=== PATIENT | female | born 1935 | race Caucasian/White ===

== ENCOUNTER → 2016-07-27 | Outpatient (CLI) | payer MEDICARE, OTHER ==
[~2016-07-27] MED LIST: ACET-785 PO; ASPI-611 PO; BUME1TAB16 PO; BUTA1CAP5 PO; COLC0.6T44 PO; CYAN10009 PO; CYCL5TAB PO; DICY10CA13 PO; DILT120C47 PO; FESO8TAB PO; FOLI1TAB15 PO; LOSA50TA52 PO; MAGN400T26 PO; METH2.5T6 PO; PANT40TA27 PO; POLY119P3 PO; PRED-219 PO; SERT100T12 PO; SIME180C40 PO; TRAM50TA4 PO; TRAZ-173 PO; VERA180C2 PO; VITA1CAP52 PO; WARF2.5T48 PO; WARF3TAB6 PO; ZOLE5INF7 IV
== END ==
LOC: NWCC 13:27
PROVIDERS: ATTEND Surgery
DX: I87.2 Venous insufficiency (chronic) (peripheral) (principal); L97.822 Non-pressure chronic ulcer of other part of left lower leg with fat layer exposed; R60.0 Localized edema
CPT/HCPCS: 29581; G0463

== ENCOUNTER → 2016-08-03 | Outpatient (CLI) | payer MEDICARE, OTHER ==
[~2016-08-03] MED LIST changes: +CALMOSEPTINE OINTMENT 3.5 G PACKET TOP ONE
== END ==
LOC: NWCC 13:34
PROVIDERS: ATTEND Surgery
DX: L97.822 Non-pressure chronic ulcer of other part of left lower leg with fat layer exposed (principal); R60.0 Localized edema; I87.2 Venous insufficiency (chronic) (peripheral)
CPT/HCPCS: 29581; A6209; A9270; G0463

== ENCOUNTER → 2016-08-09 | Outpatient (CLI) | payer MEDICARE, OTHER ==
[~2016-08-09] MED LIST changes: -CALMOSEPTINE OINTMENT 3.5 G PACKET TOP ONE; +SALINE FLUSH 10ml SYRINGE IVF ONE
== END ==
LOC: NWCC 10:59
PROVIDERS: ATTEND Surgery
DX: I87.2 Venous insufficiency (chronic) (peripheral) (principal); L97.822 Non-pressure chronic ulcer of other part of left lower leg with fat layer exposed; R60.0 Localized edema
CPT/HCPCS: 15271; 29581; A6207; Q4101

== ENCOUNTER → 2016-08-17 | Outpatient (CLI) | payer MEDICARE, OTHER ==
[~2016-08-17] MED LIST changes: -SALINE FLUSH 10ml SYRINGE IVF ONE
== END ==
LOC: NWCC 10:12
PROVIDERS: ATTEND Surgery
DX: L97.222 Non-pressure chronic ulcer of left calf with fat layer exposed (principal); I87.2 Venous insufficiency (chronic) (peripheral); R60.0 Localized edema
CPT/HCPCS: 29581; G0463

== ENCOUNTER → 2016-08-23 | Outpatient (CLI) | payer MEDICARE, OTHER | LOC: NWCC 09:01 | PROVIDERS: ATTEND Surgery | DX: I87.2 Venous insufficiency (chronic) (peripheral) (principal); L97.822 Non-pressure chronic ulcer of other part of left lower leg with fat layer exposed; R60.0 Localized edema | CPT/HCPCS: 29581; A6209; G0463 ==

== ENCOUNTER → 2016-08-24 | Outpatient (CLI) | payer MEDICARE, OTHER ==
[~2016-08-24] MED LIST changes: +ACET-2890 PO; +CALC-823 PO; +DILT240C96 PO; +METR45CR TOP; +MULT-933 PO
== END ==
LOC: NWCC 13:55
PROVIDERS: ATTEND Surgery
DX: I87.2 Venous insufficiency (chronic) (peripheral) (principal); L97.822 Non-pressure chronic ulcer of other part of left lower leg with fat layer exposed; R60.0 Localized edema
CPT/HCPCS: 29581; G0463

== ENCOUNTER → 2016-08-31 | Outpatient (CLI) | payer MEDICARE, OTHER ==
[~2016-08-31] MED LIST changes: +CALC-724 PO; +CEPH500C2 PO; +DIGO125T88 PO; +DILT180C3 PO; +WARF2TAB58 PO
== END ==
LOC: NWCC 10:28
PROVIDERS: ATTEND Surgery
DX: I87.2 Venous insufficiency (chronic) (peripheral) (principal); L97.822 Non-pressure chronic ulcer of other part of left lower leg with fat layer exposed; R60.0 Localized edema
CPT/HCPCS: 29581; G0463

== ENCOUNTER → 2016-09-06 | Outpatient (CLI) | payer MEDICARE, OTHER | LOC: NWCC 13:57 | PROVIDERS: ATTEND Surgery | DX: I87.2 Venous insufficiency (chronic) (peripheral) (principal); R60.0 Localized edema ==

== ENCOUNTER 2016-09-08 17:06 | Observation (INO) | payer MEDICARE, OTHER ==
[~2016-09-08] VITALS: Ht 152.4 cm; Wt 43.7 kg
[~2016-09-08 17:06] MED LIST changes: -ACET-2890 PO; -CALC-724 PO; -CALC-823 PO; -CEPH500C2 PO; -DIGO125T88 PO; -DILT180C3 PO; -DILT240C96 PO; -METR45CR TOP; -MULT-933 PO; -WARF2TAB58 PO
--- OUTSIDE RECORDS SUMMARY | 2016-09-08 17:10 | XMS REPORT | Referral Summary ---
Author Author [facility], Family Medicine Organization [facility] Address Unknown Phone Unavailable Care Team Providers Care Government Affairs Specialist Name Role Phone Bryce Kearns Primary Care Physician [phone] Encounter VC Date(s): 04/04/16 - 04/04/16 [facility], [address] [place] [id number] Discharge Disposition: 01-Home or Self Care Attending Physician: Juan Vazquez APRN Admitting Physician: Juan Vazquez APRN Vital Signs Most recent to 1 oldest [Reference Range]: Temperature Tympanic 36.6 degC [36.6-38.1 degC] (04/04/16 2:27 PM) Peripheral Pulse 101 bpm Rate [60-100 bpm] *HI* (04/04/16 2:27 PM) Respiratory Rate 18 br/min [14-20 br/min] (04/04/16 2:27 PM) Blood Pressure 130/64 mmHg [90-140/60-90 mmHg] (04/04/16 2:27 PM) SpO2 99 % (04/04/16 2:27 PM) Problem List Condition Effective Dates Status Health Status Informant Abdominal < 04/04/14 Resolved pain(Confirmed) Anemia(Confirmed) Active Warfarin Active anticoagulation(Conf irmed) Breast cancer 2002 Resolved Lt(Confirmed) Breast cancer 2012 Resolved Rt(Confirmed) Viral Active cardiomyopathy(Confi rmed) Carpal tunnel 1993 Resolved syndrome(Confirmed) Cervical spondylosis Active without myelopathy (disorder)(Confirmed ) Atrial Active fibrillation(Confirm ed) Peptic ulcer Active disease(Confirmed) Compression fracture Active of L1 lumbar vertebra(Confirmed) CAD (coronary artery Active disease)(Confirmed) Cystocele-recurrent( Resolved Confirmed) Gastritis(Confirmed) Active Chronic < 03/05/15 Resolved anticoagulation(Conf irmed) Hypertension(Confirm Active ed) Insomnia(Confirmed) Active Malignant neoplasm Active of female breast (disorder)(Confirmed ) Overactive Active bladder(Confirmed) Paroxysmal Active supraventricular tachycardia (disorder)(Confirmed ) Encounter for Active chronic pain management(Confirmed ) Renal Active insufficiency(Confir med) Single major Active depressive episode (disorder)(Confirmed ) Trauma Lt ring 1979 Resolved finger(Confirmed) Varicose veins Lt 2011 Resolved leg(Confirmed) Venous insufficiency 2011 Resolved Lt leg(Confirmed) 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 (disorder)(Confirmed ) Allergies, Adverse Reactions, Alerts Substance Reaction Severity Status codeine NAUSEA/CONSTIPATION Active HYDROcodone confusion Active hydroxychloroquine rash Medium Active RASH/ITCHING morphine MENTAL CHANGES--CONFUSION Active Unknown terbinafine hives Severe Active Eczema (rash) zolpidem confusion Medium Active Adverse Reaction Medications acetaminophen 1,300 mg, Oral, TID, 0 Refill(s) Start Date: 11/25/13 Status: Ordered amoxicillin 500 mg oral capsule See Instructions, Take 4 capsules 1 hour before dental appointment, 0 Refill(s) Start Date: 03/03/16 Status: Ordered aspirin 81 mg oral tablet tabs, Oral, Daily, 0 Refill(s) Start Date: 11/25/13 Status: Ordered bumetanide 1 mg oral tablet See Instructions, TAKE ONE AND ONE-HALF TABLET BY MOUTH EVERY DAY, # 45 tabs, 4 Refill(s), eRx: [facility] #[id number], TAKE ONE AND ONE-HALF TABLET BY MOUTH EVERY DAY Start Date: 03/14/16 Status: Ordered butalbital/aspirin/caffeine 50 mg-325 mg-40 mg oral tablet 2 tabs, Oral, q6hr, as needed for pain, S RICHARD, # 120 tabs, 0 Refill(s) Start Date: 04/27/15 Status: Ordered calcium carbonate 500 mg (200 mg elemental calcium) oral tablet, chewable tabs, Chewed, TID, 0 Refill(s) Start Date: 11/25/13 Status: Ordered Cartia XT 120 mg/24 hours oral capsule, extended release 120 mg 1 caps, Oral, Daily, # 30 caps, 0 Refill(s), other reason (Rx) Start Date: 02/29/16 Status: Ordered colchicine 0.6 mg oral tablet 1 tabs, Oral, BID, # 30 tabs, 0 Refill(s) Start Date: 11/25/13 Status: Ordered Coumadin 2.5 mg oral tablet See Instructions, TAKE ONE TABLET BY MOUTH 5 DAYS A WEEK, # 30 tabs, 5 Refill(s ), Pharmacy: [facility] #[id number], TAKE ONE TABLET BY MOUTH 5 DAYS A WEEK Start Date: 03/31/16 Status: Ordered cyclobenzaprine 5 mg oral tablet See Instructions, TAKE ONE TABLET BY MOUTH THREE TIMES A DAY FOR 7 DAYS NEEDED FOR MUSCLE SPASM, # 15 tabs, eRx: [facility] #[id number], TAKE ONE TABLET BY MOUTH THREE TIMES A DAY FOR 7 DAYS NEEDED FOR MUSCLE SPASM Start Date: 03/14/16 Status: Ordered dicyclomine 10 mg oral capsule See Instructions, TAKE 1-2 CAPSULES BY MOUTH EVERY 6 HOURS NEEDED FOR IRRITABLE BOWEL, # 100 caps, 4 Refill(s), Pharmacy: [facility] #[id number], TAKE 1-2 CAPSULES BY MOUTH EVERY 6 HOURS NEEDED FOR IRRITABLE BOWEL Start Date: 04/27/15 Status: Ordered folic acid 1 mg oral tablet See Instructions, TAKE ONE TABLET BY MOUTH DAILY, # 30 tabs, 2 Refill(s), eRx: [facility] #[id number], TAKE ONE TABLET BY MOUTH DAILY Start Date: 04/04/16 Status: Ordered losartan 50 mg, Oral, BID, 0 Refill(s) Start Date: 02/29/16 Status: Ordered Mag-Ox 400 0 Refill(s) Start Date: 11/25/13 Status: Ordered methotrexate 2.5 mg oral tablet See Instructions, TAKE 7 TABLETS BY MOUTH ONCE WEEKLY, # 35 tabs, 5 Refill(s), eRx: [facility] #[id number], TAKE 7 TABLETS BY MOUTH ONCE WEEKLY Start Date: 09/21/15 Status: Ordered MetroCream 0.75% topical cream 1 miguel a, Topical, BID, # 45 g, 0 Refill(s), Pharmacy: [facility] #[id number] Start Date: 10/23/15 Status: Ordered MiraLax oral powder for reconstitution 17 g, Oral, Daily, dissolve in water before taking, # 527 g, 0 Refill(s) Start Date: 11/25/13 Status: Ordered pantoprazole 40 mg oral delayed release tablet See Instructions, TAKE ONE TABLET BY MOUTH DAILY, # 30 tabs, 4 Refill(s), eRx: [facility] #[id number], TAKE ONE TABLET BY MOUTH DAILY Start Date: 03/14/16 Status: Ordered predniSONE 5 mg oral tablet See Instructions, TAKE ONE TABLET BY MOUTH DAILY, # 90 tabs, 2 Refill(s), eRx: [facility] #[id number], TAKE ONE TABLET BY MOUTH DAILY Start Date: 12/14/15 Status: Ordered Reclast mg, IV, Once, 0 Refill(s) Start Date: 04/04/14 Status: Ordered sertraline 100 mg oral tablet See Instructions, TAKE ONE TABLET BY MOUTH ONCE A DAY, # 90 tabs, 1 Refill(s), eRx: [facility] #[id number], TAKE ONE TABLET BY MOUTH ONCE A DAY Start Date: 12/01/15 Status: Ordered simethicone 180 mg oral capsule 180 mg 1 caps, Oral, Daily, gas Start Date: 03/03/16 Status: Ordered Toviaz 8 mg oral tablet, extended release See Instructions, TAKE ONE TABLET BY MOUTH DAILY, # 30 tabs, 5 Refill(s), Pharmacy: [facility] #[id number], TAKE ONE TABLET BY MOUTH DAILY Start Date: 03/10/16 Status: Ordered traMADol 50 mg oral tablet See Instructions, 1 tabs Q 6 hours up to 4 times per day. Maximum of 4 tablets= 200 mg/day, # 120 tabs, 0 Refill(s), Must last at least 30 days.(thru 08/28) Start Date: 03/21/16 Status: Ordered traZODone 100 mg oral tablet See Instructions, TAKE 1 1/2 TABLETS BY MOUTH EVERY NIGHT AT BEDTIME, # 270 tabs , 1 Refill(s), Pharmacy: [facility] #[id number], TAKE 1 1/2 TABLETS BY MOUTH EVERY NIGHT AT BEDTIME Start Date: 06/24/15 Status: Ordered verapamil 180 mg/24 hours oral capsule, extended release See Instructions, TAKE ONE CAPSULE BY MOUTH TWICE A DAY, # 60 caps, 1 Refill(s) , eRx: [facility] #[id number], TAKE ONE CAPSULE BY MOUTH TWICE A DAY Start Date: 02/02/16 Status: Ordered Vitamin B Complex oral tablet tabs, Oral, Daily, 0 Refill(s) Start Date: 11/25/13 Status: Ordered Vitamin B-12 1000 mcg oral tablet 1 tabs, Oral, Daily, # 90 tabs, 0 Refill(s) Start Date: 11/25/13 Status: Ordered Results No data available for this section Immunizations Vaccine Date Refusal Reason influenza virus vaccine, inactivated 02/29/16 influenza virus vaccine, inactivated 02/25/14 influenza virus vaccine, live 03/04/13 influenza virus vaccine, live 01/27/12 influenza virus vaccine, live 02/04/11 influenza virus vaccine, live 02/16/09 influenza virus vaccine, live 03/21/08 influenza virus vaccine, live 04/07/06 pneumococcal 13-valent conjugate vaccine 04/04/14 pneumococcal 23-polyvalent vaccine 01/27/12 tetanus-diphth toxoids (Td) adult/adol1 03/17/16 tetanus-diphth toxoids (Td) adult/adol 09/24/11 tetanus-diphth toxoids (Td) adult/adol 06/09/99 zoster vaccine live 04/13/11 1Location History: given at [facility] Procedures Procedure Date Related Diagnosis Body Site Arthrocentesis-aspiration of major joint 05/15/13 Sclerotherapy of vein 2012 Intraoperative lymphatic mapping, [place] 05/24/12 lymphadenectomy, Rt simple mastectomy Laser ablation of long saphenous vein Lt 11/17/11 great Prolift mesh & cystocele repair; cystoscopy 09/29/09 Hx of shoulder surgery Lt 2006 Hx of mastectomy Lt simple 2002 Colonoscopy 05/29/00 Revoved Rods 1994 Decomp. Laminectomy Disectomy CD Rods, Bones 1991 Tubal ligation 1975 Lumbar spinal fusion 1975 Dilation and curettage 1960 Appendectomy 195 - Spontaneous vaginal delivery x5 Tonsillectomy and adenoidectomy Social History Social History Type Response Smoking Status Never smoker Assessment and Plan No data available for this section
--- OUTSIDE RECORDS SUMMARY | 2016-09-08 17:12 | XMS REPORT | Continuity of Care Document ---
Author Author [facility] Organization [facility] Address Unknown Phone Unavailable Support Name Relationship Address Phone LATASHA ANTUNEZ Next Of Kin [phone] [address] Unavailable Insurance Providers Payer Name Policy Number Subscriber Name Relationship Medicare [id number] Callie Antunez 16 Self [place] [id number] Callie Antunez 16 Self Problems No Known Problems or Medical conditions. Family History History Response Recorded Date/Time HX of Orthopedic Surgeries Y neck and back 12/10/12 4:30pm Hx Abdominal Surgery Y appy 12/10/12 4:30pm HX Cerebrovascular Accident N 12/10/12 4:30pm Hx Seizures N 12/10/12 4:30pm Hx Angina N 12/10/12 4:30pm Hx Congestive Heart Failure N 12/10/12 4:30pm Hx Heart Attack N 12/10/12 4:30pm Hx Hypertension Y 12/10/12 4:30pm Hx Rheumatic Fever N 12/10/12 4:30pm Hx Cancer Y breast 12/10/12 4:30pm Hx MRSA N 12/10/12 4:30pm HX of Cardiac Surgeries Y cardiac ablasion 12/10/12 4:30pm HX of Endocrine Surgeries N 12/10/12 4:30pm HX of Throat Surgery Y T&A 12/10/12 4:30pm Cardiac A-fib 12/10/12 5:15pm Respiratory COPD 12/10/12 5:12pm Social History History Response Recorded Date/Time Smoking Status Never smoker 12/10/12 4:30pm Hx Alcohol Use N 12/10/12 4:30pm Allergies, Adverse Reactions, Alerts Allergen Type Severity Reaction Last Updated terbinafine HCl Allergy Intermediate RASH 12/10/12 morphine Allergy Intermediate BEHAVIOR DISTURBANCE 12/10/12 Medications Medication Dose Units Route Sig Qty Days Tramadol Hcl 50 Mg PO PRN Colchicine 0.6 Mg PO BID Acetaminophen (Tylenol) 650 Mg PO PRN Trazodone Hcl 300 Mg PO HS Ranitidine Hcl (Zantac) 150 Mg PO DAILY Vitamin B Complex (B Complex) 1 Cap PO DAILY Medroxyprogesterone Acet (Provera) 2.5 Mg PO DAILY Propranolol Hcl 10 Mg PO HS Estrogens,Conjugated (Premarin) 0.3 Mg PO HS Prednisone 5 Mg PO DAILY Calcium Carbonate/Vitamin D3 (Calcium 250+D Tablet) 1 Tab PO TID Omeprazole 40 Mg PO DAILY Multivitamins (Multivitamin) 1 Tab PO DAILY Polyethylene Glycol 3350 (Miralax) 17 Gm PO DAILY Magnesium Oxide 400 Mg PO DAILY Lisinopril 5 Mg PO BID Ferrous Sulfate 325 ( PO DAILY Butalbital/Aspirin/Caffeine (Fiorinal) 2 Cap PO PRN Darifenacin Hydrobromide (Enablex) 15 Mg PO DAILY Cyclobenzaprine Hcl 5 Mg PO Q8H Warfarin Sodium (Coumadin) 3 Mg PO DAILY Bumetanide 1.5 Mg PO DAILY Aspirin 81 Mg PO DAILY Immunizations Name Given Type Hx Influenza Vaccination N H Hx Pneumococcal Vaccination N H Response Recorded Date/Time Status not known Unknown Results Test Date Result Interp. Ref. Range Alanine Aminotransferase (ALT/SGPT) March 03, 2011 1:45pm 20 U/L N 9-52 Albumin March 03, 2011 1:45pm 3.6 G/DL N 3.5-5.0 Albumin/Globulin Ratio March 03, 2011 1:45pm 1.4 RATIO N 1.1-2.2 Alkaline Phosphatase March 03, 2011 1:45pm 86 U/L N 38-126 Anion Gap January 23, 2012 9:00am 8 MEQ/L N 5-15 Aspartate Amino Transf (AST/SGOT) March 03, 2011 1:45pm 34 U/L N 14-36 BUN/Creatinine Ratio January 23, 2012 9:00am 38 RATIO H 6-26 Band Neutrophils # January 23, 2012 9:03am 0.4 T/MM3 - Band Neutrophils % January 23, 2012 9:03am 5.0 % N 0-6 Basophils # (Auto) January 09, 2012 9:40am 0.1 T/MM3 N 0-0.2 Basophils # (Manual) January 16, 2012 8:59am 0.1 T/MM3 N 0-0.2 Basophils % (Manual) January 16, 2012 8:59am 1.0 % N 0-2 Basophils (%) (Auto) January 09, 2012 9:40am 0.8 % N 0-2 Blood Urea Nitrogen January 23, 2012 9:00am 38.0 MG/DL H 7-17 C-Reactive Protein January 09, 2012 9:40am 46.4 MG/L H 0-9 Calcium Level January 23, 2012 9:00am 9.0 MG/DL N 8.4-10.2 Calculated Osmolality January 23, 2012 9:00am 274 MOSM/KG N 261-280 Carbon Dioxide Level January 23, 2012 9:00am 27 MEQ/L N 22-30 Chloride Level January 23, 2012 9:00am 103 MEQ/L N 98-107 Cholesterol Level March 03, 2011 1:45pm 201 MG/DL H 132-199 Cholesterol/HDL Ratio March 03, 2011 1:45pm 3.0 RATIO N 0-4.0 Creatinine January 23, 2012 9:00am 1.0 MG/DL N 0.7-1.2 Eosinophils # (Auto) January 09, 2012 9:40am 0.5 T/MM3 N 0-0.5 Eosinophils # (Manual) December 15, 2008 7:10am 0.6 T/MM3 H 0-0.5 Eosinophils % (Manual) December 15, 2008 7:10am 6.0 % H 0-4 Eosinophils (%) (Auto) January 09, 2012 9:40am 6.2 % H 0-4 Erythrocyte Sedimentation Rate January 09, 2012 9:40am 72 MM/HR H 0-20 Globulin March 03, 2011 1:45pm 2.5 G/DL N 2.4-3.6 Glucose Level January 23, 2012 9:00am 85 MG/DL N 65-110 Hematocrit January 23, 2012 9:03am 30.1 % L 36-46 Hemoglobin January 23, 2012 9:03am 9.2 GM/DL L 12-16 LDL Cholesterol, Calculated March 03, 2011 1:45pm 96.8 N 66-159 Lymphocytes # (Auto) January 09, 2012 9:40am 1.3 T/MM3 N 1-4.8 Lymphocytes # (Manual) January 23, 2012 9:03am 1.7 T/MM3 N 1-4.8 Lymphocytes % (Manual) January 23, 2012 9:03am 21.0 % L 23-45 Lymphocytes (%) (Auto) January 09, 2012 9:40am 18.0 % L 23-45 Mean Corpuscular Hemoglobin January 23, 2012 9:03am 28.9 UUG N 26-34 Mean Corpuscular Hemoglobin Concent January 23, 2012 9:03am 30.6 GM/DL L 31 -37 Mean Corpuscular Volume January 23, 2012 9:03am 94.7 UM3 N 80-100 Mean Platelet Volume January 23, 2012 9:03am 10.2 UM3 N 9.4-12.4 Monocytes # (Auto) January 09, 2012 9:40am 0.7 T/MM3 N 0-0.8 Monocytes # (Manual) January 23, 2012 9:03am 0.5 T/MM3 N 0-0.8 Monocytes % (Manual) January 23, 2012 9:03am 6.0 % N 0-9.0 Monocytes (%) (Auto) January 09, 2012 9:40am 9.3 % H 0-9.0 Neutrophils # (Auto) January 09, 2012 9:40am 4.7 T/MM3 N 1.8-7.7 Neutrophils # (Manual) January 23, 2012 9:03am 5.4 T/MM3 N 1.8-7.7 Neutrophils % (Manual) January 23, 2012 9:03am 68.0 % H 33-66 Neutrophils (%) (Auto) January 09, 2012 9:40am 65.6 % N 33-66 Ova and Parasites (LAB) April 05, 2008 6:45am Sent out - Platelet Count January 23, 2012 9:03am 473 T/MM3 H 130-400 Potassium Level January 23, 2012 9:00am 4.7 MEQ/L N 3.6-5 Prothromb Time International Ratio December 15, 2008 7:10am 4.99 PH 0.79-1.23 RDW Standard Deviation January 23, 2012 9:03am 46.0 FL N 36.9-50.2 Red Blood Count January 23, 2012 9:03am 3.18 M/MM3 L 4.00-5.20 Sodium Level January 23, 2012 9:00am 138 MEQ/L N 134-144 Total Bilirubin March 03, 2011 1:45pm 0.40 MG/DL N 0.20-1.30 Total Protein March 03, 2011 1:45pm 6.1 G/DL L 6.3-8.2 Triglycerides Level March 03, 2011 1:45pm 191 MG/DL H 35-135 Urine Bacteria December 13, 2008 4:00pm 1+ - Urine Bilirubin December 13, 2008 4:00pm Negative - Urine Blood December 13, 2008 4:00pm 3+ H - Urine Collection Type December 13, 2008 4:00pm Voided - Urine Color December 13, 2008 4:00pm Yellow - Urine Culture Indicated December 13, 2008 4:00pm Cult set up - Urine Glucose (UA) December 13, 2008 4:00pm Negative - Urine Ketones December 13, 2008 4:00pm Negative - Urine Leukocyte Esterase December 13, 2008 4:00pm 2+ H - Urine Nitrite December 13, 2008 4:00pm Negative - Urine Protein December 13, 2008 4:00pm Trace H - Urine RBC December 13, 2008 4:00pm 1-3 /HPF - Urine Specific [place] December 13, 2008 4:00pm 1.005 L - Urine Squamous Epithelial Cells July 08, 2008 10:17am None seen - Urine Turbidity December 13, 2008 4:00pm Slightly cloudy - Urine Urobilinogen December 13, 2008 4:00pm Normal EU/DL - Urine WBC December 13, 2008 4:00pm Tntc /HPF - Urine pH December 13, 2008 4:00pm 6.5 - VLDL Cholesterol March 03, 2011 1:45pm 38.2 MG/DL H 0-28 White Blood Count January 23, 2012 9:03am 8.0 T/MM3 N 4.5-11.0 HDL Cholesterol Direct March 03, 2011 1:45pm 66 MG/DL H 40-60 Reactive Lymphocytes % January 16, 2012 8:59am 1.0 % H 0-0 Glomerular Filtration Rate Calc January 23, 2012 9:00am 54 - Reactive Lymphocytes # January 16, 2012 8:59am 0.1 T/MM3 H 0-0 Immature Granulocyte # (Auto) January 09, 2012 9:40am 0.01 T/MM3 N 0.00- 0.03 Immature Granulocyte % (Auto) January 09, 2012 9:40am 0.1 % N 0.0-0.5 Procedures Procedure Code Date Stool Culture 04/05/08 Urine Culture 12/14/08 Encounters Encounter Location Date/Time Departed Emergency Room [facility] 12/10/12 4:24pm
--- OUTSIDE RECORDS SUMMARY | 2016-09-08 17:12 | XMS REPORT | Referral Summary ---
Author Author [facility] Organization [facility] Address Unknown Phone Unavailable Care Team Providers Care Coating Machine Helper Name Role Phone Bryce Kearns Primary Care Physician [phone] Encounter VC Date(s): 02/29/16 - 02/29/16 [facility] [address] [place] [id number] Discharge Diagnosis: Chronic atrial fibrillation Discharge Diagnosis: Warfarin anticoagulation Discharge Diagnosis: Hypertension Discharge Diagnosis: At high risk for falls Discharge Diagnosis: Polypharmacy Discharge Diagnosis: Overactive bladder Discharge Diagnosis: Depression Discharge Disposition: -Home or Self Care Attending Physician: Carmine Kearns MD Admitting Physician: Carmine Kearns MD Vital Signs Most recent to 1 oldest [Reference Range]: Temperature Tympanic 36.7 degC [36.6-38.1 degC] (02/29/16 1:17 PM) Peripheral Pulse 109 bpm Rate [60-100 bpm] *HI* (02/29/16 1:17 PM) Blood Pressure 148/60 mmHg [90-140/60-90 mmHg] *HI* (02/29/16 1:17 PM) Problem List Condition Effective Dates Status Health Status Informant Abdominal < 04/04/14 Resolved pain(Confirmed) Anemia(Confirmed) Active Warfarin Active anticoagulation(Conf irmed) Breast cancer 2002 Resolved Lt(Confirmed) Breast cancer 2011 Resolved Rt(Confirmed) Viral Active cardiomyopathy(Confi rmed) Carpal [...] confusion Medium Active Adverse Reaction Medications acetaminophen 0 Refill(s) Start Date: 11/25/13 Status: Ordered aspirin 81 mg oral tablet tabs, Oral, Daily, 0 Refill(s) Start Date: 11/25/13 Status: Ordered atenolol 25 mg oral tablet See Instructions, TAKE ONE TABLET BY MOUTH EVERY 12 HOURS, # 180 tabs, 1 Refill( s), eRx: [facility] #[id number], TAKE ONE TABLET BY MOUTH EVERY 12 HOURS Start Date: 11/09/15 Status: Ordered bumetanide 1 mg oral tablet See Instructions, TAKE ONE AND ONE-HALF TABLET BY MOUTH EVERY DAY, # 45 tabs, 6 Refill(s), Pharmacy: [facility] #[id number], TAKE ONE AND ONE-HALF TABLET BY MOUTH EVERY DAY Start Date: 11/14/14 Status: Ordered butalbital/aspirin/caffeine 50 mg-325 mg-40 mg [...] release 120 mg 1 caps, Oral, Daily, Actual dose uncertain!!!, # 30 caps, 0 Refill(s), other reason (Rx) Start Date: 02/29/16 Status: Ordered colchicine 0.6 mg oral tablet 1 tabs, Oral, BID, # 30 tabs, 0 Refill(s) Start Date: 11/25/13 Status: Ordered Coumadin 2.5 mg oral tablet See Instructions, TAKE ONE TABLET BY MOUTH ON MONDAY, MONDAY, AND MONDAY, # 30 tabs, eRx: [facility] #[id number], TAKE ONE TABLET BY MOUTH ON MONDAY, MONDAY, AND MONDAY Start Date: 02/08/16 Status: Ordered dicyclomine 10 mg oral capsule See Instructions, TAKE 1-2 CAPSULES BY MOUTH EVERY 6 HOURS NEEDED FOR IRRITABLE BOWEL, # 100 caps, 4 Refill(s), Pharmacy: [facility] #[id number], TAKE 1-2 CAPSULES BY MOUTH EVERY 6 HOURS NEEDED FOR IRRITABLE BOWEL Start Date: 04/27/15 Status: Ordered folic acid 1 mg oral tablet See Instructions, TAKE ONE TABLET BY MOUTH DAILY, # 30 tabs, 3 Refill(s), eRx: [facility] #[id number], TAKE ONE TABLET BY MOUTH DAILY Start Date: 12/28/15 Status: Ordered losartan Oral, Daily, 0 Refill(s) Start Date: 02/29/16 Status: Ordered Mag-Ox 400 0 Refill(s) Start Date: 11/25/13 Status: Ordered methotrexate 2.5 mg oral tablet See Instructions, TAKE 7 TABLETS BY MOUTH ONCE WEEKLY, # 35 tabs, 5 Refill(s), eRx: [facility] #[id number], TAKE 7 TABLETS BY MOUTH ONCE WEEKLY Start Date: 09/21/15 Status: Ordered MetroCream 0.75% topical cream 1 miguel a, Topical, BID, # 45 g, 0 Refill(s), Pharmacy: [facility] #[id number] Start Date: 10/23/15 Status: Ordered MiraLax oral powder for reconstitution 17 g, Oral, Daily, dissolve in water before taking, # 527 g, 0 Refill(s) Start Date: 11/25/13 Status: Ordered predniSONE 5 mg oral tablet See Instructions, TAKE ONE TABLET BY MOUTH DAILY, # 90 tabs, 2 Refill(s), eRx: [facility] #[id number], TAKE ONE TABLET BY MOUTH DAILY Start Date: 12/14/15 Status: Ordered Protonix 40 mg oral delayed release tablet See Instructions, TAKE ONE TABLET BY MOUTH DAILY, # 30 tabs, 5 Refill(s), eRx: [facility] #[id number], TAKE ONE TABLET BY MOUTH DAILY Start Date: 08/31/15 Status: Ordered Reclast mg, IV, Once, 0 Refill(s) Start Date: 04/04/14 Status: Ordered sertraline 100 mg oral tablet See Instructions, TAKE ONE TABLET BY MOUTH ONCE A DAY, # 90 tabs, 1 Refill(s), eRx: [facility] #[id number], TAKE ONE TABLET BY MOUTH ONCE A DAY Start Date: 12/01/15 Status: Ordered Toviaz 8 mg oral tablet, extended release See Instructions, TAKE ONE TABLET BY MOUTH DAILY, # 30 tabs, 5 Refill(s), eRx: [facility] #[id number], TAKE ONE TABLET BY MOUTH DAILY Start Date: 01/25/16 Status: Ordered traMADol 50 mg oral tablet See Instructions, 1 tabs Q 6 hours up to 4 times per day. Maximum of 4 tablets= 200 mg/day, # 120 tabs, 0 Refill(s), Must last at least 30 days.(thru 08/28) Start Date: 02/22/16 Status: Ordered traZODone 100 mg oral tablet See Instructions, TAKE 1 1/2 TABLETS BY MOUTH EVERY NIGHT AT BEDTIME, # 270 tabs , 1 Refill(s), Pharmacy: [facility] #[id number], TAKE 1 1/2 TABLETS BY MOUTH EVERY NIGHT AT BEDTIME Start Date: 06/24/15 Status: Ordered verapamil 180 mg/24 hours oral capsule, extended release See Instructions, TAKE ONE CAPSULE BY MOUTH TWICE A DAY, # 60 caps, 1 Refill(s) , eRx: [facility] #[id number], TAKE ONE CAPSULE BY MOUTH TWICE A [...] pneumococcal 23-polyvalent vaccine 01/27/12 tetanus-diphth toxoids (Td) adult/adol 09/24/11 tetanus-diphth toxoids (Td) adult/adol 06/09/99 zoster vaccine live 04/13/11 Procedures Procedure Date Related Diagnosis Body Site Arthrocentesis-aspiration of major joint 05/15/13 Sclerotherapy of vein 2012 Intraoperative lymphatic mapping, [place] 05/24/12 lymphadenectomy, Rt simple mastectomy Laser ablation of long saphenous vein Lt 11/17/11 great Prolift mesh & cystocele repair; cystoscopy 09/29/09 Hx of shoulder surgery Lt 2006 Hx of mastectomy Lt simple 2002 Colonoscopy 05/29/00 Revoved Rods 1994 Decomp. Laminectomy Disectomy CD Rods, Bones 1991 Tubal ligation 1975 Lumbar spinal fusion 1975 Dilation and curettage 1960 Appendectomy 1951 - Spontaneous vaginal delivery x5 Tonsillectomy and adenoidectomy Social History Social History Type Response Smoking Status Never smoker Assessment and Plan Extracted from: Title: 3 Month CDM Author: Carmine Kearns MD Date: 02/29/16 Impression and Plan Diagnosis Warfarin anticoagulation (TLO71-FR Z79.01, Discharge, Medical). Polypharmacy (BEO30-UW Z79.899, Discharge, Medical). Overactive bladder (APB35-YB N32.81, Discharge, Medical). Need for vaccination (PUL52-AF Z23, Working, Medical). Hypertension (PBK31-LF I10, Discharge, Medical). Depression (DCC91-XP F32.9, Discharge, Medical). Chronic atrial fibrillation (EWF13-VL I48.2, Discharge, Medical). At high risk for falls (QBG98-JE Z91.81, Discharge, Medical). Orders Orders (Selected) Outpatient Orders Completed influenza virus vaccine, inactivated: 0.5 mL, IntraMuscular, Once.
--- OUTSIDE RECORDS SUMMARY | 2016-09-08 17:13 | XMS REPORT | Referral Summary ---
Author Author [facility] Organization [facility] Address Unknown Phone Unavailable Care Team Providers Care Nutrition Tech Name Role Phone Bryce Kearns Primary Care Physician [phone] Encounter VC Date(s): 04/28/16 - 04/28/16 [facility] [address] [place] [address] Discharge Diagnosis: H/O cardiomyopathy Discharge Diagnosis: Encounter for medication monitoring Discharge Diagnosis: Fatigue Discharge Diagnosis: Visit for wound care Discharge Disposition: 01-Home or Self Care Attending Physician: Carmine Kearns MD Admitting Physician: Carmine Kearns MD Vital Signs Most recent to 1 oldest [Reference Range]: Temperature Tympanic 36.6 degC [36.6-38.1 degC] (04/28/16 1:08 PM) Peripheral Pulse 101 bpm Rate [60-100 bpm] *HI* (04/28/16 1:08 PM) Blood Pressure 141/67 mmHg [90-140/60-90 mmHg] *HI* (04/28/16 1:08 PM) Problem List Condition Effective Dates Status [...] TAKE ONE AND ONE-HALF TABLET BY MOUTH daily as needed based on fluid retention/weight gain., # 45 tabs, 4 Refill(s), eRx: [facility] # [id number], TAKE ONE AND ONE-HALF TABLET BY MOUTH [...] # 30 tabs, 5 Refill(s ), Pharmacy: [facility] #[id number], TAKE ONE TABLET BY MOUTH 5 DAYS A WEEK Start Date: 03/31/16 Status: Ordered cyclobenzaprine 5 mg oral tablet See Instructions, TAKE ONE TABLET BY MOUTH THREE TIMES A DAY FOR 7 DAYS NEEDED FOR MUSCLE SPASM, # 15 tabs, eRx: [facility] #[id number], TAKE ONE TABLET BY MOUTH THREE TIMES A DAY FOR 7 DAYS NEEDED FOR MUSCLE SPASM Start Date: 03/14/16 Status: Ordered dicyclomine 10 mg oral capsule See Instructions, TAKE 1-2 CAPSULES BY MOUTH EVERY 6 HOURS NEEDED FOR IRRITABLE BOWEL, # 100 caps, 4 Refill(s), Pharmacy: [facility] #[id number], TAKE 1-2 CAPSULES BY MOUTH EVERY 6 HOURS NEEDED FOR IRRITABLE BOWEL Start Date: 04/27/15 Status: Ordered folic acid 1 mg oral tablet See Instructions, TAKE ONE TABLET BY MOUTH DAILY, # 30 tabs, 2 Refill(s), eRx: [facility] #[id number], TAKE ONE TABLET BY MOUTH DAILY Start Date: 04/04/16 Status: Ordered losartan 50 mg, Oral, BID, 0 Refill(s) Start Date: 02/29/16 Status: Ordered Mag-Ox 400 0 Refill(s) Start Date: 11/25/13 Status: Ordered methotrexate 2.5 mg oral tablet See Instructions, TAKE 7 TABLETS BY MOUTH ONCE WEEKLY, # 35 tabs, 5 Refill(s), eRx: [facility] #[id number], TAKE 7 TABLETS BY MOUTH ONCE WEEKLY Start Date: 04/18/16 Status: Ordered MetroCream 0.75% topical cream 1 miguel a, Topical, BID, # 45 g, 0 Refill(s), Pharmacy: [facility] #[id number] Start Date: 10/23/15 Status: Ordered MiraLax oral powder for reconstitution 17 g, Oral, Daily, dissolve in water before taking, # 527 g, 0 Refill(s) Start Date: 11/25/13 Status: Ordered pantoprazole 40 mg oral delayed release tablet See Instructions, TAKE ONE TABLET BY MOUTH DAILY, # 30 tabs, 4 Refill(s), eRx: [facility] #[id number], TAKE ONE TABLET BY MOUTH DAILY Start Date: 03/14/16 Status: Ordered predniSONE 5 mg oral tablet See Instructions, TAKE ONE TABLET BY MOUTH DAILY, # 90 tabs, 2 Refill(s), eRx: [facility] #[id number], TAKE ONE TABLET BY MOUTH DAILY Start Date: 12/14/15 Status: Ordered Reclast mg, IV, Once, 0 Refill(s) Start Date: 04/04/14 Status: Ordered sertraline 100 mg oral tablet See Instructions, TAKE ONE TABLET BY MOUTH ONCE A DAY, # 90 tabs, 1 Refill(s), eRx: [facility] #[id number], TAKE ONE TABLET BY MOUTH ONCE A DAY Start Date: 12/01/15 Status: Ordered simethicone 180 mg oral capsule 180 mg 1 caps, Oral, Daily, gas Start Date: 03/03/16 Status: Ordered Toviaz 8 mg oral tablet, extended release See Instructions, TAKE ONE TABLET BY MOUTH DAILY, # 30 tabs, 5 Refill(s), Pharmacy: [facility] #[id number], TAKE ONE TABLET BY MOUTH DAILY Start Date: 03/10/16 Status: Ordered traMADol 50 mg oral tablet See Instructions, 1 tabs Q 6 hours up to 4 times per day. Maximum of 4 tablets= 200 mg/day, # 120 tabs, 0 Refill(s), Must last at least 30 days.(thru 08/28) Start Date: 04/25/16 Status: Ordered traZODone 100 mg oral tablet See Instructions, TAKE 1 1/2 TABLETS BY MOUTH EVERY NIGHT AT BEDTIME, # 270 tabs , 1 Refill(s), Pharmacy: [facility] #[id number], TAKE 1 1/2 TABLETS BY MOUTH EVERY NIGHT AT BEDTIME Start Date: 06/24/15 Status: Ordered verapamil 180 mg/24 hours oral capsule, extended release See Instructions, TAKE ONE CAPSULE BY MOUTH TWICE A DAY, # 60 caps, eRx: [facility] #[id number], TAKE ONE CAPSULE BY MOUTH TWICE A DAY Start Date: 04/11/16 Status: Ordered Vitamin B Complex oral tablet tabs, Oral, Daily, 0 Refill(s) Start Date: 11/25/13 Status: Ordered Vitamin B-12 1000 mcg oral tablet 1 tabs, Oral, Daily, # 90 tabs, 0 Refill(s) Start Date: 11/25/13 Status: Ordered Results Hematology Most recent to 1 oldest [Reference Range]: WBC [4.8-10.8 5.6 10*3/uL 10*3/uL] (04/28/16 2:00 PM) RBC [4.00-5.20] 3.67 *LOW* (04/28/16 2:00 PM) Hgb [12.0-16.0 11.1 gm/dL gm/dL] *LOW* (04/28/16 2:00 PM) Hct [37.0-47.0 %] 35.4 % *LOW* (04/28/16 2:00 PM) MCV [82.0-99.0 fL] 96.5 fL (04/28/16 2:00 PM) MCH [27.0-32.0 pg] 30.2 pg (04/28/16 2:00 PM) MCHC [32.0-36.0 31.4 gm/dL gm/dL] *LOW* (04/28/16 2:00 PM) RDW [11.5-14.5 %] 17.4 % *HI* (04/28/16 2:00 PM) Platelet [150-400 383 10*3/uL 10*3/uL] (04/28/16 2:00 PM) MPV [8.8-14.8 fL] 11.9 fL (04/28/16 2:00 PM) Immature 1.2 % Granulocytes *HI* [0.0-1.0 %] (04/28/16 2:00 PM) Neutrophils [51-75 61 % %] (04/28/16 2:00 PM) Lymphocytes [20-46 23 % %] (04/28/16 2:00 PM) Monocytes [4-11 %] 14 % *HI* (04/28/16 2:00 PM) Eosinophils [0-4 %] 1 % (04/28/16 2:00 PM) Basophils [0-2 %] 0 % (04/28/16 2:00 PM) Neutro Absolute 3.40 10*3 [1.90-7.00 10*3] (04/28/16 2:00 PM) Lymph Absolute 1.31 10*3 [0.80-3.30 10*3] (04/28/16 2:00 PM) [place] Absolute 0.76 10*3 [0.30-1.00 10*3] (04/28/16 2:00 PM) Eos Absolute 0.06 10*3 [0.00-0.50 10*3] (04/28/16 2:00 PM) Baso Absolute 0.02 10*3 [0.00-0.20 10*3] (04/28/16 2:00 PM) Chemistry Most recent to 1 oldest [Reference Range]: Sodium Lvl [135-144 138 mEq/L mEq/L] (04/28/16 2:00 PM) Potassium Lvl 5.1 mEq/L [3.5-5.2 mEq/L] (04/28/16 2:00 PM) Chloride [99-111 107 mEq/L mEq/L] (04/28/16 2:00 PM) CO2 [22-31 mEq/L] 22 mEq/L (04/28/16 2:00 PM) AGAP [3-20] 9 (04/28/16 2:00 PM) BUN [10-20 mg/dL] 27 mg/dL *HI* (04/28/16 2:00 PM) Glucose Lvl [70-99 97 mg/dL mg/dL] (04/28/16 2:00 PM) Creatinine Lvl 0.89 mg/dL [0.57-1.11 mg/dL] (04/28/16 2:00 PM) eGFR [>60 mL/min] >60 mL/min 1 (04/28/16 2:00 PM) Calcium Lvl 8.7 mg/dL [8.9-10.5 mg/dL] *LOW* (04/28/16 2:00 PM) 1Result Comment: Multiply eGFR results by 1.21 for race. Immunizations Vaccine Date Refusal Reason influenza virus [...] vaccine live 04/13/11 1Location History: given at [facility] Procedures Procedure Date Related Diagnosis Body Site Arthrocentesis-aspiration of major joint 05/15/13 Sclerotherapy of vein 2012 Intraoperative lymphatic mapping, [place] 05/24/12 lymphadenectomy, Rt simple mastectomy Laser ablation of long saphenous vein Lt 11/17/11 great Prolift mesh & cystocele repair; cystoscopy 09/29/09 Hx of shoulder surgery Lt 2006 Hx of mastectomy Lt simple 2002 Colonoscopy 05/29/00 Revoved Rods 1994 Decomp. Laminectomy Disectomy CD Rods, Bones 1991 Tubal ligation 1975 Lumbar spinal fusion 1974 Dilation and curettage 1959 Appendectomy 195 - Spontaneous vaginal delivery x5 Tonsillectomy and adenoidectomy Social History Social History Type Response Smoking Status Never smoker Assessment and Plan Extracted from: Title: Acute OV Author: Carmine Kearns MD Date: 04/28/16 Impression and Plan Diagnosis Visit for wound care (ZAJ15-SM Z51.89, Discharge, Medical). H/O cardiomyopathy (JXV01-RZ Z86.79, Discharge, Medical). Encounter for medication monitoring (ZID00-RA Z51.81, Discharge, Medical). Fatigue (IRU26-ZS R53.83, Discharge, Medical). Orders Orders (Selected) Outpatient Orders Future (On Hold) BMP: CBC w/ Differential: .
--- OUTSIDE RECORDS SUMMARY | 2016-09-08 17:13 | XMS REPORT | Continuity of Care Document ---
Author Author [facility] Organization [facility] Address Unknown Phone Unavailable Allergies Active Description Code Type Severity Reaction Onset Reported/Identified Relationship to Patient Clinical Status Yes Ambien 9128 Moderate Confusion Yes Codeine 1550 Mild Nausea Yes Morphine 1545 Moderate Confusion Yes Plaquenil 6724 Moderate Hives 11/24/2015 Yes Terbinafine 4051 Moderate Welt 11/24/2015 Medications Problems Date Dx Coded Attending Type Code Diagnosis Diagnosed By 09/02/2016 PAZ LIU I48.0 PAROXYSMAL ATRIAL FIBRILLATION PAZ LIU 09/02/2016 PAZ LIU S M79.604 PAIN IN RIGHT LEG PAZ LIU 09/02/2016 PAZ LIU R22.9 LOCALIZED SWELLING, MASS AND LUMP, UNSPECIFIED PAZ LIU Procedures Code Description Performed By Performed On 86.22 EXCIS DEBRIDE OF WOUND, INFECT, OR BURN Aristides Medina MD 05/23/2012 86.22 EXCIS DEBRIDE OF WOUND, INFECT, OR BURN Dax JARRETT [facility] 06/26/2012 86.22 EXCIS DEBRIDE OF WOUND, INFECT, OR BURN 08/07/2012 86.22 EXCIS DEBRIDE OF WOUND, INFECT, OR BURN Bradley Padilla MD 09/18/2012 86.22 EXCIS DEBRIDE OF WOUND, INFECT, OR BURN Bradley Padilla MD 10/30/2012 86.22 EXCIS DEBRIDE OF WOUND, INFECT, OR BURN Virgen JARRETT, Catrina 03/26/2013 Results Test Result Range GRAM STAIN - 04/17/12 14:30 Uncategorized HEMOGLOBIN - 04/23/12 12:58 MEAN CELL VOLUME 97.8 fl 80.0-100.0 HEMOGLOBIN 12.0 gm/dL 12.0-16.0 PROTHROMBIN TIME WITH INR - 04/23/12 12:58 INTERNATIONAL NORMAL RATIO 1.2 0.9-1.1 PROTHROMBIN TIME 12.3 sec 9.3-12.2 METABOLIC PANEL, BASIC - 04/23/12 12:58 POTASSIUM 4.9 mmol/L 3.5-5.3 EST GFR (MDRD) 51 mL/min > 59 ANION GAP 6 mmol/L 5-15 GLUCOSE 92 mg/dL 70-99 CALCIUM 8.8 mg/dL 8.5-10.1 BLOOD UREA NITROGEN 27 mg/dL 7-20 CREATININE 1.1 mg/dL 0.6-1.0 SODIUM 139 mmol/L 135-148 CHLORIDE 104 mmol/L 98-110 CARBON DIOXIDE 29 mmol/L 21-32 PREALBUMIN - 04/23/12 12:58 PREALBUMIN 46 mg/dL 20-40 GRAM STAIN - 04/04/13 14:45 Uncategorized INR (PROTIME) - 07/22/16 09:04 INR 1.85 0.90-1.40 Encounters ACCT No. Visit Date/Time Discharge Status Pt. Type Provider Facility Loc./Unit Complaint [id number] 04/04/2013 13:34:00 2012 09:54:00 DIS Outpatient Dax JARRETT, [facility] [id number] 03/26/2013 13:17:00 2012 10:24:00 DIS Outpatient Virgen JARRETT, [facility] [id number] 02/11/2013 13:38:00 2012 11:55:00 DIS Outpatient Dax JARRETT, [facility] [id number] 12/31/2012 14:51:00 2012 10:07:00 DIS Outpatient Dax JARRETT, [facility] [id number] 11/20/2012 09:40:00 2012 11:38:00 DIS Outpatient Randy JARRETT, [facility] [id number] 10/30/2012 14:43:00 2012 14:58:00 DIS Outpatient Randy JARRETT, [facility] [id number] 09/18/2012 14:03:00 2012 08:07:00 DIS Outpatient Randy JARRETT, [facility] [id number] 08/07/2012 13:58:00 2012 09:51:00 DIS Outpatient Porter Tellez [facility] [id number] 06/26/2012 13:01:00 2012 08:22:00 DIS Outpatient Dax JARRETT, [facility] [id number] 05/23/2012 11:00:00 2011 16:02:00 DIS Outpatient Adam JARRETT, [facility] [id number] 04/23/2012 10:37:00 2011 13:40:00 DIS Outpatient Ruth JARRETT, [facility] W.8TN [id number] 04/17/2012 13:50:00 2011 11:06:00 DIS Outpatient Adam JARRETT, [facility] [id number] 03/06/2012 10:34:00 2011 15:08:00 DIS Outpatient Dax JARRETT, [facility] [id number] 01/24/2012 14:15:00 2011 09:36:00 DIS Outpatient Adam JARRETT, [facility] [id number] 12/20/2011 08:17:00 Inpatient Monique JARRETT, [facility] W.10TS
--- OUTSIDE RECORDS SUMMARY | 2016-09-08 17:14 | XMS REPORT | Continuity of Care Document ---
Author Author [facility] Organization [facility] Address Unknown Phone Unavailable Support Name Relationship Address Phone DANNY HELLER MD Caregiver [address] [address] Unavailable MIRTHA BERNARD MD Caregiver [address] [place] [address] Unavailable LATASHA MCCLOUD Next Of Kin [address] [place] [address] Insurance Providers Guarantor Callie Mccloud Address [address] [address] Email [email or web address] Payer [place] Policy Number [id number] Subscriber's Name Callie Mccloud Relationship 18 Self Group Number [id number] Effective Date 05 Payer Medicare Policy Number [id number] Subscriber's Name Nancy Mccloudarmandocrys Davie Relationship 18 Self Effective Date 98 Advance Directives Directive Response Recorded Date/Time Advanced Directives Type None 07/16/16 10:11am Chief Complaint and Reason for Visit Chief Complaint Lower Extremity Pain Reason for Visit [id number] Problems Past Problems Medical Problem Onset Date DVT (deep venous thrombosis) Unknown Hemorrhage secondary to anti-coagulation Unknown Hemorrhagic complications of dental implant placement Unknown Leg laceration Unknown Postoperative bleeding from mouth Unknown Medications Current Home Medications Medication Dose Units Route Directions Days Qty Instructions Start Date Acetaminophen (Tylenol) 325 Mg Tablet 650 Mg Oral Four Times Daily 12/30/11 Aspirin 81 Mg Tablet 81 Mg Oral Daily 12/30/11 Bumetanide (Bumex) 1 Mg Tablet 1.5 Mg Oral Daily as needed for Prn Orders 12/30/11 Butalbital/Aspirin/Caffeine (Fiorinal) 1 Cap Capsule 2 Cap Oral Every 6 Hours as needed for Pain 12/30/11 Colchicine 0.6 Mg Tablet 0.6 Mg Oral Twice A Day 12/30/11 Cyanocobalamin (Vitamin B-12) (Vitamin B-12) 1,000 Mcg Tablet 1,000 Mcg Oral Daily 07/16/16 Cyclobenzaprine Hcl 5 Mg Tablet 5 Mg Oral Three Times A Day as needed for Muscle Spasm 07/16/16 Dicyclomine Hcl 10 Mg Capsule 10 Mg Oral Four Times Daily as needed for Irritable Bowel 11/13/15 Diltiazem Hcl (Cartia Xt) 120 Mg Cap.er.24h 120 Mg Oral Daily Fesoterodine Fumarate (Toviaz) 8 Mg Tab.er.24h 8 Mg Oral Daily Folic Acid 1 Mg Tablet 1 Mg Oral Daily 11/13/15 Losartan Potassium 50 Mg Tablet 50 Mg Oral Twice A Day 07/16/16 Magnesium Oxide 400 Mg Tablet 400 Mg Oral Daily 12/30/11 Methotrexate Sodium (Methotrexate) 2.5 Mg Tablet 17.5 Mg Oral Every Monday11/13/15 Pantoprazole Sodium 40 Mg Tablet.dr 40 Mg Oral Daily 11/13/15 Polyethylene Glycol 3350 (Miralax) 119 Gm Powder 17 G Oral Daily 07/16/16 Prednisone 5 Mg Tablet 5 Mg Oral Daily 12/30/11 Sertraline Hcl (Sertraline) 100 Mg Tablet 100 Mg Oral Give At Noon 11/13/15 Simethicone 180 Mg Capsule 180 Mg Oral Daily as needed for Gas Tramadol Hcl 50 Mg Tablet 100 Mg Oral Every 6 Hours as needed for Pain 12/30/11 Trazodone Hcl 100 Mg Tablet 100 Mg Oral Bedtime 07/16/16 Verapamil Hcl (Verapamil Er) 180 Mg Cap24h.pel 180 Mg Oral Twice A Day 11/13/15 Vitamin B Complex (B Complex) 1 Cap Capsule 1 Cap Oral Daily 08/07 Warfarin Sodium (Coumadin) 2.5 Mg Tablet 2.5 Mg Oral Every Monday, Monday , , Monday, And Monday11/13/15 Warfarin Sodium 3 Mg Tablet 3 Mg Oral Every Monday And Monday07/16/16 Zoledronic Acid (Reclast 5 Mg/100 Ml Solution) 5 Mg/100 Ml Ml 5 Mg Intraven 1 Year 07/16/16 Social History Social History Problem Response Recorded Date/Time Onset Date Status Chewing Tobacco Status No 07/16/2016 10:34am Not Applicable Not Applicable Hx Substance Use No 07/16/2016 10:34am Not Applicable Not Applicable Hx Alcohol Use Y RARE 07/16/2016 10:34am Not Applicable Not Applicable Query Response Start Date Stop Date Smoking Status Never smoker Hospital Discharge Instructions No hospital discharge instructions. Plan of Care Discharge Date 07/16/16 5:20pm Disposition 01 DISCHARGED HOME, SELF-CARE Condition at Discharge Stable Instructions/Education [place]ided [facility] [place] Prescriptions See Medication Section Referrals DANNY HELLER MD Address: [address] [place] [address] [phone] Additional Instructions/Education Please continue your Coumadin over the weekend, until you meet with cardiology on Monday. If you have any shortness of breath or chest pain return immediately. Functional Status No functional status results. Allergies, Adverse Reactions, Alerts Allergen Type Severity Reaction Status Last Updated terbinafine HCl Allergy Intermediate RASH Active 07/16/16 Morphine Allergy Intermediate BEHAVIOR DISTURBANCE Active 07/16/16 Codeine Allergy Unknown Active 07/16/16 Zolpidem Allergy Intermediate MADE ME CRAZY Active 07/16/16 Hydroxychloroquine Allergy Unknown Active 07/16/16 Immunizations Query Response on File Recorded Date/Time Hx Influenza Vaccination No 12/10/12 4:30pm Hx Pneumococcal Vaccination No 12/10/12 4:30pm Hx Influenza Vaccination No 12/10/12 4:30pm Influenza Vaccine Hx 2016 07/16/16 10:34am Tetanus Diptheria Vaccine History 03/18/2016 07/16/16 10:34am Tdap Vaccine Hx "WITHIN THE LAST 5 YEARS" 03/17/16 10:54pm Vital Signs Acute Vital Signs Vital Response Date/Time Temperature (Fahrenheit) 97.7 deg F (96.8 - 99.1) 07/16/2016 5:20pm Temperature (Calculated Celsius) 36.21468 degrees C (36.0 - 37.3) 07/16/2016 5:20pm Pulse Rate (adult) 94 bpm (60 - 100) 07/16/2016 5:20pm Respiratory Rate 14 breaths/min (10 - 20) 07/16/2016 5:20pm O2 Sat by Pulse Oximetry 100 % (90 - 100) 07/16/2016 5:20pm Blood Pressure 162/82 mm Hg 07/16/2016 5:20pm Height (Feet) 5 feet 07/16/2016 10:11am Height (Inches) 0 inches 07/16/2016 10:11am Weight (Kilograms) 49.000 kg 07/16/2016 10:11am Body Mass Index (BMI) 21.0 07/16/2016 10:11am Results Laboratory Results Test Name Result Units Flags Reference Collection Date/Time Result Date/ Time Comments White Blood Count 5.8 T/MM3 4.5-11.0 07/16/2016 11:05am 07/16/2016 11: 13am Red Blood Count 3.09 M/MM3 L 4.00-5.20 07/16/2016 11:0507/16/2016 11: 13am Hemoglobin 9.0 GM/DL L 12-16 07/16/2016 11:05am 07/16/2016 11:13am Hematocrit 30.2 % L 36-46 07/16/2016 11:05am 07/16/2016 11:13am Mean Corpuscular Volume 97.7 UM3 80-100 07/16/2016 11:05am 07/16/2016 11:13am Mean Corpuscular Hemoglobin 29.1 UUG 26-34 07/16/2016 11:05am 2016 11:13am Mean Corpuscular Hemoglobin Concent 29.8 GM/DL L 31-37 07/16/2016 11: 05am 07/16/2016 11:13am RDW Standard Deviation 57.5 FL H 36.9-50.2 07/16/2016 11:05am 2016 11:13am Platelet Count 334 T/MM3 130-400 07/16/2016 11:05am 07/16/2016 11:13am Mean Platelet Volume 11.0 UM3 9.4-12.4 07/16/2016 11:05am 07/16/2016 11 :13am Neutrophils (%) (Auto) 81.6 % H 33-66 07/16/2016 11:05am 07/16/2016 11: 13am Lymphocytes (%) (Auto) 9.9 % L 23-45 07/16/2016 11:05am 07/16/2016 11: 13am Monocytes (%) (Auto) 7.5 % 0-9.0 07/16/2016 11:05am 07/16/2016 11:13am Eosinophils (%) (Auto) 0.3 % 0-4 07/16/2016 11:05am 07/16/2016 11:13am Basophils (%) (Auto) 0.5 % 0-2 07/16/2016 11:05am 07/16/2016 11:13am Immature Granulocyte % (Auto) 0.2 % 0.0-0.5 07/16/2016 11:05am 2016 11:13am Absolute Neutrophils (auto) 4.7 T/MM3 1.8-7.7 07/16/2016 11:05am 2016 11:13am Absolute Lymphocytes (auto) 0.6 T/MM3 L 1-4.8 07/16/2016 11:05am 2016 11:13am Absolute Monocytes (auto) 0.4 T/MM3 0-0.8 07/16/2016 11:05am 2016 11:13am Absolute Eosinophils (auto) 0.0 T/MM3 0-0.5 07/16/2016 11:05am 2016 11:13am Absolute Basophils (auto) 0.0 T/MM3 0-0.2 07/16/2016 11:05am 2016 11:13am Absolute Immature Granulocyte (auto 0.01 T/MM3 0.00-0.03 07/16/2016 11: 05am 07/16/2016 11:13am Prothromb Time International Ratio 2.62 H 0.76-1.04 07/16/2016 10:56am 07/16/2016 2:14pm THERAPUTIC RANGE=2.00-3.00 FOR ANTI-THROMBOSIS THERAPUTIC RANGE=2.50-3.50 FOR IMPLANTED VALVE D-Dimer 284 NG/ML H 0-230 07/16/2016 11:05am 07/16/2016 11:23am <230 NG /ML D-DU=PRESUMPTIVE NEGATIVE FOR PE OR DVT >230 NG/ML D-DU=ADDITIONAL EVAL FOR PE OR DVT RECOMMENDED Icterus Index < 2 0-7 07/16/2016 11:05am 07/16/2016 11:24am Chemistry Specimen Hemolysis < 15 0-25 07/16/2016 11:0507/16/2016 11:24am 0-25: Specimen Exhibited No Hemolysis. Turbidity < 20 0-20 07/16/2016 11:05am 07/16/2016 11:24am Sodium Level 138 MEQ/L 134-144 07/16/2016 11:0507/16/2016 11:24am Potassium Level 4.9 MEQ/L 3.6-5 07/16/2016 11:0507/16/2016 11:24am Chloride Level 102 MEQ/L 98-107 07/16/2016 11:0507/16/2016 11:24am Carbon Dioxide Level 25 MEQ/L 22-30 07/16/2016 11:0507/16/2016 11: 24am Anion Gap 11 MEQ/L 5-15 07/16/2016 11:0507/16/2016 11:24am Blood Urea Nitrogen 28.0 MG/DL H 7-17 07/16/2016 11:0507/16/2016 11: 24am Creatinine 0.9 MG/DL 0.7-1.2 07/16/2016 11:0507/16/2016 11:24am BUN/Creatinine Ratio 31 RATIO H 6-26 07/16/2016 11:0507/16/2016 11: 24am Glomerular Filtration Rate Calc 60 07/16/2016 11:0507/16/2016 11 :24am Glucose Level 78 MG/DL 65-110 07/16/2016 11:0507/16/2016 11:24am Calculated Osmolality 271 MOSM/KG 261-280 07/16/2016 11:2016 11:24am Calcium Level 8.9 MG/DL 8.4-10.2 07/16/2016 11:0507/16/2016 11:24am Total Bilirubin 0.30 MG/DL 0.20-1.30 07/16/2016 11:0507/16/2016 11: 24am Alkaline Phosphatase 114 U/L 38-126 07/16/2016 11:0507/16/2016 11: 24am Total Protein 6.0 G/DL L 6.3-8.2 07/16/2016 11:0507/16/2016 11:24am Albumin 3.6 G/DL 3.5-5.0 07/16/2016 11:0507/16/2016 11:24am Globulin 2.4 G/DL 2.4-3.6 07/16/2016 11:0507/16/2016 11:24am Albumin/Globulin Ratio 1.5 RATIO 1.1-2.2 07/16/2016 11:05am 07/16/2016 11:24am Aspartate Amino Transf (AST/SGOT) 34 U/L 14-36 07/16/2016 11:05am 07/16 11:24am Alanine Aminotransferase (ALT/SGPT) 34 U/L 9-52 07/16/2016 11:05am 11:24am Procedures Procedure Status Date Provider(s) Yaritza subq tissue 20 sq cm/< Completed 05/17/16 790268"WOUND CLEANSERS, ANY TYPE, ANY SIZE" Completed 05/17/16 [id number] ITEM OR SERVICE Completed 05/17/16 E&M LEVEL - FACILITY Completed 05/17/16 Yaritza subq tissue 20 sq cm/< Completed 06/07/16 087849"LESS, EACH DRESSING" Completed 06/07/16 573333"EQUAL TO 48 SQ. IN., WITHOUT ADHESIVE BORDER, EACH DR Completed E&M LEVEL - FACILITY Completed 06/07/16 Yaritza subq tissue 20 sq cm/< Completed 06/21/16 045312"LESS, EACH DRESSING" Completed 06/21/16 E&M LEVEL - FACILITY Completed 06/21/16 Encounters Encounter Location Arrival/Admit Date Discharge/Depart Date Attending Provider Departed Emergency Room [facility] 07/16/16 10:09am 07/16/16 5: 20pm MIRTHA BERNARD MD Registered [facility] 07/05/16 10:31am SHANNAN SIMS FACS, MD Registered [facility] 06/21/16 9:59am SHANNAN SIMS FACS, MD Registered [facility] 06/07/16 10:27am SHANNAN SIMS FACS, MD Registered [facility] 05/17/16 9:35am SHANNAN SIMS FACS, MD Recent Diagnosis
--- OUTSIDE RECORDS SUMMARY | 2016-09-08 17:14 | XMS REPORT | Referral Summary ---
Author Author [facility] Organization [facility] Address Unknown Phone Unavailable Care Team Providers Care Manufacturing Laborer Name Role Phone Bryce Kearns Primary Care Physician [phone] Encounter Date(s): 05/31/16 - 05/31/16 [facility], [address] [place] [id number] Discharge Diagnosis: Chronic pain Discharge Diagnosis: CAD (coronary artery disease) Discharge Diagnosis: Chronic ulcer of left leg Discharge Diagnosis: Rheumatoid arthritis Discharge Diagnosis: Venous insufficiency Lt leg Discharge Disposition: 01-Home or Self Care Attending Physician: Carmine Kearns MD Admitting Physician: Carmine Kearns MD Vital Signs Most recent to 1 oldest [Reference Range]: Peripheral Pulse 75 bpm Rate [60-100 bpm] (05/31/16 1:04 PM) Blood Pressure 144/70 mmHg [90-140/60-90 mmHg] *HI* (05/31/16 1:04 PM) Problem List Condition Effective Dates Status [...] 0 Refill(s) Start Date: 11/25/13 Status: Ordered butalbital/aspirin/caffeine 50 mg-325 mg-40 mg oral tablet 2 tabs, Oral, q6hr, as needed for pain, [facility], # 120 tabs, 0 Refill(s) Start Date: [...] Refill(s) Start Date: 11/25/13 Status: Ordered Coumadin 3 mg oral tablet See Instructions, TAKE ONE TABLET BY MOUTH DAILY, # 60 tabs, eRx: [facility] #[id number] Start Date: 05/24/16 Status: Ordered cyclobenzaprine 5 mg oral tablet See Instructions, TAKE ONE TABLET BY MOUTH THREE TIMES A DAY FOR 7 DAYS NEEDED FOR MUSCLE SPASM, # 15 tabs, eRx: [facility] #[id number], TAKE ONE TABLET BY MOUTH THREE TIMES A DAY FOR 7 DAYS NEEDED FOR MUSCLE SPASM Start Date: 03/14/16 Status: Ordered dicyclomine 10 mg oral capsule See Instructions, TAKE 1-2 CAPSULES BY MOUTH EVERY 6 HOURS NEEDED FOR IRRITABLE BOWEL, # 100 caps, 4 Refill(s), Pharmacy: [facility] #[id number], TAKE 1-2 CAPSULES BY MOUTH EVERY 6 HOURS NEEDED FOR IRRITABLE BOWEL Start Date: 04/27/15 Status: Ordered folic acid 1 mg oral tablet See Instructions, TAKE ONE TABLET BY MOUTH DAILY, # 30 tabs, 2 Refill(s), eRx: [facility] #[id number], TAKE ONE TABLET BY MOUTH DAILY Start Date: 04/04/16 Status: Ordered losartan 50 mg, Oral, BID, 0 Refill(s) Start Date: 02/29/16 Status: Ordered Mag-Ox 400 0 Refill(s) Start Date: 11/25/13 Status: Ordered methotrexate 2.5 mg oral tablet See Instructions, TAKE 7 TABLETS BY MOUTH ONCE WEEKLY, # 35 tabs, 5 Refill(s), eRx: [facility] #[id number], TAKE 7 TABLETS BY MOUTH ONCE WEEKLY Start Date: 04/18/16 Status: Ordered MetroCream 0.75% topical cream 1 miguel a, Topical, BID, # 45 g, 0 Refill(s), Pharmacy: [facility] #[id number] Start Date: 10/23/15 Status: Ordered MiraLax oral powder for reconstitution 17 g, Oral, Daily, dissolve in water before taking, # 527 g, 0 Refill(s) Start Date: 11/25/13 Status: Ordered pantoprazole 40 mg oral delayed release tablet See Instructions, TAKE ONE TABLET BY MOUTH DAILY, # 30 tabs, 4 Refill(s), eRx: [facility] #[id number], TAKE ONE TABLET BY MOUTH DAILY Start Date: 03/14/16 Status: Ordered predniSONE 5 mg oral tablet See Instructions, TAKE ONE TABLET BY MOUTH DAILY, # 90 tabs, 2 Refill(s), eRx: [facility] #[id number], TAKE ONE TABLET BY MOUTH DAILY Start Date: 12/14/15 Status: Ordered Reclast mg, IV, Once, 0 Refill(s) Start Date: 04/04/14 Status: Ordered sertraline 100 mg oral tablet See Instructions, TAKE ONE TABLET BY MOUTH ONCE A DAY, # 90 tabs, eRx: [facility] #[id number] Start Date: 05/28/16 Status: Ordered simethicone 180 mg oral capsule 180 mg 1 caps, Oral, Daily, gas Start Date: 03/03/16 Status: Ordered Toviaz 8 mg oral tablet, extended release See Instructions, TAKE ONE TABLET BY MOUTH DAILY, # 30 tabs, 5 Refill(s), Pharmacy: [facility] #[id number], TAKE ONE TABLET BY MOUTH DAILY Start Date: 03/10/16 Status: Ordered traMADol 50 mg oral tablet 50 mg 1 tabs, Oral, q6hr, as needed for pain, MAX OF 4 PER DAY, # 240 tabs, 5 Refill(s) Start Date: 05/31/16 Status: Ordered traZODone 100 mg oral tablet See Instructions, TAKE 1 TABLETS BY MOUTH EVERY NIGHT AT BEDTIME, # 270 tabs, 1 Refill(s), Pharmacy: [facility] #[id number] Start Date: 06/24/15 Status: Ordered verapamil 180 mg/24 hours oral capsule, extended release See Instructions, TAKE ONE CAPSULE BY MOUTH TWICE A DAY, # 60 caps, 5 Refill(s) , eRx: [facility] #[id number] Start Date: 05/09/16 Status: Ordered Vitamin B Complex oral tablet tabs, Oral, Daily, 0 Refill(s) Start Date: 11/25/13 Status: Ordered Vitamin B-12 1000 mcg oral tablet 1 tabs, Oral, Daily, # 90 tabs, 0 Refill(s) Start Date: 11/25/13 Status: Ordered Results No data available for this section Immunizations Given and Recorded Vaccine Date Status Refusal Reason influenza virus vaccine, inactivated 02/29/16 Given influenza virus vaccine, inactivated 02/25/14 Recorded influenza virus vaccine, live 03/04/13 Given influenza virus vaccine, live 01/27/12 Given influenza virus vaccine, live 02/04/11 Given influenza virus vaccine, live 02/16/09 Given influenza virus vaccine, live 03/21/08 Given influenza virus vaccine, live 04/07/06 Given pneumococcal 13-valent conjugate vaccine 04/04/14 Given pneumococcal 13-valent conjugate vaccine1 01/27/12 Given pneumococcal 23-polyvalent vaccine 8/31/12 Recorded pneumococcal 23-polyvalent vaccine2 01/27/12 Given tetanus-diphth toxoids (Td) adult/adol3 03/17/16 Recorded tetanus-diphth toxoids (Td) adult/adol 09/24/11 Given tetanus-diphth toxoids (Td) adult/adol 06/09/99 Given zoster vaccine live 04/13/11 Given 1Result Comment: [12/15/2014 Uncharted] WRON VACCINE 2Result Comment: [02/17/2015 Uncharted] Uploaded in Error - CC 3Location History: given at [facility] Procedures Procedure Date Related Diagnosis Body Site Arthrocentesis-aspiration of major joint 05/15/13 Sclerotherapy of vein 2012 Intraoperative lymphatic mapping, [place] 05/24/12 lymphadenectomy, Rt simple mastectomy Laser ablation of long saphenous vein Lt 11/17/11 great Prolift mesh & cystocele repair; cystoscopy 09/29/09 Hx of shoulder surgery Lt 2006 Hx of mastectomy Lt simple 2003 Colonoscopy 05/29/00 Revoved Rods 1994 Decomp. Laminectomy Disectomy CD Rods, Bones 1991 Tubal ligation 1975 Lumbar spinal fusion 1975 Dilation and curettage 1959 Appendectomy 1951 - Spontaneous vaginal delivery x5 Tonsillectomy and adenoidectomy Social History Social History Type Response Smoking Status Never smoker Assessment and Plan Extracted from: Title: CDM Author: Carmine Kearns MD Date: 05/31/16 Impression and Plan Diagnosis Chronic pain (CXA97-NX G89.29, Discharge, Medical). Chronic ulcer of left leg (BCS94-YH L97.929, Discharge, Medical). Venous insufficiency Lt leg (QOK20-EM I87.2, Discharge, Medical). CAD (coronary artery disease) (DQM08-IP I25.10, Discharge, Medical). Rheumatoid arthritis (QRA38-OT M06.9, Discharge, Medical). Orders Orders (Selected) Prescriptions Prescribed traMADol 50 mg oral tablet: 50 mg=1 tabs, Oral, q6hr, MAX OF 4 PER DAY, PRN: as needed for pain, 240 tabs, 5 Refill(s).
--- OUTSIDE RECORDS SUMMARY | 2016-09-08 17:14 | XMS REPORT | Referral Summary ---
Author Author [facility] Organization [facility] Address Unknown Phone Unavailable Care Team Providers Care Radiographer Cardiac Catheterization Name Role Phone Bryce Kearns Primary Care Physician [phone] Encounter Date(s): 05/04/16 - 05/04/16 [facility] [address] [place] [id number] Discharge Diagnosis: Chronic ulcer of left leg Discharge Diagnosis: Right inguinal hernia Discharge Disposition: 01-Home or Self Care Attending Physician: Carmine Kearns MD Admitting Physician: Carmine Kearns MD Vital Signs Most recent to 1 oldest [Reference Range]: Temperature Tympanic 36 degC [36.6-38.1 degC] *LOW* (05/04/16 10:28 AM) Peripheral Pulse 93 bpm Rate [60-100 bpm] (05/04/16 10:28 AM) Blood Pressure 126/62 mmHg [90-140/60-90 mmHg] (05/04/16 10:28 AM) Problem List Condition Effective Dates Status Health [...] gain., # 45 tabs, 4 Refill(s), eRx: [facility] # [id number], TAKE ONE AND ONE-HALF TABLET BY MOUTH [...] # 30 tabs, 5 Refill(s ), Pharmacy: [facility] #[id number], TAKE ONE TABLET BY MOUTH 5 DAYS A WEEK Start Date: 03/31/16 Status: Ordered cyclobenzaprine 5 mg oral tablet See Instructions, TAKE ONE TABLET BY MOUTH THREE TIMES A DAY FOR 7 DAYS NEEDED FOR MUSCLE SPASM, # 15 tabs, eRx: [facility] #[id number], TAKE ONE TABLET BY MOUTH THREE TIMES A DAY FOR 7 DAYS NEEDED FOR MUSCLE SPASM Start Date: 03/14/16 Status: Ordered dicyclomine 10 mg oral capsule See Instructions, TAKE 1-2 CAPSULES BY MOUTH EVERY 6 HOURS NEEDED FOR IRRITABLE BOWEL, # 100 caps, 4 Refill(s), Pharmacy: [facility] #[id number], TAKE 1-2 CAPSULES BY MOUTH EVERY 6 HOURS NEEDED FOR IRRITABLE BOWEL Start Date: 04/27/15 Status: Ordered folic acid 1 mg oral tablet See Instructions, TAKE ONE TABLET BY MOUTH DAILY, # 30 tabs, 2 Refill(s), eRx: [facility] #[id number], TAKE ONE TABLET BY MOUTH DAILY Start Date: 04/04/16 Status: Ordered losartan 50 mg, Oral, BID, 0 Refill(s) Start Date: 02/29/16 Status: Ordered Mag-Ox 400 0 Refill(s) Start Date: 11/25/13 Status: Ordered methotrexate 2.5 mg oral tablet See Instructions, TAKE 7 TABLETS BY MOUTH ONCE WEEKLY, # 35 tabs, 5 Refill(s), eRx: [facility] #[id number], TAKE 7 TABLETS BY MOUTH ONCE WEEKLY Start Date: 04/18/16 Status: Ordered MetroCream 0.75% topical cream 1 miguel a, Topical, BID, # 45 g, 0 Refill(s), Pharmacy: [facility] #[id number] Start Date: 10/23/15 Status: Ordered MiraLax oral powder for reconstitution 17 g, Oral, Daily, dissolve in water before taking, # 527 g, 0 Refill(s) Start Date: 11/25/13 Status: Ordered pantoprazole 40 mg oral delayed release tablet See Instructions, TAKE ONE TABLET BY MOUTH DAILY, # 30 tabs, 4 Refill(s), eRx: [facility] #[id number], TAKE ONE TABLET BY MOUTH DAILY Start Date: 03/14/16 Status: Ordered predniSONE 5 mg oral tablet See Instructions, TAKE ONE TABLET BY MOUTH DAILY, # 90 tabs, 2 Refill(s), eRx: [facility] #[id number], TAKE ONE TABLET BY MOUTH DAILY Start Date: 12/14/15 Status: Ordered Reclast mg, IV, Once, 0 Refill(s) Start Date: 04/04/14 Status: Ordered sertraline 100 mg oral tablet See Instructions, TAKE ONE TABLET BY MOUTH ONCE A DAY, # 90 tabs, 1 Refill(s), eRx: [facility] #[id number], TAKE ONE TABLET BY MOUTH ONCE A DAY Start Date: 12/01/15 Status: Ordered simethicone 180 mg oral capsule 180 mg 1 caps, Oral, Daily, gas Start Date: 03/03/16 Status: Ordered Toviaz 8 mg oral tablet, extended release See Instructions, TAKE ONE TABLET BY MOUTH DAILY, # 30 tabs, 5 Refill(s), Pharmacy: [facility] #[id number], TAKE ONE TABLET BY MOUTH DAILY Start [...] # 270 tabs , 1 Refill(s), Pharmacy: [facility] #[id number], TAKE 1 1/2 TABLETS BY MOUTH EVERY NIGHT AT BEDTIME Start Date: 06/24/15 Status: Ordered verapamil 180 mg/24 hours oral capsule, extended release See Instructions, TAKE ONE CAPSULE BY MOUTH TWICE A DAY, # 60 caps, eRx: [facility] #[id number], TAKE ONE CAPSULE BY MOUTH TWICE A [...] vaccine live 04/13/11 1Location History: given at [facility] Procedures Procedure Date Related Diagnosis Body Site Arthrocentesis-aspiration of major joint 05/15/13 Sclerotherapy of vein 2012 Intraoperative lymphatic mapping, [place] 05/24/12 lymphadenectomy, Rt simple mastectomy Laser ablation of long saphenous vein Lt 11/17/11 great Prolift mesh & cystocele repair; cystoscopy 09/29/09 Hx of shoulder surgery Lt 2006 Hx of mastectomy Lt simple 2003 Colonoscopy 05/29/00 Revoved Rods 1994 Decomp. Laminectomy Disectomy CD Rods, Bones 1991 Tubal ligation 1975 Lumbar spinal fusion 1974 Dilation and curettage 1960 Appendectomy 1952 - Spontaneous vaginal delivery x5 Tonsillectomy and adenoidectomy Social History Social History Type Response Smoking Status Never smoker Assessment and Plan Extracted from: Title: Wound Check Author: Carmine Kearns MD Date: 05/04/16 Impression and Plan Diagnosis Chronic ulcer of left leg (AIK35-DP L97.929, Discharge, Medical). Right inguinal hernia (ZGM37-HE K40.90, Discharge, Medical).
--- NOTE | 2016-09-08 18:53 | ERPDOC ---
Departure Disposition Decision Date: Sep 08, 2016 Disposition Decision Time: 21:56 (ENIO DORADO APRN) Disposition: 02 TO [facility] Impression Impression (ENIO DORADO APRN) Impression: Primary Impression: Bilateral pubic rami fractures Additional Impression: Chronic anticoagulation Condition: Left Without Being Seen Seen By: Mid-level only (ENIO DORADO APRN) Referrals: DANNY KEARNS MD (Family) Problems/Meds/Labs Reviewed?: Yes Medications reviewed and manag: Yes (ENIO DORADO APRN) Follow up care ordered?: Yes Mental Status: Alert, Oriented (ENIO DORADO APRN) Scripts Cephalexin (Cephalexin) 500 Mg Capsule 500 MG PO Q8HR, #15 CAP For bladder infection Prov: TE WRIGHT MD 09/10/16 HPI - Lower Extremity General Chief Complaint: Lower Extremity Injury Stated Complaint: HIP PAIN Time Seen by Provider: 18:53 Source: patient, family Exam Limitations: no limitations (ENIO DORADO APRN) Time Seen by Provider: 18:54 (SEPTEMBERJESSICA DO) HPI - Lower Extremity Initial Comments Patient fell out of a chair with rollers yesterday landing on her left hip . Patient usually ambulates with a walker at home. Patient saw Dr Kearns today and had a negative left hip xray but continues to have pain. Patient here for pelvic CT scan. No other complaints of injury or pain. Patient is on warfarin for atrial fib. INR Monday was 2.3. Patient states did not hit her head; no neurological deficits or headache. Head CT has not yet been done since fall. Occurred At: home Onset/Timing: Rapid Duration: 12-24 hrs Pain/Severity Scale: Now & Worst: 7/10 Pain/Injury Location: left hip Method of Injury: fell (from chair ) Modifying Factors/Context: IMPROVES WITH: immobilization, rest, WORSE WITH: jarring, movement Hx of Similar Symptoms: No Quality: aching (ENIO DORADO APRN) Allergies: Coded Allergies: morphine (Verified Allergy, Intermediate, BEHAVIOR DISTURBANCE, 09/08/16) terbinafine HCl (Verified Allergy, Intermediate, RASH, 09/08/16) zolpidem (Verified Allergy, Intermediate, MADE ME CRAZY, 09/08/16) Malt Extract. (Verified Allergy, Mild, DIARRHEA, 09/08/16) codeine (Verified Allergy, Unknown, 09/08/16) hydroxychloroquine (Verified Allergy, Unknown, 09/08/16) Past History Past Medical History Metabolic: cancer, hypertension Cardiac: A-fib Respiratory: COPD GI: GERD, IBS, constipation Musculoskeletal: other Psychological: anxiety, depression (ENIO DORADO E RAIL SETTER) Surgical History General: appendix, back, neck, tonsils Cardiac: radio ablation, valve replacement Reproductive/: D&C, tubal ligation Joint: carpal tunnel, shoulder (ENIO DORADO E RAIL SETTER) Vaccines Hx Influenza Vaccination: No Hx Pneumococcal Vaccination: No (ENIO DORADO E RAIL SETTER) Social History Substance Use Type: does not use Alcohol Intake: none (ENIO DORADO E RAIL SETTER) Review of Systems Constitutional Constitutional: see HPI, DENIES: chills, dizziness, fever, weakness (ENIO DORADO E RAIL SETTER) Eyes General: DENIES: burning, itching (AVEENIO E RAIL SETTER) ENMT Ears: DENIES: pain Hearing: DENIES: tinnitus Balance: DENIES: vertigo Sinuses: DENIES: rhinorrhea Mouth/Throat: DENIES: sore throat (AVEENIO E RAIL SETTER) Cardiovascular Cardiac: DENIES: chest pain (AVEENIO E RAIL SETTER) Pulmonary Respiratory: DENIES: cough, pleuritic chest pain (AVEENIO E RAIL SETTER) GI Upper Abdomen: DENIES: nausea, pain, vomiting Lower Abdomen: DENIES: diarrhea, pain (AVEENIO E RAIL SETTER) General: DENIES: dysuria, hematuria (AVEENIO E RAIL SETTER) Musculoskeletal General: joint pain (left hip ), pain, see HPI, tenderness (left hip ) (ENIO DORADO E RAIL SETTER) Integumentary Skin: DENIES: itching, rash (AVEENIO E RAIL SETTER) Neurological General: DENIES: headache, syncope (ENIO DORADO E RAIL SETTER) Hematologic/Lymphatic Hematologic/Lymphatic: DENIES: easy bruising (ENIO DORADO E RAIL SETTER) Allergic/Immunological Allergic/Immunoligical: DENIES: hives, sneezing (ENIO DORADO APRN) All other Systems All Other Systems: Reviewed and Negative (ENIO DORADO APRN) Physical Exam General General Nourishment: well nourished, well developed, appears stated age, no acute distress, adult General Body Habitus: well groomed (ENIO DORADO APRN) Vitals and Pain First Documented Vital Signs Date Time Temp Pulse Resp B/P Pulse Ox O2 Delivery O2 Flow Rate FiO2 09/08/16 17:34 98.1 78 16 164/69 100 Room Air (EB M DO) Vitals and Pain Weight: Kilograms: 48.000 Height (feet): 5 Height (inches): 0 Triage Pain Scale: (ENIO DORADO APRN) Normal Exams: Head: Normocephalic w/o trauma Eyes: Pupils are PERRLA w/ EOMI, No scleral icterus, irritation, or foreign bodies noted Neck: Full range of motion, without adenopathy, JVD, bruits or thyromegaly Chest/Resp: Clear all mast, with good airflow, and symmetry bilaterally CV: Regular rate and rhythm, without murmur or gallop, Pulses 2+ all extremities, capillary refill, <2 seconds all ext., no pedal edema noted Abdomen: Bowel sounds positive, soft, non-tender, non-distended, no hepatosplenomegaly, masses or bruits noted Lymphatic: No lymphadenopathy, or lymphedema noted Integumentary: No rashes, hives, or bruising noted, hair and nails, without abnormality Neurologic: Patient is alert, and oriented, cranial nerves, motor/sensory/ cerebellar, exams w/o gross deficits, to observation Psychiatric: Patient exhibits, appropriate attention, emotion and affect (ENIO DORADO APRN) Musculoskeletal (brief) Musculoskeletal Brief: FOUND: tenderness (left hip ), NOT FOUND: deformity ( ENIO DORADO APRN) Differential Diagnoses Considering: Compartment Syndrome, Contusion, Dislocation, Fracture, Sprain, Strain, Trauma (ENIO DORADO APRN) Progress Results/Orders Orders Procedure Category Date Status Time Ct Pelvis W/O Contrast CT 09/08/16 Resulted Iv Lock (Nursing) MARY 09/08/16 Complete 20:50 Cbc W/Auto LAB 09/08/16 Complete Diff-Reflex Manual Cmp - Comprehensive LAB 09/08/16 Complete Metabolic INR LAB 09/08/16 Complete Catheterize For Ua MARY 09/08/16 Complete 20:50 Ct Head W/O Contrast CT 09/08/[address] In Facility: ED ADM 09/08/16 Transmitted UA, LAB 09/08/16 Complete Dip&Micro(Complete) & 22:03 ( DO) Lab Results Laboratory Tests Test 09/08/16 21:09 White Blood Count 7.5T/MM3 Red Blood Count 3.71M/MM3 Hemoglobin 10.0GM/DL Hematocrit 33.7% Mean Corpuscular Volume 90.8UM3 Mean Corpuscular Hemoglobin 27.0UUG Mean Corpuscular Hemoglobin Concent 29.7GM/DL RDW Standard Deviation 54.6FL Platelet Count 354T/MM3 Mean Platelet Volume 10.6UM3 Immature Granulocyte % (Auto) 0.1% Neutrophils (%) (Auto) 78.5% Lymphocytes (%) (Auto) 13.0% Monocytes (%) (Auto) 8.0% Eosinophils (%) (Auto) 0.1% Basophils (%) (Auto) 0.3% Absolute Immature Granulocyte (auto 0.01T/MM3 Absolute Neutrophils (auto) 5.9T/MM3 Absolute Lymphocytes (auto) 1.0T/MM3 Absolute Monocytes (auto) 0.6T/MM3 Absolute Eosinophils (auto) 0.0T/MM3 Absolute Basophils (auto) 0.0T/MM3 Prothromb Time International Ratio 3.05 Turbidity < 20 Sodium Level 142MEQ/L Potassium Level 4.9MEQ/L Chloride Level 104MEQ/L Carbon Dioxide Level 27MEQ/L Anion Gap 11MEQ/L Blood Urea Nitrogen 34.0MG/DL Creatinine 0.9MG/DL Glomerular Filtration Rate Calc 60 BUN/Creatinine Ratio 38RATIO Glucose Level 102MG/DL Calculated Osmolality 281MOSM/KG Calcium Level 9.5MG/DL Total Bilirubin 0.70MG/DL Icterus Index < 2 Aspartate Amino Transf (AST/SGOT) 47U/L Alanine Aminotransferase (ALT/SGPT) 37U/L Alkaline Phosphatase 118U/L Total Protein 6.8G/DL Albumin 4.3G/DL Globulin 2.5G/DL Albumin/Globulin Ratio 1.7RATIO Chemistry Specimen Hemolysis < 15 (MAY,[facility]) Lab Results Laboratory Tests Test 09/08/16 21:09 White Blood Count 7.5T/MM3 Red Blood Count 3.71M/MM3 Hemoglobin 10.0GM/DL Hematocrit 33.7% Mean Corpuscular Volume 90.8UM3 Mean Corpuscular Hemoglobin 27.0UUG Mean Corpuscular Hemoglobin Concent 29.7GM/DL RDW Standard Deviation 54.6FL Platelet Count 354T/MM3 Mean Platelet Volume 10.6UM3 Immature Granulocyte % (Auto) 0.1% Neutrophils (%) (Auto) 78.5% Lymphocytes (%) (Auto) 13.0% Monocytes (%) (Auto) 8.0% Eosinophils (%) (Auto) 0.1% Basophils (%) (Auto) 0.3% Absolute Immature Granulocyte (auto 0.01T/MM3 Absolute Neutrophils (auto) 5.9T/MM3 Absolute Lymphocytes (auto) 1.0T/MM3 Absolute Monocytes (auto) 0.6T/MM3 Absolute Eosinophils (auto) 0.0T/MM3 Absolute Basophils (auto) 0.0T/MM3 Prothromb Time International Ratio 3.05 Turbidity < 20 Sodium Level 142MEQ/L Potassium Level 4.9MEQ/L Chloride Level 104MEQ/L Carbon Dioxide Level 27MEQ/L Anion Gap 11MEQ/L Blood Urea Nitrogen 34.0MG/DL Creatinine 0.9MG/DL Glomerular Filtration Rate Calc 60 BUN/Creatinine Ratio 38RATIO Glucose Level 102MG/DL Calculated Osmolality 281MOSM/KG Calcium Level 9.5MG/DL Total Bilirubin 0.70MG/DL Icterus Index < 2 Aspartate Amino Transf (AST/SGOT) 47U/L Alanine Aminotransferase (ALT/SGPT) 37U/L Alkaline Phosphatase 118U/L Total Protein 6.8G/DL Albumin 4.3G/DL Globulin 2.5G/DL Albumin/Globulin Ratio 1.7RATIO Chemistry Specimen Hemolysis < 15 (ENIO DORADO E RAIL SETTER) Progress Progress CT scan indicates right and probable left pubic ramus fracture. Head CT done due to fall and hx of anticoagulation. No report of head injury per patient and no neuro changes, however due to unwitnessed fall and warfarin, head CT was obtained. Patient will be admitted to the hospitalist service for pain control and therapy. (ENIO DORADO APRN) ENIO DORADO APRN Sep 08, 2016 18:53 SEPTEMBER,JESSICA Broderick DO Sep 12, 2016 05:27
[2016-09-08] MEDS ORDERED: DILT240C96 PO (19:03)
[2016-09-08] MEDS ORDERED: ACET-2890 PO (19:10)
[2016-09-08] MEDS ORDERED: CALC-823 PO (19:10)
[2016-09-08] MEDS ORDERED: MULT-933 PO (19:10)
[2016-09-08] MEDS ORDERED: METR45CR TOP (19:10)
--- OUTSIDE RECORDS SUMMARY | 2016-09-08 20:19 | XMS REPORT | Continuity of Care Document ---
Author Author [facility] Organization [facility] Address Unknown Phone Unavailable Support Name Relationship Address Phone LATASHA ANTUNEZ Next Of Kin [phone] [address] Unavailable Insurance Providers Payer Name Policy Number Subscriber Name Relationship Medicare [id number] Callie Antunez 16 Self Everencemma [id number] Callie Antunez 16 Self Problems No Known [...] 2008 4:00pm 1-3 /HPF - Urine Specific [place] December 13, 2008 4:00pm 1.005 L - [...] Encounters Encounter Location Date/Time Departed Emergency Room [facility] 12/10/12 4:24pm
--- OUTSIDE RECORDS SUMMARY | 2016-09-08 20:21 | XMS REPORT | Continuity of Care Document ---
Author Author [facility] Organization [facility] Address Unknown Phone Unavailable Allergies Active Description [...] OF WOUND, INFECT, OR BURN Dax JARRETT [facility] 06/26/2012 86.22 EXCIS DEBRIDE OF WOUND, INFECT, [...] Status Pt. Type Provider Facility Loc./Unit Complaint [id number] 04/04/2013 13:34:00 2012 09:54:00 DIS Outpatient Dax JARRETT, [facility] [id number] 03/26/2013 13:17:00 2012 10:24:00 DIS Outpatient Virgen JARRETT, [facility] [id number] 02/11/2013 13:38:00 2012 11:55:00 DIS Outpatient Dax JARRETT, [facility] [id number] 12/31/2012 14:51:00 2012 10:07:00 DIS Outpatient Dax JARRETT, [facility] [id number] 11/20/2012 09:40:00 2012 11:38:00 DIS Outpatient Randy JARRETT, [facility] [id number] 10/30/2012 14:43:00 2012 14:58:00 DIS Outpatient Randy JARRETT, [facility] [id number] 09/18/2012 14:03:00 2012 08:07:00 DIS Outpatient Randy JARRETT, [facility] [id number] 08/07/2012 13:58:00 2012 09:51:00 DIS Outpatient Porter Tellez [facility] [place] [id number] 06/26/2012 13:01:00 2012 08:22:00 DIS Outpatient Dax JARRETT, [facility] [id number] 05/23/2012 11:00:00 2011 16:02:00 DIS Outpatient Adam JARRETT, [facility] [id number] 04/23/2012 10:37:00 2011 13:40:00 DIS Outpatient Ruth JARRETT, [facility] W.8TN [id number] 04/17/2012 13:50:00 2011 11:06:00 DIS Outpatient Adam JARRETT, [facility] [id number] 03/06/2012 10:34:00 2011 15:08:00 DIS Outpatient Dax JARRETT, [facility] [id number] 01/24/2012 14:15:00 2011 09:36:00 DIS Outpatient Adam JARRETT, [facility] [id number] 12/20/2011 08:17:00 Inpatient Monique JARRETT, [facility] W.10TS
[2016-09-08 21:16] LABS: BASOPHILS % (AUTO) 0.3 % (0-2); EOSINOPHILS % (AUTO) 0.1 % (0-4); HCT - HEMATOCRIT 33.7 % (36-46); IMMATURE GRANULOCYTE # (AUTO) 0.01 T/MM3 (0.00-0.03); IMMATURE GRANULOCYTE % (AUTO) 0.1 % (0.0-0.5); MEAN CORPUSCULAR HGB CONC(MCHC 29.7 GM/DL (31-37); MEAN CORPUSCULAR VOLUME 90.8 UM3 (80-100); MEAN PLATELET VOLUME 10.6 UM3 (9.4-12.4); MONOCYTES # (AUTO) 0.6 T/MM3 (0-0.8); NEUTROPHILS #(AUTO)-ABSOLUTE 5.9 T/MM3 (1.8-7.7); NEUTROPHILS % (AUTO) 78.5 % (33-66); RED BLOOD COUNT 3.71 M/MM3 (4.00-5.20); WBC - WHITE BLOOD COUNT 7.5 T/MM3 (4.5-11.0)
[2016-09-08 21:21] LABS: INR 3.05 (0.76-1.04); PROTHROMBIN TIME 33.2 SEC (9.31-12.49)
[2016-09-08 21:27] LABS: ALBUMIN 4.3 G/DL (3.5-5.0); ALBUMIN/GLOBULIN RATIO 1.7 RATIO (1.1-2.2); ALKALINE PHOSPHATASE 118 U/L (38-126); ALT (SGPT) 37 U/L (9-52); ANION GAP 11 MEQ/L (5-15); AST (SGOT) 47 U/L (14-36); BUN/CREATININE RATIO 38 RATIO (6-26); CALCIUM 9.5 MG/DL (8.4-10.2); CHLORIDE 104 MEQ/L (98-107); CO2 - CARBON DIOXIDE 27 MEQ/L (22-30); CREATININE 0.9 MG/DL (0.7-1.2); GLOMERULAR FILTRATION RATE 60; GLUCOSE 102 MG/DL (65-110); POTASSIUM 4.9 MEQ/L (3.6-5); SODIUM 142 MEQ/L (134-144); TOTAL PROTEIN 6.8 G/DL (6.3-8.2)
--- OUTSIDE RECORDS SUMMARY | 2016-09-08 21:56 | XMS REPORT | Continuity of Care Document ---
Author Author [facility] Organization [facility] Address Unknown Phone Unavailable Support Name Relationship Address Phone LATASHA ANTUNEZ Next Of Kin [phone] [address] Unavailable Insurance Providers Payer Name Policy Number Subscriber Name Relationship Medicare [id number] Callie Antunez 16 Self [place] [id number] Callie Antunez 16 Self Problems No Known [...] 2008 4:00pm 1-3 /HPF - Urine Specific [place] December 13, 2008 4:00pm 1.005 L - [...] Encounters Encounter Location Date/Time Departed Emergency Room [facility] 12/10/12 4:24pm
--- OUTSIDE RECORDS SUMMARY | 2016-09-08 21:58 | XMS REPORT | Continuity of Care Document ---
Author Author [facility] Organization [facility] Address Unknown Phone Unavailable Allergies [...] OF WOUND, INFECT, OR BURN Dax JARRETT [facility] 06/26/2012 86.22 EXCIS DEBRIDE OF WOUND, [...] Status Pt. Type Provider Facility Loc./Unit Complaint [id number] 04/04/2013 13:34:00 2012 09:54:00 DIS Outpatient Dax JARRETT, [facility] [id number] 03/26/2013 13:17:00 2012 10:24:00 DIS Outpatient Virgen JARRETT, [facility] [id number] 02/11/2013 13:38:00 2012 11:55:00 DIS Outpatient Dax JARRETT, [facility] [id number] 12/31/2012 14:51:00 2012 10:07:00 DIS Outpatient Dax JARRETT, [facility] [id number] 11/20/2012 09:40:00 2012 11:38:00 DIS Outpatient Randy JARRETT, [facility] [id number] 10/30/2012 14:43:00 2012 14:58:00 DIS Outpatient Randy JARRETT, [facility] [id number] 09/18/2012 14:03:00 2012 08:07:00 DIS Outpatient Randy JARRETT, [facility] [id number] 08/07/2012 13:58:00 2012 09:51:00 DIS Outpatient Porter Tellez [facility] [id number] 06/26/2012 13:01:00 2012 08:22:00 DIS Outpatient Dax JARRETT, [facility] [id number] 05/23/2012 11:00:00 2011 16:02:00 DIS Outpatient Adam JARRETT, [facility] [id number] 04/23/2012 10:37:00 2011 13:40:00 DIS Outpatient Ruth JARRETT, [facility] W.8TN [id number] 04/17/2012 13:50:00 2011 11:06:00 DIS Outpatient Adam JARRETT, [facility] [id number] 03/06/2012 10:34:00 2011 15:08:00 DIS Outpatient Dax JARRETT, [facility] [id number] 01/24/2012 14:15:00 2011 09:36:00 DIS Outpatient Adam JARRETT, [facility] [id number] 12/20/2011 08:17:00 Inpatient Monique JARRETT, [facility] W.10TS
[2016-09-08 22:11] LABS: BLOOD, URINE NEGATIVE (NEGATIVE); COLOR,URINE YELLOW (YELLOW); LEUKOCYTE ESTERASE ,URINE NEGATIVE (NEGATIVE); NITRITE,URINE POSITIVE (NEGATIVE); UROBILINOGEN,URINE 0.2 EU/DL (NORMAL)
--- NOTE | 2016-09-08 22:15 | NUR ---
ADMIT 81 YEAR OLD FEMALE PATIENT ADMITTED TO ROOM 160 VIA CART FROM ED. ADMITTED TO SERVICES OF DR. BERNARD WITH PELVIC FRACTURE. AWAKE AND ALERT. ORIENTED TO PERSON, PLACE, AND TIME. DENIES PAIN AT REST. ORIENTED TO ROOM, CALL LIGHT, PLAN OF CARE, ETC. WILL CONTINUE TO MONITOR.
[2016-09-08 22:20] VITALS: Ht 152.4 cm; Wt 43.7 kg
[2016-09-08 22:22] LABS: BACTERIA,URINE 3+ (NEGATIVE); RBC,URINE NONE SEEN /HPF (0-3)
[2016-09-08] MEDS ORDERED: ONDANSETRON ODT 4 MG TAB PO PRN (22:30)
[2016-09-08] MEDS ORDERED: ONDANSETRON 4mg/2ml INJECTION IV PRN (22:30)
[2016-09-08] MEDS ORDERED: HYDROMORPHONE 2mg/ml INJECTION IV PRN (22:30)
--- NOTE | 2016-09-08 22:36 | HPPDOC ---
SOFIYA ESQUIVEL MD 09/08/16 2233: HPI - Adult Date DATE: 09/08/16 TIME: 22:30 General Chief Complaint: left hip pain History of Present Illness Very pleasant 81-year-old female presents to the emergency room with left hip pain. She fell yesterday she's had Increasing groin pain and decreased ability to walk since then. She saw her primary care physician, she typically has a rolling walker landed on her left hip. Saw Dr Kearns, he performed x- ray that was negative for fracture on there. However she presented later to the emergency room because of the pain, a CT demonstrated a right sided pubic ramus fracture that was slightly comminuted displaced, and probably a left sided nondisplaced fracture. She does have a history of atrial fibrillation and she is currently fully anticoagulated with Coumadin for this. She lives alone in her emergency provider notification went off (panic button) when she fell. she does have a skin tear on her left elbow. Past Medical History Past Medical History rheumatoid arthritis atrial fibrillation hypertension history of breast cancer possibly a history of coronary artery disease. The patient denies this Surgical History Patient's Surgical History: bilateral mastectomy mitral valve repair vaginal hysterectomy radiofrequency ablation appendectomy Current Medications Home Meds Reported Medications Calcium Carbonate ([id number]) 500 Mg Tablet, 1 TAB PO NOON 09/09/16 Cyclobenzaprine HCl (Cyclobenzaprine HCl) 5 Mg Tablet, 1 TAB PO TID Y for SPASMS , TAB MAY CAUSE DROWSINESS OR DIZZINESS 09/09/16 Digoxin (Digoxin) 125 Mcg Tablet, 1 TAB PO DAILY, TAB 09/09/16 Warfarin Sodium (Coumadin) 2 Mg Tablet, 2 MG PO MWF, TAB Take by mouth, 1 time a day (at NOON). 09/09/16 Diltiazem HCl (Diltiazem 24Hr ER) 180 Mg Cap.er.24h, 1 CAP PO BID, #30 CAP 0 Refills 0600,1700 09/09/16 Multivitamin (Multi-Day Vitamins) 1 Each Tablet, 1 TAB PO DAILY 09/08/16 Acetaminophen (Acetaminophen) 650 Mg Tablet.er, 650 MG PO TID 0600,1200,0000 09/08/16 Metronidazole (Metronidazole) 45 Gm Cream..g., 1 APPLIC TOP BID 09/08/16 Zoledronic Acid (Reclast 5 mg/100 ml Solution) 5 Mg/100 Ml Ml, 5 MG IV 1 YEAR 07/16/16 Warfarin Sodium (Warfarin Sodium) 3 Mg Tablet, 3 MG PO SaSuTTh 07/16/16 Trazodone HCl (Trazodone HCl) 100 Mg Tablet, 100 MG PO HS 07/16/16 Simethicone (Simethicone) 180 Mg Capsule, 180 MG PO DAILY Y for GAS 07/16/16 Polyethylene Glycol 3350 (Miralax) 119 Gm Powder, 17 G PO DAILY 07/16/16 Losartan Potassium (Losartan Potassium) 50 Mg Tablet, 50 MG PO BID 07/16/16 Cyanocobalamin (Vitamin B-12) (Vitamin B-12) 1,000 Mcg Tablet, 1000 MCG PO DAILY 07/16/16 Fesoterodine Fumarate (Toviaz) 8 Mg Tab.er.24h, 8 MG PO DAILY 11/13/15 Pantoprazole Sodium (Pantoprazole Sodium) 40 Mg Tablet.dr, 40 MG PO DAILY 11/13/15 Methotrexate Sodium (Methotrexate) 2.5 Mg Tablet, 7 TAB PO Monday11/13/15 Folic Acid (Folic Acid) 1 Mg Tablet, 1 MG PO DAILY 11/13/15 Dicyclomine HCl (Dicyclomine HCl) 10 Mg Capsule, 10 MG PO QID Y for IRRITABLE BOWEL 11/13/15 Sertraline (Sertraline) 100 Mg Tablet, 100 MG PO NOON 11/13/15 Tramadol Hcl (Tramadol Hcl) 50 Mg Tablet, 50 MG PO Q6H Y for PAIN 12/30/11 Colchicine (Colchicine) 0.6 Mg Tablet, 0.6 MG PO BID 12/30/11 Prednisone (Prednisone) 5 Mg Tablet, 5 MG PO DAILY 12/30/11 Magnesium Oxide (Magnesium Oxide) 400 Mg Tablet, 400 MG PO DAILY 12/30/11 Butalbital/Aspirin/Caffeine (Fiorinal) 1 Cap Capsule, 2 CAP PO Q6H Y for PAIN 12/30/11 Aspirin (Aspirin) 81 Mg Tablet, 81 MG PO DAILY 12/30/11 Allergies: Coded Allergies: morphine (Verified Allergy, Intermediate, BEHAVIOR DISTURBANCE, 09/08/16) terbinafine HCl (Verified Allergy, Intermediate, RASH, 09/08/16) zolpidem (Verified Allergy, Intermediate, MADE ME CRAZY, 09/08/16) Malt Extract. (Verified Allergy, Mild, DIARRHEA, 09/08/16) codeine (Verified Allergy, Unknown, 09/08/16) hydroxychloroquine (Verified Allergy, Unknown, 09/08/16) Family History Family History: n/c based on age Social History Smoking Status: Former smoker Substance Use Type: does not use Alcohol Intake: none, occasionally Marital Status: Housing: house Current Occupational Status: retired Advance Directives: Yes Full Code ( she wants anything unless it was going to leave her (in her words...) "a vegetable"), Yes Living Will Review of Systems ENMT Hearing: REPORTS: hearing loss All Other Systems All Other Systems: Reviewed (remainder of 10-point ROS Neg.) Physical Exam General General Nourishment: apparent age, cachectic Vital Signs Vital Signs Date Time Temp Pulse Resp B/P Pulse Ox O2 Delivery O2 Flow Rate FiO2 09/08/16 17:34 98.1 78 16 164/69 100 Room Air Height (Feet): 5 Height (Inches): 0.00 Eyes Brief: FOUND: PERRL Respiratory Brief: FOUND: clear all mast Neurologic RN Documented GCS Eye Opening: Verbal: Motor: Total: Laboratory Laboratory Tests Test 09/08/16 21:09 09/08/16 22:03 White Blood Count 7.5T/MM3 Red Blood Count 3.71M/MM3 Hemoglobin 10.0GM/DL Hematocrit 33.7% Mean Corpuscular Volume 90.8UM3 Mean Corpuscular Hemoglobin 27.0UUG Mean Corpuscular Hemoglobin Concent 29.7GM/DL RDW Standard Deviation 54.6FL Platelet Count 354T/MM3 Mean Platelet Volume 10.6UM3 Immature Granulocyte % (Auto) 0.1% Neutrophils (%) (Auto) 78.5% Lymphocytes (%) (Auto) 13.0% Monocytes (%) (Auto) 8.0% Eosinophils (%) (Auto) 0.1% Basophils (%) (Auto) 0.3% Absolute Immature Granulocyte (auto 0.01T/MM3 Absolute Neutrophils (auto) 5.9T/MM3 Absolute Lymphocytes (auto) 1.0T/MM3 Absolute Monocytes (auto) 0.6T/MM3 Absolute Eosinophils (auto) 0.0T/MM3 Absolute Basophils (auto) 0.0T/MM3 Prothromb Time International Ratio 3.05 Turbidity < 20 Sodium Level 142MEQ/L Potassium Level 4.9MEQ/L Chloride Level 104MEQ/L Carbon Dioxide Level 27MEQ/L Anion Gap 11MEQ/L Blood Urea Nitrogen 34.0MG/DL Creatinine 0.9MG/DL Glomerular Filtration Rate Calc 60 BUN/Creatinine Ratio 38RATIO Glucose Level 102MG/DL Calculated Osmolality 281MOSM/KG Calcium Level 9.5MG/DL Total Bilirubin 0.70MG/DL Icterus Index < 2 Aspartate Amino Transf (AST/SGOT) 47U/L Alanine Aminotransferase (ALT/SGPT) 37U/L Alkaline Phosphatase 118U/L Total Protein 6.8G/DL Albumin 4.3G/DL Globulin 2.5G/DL Albumin/Globulin Ratio 1.7RATIO Chemistry Specimen Hemolysis < 15 Urine Collection Type Straight cath Urine Color Yellow Urine Turbidity Clear Urine pH 6.0 Urine Specific [place] 1.020 Urine Protein Negative Urine Glucose (UA) Negative Urine Ketones Negative Urine Blood Negative Urine Nitrite Positive Urine Bilirubin Negative Urine Urobilinogen 0.2EU/DL Urine Leukocyte Esterase Negative Urine RBC None seen/HPF Urine WBC 3-5/HPF Urine Bacteria 3+ Urine Culture Indicated Cult reflexed &setup Concerns For Adverse Events with her fall, fracture and already anemic and fully anticoagulated, likelihood of complications develping is high. Assessment & Plan Problems: (1) Bilateral pubic rami fractures Status: Acute Assessment & Plan: Weight-bear as tolerated, physical and occupational therapy evaluation. Orthopedic consultation may be in order, but I think likely non-operative at this point. She has allergies or intolerances to medications, pain may be a challenge. We'll try scheduled Tylenol, and we'll order Celebrex 100 mg twice a day, I'm leery of other BHANDARI 1 inhibitors with history of gastritis. Likely pathologic fx d/t osteoporosis with being on steroids (2) Chronic anticoagulation Status: Acute Assessment & Plan: held any anticoagulation for the moment, if her hemoglobin goes down, significantly may have to reverse anticoag. (3) UTI (urinary tract infection) Status: Acute Qualifiers: Urinary tract infection type: acute cystitis Assessment & Plan: I've ordered Vantin 100 mg twice a day, cultured and sent , day hospitalist to follow-up on the results. (4) Atrial fibrillation, chronic Assessment & Plan: contine rate controlling meds. (5) HTN (hypertension) Assessment & Plan: Continue home medications (6) Rheumatoid arthritis Assessment & Plan: on MTX and 5 prednisone Code Status Full Code Hospital Course Summary Disclaimer The hospital course summary below is not to be considered part of the above Progress Note. MIRTHA BERNARD MD 09/09/16 1464: Past Medical History Current Medications Home Meds Reported Medications Calcium Carbonate ([id number]) 500 Mg Tablet, 1 TAB PO NOON 09/09/16 Cyclobenzaprine HCl (Cyclobenzaprine HCl) 5 Mg Tablet, 1 TAB PO TID Y for SPASMS , TAB MAY CAUSE DROWSINESS OR DIZZINESS 09/09/16 Digoxin (Digoxin) 125 Mcg Tablet, 1 TAB PO DAILY, TAB 09/09/16 Warfarin Sodium (Coumadin) 2 Mg Tablet, 2 MG PO MWF, TAB Take by mouth, 1 time a day (at NOON). 09/09/16 Diltiazem HCl (Diltiazem 24Hr ER) 180 Mg Cap.er.24h, 1 CAP PO BID, #30 CAP 0 Refills 0600,1700 09/09/16 Multivitamin (Multi-Day Vitamins) 1 Each Tablet, 1 TAB PO DAILY 09/08/16 Acetaminophen (Acetaminophen) 650 Mg Tablet.er, 650 MG PO TID 0600,1200,0000 09/08/16 Metronidazole (Metronidazole) 45 Gm Cream..g., 1 APPLIC TOP BID 09/08/16 Zoledronic Acid (Reclast 5 mg/100 ml Solution) 5 Mg/100 Ml Ml, 5 MG IV 1 YEAR 07/16/16 Warfarin Sodium (Warfarin Sodium) 3 Mg Tablet, 3 MG PO SaSuTTh 07/16/16 Trazodone HCl (Trazodone HCl) 100 Mg Tablet, 100 MG PO HS 07/16/16 Simethicone (Simethicone) 180 Mg Capsule, 180 MG PO DAILY Y for GAS 07/16/16 Polyethylene Glycol 3350 (Miralax) 119 Gm Powder, 17 G PO DAILY 07/16/16 Losartan Potassium (Losartan Potassium) 50 Mg Tablet, 50 MG PO BID 07/16/16 Cyanocobalamin (Vitamin B-12) (Vitamin B-12) 1,000 Mcg Tablet, 1000 MCG PO DAILY 07/16/16 Fesoterodine Fumarate (Toviaz) 8 Mg Tab.er.24h, 8 MG PO DAILY 11/13/15 Pantoprazole Sodium (Pantoprazole Sodium) 40 Mg Tablet.dr, 40 MG PO DAILY 11/13/15 Methotrexate Sodium (Methotrexate) 2.5 Mg Tablet, 7 TAB PO Monday11/13/15 Folic Acid (Folic Acid) 1 Mg Tablet, 1 MG PO DAILY 11/13/15 Dicyclomine HCl (Dicyclomine HCl) 10 Mg Capsule, 10 MG PO QID Y for IRRITABLE BOWEL 11/13/15 Sertraline (Sertraline) 100 Mg Tablet, 100 MG PO NOON 11/13/15 Tramadol Hcl (Tramadol Hcl) 50 Mg Tablet, 50 MG PO Q6H Y for PAIN 12/30/11 Colchicine (Colchicine) 0.6 Mg Tablet, 0.6 MG PO BID 12/30/11 Prednisone (Prednisone) 5 Mg Tablet, 5 MG PO DAILY 12/30/11 Magnesium Oxide (Magnesium Oxide) 400 Mg Tablet, 400 MG PO DAILY 12/30/11 Butalbital/Aspirin/Caffeine (Fiorinal) 1 Cap Capsule, 2 CAP PO Q6H Y for PAIN 12/30/11 Aspirin (Aspirin) 81 Mg Tablet, 81 MG PO DAILY 12/30/11 Allergies: Coded Allergies: morphine (Verified Allergy, Intermediate, BEHAVIOR DISTURBANCE, 09/08/16) terbinafine HCl (Verified Allergy, Intermediate, RASH, 09/08/16) zolpidem (Verified Allergy, Intermediate, MADE ME CRAZY, 09/08/16) Malt Extract. (Verified Allergy, Mild, DIARRHEA, 09/08/16) codeine (Verified Allergy, Unknown, 09/08/16) hydroxychloroquine (Verified Allergy, Unknown, 09/08/16) Assessment & Plan Plan/Intensity of Service Written H&P reviewed, agree with both history, physical and plan. Chief complaint pelvic pain History of present illness: 81-year-old female presents to ED with pelvic pain. She was at home, trying to move a wheelchair, which did not move. She fell landing on her hip. This was greater than 24 hours ago. She did go to her primary care provider's office where x-ray did not show a fracture. She returned home and later came to emergency department due to continuing pain. CT scan showed fracture of the pelvic ring. Also showed signs of UTI and elevated INR. Past medical history: Rheumatoid arthritis, atrial fibrillation, hypertension, history of breast cancer, coronary artery disease. Surgical history: Bilateral mastectomy, mitral valve repair, vaginal history, appendectomy. Current medications: Calcium carbonate, cyclobenzaprine, digoxin, warfarin, diltiazem, multivitamin, acetaminophen, metronidazole, request, trazodone, simethicone, MiraLAX, low certain, B12, Toviaz, Protonix, methotrexate, folic acid, sertraline, tramadol, colchicine, prednisone, Fiorinal, aspirin. Allergies: Morphine, terbinafine, Ambien, multiple extract, codeine, hydroxychloroquine. Social history: Former smoker, occasional alcohol, has been lives in [facility] home. Full code. Review of systems 10 systems reviewed and negative except for those discussed above. Physical exam: General pleasant female, no acute distress at this time. HEENT is within normal limits. Lungs are clear to auscultation cardiac is regular rate and rhythm. Abdomen nontender with no masses. Extremities no clubbing cyanosis or edema noted. Patient does have some tenderness anterior left pubic and pain with raising of left leg. Labs white count 7.5 hemoglobin 10.0 platelets 354 CMP is appropriate. INR elevated. UA shows positive nitrite with 3+ urine bacteria. CT pelvis shows bilateral pelvic ring fracture. 09/09/16 Assessment and plan #1 bilateral pelvic fracture. MRI was obtained today to rule out hip fracture either side, MRI was negative for bony fracture. Did show muscle tear. Patient is comfortable and chair, working to increase activity. #2 elevated INR. INR decreased 2.7 today, should be appropriate tomorrow for discharge. #3 anemia. Hemoglobin decreased from 10 to 9. Recheck in a.m. and likely be able to discharge. #4 UTI. Jenny hunt, DC on orals. Mirtha Bernard M.D. Hospital Course Summary Hospital Course Summary 09/09/16 Assessment and plan #1 bilateral pelvic fracture. MRI was obtained today to rule out hip fracture either side, MRI was negative for bony fracture. Did show muscle tear. Patient is comfortable and chair, working to increase activity. #2 elevated INR. INR decreased 2.7 today, should be appropriate tomorrow for discharge. #3 anemia. Hemoglobin decreased from 10 to 9. Recheck in a.m. and likely be able to discharge. #4 UTI. Jenny hunt DC on orals. SOFIYA Banerjee M.D., MD Sep 08, 2016 22:33 MIRTHA BERNARD MD Sep 09, 2016 15:51
[2016-09-08 22:38] VITALS: BP 137/74; PULSE 83; RESP 18; TEMP 96.6; O2SAT 95
[2016-09-08 22:41] VITALS: PULSE 78; RESP 16; O2SAT 99
[2016-09-08 23:07] LABS: ANION GAP 11 MEQ/L (5-15); BUN/CREATININE RATIO 37 RATIO (6-26); CALCIUM 9.1 MG/DL (8.4-10.2); CHLORIDE 104 MEQ/L (98-107); CO2 - CARBON DIOXIDE 26 MEQ/L (22-30); CREATININE 0.9 MG/DL (0.7-1.2); GLOMERULAR FILTRATION RATE 60; GLUCOSE 100 MG/DL (65-110); POTASSIUM 4.4 MEQ/L (3.6-5); SODIUM 141 MEQ/L (134-144)
[2016-09-09] MEDS ORDERED: SIMETHICONE 125 MG CAPSULE PO PRN
[2016-09-09] MEDS ORDERED: CALCIUM CARBONATE 500mg Chewable TAB PO PRN
[2016-09-09] MEDS ORDERED: BUTALBITAL PO PRN
[2016-09-09] MEDS ORDERED: CAFFEINE PO PRN
[2016-09-09] MEDS ORDERED: ASPIRIN PO PRN
[2016-09-09] MEDS ORDERED: DICYCLOMINE 10 MG CAPSULE PO PRN
[2016-09-09 00:30] VITALS: PULSE 85; RESP 18
[2016-09-09] MEDS: TRAZODONE 100 MG TABLET PO SCH (00:39)
[2016-09-09] MEDS: CEFPODOXIME 100 MG PO SCH ×3 (00:39→18:47)
[2016-09-09] MEDS: TRAMADOL 50 MG TABLET PO PRN ×2 (00:40→07:52)
[2016-09-09] MEDS ORDERED: ACETAMINOPHEN SR 650 MG TABLET PO PRN (00:45)
[2016-09-09 01:00] VITALS: BP 156/69; PULSE 85; RESP 18; TEMP 97.2; O2SAT 97
--- NOTE | 2016-09-09 01:45 | NUR ---
PRN MEDICATION PT GIVEN PRN TRAMADOL WITH HER TRAZADONE. PT REPORTS TO THIS RN AND SUJATA RN THAT SHE TAKES THESE MEDICATIONS AT MIDNIGHT EVERY NIGHT WELL TAKING TYLENOL. TIGER TEXT TO HOSPITALIST TO CLARIFY ORDER FOR TYLENOL. ORDER PENDING CHANGE.
[2016-09-09 05:14] LABS: BASOPHILS % (AUTO) 0.4 % (0-2); EOSINOPHILS % (AUTO) 0.6 % (0-4); HCT - HEMATOCRIT 30.9 % (36-46); IMMATURE GRANULOCYTE # (AUTO) 0.01 T/MM3 (0.00-0.03); IMMATURE GRANULOCYTE % (AUTO) 0.1 % (0.0-0.5); LYMPHOCYTES % (AUTO) 14.8 % (23-45); MEAN CORPUSCULAR HGB 26.5 UUG (26-34); MEAN CORPUSCULAR HGB CONC(MCHC 29.1 GM/DL (31-37); MEAN CORPUSCULAR VOLUME 90.9 UM3 (80-100); MEAN PLATELET VOLUME 10.8 UM3 (9.4-12.4); MONOCYTES # (AUTO) 0.8 T/MM3 (0-0.8); MONOCYTES % (AUTO) 11.4 % (0-9.0); NEUTROPHILS % (AUTO) 72.7 % (33-66); WBC - WHITE BLOOD COUNT 6.8 T/MM3 (4.5-11.0)
[2016-09-09 05:17] LABS: INR 2.63 (0.76-1.04); PROTHROMBIN TIME 28.7 SEC (9.31-12.49)
[2016-09-09 05:24] LABS: ANION GAP 10 MEQ/L (5-15); BUN/CREATININE RATIO 37 RATIO (6-26); CALCIUM 9.4 MG/DL (8.4-10.2); CHLORIDE 106 MEQ/L (98-107); CO2 - CARBON DIOXIDE 26 MEQ/L (22-30); CREATININE 0.9 MG/DL (0.7-1.2); GLOMERULAR FILTRATION RATE 60; GLUCOSE 95 MG/DL (65-110); POTASSIUM 4.3 MEQ/L (3.6-5); SODIUM 142 MEQ/L (134-144)
--- NOTE | 2016-09-09 06:38 | NUR ---
SHIFT SUMMARY PT WAS LATE ADMISSION. PT ALERT AND ORIENTED X3. PT REQUIRED PRN MEDICATION SEE EMAR AND NOTE. PT ABLE TO AMBULATE IN ROOM WITH WALKER GAIT BELT AND ONE ASSIST. PT HAD TWO BM AND TWO VOIDS. PT TAKES MEDICATIONS EASILY WITH APPLESAUCE. PT SLEPT WELL AND REQUIRE MINIMAL ASSISTANCE. PT ON RA. PT IS PLEASANT AND COOPERATIVE WITH MEDICATIONS AND CARES. PT REQUIRES MINIMAL ASSISTANCE AND HAS HAD NO COMPLAINTS THROUGH THE NIGHT FOLLOWING MEDICATION REC BEING COMPLETED BY PROVIDER ALLOWING STAFF TO PROVIDE MEDICATIONS PT REPORTS TAKING DAILY.
--- NOTE | 2016-09-09 07:08 | NUR ---
REPORT PT HANDOFF REPORT TO [facility]. Addendum: 09/09/16 at 0709 by TRACEY SIDHU RN HANDOFF REPORT TO [facility].
--- NOTE | 2016-09-09 07:49 | DI ---
Indication: ITS.REASON: fall; on warfarin PROCEDURE: CT HEAD W/O CONTRAST: Encounter: Initial Comparison: December 10, 2012 Technique: Axial CT images through the head were performed without contrast. Iterative Reconstruction dose reducing technique was utilized. FINDINGS: Moderate generalized atrophy. The ventricles are unchanged. There is no evidence of acute intracranial hemorrhage, midline displacement, or mass effect. There are scattered areas of low attenuation in the white matter which most likely represent changes of chronic microvascular ischemia. The CT attenuation of the brain parenchyma is otherwise normal within the cerebellum, brain stem, and cerebral hemispheres. The tympanic cavities and mastoid air cells are free of appreciable disease. There are no definite fractures of the skull base, calvarium, or visualized portion of the midface. Spinal hardware in the occipital bone and cervical spine causing metallic artifact IMPRESSION: No CT evidence of acute traumatic intracranial injury. There is a preliminary report by [facility]. .
[2016-09-09] MEDS: FESOTERODINE 4 MG PO SCH (07:53)
[2016-09-09] MEDS: MULTIVITAMIN PLAIN TABLET PO SCH (07:54)
--- NOTE | 2016-09-09 08:00 | DI ---
Indication: ITS.REASON: fall/ pain to left hip/negative xray PROCEDURE: CT PELVIS W/O CONTRAST: Encounter: Initial Comparison: None Technique: Axial noncontrast CT imaging through the pelvis with coronal and sagittal two-dimensional reformats. Automated Exposure Control and Iterative Reconstruction dose reducing techniques were utilized. Findings: Severe bony demineralization with severe degenerative change and postoperative changes in the lower lumbar spine. There is a markedly comminuted but minimally displaced fracture of the right inferior pubic ramus. Very large amount of stool seen within the colon. Nondisplaced fracture of the left superior pubic ramus near the pubic symphysis. No additional displaced fracture seen. Impression: Right inferior and left superior pubic ramus fractures. If there is continued clinical concern for hip fracture, MRI is recommended given the severe bone demineralization. There is a preliminary report by [facility]. .
--- NOTE | 2016-09-09 08:00 | NUR ---
RECEIVED REPORT PT IS ALERT AND ORIENTED, ON ROOM AIR. VITAL SIGNS STABLE. VERBALIZES PAIN 7/10 AT HIPS, TRAMADOL AND TYLENOL ADMINISTERED. NO OTHER CONCERNS AT THIS TIME.
[2016-09-09] MEDS: ACETAMINOPHEN 500 MG TABLET PO PRN (08:01)
[2016-09-09] MEDS: PredniSONE 5 MG TABLET PO SCH (08:02)
[2016-09-09] MEDS: MAGNESIUM OXIDE 400 MG TABLET PO SCH (08:03)
[2016-09-09] MEDS: LOSARTAN 50 MG TABLET PO SCH ×2 (08:03→22:02)
[2016-09-09] MEDS: FOLIC ACID 1 MG TABLET PO SCH (08:03)
[2016-09-09] MEDS: DILTIAZEM CD 240mg CAP (QD) PO SCH (08:04)
[2016-09-09] MEDS: CYANOCOBALAMIN (B-12) 500mcg TABLET PO SCH (08:05)
[2016-09-09] MEDS: PANTOPRAZOLE 40 MG TABLET PO SCH (08:09)
[2016-09-09 08:14] VITALS: BP 124/91; PULSE 79; RESP 16; TEMP 97.4; O2SAT 95
[2016-09-09 08:15] VITALS: PULSE 79; RESP 16
[2016-09-09] MEDS: METRONIDAZOLE 0.75% TOP SCH ×2 (09:00→21:00)
[2016-09-09] MEDS: POLYETHYL.GLYCOL 3350 PACKET 17gm PO SCH ×2 (09:00→15:21)
[2016-09-09] MEDS: SENNA + DOCUSATE TAB PO SCH ×2 (09:00→21:00)
[2016-09-09] MEDS ORDERED: LORAZEPAM 0.5 MG TABLET PO ONE (11:00)
--- NOTE | 2016-09-09 12:00 | NUR ---
ACTIVITY PATIENT AMBULATED THIS MORNING WITH WALKER. RETUNED TO ROOM AND HAS BEEN SITTING IN [facility] UNIT SINCE EXCEPT BATHROOM BREAKS. FAMILY IS AT BED WAITINNG TO TALK TO DR. BERNARD
[2016-09-09] MEDS: SERTRALINE 100 MG TABLET PO SCH (12:47)
--- NOTE | 2016-09-09 13:11 | DI ---
Indication: ITS.REASON: bilat pelvic pain, fall. PROCEDURE: MRI PELVIS W/O CONTRAST: Encounter: Initial Comparison: CT pelvis from yesterday Technique: Multiplanar multisequence MR imaging of the pelvis was performed without contrast. Findings: There is redemonstration of the right inferior and left superior pubic ramus fractures. No focal edema to suggest a femoral neck fracture. Degenerative and postoperative changes in the lower lumbar spine and left iliac bone. Bladder is distended. Muscular edema in the left adductor musculature. The right hamstring origins are torn with a focal fluid collection present. There is also a tear of the left hamstring origins. Impression: 1. No femoral head or neck fracture seen. 2. Right inferior and left superior pubic ramus fractures as seen on prior CT. 3. Evidence of left-sided adductor muscular tearing and tearing of both hamstring origins. .
[2016-09-09] MEDS ORDERED: DIGO125T88 PO (14:21)
[2016-09-09] MEDS ORDERED: WARF2TAB58 PO (14:21)
[2016-09-09] MEDS ORDERED: DILT180C3 PO (14:21)
[2016-09-09] MEDS ORDERED: CYCL5TAB PO (14:21)
[2016-09-09] MEDS ORDERED: CALC-724 PO (14:30)
[2016-09-09 16:58] VITALS: BP 128/63; PULSE 79; RESP 18; TEMP 95.9; O2SAT 97
--- NOTE | 2016-09-09 17:19 | NUR ---
JOCELYN TRIPLETT IS 4. NO FURTHER INTERVENTION NEEDED. Addendum: 09/09/16 at 1719 by CHERRIE STUART Amended: Links added.
--- NOTE | 2016-09-09 17:20 | NUR ---
CM SPOKE WITH PT, AND DAUGHTER EMERSON WAS PRESENT. INTRODUCED SELF, EXPLAINED ROLE, PROVIDED CONTACT INFO. PT SAID SHE LIVES ALONE OUTSIDE OF [place]. THEY SAID EMERSON CHECKS ON PT 2X A DAY, AND TAKES CARE OF THE GROCERY SHOPPING, CLEANING, ETC. THIS WORKER REVIEWED WITH THEM THAT PT/OT SAW PT AND RECOMMENDED HOME HEALTH HOME HEALTH. THIS WORKER OFFERED TO SET THIS UP. PT AND EMERSON STATED IT IS HARD TO THINK OF DC PLANNING RIGHT NOW, SINCE THERE ARE MEDICAL QUESTIONS THEY HAVE (THESE WILL BE ADDRESSED TO DOCTOR). LATER, THIS WORKER STOPPED BY ROOM AGAIN. ANOTHER DAUGHTER, RIDGE, WAS PRESENT, ALONG WITH ANOTHER VISITOR. REVIEWED DC PLAN OF HOME, AND AGAIN OFFERED TO SET UP HOME HEALTH. EMERSON WAS THEN CALLED AND PRESENT VIA SPEAKER PHONE. IT WAS DECIDED BY PT AND EMERSON THAT PT WILL NOT HAVE HOME HEALTH SET UP FROM HERE. THEY WILL FOLLOW UP WITH PT'S PRIMARY DOCTOR IF THERE IS A NEED. ALSO, EMERSON WAS CONCERNED OF "HIDDEN FEES" THAT HOME HEALTH WOULD CHARGE. THIS WORKER PROVIDED PT WITH A LIST OF HOME HEALTH PROVIDERS, ENCOURAGED THEM TO CALL TO CLEAR UP ANY QUESTIONS. THEY SAID THEY WILL DO THIS. PT STATED SHE THINKS SHE WILL BE FINE WITHOUT HOME HEALTH, SINCE EMERSON IS HELPS WITH EVERYTHING, ANYWAY. EMERSON CONFIRMED THIS. REVIEWED PT'S OBSERVATION STATUS CHANGE; EXPLAINED THE MARY, AND PT SIGNED. THIS WORKER ANSWERED THE FAMILY'S QUESTIONS ABOUT THIS. PT AND FAMILY HAD NO FURTHER QUESTIONS/NEEDS FOR THIS WORKER. THEY ALL SAID THEY PLAN ON DC TOMORROW. Addendum: 09/09/16 at 1726 by CHERRIE STUART Amended: Links added.
--- NOTE | 2016-09-09 18:49 | NUR ---
EOS PATIENT HAS BEEN IN RECLINER ALL DAY. FAMILY IN ROOM MOST OF THE DAY. NO NEW CONCERNS REPORTED TODAY. PATIENT HAS NOT COMPLAINED MUCH OF PAIN.
[2016-09-09 23:32] VITALS: BP 173/83; PULSE 82; RESP 12; TEMP 98.2; O2SAT 95
[2016-09-10] MEDS: TRAZODONE 100 MG TABLET PO SCH (02:05)
[2016-09-10] MEDS: TRAMADOL 50 MG TABLET PO PRN ×2 (02:06→08:30)
[2016-09-10] MEDS: ACETAMINOPHEN 500 MG TABLET PO PRN ×2 (02:07→08:36)
--- NOTE | 2016-09-10 05:43 | NUR ---
PT ALERT AND ORIENTED, VSS, REPORTED PAIN /10 AND REQUESTED 2 TYLENOL, 1 TRAMADOL, AND 1 TRAZODONE @ 0000. PT WAS UP AND DOWN MOST OF NIGHT TO THE RESTROOM. PT IS UP WITH GATE BELT, ONE ASSIST AND WALKER. GOOD OUTPUT.
[2016-09-10 05:48] LABS: BASOPHILS % (AUTO) 0.3 % (0-2); EOSINOPHILS # (AUTO) 0.1 T/MM3 (0-0.5); EOSINOPHILS % (AUTO) 0.7 % (0-4); HCT - HEMATOCRIT 31.6 % (36-46); HGB - HEMOGLOBIN 9.4 GM/DL (12-16); IMMATURE GRANULOCYTE # (AUTO) 0.01 T/MM3 (0.00-0.03); IMMATURE GRANULOCYTE % (AUTO) 0.1 % (0.0-0.5); LYMPHOCYTES # (AUTO) 1.1 T/MM3 (1-4.8); LYMPHOCYTES % (AUTO) 14.3 % (23-45); MEAN CORPUSCULAR HGB 26.8 UUG (26-34); MEAN CORPUSCULAR HGB CONC(MCHC 29.7 GM/DL (31-37); MEAN PLATELET VOLUME 11.7 UM3 (9.4-12.4); MONOCYTES # (AUTO) 0.7 T/MM3 (0-0.8); MONOCYTES % (AUTO) 9.7 % (0-9.0); NEUTROPHILS #(AUTO)-ABSOLUTE 5.6 T/MM3 (1.8-7.7); NEUTROPHILS % (AUTO) 74.9 % (33-66); RED BLOOD COUNT 3.51 M/MM3 (4.00-5.20); WBC - WHITE BLOOD COUNT 7.4 T/MM3 (4.5-11.0)
[2016-09-10] MEDS: PANTOPRAZOLE 40 MG TABLET PO SCH (06:10)
[2016-09-10 06:15] LABS: INR 1.84 (0.76-1.04); PROTHROMBIN TIME 20.1 SEC (9.31-12.49)
[2016-09-10 07:17] VITALS: BP 139/84; PULSE 86; RESP 14; TEMP 96.8; O2SAT 97
[2016-09-10] MEDS: FOLIC ACID 1 MG TABLET PO SCH (08:29)
[2016-09-10] MEDS: CYANOCOBALAMIN (B-12) 500mcg TABLET PO SCH (08:29)
[2016-09-10] MEDS: LOSARTAN 50 MG TABLET PO SCH (08:29)
[2016-09-10] MEDS: FESOTERODINE 4 MG PO SCH (08:29)
[2016-09-10] MEDS: CEFPODOXIME 100 MG PO SCH (08:29)
[2016-09-10] MEDS: MAGNESIUM OXIDE 400 MG TABLET PO SCH (08:30)
[2016-09-10] MEDS: DILTIAZEM CD 240mg CAP (QD) PO SCH (08:30)
[2016-09-10] MEDS: SENNA + DOCUSATE TAB PO SCH (08:30)
[2016-09-10] MEDS: PredniSONE 5 MG TABLET PO SCH (08:30)
[2016-09-10] MEDS: MULTIVITAMIN PLAIN TABLET PO SCH (08:30)
[2016-09-10] MEDS: METRONIDAZOLE 0.75% TOP SCH (08:31)
[2016-09-10] MEDS: SERTRALINE 100 MG TABLET PO SCH (13:07)
--- NOTE | 2016-09-10 13:49 | PNPDOC ---
Subjective Date DATE: 09/10/16 TIME: 13:40 Subjective Cheryl is seen today in follow up. She is up in chair. Is eating lunch, not wanting to converse much. I asked her if she had any questions or concerns- she did not really give me an answer. Does endorse that pain is still an issue. Chart is reviewed. Patient is hesitant to return home with home health. She lives alone with daughter checking on her twice per day. Objective Vital Signs Vital signs Vital Signs Date Time Temp Pulse Resp B/P Pulse Ox O2 Delivery O2 Flow Rate FiO2 09/10/16 07:17 96.8 86 14 139/84 97 Room Air Height (Feet): 5 Height (Inches): 0.00 Weight (Kilograms): 43.700 General General Appearance: Alert, Orientated x 3, Cooperative, No Acute Distress Eyes (Brief) Eyes: FOUND: EOMI, PERRL, NOT FOUND: scleral icterus Neck (Brief) Neck: FOUND: midline, NOT FOUND: JVD, nuchal rigidity, spasm Respiratory (Brief) Respiratory: FOUND: clear all mast, equal bilaterally, symmetrical, NOT FOUND : rales, wheezes Cardiovascular (Brief) Cardiac: FOUND: regular rate, regular rhythm, NOT FOUND: murmur, pedal edema Abdomen (Brief) Abdominal: FOUND: BS normo active x4, soft, NOT FOUND: distended, tender Extremities (Brief) Extremity : Extremity Finding: NOT FOUND: edema Comments Limited- pt. up in chair Musculoskeletal (Brief) Musculoskeletal: FOUND: loss of motion, tenderness Psychiatric (Brief) Psychiatric: FOUND: alert, attentive, oriented Laboratory Laboratory Laboratory Tests 09/08/16 21:09 09/08/16 22:45 09/09/16 04:59 Laboratory Tests 09/08/16 21:09 09/09/16 04:59 09/10/16 04:43 Microbiology Microbiology Microbiology Date/Time Source Procedure Growth Status 09/08/16 22:22 Urine, Straight Cath Urine Culture - Final Klebsiella Pneumo Ssp Pneumo Complete Radiology MRI Impression: 1. No femoral head or neck fracture seen. 2. Right inferior and left superior pubic ramus fractures as seen on prior CT. 3. Evidence of left-sided adductor muscular tearing and tearing of both hamstring origins. Sepsis Diagnostic Criteria Sepsis Confirmed/Suspected Infection: No Assessment & Plan Problems: (1) Bilateral pubic rami fractures Status: Acute Assessment & Plan: Weight-bear as tolerated, physical and occupational therapy evaluation. Orthopedic consultation may be in order, but I think likely non-operative at this point. She has allergies or intolerances to medications, pain may be a challenge. We'll try scheduled Tylenol, and we'll order Celebrex 100 mg twice a day, I'm leery of other BHANDARI 1 inhibitors with history of gastritis. Likely pathologic fx d/t osteoporosis with being on steroids (2) Chronic anticoagulation Status: Chronic Assessment & Plan: (3) UTI (urinary tract infection) Status: Acute Qualifiers: Urinary tract infection type: acute cystitis Assessment & Plan: MICROBIOLOGY URINE CULTURE. Final 09/10/16-628 Organism 1 KLEBSIELLA PNEUMO SSP PNEUMO COLONY COUNT >100,000 CFU/ml KLEB PNEUM INTERP GARO ------ --------- AMOX/CLAV ACID S 8 AMPICILLIN R >=32 CEFAZOLIN S <=4 CEFEPIME S <=1 CEFTAZIDIME S <=1 CEFTRIAXONE S <=1 CIPROFLOXACIN S <=0.25 ERTAPENEM S <=0.5 GENTAMICIN S <=1 LEVOFLOXACIN S <=0.12 NITROFURANTOIN I 64 TOBRAMYCIN S <=1 TRIMETH/SULFA S <=20 PIPERACILL/TAZO S 8 URINE CULTURE. Preliminary (changed) 09/09/16-1128 Organism 1 GRAM NEGATIVE YOEL COLONY COUNT >100,000 CFU/ml URINE CULTURE. Preliminary (changed) 09/08/16-3 CULTURE INITIATED - RESULTS PENDING (4) Atrial fibrillation, chronic Assessment & Plan: contine rate controlling meds. (5) HTN (hypertension) Status: Chronic Qualifiers: Hypertension type: essential hypertension Qualified Codes: I10 - Essential (primary) hypertension Assessment & Plan: Continue home medications (6) Rheumatoid arthritis Status: Chronic Assessment & Plan: on MTX and 5 prednisone Assessment 09/10/16- MRI reviewed- fractures noted and concern for hamstring tears. Continue pain control- we need to have PT evaluate to ensure pt is safe to return home with family checking in on her. I am concerned that home health is best option, but she is reluctant. Klebsiella UTI noted. Vantin changed to Keflex x 5 days. She has chronic anticoagulation on Warfarin for AFib- currently on hold. Hx of Mitral Valve repair, not replace. Consider changing to ASA for now due to fall/bleeding risk. Anemia is fairly stable. BP is reviewed- continue home medications. Continue supportive care. Home soon? DVT Prophylaxis: Coumadin Code Status Full Code Hospital Course Summary Disclaimer The hospital course summary below is not to be considered part of the above Progress Note. Hospital Course Summary 09/09/16 Assessment and plan #1 bilateral pelvic fracture. MRI was obtained today to rule out hip fracture either side, MRI was negative for bony fracture. Did show muscle tear. Patient is comfortable and chair, working to increase activity. #2 elevated INR. INR decreased 2.7 today, should be appropriate tomorrow for discharge. #3 anemia. Hemoglobin decreased from 10 to 9. Recheck in a.m. and likely be able to discharge. #4 UTI. Jenny continued, DC on orals. Connor Browne M.D. 09/10/16- MRI reviewed- fractures noted and concern for hamstring tears. Continue pain control- we need to have PT evaluate to ensure pt is safe to return home with family checking in on her. I am concerned that home health is best option, but she is reluctant. Klebsiella UTI noted. Nasim changed to Keflex x 5 days. She has chronic anticoagulation on Warfarin for AFib- currently on hold. Hx of Mitral Valve repair, not replace. Consider changing to ASA for now due to fall/bleeding risk. BP is reviewed- continue home medications. Continue supportive care. Home soon? TYLER TRIPATHI APRN Sep 10, 2016 13:43
[2016-09-10] MEDS: POLYETHYL.GLYCOL 3350 PACKET 17gm PO SCH (14:28)
[2016-09-10 16:39] VITALS: BP 146/62; PULSE 80; RESP 18; TEMP 95.2; O2SAT 97
[2016-09-10] MEDS ORDERED: CEPH500C2 PO ×2 (16:46→16:47)
[2016-09-10] MEDS ORDERED: CEPHALEXIN 500 MG CAPSULE PO SCH (17:00)
--- NOTE | 2016-09-10 17:01 | DSPDOC ---
General Date Date DATE: 09/10/16 TIME: 16:49 Attending Physician Connor Browne MD Admitting Physician Connor Browne MD Consulting Physician Admitting Diagnosis PELVIS FX WITH SUPRATHERAPEUTIC INR Discharge Diagnosis Bilateral pubic rami fracture UTI Chronic A. fib Chronic anticoagulation with warfarin Hypertension Rheumatoid arthritis Anemia Procedures None Laboratory Item Value Date Time Prothromb Time International Ratio 1.84 H 09/10/16 0443 Prothromb Time International Ratio 2.63 H 09/09/16 0459 Prothromb Time International Ratio 3.05 H 09/08/16 2109 Laboratory Tests Test 09/09/16 04:59 09/10/16 04:43 White Blood Count 6.8T/MM3 (4.5-11.0) 7.4T/MM3 (4.5-11.0) Red Blood Count 3.40M/MM3 (4.00-5.20) 3.51M/MM3 (4.00-5.20) Hemoglobin 9.0GM/DL (12-16) 9.4GM/DL (12-16) Hematocrit 30.9% (36-46) 31.6% (36-46) Mean Corpuscular Volume 90.9UM3 (80-100) 90.0UM3 (80-100) Mean Corpuscular Hemoglobin 26.5UUG (26-34) 26.8UUG (26-34) Mean Corpuscular Hemoglobin Concent 29.1GM/DL (31-37) 29.7GM/DL (31-37) RDW Standard Deviation 55.3FL (36.9-50.2) 55.2FL (36.9-50.2) Platelet Count 304T/MM3 (130-400) 326T/MM3 (130-400) Mean Platelet Volume 10.8UM3 (9.4-12.4) 11.7UM3 (9.4-12.4) Immature Granulocyte % (Auto) 0.1% (0.0-0.5) 0.1% (0.0-0.5) Neutrophils (%) (Auto) 72.7% (33-66) 74.9% (33-66) Lymphocytes (%) (Auto) 14.8% (23-45) 14.3% (23-45) Monocytes (%) (Auto) 11.4% (0-9.0) 9.7% (0-9.0) Eosinophils (%) (Auto) 0.6% (0-4) 0.7% (0-4) Basophils (%) (Auto) 0.4% (0-2) 0.3% (0-2) Absolute Immature Granulocyte (auto 0.01T/MM3 (0.00-0.03) 0.01T/MM3 (0.00-0.03) Absolute Neutrophils (auto) 5.0T/MM3 (1.8-7.7) 5.6T/MM3 (1.8-7.7) Absolute Lymphocytes (auto) 1.0T/MM3 (1-4.8) 1.1T/MM3 (1-4.8) Absolute Monocytes (auto) 0.8T/MM3 (0-0.8) 0.7T/MM3 (0-0.8) Absolute Eosinophils (auto) 0.0T/MM3 (0-0.5) 0.1T/MM3 (0-0.5) Absolute Basophils (auto) 0.0T/MM3 (0-0.2) 0.0T/MM3 (0-0.2) Prothromb Time International Ratio 2.63 (0.76-1.04) 1.84 (0.76-1.04) Turbidity < 20 (0-20) Sodium Level 142MEQ/L (134-144) Potassium Level 4.3MEQ/L (3.6-5) Chloride Level 106MEQ/L (98-107) Carbon Dioxide Level 26MEQ/L (22-30) Anion Gap 10MEQ/L (5-15) Blood Urea Nitrogen 33.0MG/DL (7-17) Creatinine 0.9MG/DL (0.7-1.2) Glomerular Filtration Rate Calc 60 BUN/Creatinine Ratio 37RATIO (6-26) Glucose Level 95MG/DL (65-110) Calculated Osmolality 280MOSM/KG (261-280) Calcium Level 9.4MG/DL (8.4-10.2) Icterus Index < 2 (0-7) Chemistry Specimen Hemolysis < 15 (0-25) Microbiology Microbiology Date/Time Source Procedure Growth Status 09/08/16 22:22 Urine, Straight Cath Urine Culture - Final Klebsiella Pneumo Ssp Pneumo Complete Radiology CT pelvis Impression: Right inferior and left superior pubic ramus fractures. If there is continued clinical concern for hip fracture, MRI is recommended given the severe bone demineralization. MRI pelvis without contrast Impression: 1. No femoral head or neck fracture seen. 2. Right inferior and left superior pubic ramus fractures as seen on prior CT. 3. Evidence of left-sided adductor muscular tearing and tearing of both hamstring origins. CT head No CT evidence of acute traumatic intracranial injury History of Present Illness Very pleasant 81-year-old female presents to the emergency room with left hip pain. She fell yesterday she's had Increasing groin pain and decreased ability to walk since then. She saw her primary care physician, she typically has a rolling walker landed on her left hip. Saw Dr Kearns, he performed x- ray that was negative for fracture on there. However she presented later to the emergency room because of the pain, a CT demonstrated a right sided pubic ramus fracture that was slightly comminuted displaced, and probably a left sided nondisplaced fracture. She does have a history of atrial fibrillation and she is currently fully anticoagulated with Coumadin for this. She lives alone in her emergency provider notification went off (panic button) when she fell. she does have a skin tear on her left elbow. Hospital Course 09/09/16 Assessment and plan #1 bilateral pelvic fracture. MRI was obtained today to rule out hip fracture either side, MRI was negative for bony fracture. Did show muscle tear. Patient is comfortable and chair, working to increase activity. #2 elevated INR. INR decreased 2.7 today, should be appropriate tomorrow for discharge. #3 anemia. Hemoglobin decreased from 10 to 9. Recheck in a.m. and likely be able to discharge. #4 UTI. Jenny continued, DC on orals. Connor Browne M.D. 09/10/16- MRI reviewed- fractures noted and concern for hamstring tears. Continue pain control- we need to have PT evaluate to ensure pt is safe to return home with family checking in on her. I am concerned that home health is best option, but she is reluctant. Klebsiella UTI noted. Nasim changed to Keflex x 5 days. She has chronic anticoagulation on Warfarin for AFib- currently on hold. Hx of Mitral Valve repair, not replace. Consider changing to ASA for now due to fall/bleeding risk. BP is reviewed- continue home medications. Continue supportive care. Home soon? 09/10/2016-I reviewed this chart, the patient history, and the HAND HEEL SEAT FITTER's/PA's documented findings as above. We discussed and formulated the assessment and plan as above with the additions below.-Dr. Solis The patient was seen in her room today. She denies any chest pain or shortness of breath. She denies any lightheadedness. She states she got up and walked with her walker and went down to the physical therapy department and did well. She is eating and drinking well. Her pain is well controlled on her usual Tylenol and tramadol. Exam she is alert and oriented 3. Neck is supple. Chest is clear to auscultation. Cardiovascular reveals a regular rate and rhythm with a 2/6 systolic murmur. Abdomen is soft and nontender. Extremities are free of edema. She did work with physical therapy who recommended home with home health. I talked with the onsite case manager and she stated she talked with the patient and family and they do not take home health is needed. The patient feels ready to go home. She states her family at home can help her. She has a daughter in town from out of state this weekend. The patient will need to be up with a walker. I recommended follow-up with her primary care physician next week. He can talk with her dry heat room attendant and they can weigh the risks and benefits of continuing Coumadin with her increased risk of falls. She discussed that it is hard for her daughter to take time off from work to take her to doctor's appointments but that she does check on her frequently and is also checking on the patient's who is in a residential recently. The patient and I discussed the possibility of a home health aide or considering assisted living in the future and she stated she would think about that. At this time the patient is being discharged to home with family. She should follow-up with Dr. Kearns in the next week. She will be on Keflex for 5 more days for UTI. She will resume her Coumadin at this time. All of her other medications will be essentially the same. Problems: (1) Bilateral pubic rami fractures Status: Acute Assessment & Plan: Weight-bear as tolerated, physical and occupational therapy evaluation. Orthopedic consultation may be in order, but I think likely non-operative at this point. She has allergies or intolerances to medications, pain may be a challenge. We'll try scheduled Tylenol, and we'll order Celebrex 100 mg twice a day, I'm leery of other BHANDARI 1 inhibitors with history of gastritis. Likely pathologic fx d/t osteoporosis with being on steroids (2) Chronic anticoagulation Status: Chronic Assessment & Plan: (3) UTI (urinary tract infection) Status: Acute Assessment & Plan: MICROBIOLOGY URINE CULTURE. Final 09/10/16-628 Organism 1 KLEBSIELLA PNEUMO SSP PNEUMO COLONY COUNT >100,000 CFU/ml KLEB PNEUM INTERP GARO ------ --------- AMOX/CLAV ACID S 8 AMPICILLIN R >=32 CEFAZOLIN S <=4 CEFEPIME S <=1 CEFTAZIDIME S <=1 CEFTRIAXONE S <=1 CIPROFLOXACIN S <=0.25 ERTAPENEM S <=0.5 GENTAMICIN S <=1 LEVOFLOXACIN S <=0.12 NITROFURANTOIN I 64 TOBRAMYCIN S <=1 TRIMETH/SULFA S <=20 PIPERACILL/TAZO S 8 URINE CULTURE. Preliminary (changed) 09/09/16-112 Organism 1 GRAM NEGATIVE YOEL COLONY COUNT >100,000 CFU/ml URINE CULTURE. Preliminary (changed) 09/08/16-2222 CULTURE INITIATED - RESULTS PENDING (4) Atrial fibrillation, chronic Assessment & Plan: contine rate controlling meds. (5) HTN (hypertension) Status: Chronic Assessment & Plan: Continue home medications (6) Rheumatoid arthritis Status: Chronic Assessment & Plan: on MTX and 5 prednisone Code Status Full Code Home Meds Active Scripts Cephalexin (Cephalexin) 500 Mg Capsule, 500 MG PO Q8HR, #15 CAP For bladder infection Prov:TE SOLIS MD 09/10/16 Reported Medications Calcium Carbonate ([id number]) 500 Mg Tablet, 1 TAB PO NOON 09/09/16 Cyclobenzaprine HCl (Cyclobenzaprine HCl) 5 Mg Tablet, 1 TAB PO TID Y for SPASMS , TAB MAY CAUSE DROWSINESS OR DIZZINESS 09/09/16 Digoxin (Digoxin) 125 Mcg Tablet, 1 TAB PO DAILY, TAB 09/09/16 Warfarin Sodium (Coumadin) 2 Mg Tablet, 2 MG PO MWF, TAB Take by mouth, 1 time a day (at NOON). 09/09/16 Diltiazem HCl (Diltiazem 24Hr ER) 180 Mg Cap.er.24h, 1 CAP PO BID, #30 CAP 0 Refills 0600,1700 09/09/16 Multivitamin (Multi-Day Vitamins) 1 Each Tablet, 1 TAB PO DAILY 09/08/16 Acetaminophen (Acetaminophen) 650 Mg Tablet.er, 650 MG PO TID 0600,1200,0000 09/08/16 Metronidazole (Metronidazole) 45 Gm Cream..g., 1 APPLIC TOP BID 09/08/16 Warfarin Sodium (Warfarin Sodium) 3 Mg Tablet, 3 MG PO SaSuTTh 07/16/16 Trazodone HCl (Trazodone HCl) 100 Mg Tablet, 100 MG PO HS 07/16/16 Simethicone (Simethicone) 180 Mg Capsule, 180 MG PO DAILY Y for GAS 07/16/16 Polyethylene Glycol 3350 (Miralax) 119 Gm Powder, 17 G PO DAILY 07/16/16 Losartan Potassium (Losartan Potassium) 50 Mg Tablet, 50 MG PO BID 07/16/16 Cyanocobalamin (Vitamin B-12) (Vitamin B-12) 1,000 Mcg Tablet, 1000 MCG PO DAILY 07/16/16 Fesoterodine Fumarate (Toviaz) 8 Mg Tab.er.24h, 8 MG PO DAILY 11/13/15 Pantoprazole Sodium (Pantoprazole Sodium) 40 Mg Tablet.dr, 40 MG PO DAILY 11/13/15 Methotrexate Sodium (Methotrexate) 2.5 Mg Tablet, 7 TAB PO Monday11/13/15 Folic Acid (Folic Acid) 1 Mg Tablet, 1 MG PO DAILY 11/13/15 Dicyclomine HCl (Dicyclomine HCl) 10 Mg Capsule, 10 MG PO QID Y for IRRITABLE BOWEL 11/13/15 Sertraline (Sertraline) 100 Mg Tablet, 100 MG PO NOON 11/13/15 Tramadol Hcl (Tramadol Hcl) 50 Mg Tablet, 50 MG PO Q6H Y for PAIN 12/30/11 Colchicine (Colchicine) 0.6 Mg Tablet, 0.6 MG PO BID 12/30/11 Prednisone (Prednisone) 5 Mg Tablet, 5 MG PO DAILY 12/30/11 Magnesium Oxide (Magnesium Oxide) 400 Mg Tablet, 400 MG PO DAILY 12/30/11 Aspirin (Aspirin) 81 Mg Tablet, 81 MG PO DAILY 12/30/11 Discontinued Reported Medications Zoledronic Acid (Reclast 5 mg/100 ml Solution) 5 Mg/100 Ml Ml, 5 MG IV 1 YEAR 07/16/16 Butalbital/Aspirin/Caffeine (Fiorinal) 1 Cap Capsule, 2 CAP PO Q6H Y for PAIN 12/30/11 Face to Face Encounter I met with patient on the day of dismissal and discussed follow up appointments , medications, and safety plan. Discharge Disposition Dismiss to home with family in stable condition Copies To 1: DANNY KEARNS MD, STEPHANIE L MD Sep 10, 2016 17:00
--- NOTE | 2016-09-10 19:28 | NUR ---
status/ DC Pt A/O x3 with some mild forgetfulness. V/S stable on RA. Pt has been ambulating well with 1x assist and walker. Pt rated at 7/10, PRN meds given 1x and pt rated 3/10. Urine output good and very lg BM today. Eating and drinking well, no N/V. Pt DC to home, gave DC instructions to pt and daughter. No new questions at this time. IV site taken out and cath tip intact. Pt dressed and all belonging gathered. 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 When daughter back after pt finishes dinner, just needs to be taken to car.
--- NOTE | 2016-09-10 20:47 | NUR ---
DISCHARGE PT PUSHED VIA WHEELCHAIR TO MAIN ENTRANCE BY STAFF MEMBER.
== END 2016-09-10 19:55 | disposition home or self-care (01) ==
LOC: ED 17:06 → EDHOLD 21:36 → INTOOBSV 21:36 → MED 22:15
PROVIDERS: ADMIT Pediatrics; ATTEND Family Medicine
DX: S32.592A Other specified fracture of left pubis, initial encounter for closed fracture (principal); S32.591A Other specified fracture of right pubis, initial encounter for closed fracture; S51.012A Laceration without foreign body of left elbow, initial encounter; R79.1 Abnormal coagulation profile; Z79.01 Long term (current) use of anticoagulants; N39.0 Urinary tract infection, site not specified; I48.2 Chronic atrial fibrillation; I10 Essential (primary) hypertension; M06.9 Rheumatoid arthritis, unspecified; D64.9 Anemia, unspecified; R54 Age-related physical debility; Z79.52 Long term (current) use of systemic steroids; Z79.899 Other long term (current) drug therapy; W07.XXXA Fall from chair, initial encounter; Y93.89 Activity, other specified; Y92.018 Other place in single-family (private) house as the place of occurrence of the external cause; Y99.8 Other external cause status; Z85.3 Personal history of malignant neoplasm of breast; Z87.891 Personal history of nicotine dependence
CPT/HCPCS: 36000; 36415; 70450; 72192; 72195; 80048; 80053; 81001; 85025; 85610; 87077; 87086; 87186; 97116; 97161; 97166; 99284; A9270; G0378; G8978; G8979; G8980; G8987; G8988; G8989; J7512; 99218

== ENCOUNTER 2017-02-02 22:50 | Observation (INO) ==
--- NOTE | 2017-02-02 22:56 | Emergency Department Report ---
General Adult HPI - General Stated complaint: Labs/Anemia Time Seen by Provider: 02/02/17 22:51 Source: patient Mode of arrival: ambulatory Limitations: no limitations - History of Present Illness HPI narrative: Patient sent to the ER by her primary care physician who evaluated the patient earlier today for generalized weakness, and when her labs came back tonight showing that she had profound anemia with a hemoglobin of 6.9, she was called and instructed to come to the ER for recheck of her lab and possible admission for blood transfusion. Patient has been having generalized fatigue for at least 2 months, and has been seen by her primary physician several times and those 2 months for unexplained anemia. Patient did Hemoccult testing last month that was essentially negative. Patient does have periodic bright red blood when she wipes secondary to hemorrhoids. Last time she noticed blood on the toilet paper was tonight. - Related Data Home Medications Medication Instructions Recorded Confirmed Aspirin 81 mg PO DAILY #0 12/30/11 Colchicine 0.6 mg PO BID #0 12/30/11 Magnesium Oxide 400 mg PO DAILY #0 12/30/11 Tramadol HCl 50 mg PO Q6H PRN #0 12/30/11 predniSONE [Prednisone] 5 mg PO DAILY #0 12/30/11 Dicyclomine HCl 10 mg PO QID PRN #0 11/13/15 Fesoterodine Fumarate [Toviaz] 8 mg PO DAILY #0 11/13/15 Folic Acid 1 mg PO DAILY #0 11/13/15 Pantoprazole Sodium 40 mg PO DAILY #0 11/13/15 Sertraline HCl 100 mg PO NOON #0 11/13/15 metHOTREXate sodium [Methotrexate] 7 tab PO MONDAY #0 11/13/15 Cyanocobalamin (Vitamin B-12) 1,000 mcg PO DAILY #0 07/16/16 [Vitamin B-12] Losartan Potassium 50 mg PO BID #0 07/16/16 Polyethylene Glycol 3350 [Miralax] 17 g PO DAILY #0 07/16/16 Simethicone 180 mg PO DAILY PRN #0 07/16/16 Trazodone HCl 100 mg PO HS #0 07/16/16 Warfarin Sodium 3 mg PO QMWF #0 07/16/16 Acetaminophen [Acetaminophen 8 650 mg PO TID #0 09/08/16 Hour] Multivitamin [Multi-Day Vitamins] 1 tab PO DAILY #0 09/08/16 metroNIDAZOLE [Metronidazole] 1 applic TOP BID PRN #0 09/08/16 Calcium Carbonate [[id number]] 1 tab PO NOON #0 09/09/16 Cyclobenzaprine HCl 1 tab PO TID PRN #0 tab 09/09/16 Digoxin 1 tab PO DAILY #0 tab 09/09/16 dilTIAZem HCl [Diltiazem 24Hr ER] 1 cap PO BID #30 cap 09/09/16 Warfarin Sodium 1 tab PO QTUTHSASU 02/02/17 02/02/17 Allergies Allergy/AdvReac Type Severity Reaction Status Date / Time morphine Allergy Intermediate BEHAVIOR Verified 02/02/17 23:03 DISTURBANCE zolpidem Allergy Intermediate MADE ME Verified 02/02/17 23:03 CRAZY Malt Extract. Allergy Mild DIARRHEA Verified 02/02/17 23:03 codeine Allergy Unknown Nausea Verified 02/02/17 23:28 hydroxychloroquine Allergy Unknown Hives Verified 02/02/17 23:28 terbinafine HCl Allergy Intermediate RASH Uncoded 02/02/17 23:03 Review of Systems All systems: reviewed and negative except as stated PFSH cancer, hypertension Cardiac: A-fib, ?CHF Respiratory: COPD GI: GERD, IBS, constipation Musculoskeletal: other Psychological: anxiety, depression DVT Surgical History: General: appendix, back, neck, tonsils. Cardiac: radio ablation, valve replacement. Reproductive/: D&C, tubal ligation. Joint: carpal tunnel, shoulder - Social History Smoking status: Never smoker Substance use type: does not use Alcohol intake frequency: does not drink Physical Exam - Limitations Limitations: no limitations - General General appearance: alert - Normal Exams: Head:: Normocephalic without trauma Eyes:: Pupils are PERRLA w/ EOMI, No scleral icterus, irritation, or foreign bodies noted ENMT:: No facial trauma, nasal exudates, pharyngeal erythema, or exudates are noted Neck:: Full range of motion, without adenopathy, JVD, bruits or thyromegaly Chest/Respirations:: Clear all mast, with good airflow, and symmetry bilaterally Cardiovascular:: Regular rate and rhythm, without murmur or gallop, Pulses 2+ all extremities, capillary refill, <2 seconds all extremities Abdomen:: Bowel sounds positive, soft, non-tender, non-distended, no hepatosplenomegaly, masses or bruits noted Lymphatic:: No lymphadenopathy, or lymphedema noted Musculoskeletal:: No tenderness, or deformity noted, good range of motion, all extremities Integumentary:: No rashes, hives, or bruising noted, hair and nails, without abnormality Neurological:: Patient is alert, and oriented, cranial nerves, motor/sensory/ cerebellar, exams w/o gross deficits, to observation Psychiatric:: Patient exhibits, appropriate attention, emotion and affect - Cardiovascular Cardiovascular exam: Present: systolic murmur - Skin Skin exam: Present: pallor Course Vital Signs Temperature 97.6 F 02/02/17 22:55 Pulse Rate 87 02/02/17 22:55 Respiratory Rate 16 02/02/17 22:55 Blood Pressure 175/70 H 02/02/17 22:55 Pulse Oximetry 98 02/02/17 22:55 Temperature 97.6 F 02/02/17 22:55 Pulse Rate 87 02/02/17 22:55 Respiratory Rate 16 02/02/17 22:55 Blood Pressure 175/70 H 02/02/17 22:55 Pulse Oximetry 98 02/02/17 22:55 Medical Decision Making - MDM Narrative Medical decision making narrative: Hemoglobin verified at 6.9, INR 3.25. Case is discussed with Dr. Johnny Liz, who will admit the patient for observation and transfusion overnight - Lab Data Result diagrams: 02/02/17 23:13 Lab Results 02/02/17 02/02/17 Range/Units 23:13 23:13 WBC 7.2 (4.5-11.0) T/MM3 RBC 2.93 L (4.00-5.20) M/MM3 Hgb 6.9 L (12-16) GM/DL Hct 24.8 L (36-46) % MCV 84.6 (80-100) UM3 MCH 23.5 L (26-34) UUG MCHC 27.8 L (31-37) GM/DL RDW Std Deviation 57.9 H (36.9-50.2) FL Plt Count 483 H (130-400) T/MM3 MPV 10.0 (9.4-12.4) UM3 Immature Gran % (Auto) 0.1 (0.0-0.5) % Neut % (Auto) 81.9 H (33-66) % Lymph % (Auto) 9.6 L (23-45) % Mcclain % (Auto) 7.8 (0-9.0) % Eos % (Auto) 0.3 (0-4) % Baso % (Auto) 0.3 (0-2) % Neut # 5.9 (1.8-7.7) T/MM3 Lymph # 0.7 L (1-4.8) T/MM3 Mcclain # 0.6 (0-0.8) T/MM3 Eos # 0.0 (0-0.5) T/MM3 Baso # 0.0 (0-0.2) T/MM3 Abs Immat Gran (auto) 0.01 (0.00-0.03) T/MM3 INR 3.20 H (0.99-1.21) Disposition Clinical Impression: Anemia Qualifiers: Anemia type: unspecified type Qualified Code(s): D64.9 - Anemia, unspecified Disposition: [facility] Condition: Stable Prescriptions: No Action Magnesium Oxide 400 mg PO DAILY #0 predniSONE [Prednisone] 5 mg PO DAILY #0 Tramadol HCl 50 mg PO Q6H PRN #0 PRN Reason: PAIN Sertraline HCl 100 mg PO NOON #0 Dicyclomine HCl 10 mg PO QID PRN #0 PRN Reason: IRRITABLE BOWEL Folic Acid 1 mg PO DAILY #0 metHOTREXate sodium [Methotrexate] 7 tab PO MONDAY #0 Pantoprazole Sodium 40 mg PO DAILY #0 Cyanocobalamin (Vitamin B-12) [Vitamin B-12] 1,000 mcg PO DAILY #0 Losartan Potassium 50 mg PO BID #0 Simethicone 180 mg PO DAILY PRN #0 PRN Reason: GAS Trazodone HCl 100 mg PO HS #0 Acetaminophen [Acetaminophen 8 Hour] 650 mg PO TID #0 Multivitamin [Multi-Day Vitamins] 1 tab PO DAILY #0 Cyclobenzaprine HCl 1 tab PO TID PRN #0 tab PRN Reason: SPASMS Warfarin Sodium 1 tab PO QTUTHSASU Aspirin 81 mg PO DAILY #0 Colchicine 0.6 mg PO BID #0 Fesoterodine Fumarate [Toviaz] 8 mg PO DAILY #0 Polyethylene Glycol 3350 [Miralax] 17 g PO DAILY #0 Warfarin Sodium 3 mg PO QMWF #0 metroNIDAZOLE [Metronidazole] 1 applic TOP BID PRN #0 PRN Reason: Prn Orders dilTIAZem HCl [Diltiazem 24Hr ER] 1 cap PO BID #30 cap Digoxin 1 tab PO DAILY #0 tab Calcium Carbonate [[id number]-[id number]] 1 tab PO NOON #0 Referrals: Carmine Kearns MD [Family Provider] - - Seen By: physician
[2017-02-02] MEDS: SALINE FLUSH 10ml SYRINGE IVF PRN (23:16)
--- OUTSIDE RECORDS SUMMARY | 2017-02-02 23:25 | External Medical Summary | Referral Summary ---
:1935 Author Organization [facility], [facility] Address [address] [place] [address] [place] [phone] Care Team Providers Name Role Phone Carmine Kearns Bryce Primary Care Physician Encounter VC Date(s): 04/04/16 - 04/04/16 [facility] [address] [place] [phone] Discharge Disposition: 01-Home or Self Care Attending Physician: Juan Vazquez APRN Admitting Physician: Juan Vazquez APRN Vital Signs Most recent to oldest [Reference Range]: 1 Temperature Tympanic [36.6-38.1 degC] 36.6 degC (04/04/16 2:27 PM) Peripheral Pulse Rate [60-100 bpm] 101 bpm *HI* (04/04/16 2:27 PM) Respiratory Rate [14-20 br/min] 18 br/min (04/04/16 2:27 PM) Blood Pressure [90-140/60-90 mmHg] 130/64 mmHg (04/04/16 2:27 PM) SpO2 99 % (04/04/16 2:27 PM) Problem List Condition Effective Dates Status Health Status Informant Abdominal pain(Confirmed) < 04/04/14 Resolved Anemia(Confirmed) Active Warfarin anticoagulation(Confirmed) Active Breast cancer Lt(Confirmed) 2002 Resolved Breast cancer Rt(Confirmed) 2011 Resolved Viral cardiomyopathy(Confirmed) Active Carpal tunnel syndrome(Confirmed) 1993 Resolved Cervical spondylosis without Active myelopathy (disorder)(Confirmed) Atrial fibrillation(Confirmed) Active Peptic ulcer disease(Confirmed) Active Compression fracture of L1 lumbar Active vertebra(Confirmed) CAD (coronary artery Active disease)(Confirmed) Cystocele-recurrent(Confirmed) Resolved Gastritis(Confirmed) Active Chronic anticoagulation(Confirmed) < 03/05/15 Resolved Hypertension(Confirmed) Active Insomnia(Confirmed) Active Malignant neoplasm of female breast Active (disorder)(Confirmed) Overactive bladder(Confirmed) Active 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) Encounter for chronic pain Active management(Confirmed) Renal insufficiency(Confirmed) Active Single major depressive episode Active (disorder)(Confirmed) Trauma Lt ring finger(Confirmed) 1979 Resolved Varicose veins Lt leg(Confirmed) 2011 Resolved Venous insufficiency Lt 2011 Resolved leg(Confirmed) 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)(Confirmed) Allergies, Adverse Reactions, Alerts Substance Reaction Severity Status codeine NAUSEA/CONSTIPATION Active HYDROcodone confusion Active hydroxychloroquine rash Medium Active RASH/ITCHING morphine MENTAL CHANGES--CONFUSION Active Unknown terbinafine hives Severe Active Eczema (rash) zolpidem confusion Medium Active Adverse Reaction Medications acetaminophen 1,300 mg, Oral, TID, 0 Refill(s) Start Date: 11/25/13 Status: Orderedamoxicillin 500 mg oral capsule See Instructions, Take 4 capsules 1 hour before dental appointment, 0 Refill(s) Start Date: 03/03/16 Status: Orderedaspirin 81 mg oral tablet tabs, Oral, Daily, 0 Refill(s) Start Date: 11/25/13 Status: Orderedbumetanide 1 mg oral tablet See Instructions, TAKE ONE AND ONE-HALF TABLET BY MOUTH EVERY DAY, # 45 tabs, 4 Refill(s), eRx: [facility] #[id number], TAKE ONE AND ONE-HALF TABLET BY MOUTH EVERY DAY Start Date: 03/14/16 Status: Orderedbutalbital/aspirin/caffeine 50 mg-325 mg-40 mg oral tablet 2 tabs, Oral, q6hr, as needed for pain, [facility] # [facility], 0 Refill(s) Start Date: 04/27/15 Status: Orderedcalcium carbonate 500 mg (200 mg elemental calcium) oral tablet, chewable tabs, Chewed, TID, 0 Refill(s) Start Date: 11/25/13 Status: OrderedCartia XT 120 mg/24 hours oral capsule, extended release 120 mg 1 caps, Oral, Daily, # 30 caps, 0 Refill(s), other reason (Rx) Start Date: 02/29/16 Status: Orderedcolchicine 0.6 mg oral tablet 1 tabs, Oral, BID, # 30 tabs, 0 Refill(s) Start Date: 11/25/13 Status: OrderedCoumadin 2.5 mg oral tablet See Instructions, TAKE ONE TABLET BY MOUTH 5 DAYS A WEEK, # 30 tabs, 5 Refill(s ), Pharmacy: [facility] #[id number], TAKE ONE TABLET BY MOUTH 5 DAYS A WEEK Start Date: 03/31/16 Status: Orderedcyclobenzaprine 5 mg oral tablet See Instructions, TAKE ONE TABLET BY MOUTH THREE TIMES A DAY FOR 7 DAYS NEEDED FOR MUSCLE SPASM, # 15 tabs, eRx: [facility] #[id number], TAKE ONE TABLET BY MOUTH THREE TIMES A DAY FOR 7 DAYS NEEDED FOR MUSCLE SPASM Start Date: 03/14/16 Status: Ordereddicyclomine 10 mg oral capsule See Instructions, TAKE 1-2 CAPSULES BY MOUTH EVERY 6 HOURS NEEDED FOR IRRITABLE BOWEL, # 100 caps, 4 Refill(s), Pharmacy: [facility] #[id number], TAKE 1-2 CAPSULES BY MOUTH EVERY 6 HOURS NEEDEDFOR IRRITABLE BOWEL Start Date: 04/27/15 Status: Orderedfolic acid 1 mg oral tablet See Instructions, TAKE ONE TABLET BY MOUTH DAILY, # 30 tabs, 2 Refill(s), eRx: [facility] #[id number], TAKE ONE TABLET BY MOUTH DAILY Start Date: 04/04/16 Status: Orderedlosartan 50 mg, Oral, BID, 0 Refill(s) Start Date: 02/29/16 Status: OrderedMag-Ox 400 0 Refill(s) Start Date: 11/25/13 Status: Orderedmethotrexate 2.5 mg oral tablet See Instructions, TAKE 7 TABLETS BY MOUTH ONCE WEEKLY, # 35 tabs, 5 Refill(s), eRx: [facility]#[id number], TAKE 7 TABLETS BY MOUTH ONCE WEEKLY Start Date: 09/21/15 Status: OrderedMetroCream 0.75% topical cream 1 miguel a, Topical, BID, # 45 g, 0 Refill(s), Pharmacy: [facility] #[id number] Start Date: 10/23/15 Status: OrderedMiraLax oral powder for reconstitution 17 g, Oral, Daily, dissolve in water before taking, # 527 g, 0 Refill(s) Start Date: 11/25/13 Status: Orderedpantoprazole 40 mg oral delayed release tablet See Instructions, TAKE ONE TABLET BY MOUTH DAILY, # 30 tabs, 4 Refill(s), eRx: [facility] #[id number], TAKE ONE TABLET BY MOUTH DAILY Start Date: 03/14/16 Status: OrderedpredniSONE 5 mg oral tablet See Instructions, TAKE ONE TABLET BY MOUTH DAILY, # 90 tabs, 2 Refill(s), eRx: [facility] #[id number], TAKE ONE TABLET BY MOUTH DAILY Start Date: 12/14/15 Status: OrderedReclast mg, IV, Once, 0 Refill(s) Start Date: 04/04/14 Status: Orderedsertraline 100 mg oral tablet See Instructions, TAKE ONE TABLET BY MOUTH ONCE A DAY, # 90 tabs, 1 Refill(s), eRx: [facility]#[id number], TAKE ONE TABLET BY MOUTH ONCE A DAY Start Date: 12/01/15 Status: Orderedsimethicone 180 mg oral capsule 180 mg 1 caps, Oral, Daily, gas Start Date: 03/03/16 Status: OrderedToviaz 8 mg oral tablet, extended release See Instructions, TAKE ONE TABLET BY MOUTH DAILY, # 30 tabs, 5 Refill(s), Pharmacy: [facility]#[id number], TAKE ONE TABLET BY MOUTH DAILY Start Date: 03/10/16 Status: OrderedtraMADol 50 mg oral tablet See Instructions, 1 tabs Q 6 hours up to 4 times per day. Maximum of 4 tablets= 200 mg/day, # 120 tabs, 0 Refill(s), Must last at least 30 days.(thru 08/28) Start Date: 03/21/16 Status: OrderedtraZODone 100 mg oral tablet See Instructions, TAKE 1 1/2 TABLETS BY MOUTH EVERY NIGHT AT BEDTIME, # 270 tabs , 1 Refill(s), Pharmacy: [facility] #[id number], TAKE 1 1/2 TABLETS BY MOUTH EVERY NIGHT AT BEDTIME Start Date: 06/24/15 Status: Orderedverapamil 180 mg/24 hours oral capsule, extended release See Instructions, TAKE ONE CAPSULE BY MOUTH TWICE A DAY, # 60 caps, 1 Refill(s) , eRx: [facility] #[id number], TAKE ONE CAPSULE BY MOUTH TWICE A DAY Start Date: 02/02/16 Status: OrderedVitamin B Complex oral tablet tabs, Oral, Daily, 0 Refill(s) Start Date: 11/25/13 Status: OrderedVitamin B-12 1000 mcg oral tablet 1 tabs, [...] vaccine live 04/13/11 1Location History: [place] [facility] Procedures Procedure Date Related Diagnosis Body Site Arthrocentesis-aspiration of major joint 05/15/13 Sclerotherapy of vein 2012 Intraoperative lymphatic mapping, [place] 05/24/12 lymphadenectomy, Rt simple mastectomy Laser ablation of long saphenous vein Lt great 11/17/11 Prolift mesh & cystocele repair; cystoscopy 09/29/09 Hx of shoulder surgery Lt 2006 Hx of mastectomy Lt simple 2003 Colonoscopy 05/29/00 Revoved Rods 1994 Decomp. Laminectomy Disectomy CD Rods, Bones 1991 Tubal ligation 1976 Lumbar spinal fusion 1974 Dilation and curettage 1960 Appendectomy 195 - Spontaneous vaginal delivery x5 Tonsillectomy and adenoidectomy Social History Social History Type Response Smoking Status Never smoker Assessment and Plan No data available for this section
--- OUTSIDE RECORDS SUMMARY | 2017-02-02 23:25 | External Medical Summary | Referral Summary ---
:1935 Author Organization [facility], [facility] Address [address] [place] [address] [place] [phone] Care Team Providers Name Role Phone Carmine Kearns V Primary Care Physician Encounter VC Date(s): 04/09/15 - 04/09/15 [facility] [address] [place] [phone] [place] Discharge Diagnosis: Benign essential hypertension Discharge Disposition: 01-Home or Self Care Attending Physician: Carmine Kearns MD Admitting Physician: Carmine Kearns MD Vital Signs Most recent to oldest [Reference Range]: 1 Temperature Tympanic [36.6-38.1 degC] 36.6 degC (04/09/15 2:50 PM) Peripheral Pulse Rate [60-100 bpm] 73 bpm (04/09/15 2:50 PM) Blood Pressure [90-140/60-90 mmHg] 140/70 mmHg (04/09/15 2:50 PM) SpO2 97 % (04/09/15 2:50 PM) Problem List Condition Effective Dates Status Health Status Informant Abdominal pain(Confirmed) < 04/04/14 Resolved Anemia(Confirmed) Active Breast cancer Lt(Confirmed) 2002 Resolved Breast cancer Rt(Confirmed) 2011 Resolved Viral cardiomyopathy(Confirmed) Active Carpal tunnel syndrome(Confirmed) 1993 Resolved Cervical spondylosis without Active myelopathy (disorder)(Confirmed) Atrial fibrillation(Confirmed) Active Peptic ulcer disease(Confirmed) Active Compression fracture of L1 lumbar Active vertebra(Confirmed) CAD (coronary artery Active disease)(Confirmed) Cystocele-recurrent(Confirmed) Resolved Gastritis(Confirmed) Active Chronic anticoagulation(Confirmed) Active Hypertension(Confirmed) Active Malignant neoplasm of female breast Active (disorder)(Confirmed) 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) Renal insufficiency(Confirmed) Active Single major depressive episode [...] acetaminophen 0 Refill(s) Start Date: 11/25/13 Status: Orderedaspirin 81 mg oral tablet tabs, Oral, Daily, 0 Refill(s) Start Date: 11/25/13 Status: Orderedatenolol 25 mg oral tablet See Instructions, TAKE ONE TABLET BY MOUTH EVERY 12 HOURS, # 180 tabs, 1 Refill( s), eRx: [facility] #[id number], TAKE ONE TABLET BY MOUTH EVERY 12 HOURS Start Date: 02/09/15 Status: Orderedbumetanide 1 mg oral tablet See Instructions, TAKE ONE AND ONE-HALF TABLET BY MOUTH EVERY DAY, # 45 tabs, 6 Refill(s), Pharmacy:[facility] #[id number], TAKE ONE AND ONE-HALF TABLET BY MOUTH EVERY DAY Start Date: 11/14/14 Status: Orderedbutalbital/aspirin/caffeine 50 mg-325 mg-40 mg oral tablet 2 tabs, Oral, q6hr, as needed for pain, S [facility], # 120 tabs, 0 Refill(s) Start Date: 10/09/14 Status: Orderedcalcium carbonate 500 mg (200 mg elemental calcium) oral tablet, chewable tabs, Chewed, TID, 0 Refill(s) Start Date: 11/25/13 Status: Orderedcolchicine 0.6 mg oral tablet 1 tabs, Oral, BID, # 30 tabs, 0 Refill(s) Start Date: 11/25/13 Status: OrderedCoumadin 2.5 mg oral tablet See Instructions, TAKE ONE TABLET BY MOUTH EVERY DAY, # 30 tabs, 3 Refill(s), MIGUELITO, eRx: [facility] #[id number], TAKE ONE TABLET BY MOUTH EVERY DAY Start Date: 03/25/14 Status: OrderedCoumadin 3 mg oral tablet 3 mg 1 tabs, Oral, Daily, # 60 tabs, 1 Refill(s), Pharmacy: [facility] # [id number], 1 tabs Oral Daily Start Date: 12/23/14 Status: Ordereddicyclomine 10 mg oral capsule See Instructions, TAKE 1-2 CAPSULES BY MOUTH EVERY 6 HOURS NEEDED FOR IRRITABLE BOWEL, # 100 caps, 4 Refill(s), Pharmacy: [facility] #[id number], TAKE 1-2 CAPSULES BY MOUTH EVERY 6 HOURS NEEDEDFOR IRRITABLE BOWEL Start Date: 04/07/14 Status: Orderedfolic acid 1 mg oral tablet 1 tabs, Oral, Daily, # 30 tabs, 6 Refill(s), Pharmacy: [facility] #[id number] , 1 tabs Oral Daily Start Date: 09/15/14 Status: Orderedfolic acid 1 mg oral tablet See Instructions, TAKE ONE TABLET BY MOUTH EVERY DAY, # 90 tabs, 2 Refill(s), eRx: [facility] #[id number], TAKE ONE TABLET BY MOUTH EVERY DAY Start Date: 12/02/13 Status: OrderedMag-Ox 400 0 Refill(s) Start Date: 11/25/13 Status: Orderedmethotrexate Takes 7 tablets once a week on Monday, 0 Refill(s) Start Date: 04/09/15 Status: Orderedmethotrexate 2.5 mg oral tablet See Instructions, TAKE 7 TABLETS BY MOUTH ONCE WEEKLY, # 35 tabs, 2 Refill(s), eRx: [facility]#[id number], TAKE 7 TABLETS BY MOUTH ONCE WEEKLY Start Date: 03/31/15 Status: OrderedMiraLax oral powder for reconstitution 17 g, Oral, Daily, dissolve in water before taking, # 527 g, 0 Refill(s) Start Date: 11/25/13 Status: Orderedmultivitamin Daily, 0 Refill(s) Start Date: 11/25/13 Status: OrderedpredniSONE 5 mg oral tablet 1 tabs, Oral, Daily, # 90 tabs, 1 Refill(s), Pharmacy: [facility] #[id number] , 1 tabs Oral Daily Start Date: 08/28/14 Stop Date: 09/15/16 Status: OrderedpredniSONE 5 mg oral tablet See Instructions, TAKE ONE TABLET BY MOUTH DAILY, # 90 tabs, eRx: [facility] #[id number], TAKE ONETABLET BY MOUTH DAILY Start Date: 03/02/15 Status: OrderedProtonix 40 mg oral delayed release tablet 1 tabs, Oral, BID, # 60 tabs, 4 Refill(s), Pharmacy: [facility] #[id number], 1 tabs Oral BID Start Date: 08/28/14 Status: OrderedReclast mg, IV, Once, 0 Refill(s) Start Date: 04/04/14 Status: Orderedsertraline 100 mg oral tablet 1 tabs, Oral, Daily, # 90 tabs, 2 Refill(s), Pharmacy: [facility] #[id number] , 1 tabs Oral Daily Start Date: 09/01/14 Status: OrderedtraMADol 50 mg oral tablet See Instructions, as needed for pain, 1 -2 tabs Oral q4hr PRN, # 120 tabs, 0 Refill(s) Start Date: 04/07/15 Status: OrderedtraZODone 100 mg oral tablet See Instructions, TAKE 1 1/2 TABLETS BY MOUTH EVERY NIGHT AT BEDTIME, # 270 tabs , 1 Refill(s), eRx: [facility] #[id number], TAKE THREE TABLETS BY MOUTH EVERY NIGHT AT BEDTIME Start Date: 05/12/14 Status: Orderedverapamil 180 mg/24 hours oral capsule, extended release 180 mg 1 caps, Oral, BID, # 60 caps, 3 Refill(s), Pharmacy: [facility] # [id number], 1 caps Oral BID Start Date: 04/09/15 Status: OrderedVitamin B Complex oral tablet tabs, Oral, Daily, 0 Refill(s) Start Date: 11/25/13 Status: OrderedVitamin B-12 1000 mcg oral tablet 1 tabs, Oral, Daily, # 90 tabs, 0 Refill(s) Start Date: 11/25/13 Status: Ordered Results No data available for this section Immunizations Vaccine Date Refusal Reason influenza virus vaccine, inactivated 02/25/14 influenza virus [...] Sclerotherapy of vein 2012 Intraoperative lymphatic mapping, [place] 05/24/12 lymphadenectomy, Rt simple mastectomy Laser ablation of long saphenous vein Lt great 11/17/11 Prolift mesh & cystocele repair; cystoscopy 09/29/09 Hx of shoulder surgery Lt 2006 Hx of mastectomy Lt simple 2002 Revoved Rods 1994 Decomp. Laminectomy Disectomy CD Rods, Bones 1991 Tubal ligation 1975 Lumbar spinal fusion 1974 Dilation and curettage 1959 Appendectomy 1951 - Spontaneous vaginal delivery x5 Tonsillectomy and adenoidectomy Social History Social History Type Response Smoking Status Never smoker Assessment and Plan Extracted from: Title: Office Visit Note Author: Carmine Kearns MD Date: 04/09/15 Assessment/Plan Benign essential hypertension Orders: verapamil, 180 mg 1 caps, Oral, BID, # 60 caps, 3 Refill(s), Pharmacy : [facility] #[id number], 1 caps Oral BID Blood pressure seems to be stable on this current regimen with an acceptable blood pressure control and side effect profile. We'll continue current medicines. We discussed the insurance problems with Nevin and encouraged her to check into what alternatives insurance company might cover. We talked about other options including Vesicare, Detrol, and oxybuty rolando. Certainly oxybutynin is the cheapest but has the highest risk. Follow-up 6 months/when necessary.
--- OUTSIDE RECORDS SUMMARY | 2017-02-02 23:26 | External Medical Summary | Referral Summary ---
:1935 Author Organization [facility], [facility] Address [address] [place] [address] [place] [id number] Care Team Providers Name Role Phone Carmine Kearns V Primary Care Physician Encounter VC Date(s): 01/09/15 - 01/09/15 [facility] [address] [place] [id number]- [place] Discharge Diagnosis: Osteoporosis Discharge Diagnosis: Sleep disturbance Discharge Diagnosis: Compression fracture of L1 lumbar vertebra Discharge Diagnosis: Polypharmacy Discharge Disposition: 01-Home or Self Care Attending Physician: Carmine Kearns MD Admitting Physician: Carmine Kearns MD Vital Signs Most recent to oldest [Reference Range]: 1 Peripheral Pulse Rate [60-100 bpm] 76 bpm (01/09/15 1:32 PM) Blood Pressure [90-140/60-90 mmHg] 126/60 mmHg (01/09/15 1:32 PM) Problem List Condition Effective Dates Status [...] # 180 tabs, 1 Refill( s), eRx: [facility] #[id number], TAKE ONE TABLET BY MOUTH EVERY 12 HOURS Start Date: 02/09/15 Status: Orderedbumetanide 1 mg oral tablet See Instructions, TAKE ONE AND ONE-HALF TABLET BY MOUTH EVERY DAY, # 45 tabs, 5 Refill(s), eRx: [facility] #[id number], TAKE ONE AND ONE-HALF TABLET BY MOUTH EVERY DAY Start Date: 07/03/15 Status: Orderedbumetanide 1 mg oral tablet See Instructions, TAKE ONE AND ONE-HALF TABLET BY MOUTH EVERY DAY, # 45 tabs, 6 Refill(s), Pharmacy:[facility] #[id number], TAKE ONE AND ONE-HALF TABLET BY MOUTH [...] MONDAY, AND MONDAY, # 30 tabs, eRx: [facility] #[id number], TAKE ONE TABLET BY MOUTH ON MONDAY, MONDAY, AND MONDAY Start Date: 07/13/15 Status: OrderedCoumadin 2.5 mg oral tablet See Instructions, TAKE ONE TABLET BY MOUTH ON MONDAY, MONDAY, AND MONDAY, # 30 tabs, eRx: [facility] #[id number], TAKE ONE TABLET BY MOUTH ON MONDAY, MONDAY, AND MONDAY Start Date: 07/13/15 Status: Ordereddicyclomine 10 mg oral capsule See Instructions, TAKE 1-2 CAPSULES BY MOUTH EVERY 6 HOURS NEEDED FOR IRRITABLE BOWEL, # 100 caps, 4 Refill(s), Pharmacy: [facility] #[id number], TAKE 1-2 CAPSULES BY MOUTH EVERY 6 HOURS NEEDEDFOR IRRITABLE BOWEL Start Date: 04/27/15 Status: Orderedfolic acid 1 mg oral tablet See Instructions, TAKE ONE TABLET BY MOUTH EVERY DAY, # 90 tabs, 2 Refill(s), eRx: [facility] #[id number], TAKE ONE TABLET BY MOUTH EVERY DAY Start Date: 12/02/13 Status: Orderedfolic acid 1 mg oral tablet 1 mg 1 tabs, Oral, Daily, # 30 tabs, 6 Refill(s), Pharmacy: [facility] # [id number], 1 tabs Oral Daily Start Date: 05/11/15 Status: OrderedMag-Ox 400 0 Refill(s) Start Date: 11/25/13 Status: Orderedmethotrexate 2.5 mg oral tablet See Instructions, TAKE 7 TABLETS BY MOUTH ONCE WEEKLY, # 35 tabs, 1 Refill(s), eRx: [facility]#[id number], TAKE 7 TABLETS BY MOUTH ONCE WEEKLY Start Date: 07/06/15 Status: OrderedMiraLax oral powder for reconstitution 17 g, Oral, Daily, dissolve in water before taking, # 527 g, 0 Refill(s) Start Date: 11/25/13 Status: Orderedmultivitamin Daily, 0 Refill(s) Start Date: 11/25/13 Status: OrderedpredniSONE 5 mg oral tablet See Instructions, TAKE ONE TABLET BY MOUTH DAILY, # 90 tabs, eRx: [facility] #[id number], TAKE ONETABLET BY MOUTH DAILY Start Date: 05/25/15 Status: OrderedProtonix 40 mg oral delayed release tablet 1 tabs, Oral, BID, # 60 tabs, 4 Refill(s), Pharmacy: [facility] #[id number], 1 tabs Oral BID Start Date: 08/28/14 Status: OrderedReclast mg, IV, Once, 0 Refill(s) Start Date: 04/04/14 Status: Orderedsertraline 100 mg oral tablet See Instructions, TAKE ONE TABLET BY MOUTH ONCE A DAY, # 90 tabs, 1 Refill(s), eRx: [facility]#[id number], TAKE ONE TABLET BY MOUTH ONCE A DAY Start Date: 06/01/15 Status: OrderedToviaz 8 mg oral tablet, extended release 8 mg 1 tabs, Oral, Daily, APPROVED THRU INS FOR #30, # 30 tabs, 6 Refill(s), Pharmacy: [facility] #[id number], 1 tabs Oral Daily,Instr:APPROVED THRU INS FOR #30 Start Date: 07/14/15 Status: OrderedtraMADol 50 mg oral tablet See Instructions, as needed for pain, 1 -2 tabs Oral q4hr PRN, # 120 tabs, 0 Refill(s) Start Date: 07/06/15 Status: OrderedtraZODone 100 mg oral tablet See Instructions, TAKE 1 1/2 TABLETS BY MOUTH EVERY NIGHT AT BEDTIME, # 270 tabs , 1 Refill(s), Pharmacy: [facility] #[id number], TAKE 1 1/2 TABLETS BY MOUTH EVERY NIGHT AT BEDTIME Start Date: 06/24/15 Status: Orderedverapamil 180 mg/24 hours oral capsule, extended release 180 mg 1 caps, Oral, BID, # 60 caps, 3 Refill(s), Pharmacy: [facility] # [id number], 1 caps Oral BID Start Date: 04/09/15 [...] Sclerotherapy of vein 2012 Intraoperative lymphatic mapping, [place] 05/24/12 lymphadenectomy, Rt simple mastectomy Laser ablation of long saphenous vein Lt great 11/17/11 Prolift mesh & cystocele repair; cystoscopy 09/29/09 Hx of shoulder surgery Lt 2006 Hx of mastectomy Lt simple 2002 Revoved Rods 1994 Decomp. Laminectomy Disectomy CD Rods, Bones 1991 Tubal ligation 1976 Lumbar spinal fusion 1975 Dilation and curettage 1960 Appendectomy 1951 - Spontaneous vaginal delivery x5 Tonsillectomy and adenoidectomy Social History Social History Type Response Smoking Status Never smoker Assessment and Plan Extracted from: Title: Office Visit Note Author: Carmine Kearns MD Date: 01/09/15 Assessment/Plan Compression fracture of L1 lumbar vertebra Osteoporosis Polypharmacy Sleep disturbance I advised that I think her insomnia issues our best addressed by hygiene rather than additional medications. Handout provided in this area. I think it's notable that she is taking medicines multiple times per day and is going to bed later and she wishes in arising earlier than she wishes in order to dose her medications. Her medication r egimen as both complex and multiple meds are involved. I suggested a MTM consult with Dr. Mcclure. Follow-up with me in one month or sooner if needed.
--- OUTSIDE RECORDS SUMMARY | 2017-02-02 23:26 | External Medical Summary | Referral Summary ---
:1935 Author Organization [facility] Address [address] [place] [address] [place] [id number] Care Team Providers Name Role Phone Carmine Kearns V Primary Care Physician Encounter VC Date(s): 02/03/15 - 02/03/15 [facility] [address] [place] [phone] Discharge Diagnosis: Chronic anticoagulation Discharge Diagnosis: Oral aphthous ulcer Discharge Diagnosis: Abdominal pain, epigastric Discharge Diagnosis: Mild malnutrition Discharge Diagnosis: Weight loss Discharge Diagnosis: Atrial fibrillation Discharge Diagnosis: Peptic ulcer disease Discharge Diagnosis: Cerumen impaction Discharge Disposition: 01-Home or Self Care Attending Physician: Carmine Kearns MD Admitting Physician: Carmine Kearns MD Vital Signs Most recent to oldest [Reference Range]: 1 Peripheral Pulse Rate [60-100 bpm] 73 bpm (02/03/15 10:39 AM) Blood Pressure [90-140/60-90 mmHg] 118/64 mmHg (02/03/15 10:39 AM) Problem List Condition Effective Dates Status [...] Chronic anticoagulation(Confirmed) < 03/05/15 Resolved Hypertension(Confirmed) Active Malignant neoplasm of female breast [...] MOUTH EVERY 12 HOURS, # 180 tabs, eRx: [facility] #[id number], TAKE ONE TABLET BY MOUTH EVERY 12 HOURS Start Date: 08/10/15 Status: Orderedbumetanide 1 mg oral tablet See Instructions, TAKE ONE AND ONE-HALF TABLET BY MOUTH EVERY DAY, # 45 tabs, 6 Refill(s), Pharmacy:[facility] #[id number], TAKE ONE AND ONE-HALF TABLET BY MOUTH [...] MONDAY, AND MONDAY, # 30 tabs, eRx: [facility] #[id number], TAKE ONE TABLET BY MOUTH ON MONDAY, MONDAY, AND MONDAY Start Date: 07/13/15 Status: OrderedCoumadin 2.5 mg oral tablet See Instructions, TAKE ONE TABLET BY MOUTH ON MONDAY, MONDAY, AND MONDAY, # 30 tabs, eRx: [facility] #[id number], TAKE ONE TABLET BY MOUTH ON MONDAY, MONDAY, AND MONDAY Start Date: 07/13/15 Status: Ordereddicyclomine 10 mg oral capsule See Instructions, TAKE 1-2 CAPSULES BY MOUTH EVERY 6 HOURS NEEDED FOR IRRITABLE BOWEL, # 100 caps, 4 Refill(s), Pharmacy: [facility] #[id number], TAKE 1-2 CAPSULES BY MOUTH EVERY 6 HOURS NEEDEDFOR IRRITABLE BOWEL Start Date: 04/27/15 Status: Orderedfolic acid 1 mg oral tablet See Instructions, TAKE ONE TABLET BY MOUTH EVERY DAY, # 90 tabs, 2 Refill(s), eRx: [facility] #[id number], TAKE ONE TABLET BY MOUTH EVERY DAY Start Date: 12/02/13 Status: OrderedMag-Ox 400 0 Refill(s) Start Date: 11/25/13 Status: Orderedmethotrexate 2.5 mg oral tablet See Instructions, TAKE 7 TABLETS BY MOUTH ONCE WEEKLY, # 35 tabs, 1 Refill(s), eRx: [facility]#[id number], TAKE 7 TABLETS BY MOUTH ONCE WEEKLY Start Date: 07/06/15 Status: OrderedMiraLax oral powder for reconstitution 17 g, Oral, Daily, dissolve in water before taking, # 527 g, 0 Refill(s) Start Date: 11/25/13 Status: OrderedpredniSONE 5 mg oral tablet See Instructions, TAKE ONE TABLET BY MOUTH DAILY, # 90 tabs, eRx: [facility] #[id number], TAKE ONETABLET BY MOUTH DAILY Start Date: 05/25/15 Status: OrderedProtonix 40 mg oral delayed release tablet 1 tabs, Oral, BID, # 60 tabs, 4 Refill(s), Pharmacy: [facility] #[id number], 1 tabs Oral BID Start Date: 08/28/14 Status: OrderedReclast mg, IV, Once, 0 Refill(s) Start Date: 04/04/14 Status: Orderedsertraline 100 mg oral tablet See Instructions, TAKE ONE TABLET BY MOUTH ONCE A DAY, # 90 tabs, 1 Refill(s), eRx: [facility]#[id number], TAKE ONE TABLET BY MOUTH ONCE A DAY Start Date: 06/01/15 Status: OrderedToviaz 8 mg oral tablet, extended release 8 mg 1 tabs, Oral, Daily, APPROVED THRU INS FOR #30, # 30 tabs, 6 Refill(s), Pharmacy: [facility] #[id number], 1 tabs Oral Daily,Instr:APPROVED THRU INS FOR #30 Start Date: 07/14/15 Status: OrderedtraMADol 50 mg oral tablet See Instructions, 1 tabs Q 6 hours up to 4 times per day. Maximum of 4 tablets= 200 mg/day, # 120 tabs, 0 Refill(s), Must last at least 30 days.(thru 08/28) Start Date: 07/30/15 Stop Date: 08/29/15 Status: OrderedtraZODone 100 mg oral tablet See Instructions, TAKE 1 1/2 TABLETS BY MOUTH EVERY NIGHT AT BEDTIME, # 270 tabs , 1 Refill(s), Pharmacy: [facility] #[id number], TAKE 1 1/2 TABLETS BY MOUTH EVERY NIGHT AT BEDTIME Start Date: 06/24/15 Status: Orderedverapamil 180 mg/24 hours oral capsule, extended release See Instructions, TAKE ONE CAPSULE BY MOUTH TWICE A DAY, # 60 caps, 2 Refill(s) , eRx: [facility] #[id number], TAKE ONE CAPSULE BY MOUTH TWICE A DAY Start Date: 08/03/15 Status: OrderedVitamin B Complex oral tablet tabs, Oral, Daily, 0 Refill(s) Start Date: 11/25/13 Status: OrderedVitamin B-12 1000 mcg oral tablet 1 tabs, Oral, Daily, # 90 tabs, 0 Refill(s) Start Date: 11/25/13 Status: Orderedwarfarin 2.5 mg oral tablet 2.5 mg 1 tabs, Oral, Daily, take one daily along with a 1mg to equal 3.5 daily, # 30 tabs, 2 Refill(s), Pharmacy: [facility] #[id number], 1 tabs Oral Daily, Instr:take one daily along with a 1mg to equal 3.5 daily Start Date: 08/12/15 Status: Ordered Results Hematology Most recent to oldest [Reference Range]: 1 WBC [4.8-10.8 10*3/uL] 11.7 10*3/uL *HI* (02/03/15:11 PM) RBC [4.00-5.20] 3.46 *LOW* (02/03/15: PM) Hgb [12.0-16.0 gm/dL] 12.2 gm/dL (02/03/15:11 PM) Hct [37.0-47.0 %] 37.0 % (02/03/15: PM) MCV [82.0-99.0 fL] 106.9 fL *HI* (02/03/15:11 PM) MCH [27.0-32.0 pg] 35.3 pg *HI* (02/03/15: PM) MCHC [32.0-36.0 gm/dL] 33.0 gm/dL (02/03/15:11 PM) RDW [11.5-14.5 %] 14.3 % (02/03/15: PM) Platelet [150-400 10*3/uL] 656 10*3/uL *HI* (02/03/15:11 PM) MPV [8.8-14.8 fL] 11.4 fL (02/03/15:11 PM) Neutrophils [51-75 %] 88 % *HI* (02/03/15: PM) Lymphocytes [20-46 %] 9 % *LOW* (02/03/15: PM) Monocytes [4-11 %] 3 % *LOW* (02/03/15: PM) Eosinophils [0-4 %] 0 % (02/03/15 12:11 PM) Basophils [0-2 %] 0 % (02/03/15 12:11 PM) Neutro Absolute [1.90-7.00 10*3] 10.30 10*3 *HI* (02/03/15 12:11 PM) Lymph Absolute [0.80-3.30 10*3] 1.05 10*3 (02/03/15 12:11 PM) [place] Absolute [0.30-1.00 10*3] 0.35 10*3 (02/03/15 12:11 PM) Eos Absolute [0.00-0.50 10*3] 0.00 10*3 (02/03/15 12:11 PM) Baso Absolute [0.00-0.20 10*3] 0.00 10*3 (02/03/15 12:11 PM) Hyperseg Present *ABN* (02/03/15 12:11 PM) Macrocyte Present *ABN* (02/03/15 12:11 PM) Differential Manual *ABN* (02/03/15 12:11 PM) Sed Rate [0-23] 78 *HI* (02/03/15 12:11 PM) Coagulation Most recent to oldest [Reference Range]: 1 PT Venous (02/03/15 12:11 PM) INR [0.8-1.2] 4.7 1 *HHI* (02/03/15 12:11 PM) 1Result Comment: Critical INR rechecked and called to Merlin/Dr. Kearns @ [phone] by pls. Normal (no anticoagulant): 0.8 - 1.2 Units Routine Therapeutic Range: 2.0 - 3.0 Units High Risk Therapeutic Range: 2.5 - 3.5 UnitsChemistry Most recent to oldest [Reference Range]: 1 Sodium Lvl [135-144 mEq/L] 137 mEq/L (02/03/15:11 PM) Potassium Lvl [3.5-5.2 mEq/L] 4.6 mEq/L (02/03/15:11 PM) Chloride [99-111 mEq/L] 101 mEq/L (02/03/15:11 PM) CO2 [22-31 mEq/L] 27 mEq/L (02/03/15 12:11 PM) AGAP [3-20] 9 (02/03/15 12:11 PM) BUN [10-20 mg/dL] 26 mg/dL *HI* (02/03/15 12:11 PM) Glucose Lvl [70-99 mg/dL] 109 mg/dL *HI* (02/03/15 12:11 PM) Creatinine Lvl [0.57-1.11 mg/dL] 0.79 mg/dL (02/03/15 12:11 PM) eGFR [>60 mL/min] >60 mL/min 1 (9/8/15 12:11 PM) Calcium Lvl [8.9-10.5 mg/dL] 8.8 mg/dL *LOW* (02/03/15 12:11 PM) Albumin Lvl [3.4-4.8 gm/dL] 3.4 gm/dL (02/03/15 12:11 PM) Total Protein [6.2-8.1 gm/dL] 5.8 gm/dL *LOW* (02/03/15 12:11 PM) Globulin [1.8-4.0 gm/dL] 2.4 gm/dL (02/03/15 12:11 PM) ALT [0-55 U/L] 21 U/L (02/03/15 12:11 PM) AST [5-34 U/L] 32 U/L (02/03/15 12:11 PM) Alk Phos [40-150 U/L] 151 U/L *HI* (02/03/15 12:11 PM) Bili Total [0.2-1.2 mg/dL] 0.4 mg/dL (02/03/15 12:11 PM) TSH with Reflex Free T4 [0.35-4.94] 2.67 (02/03/15 12:11 PM) 1Result Comment: Multiply eGFR results by [...] Sclerotherapy of vein 2012 Intraoperative lymphatic mapping, [place] 05/24/12 lymphadenectomy, Rt simple mastectomy Laser ablation [...] Visit Note Author: Carmine Kearns MD Date: 02/03/15 Assessment/Plan Abdominal pain, epigastric Atrial fibrillation Cerumen impaction Chronic anticoagulation Mild malnutrition Oral aphthous ulcer Peptic ulcer disease Weight loss Ordered: CBC w/ Differential Comprehensive Metabolic Panel Sedimentation Rate TSH with Reflex Free T4 Orders: lidocaine topical, 0.01 g 0.5 mL, Topical, q4hr, as needed for mouth sore pain, SWISH AND SPIT, # 20 mL, 0 Refill(s), Pharmacy: [facility] # [id number] The combination of weight loss and worsening epigastric pain are a concern. Workup to include H. pylori antigen, TSH, CBC, CMP, sedimentation rate. I think she will likely need repeat endoscopy and will refer back to Dr. Miranda. I'm also quite concerned about her nutritional intake and I encouraged her to start on an sure as a nutritional supplement. INR was quite elevated, which may in part be due to poor nutrition and therefore poor production of clotting proteins by the liver. We will hold her Coumadin and recheck INR. Ear wash performed for the cerumen impaction. Follow-up with me within 2 weeks or sooner if needed. Extracted from: Title: Ambulatory Patient Education Author: Carmine Kearns MD Date: Cardiovascular Anticoagulation, Generic Anticoagulants are medicines used to prevent clots from developing in your veins. These medicine are also known as blood thinners. If blood clots are untreated, they could travel to your lungs. This is called a pulmonary embolus. A blood clot in your lungs can be fatal. Health care providers often use anticoagulants to prevent clots following surgery. Anticoagulants are also used along with aspirin when the heart is not getting enough blood. Another anticoagulant called warfarin is started 2 to 3 days after a rapid- acting injectable anticoagulant is started. The rapid-acting anticoagulants are usually continued until warfarin has begun to w ork. Your health care provider will drip box tender this length of time by blood tests known as the prothrombin time (PT) and International Normalization Ratio (INR). This means that your blood is at the necessary and best level to prevent clots. RISKS AND COMPLICATIONS If you have received recent epidural anesthesia, spinal anesthesia, or a spinal tap while receiving anticoagulants, you are at risk for developing a blood clot in or around the spine. This conditio n could result in long-term or permanent paralysis. Because anticoagulants thin your blood, severe bleeding may occur from any tissue or organ. Symptoms of the blood being too thin may include: Bleeding from the nose or gums that does not stop quickly. Blood in bowel movements which may appear as bright red, dark, or black tarry stools. Blood in the urine which may appear as pink, red, or brown urine. Unusual bruising or bruising easily. A cut that does not stop bleeding within 10 minutes. Vomiting blood or continuous nausea for more than 1 day. Coughing up blood. Broken blood vessels in your eye (subconjunctival hemorrhage). Abdominal or back pain with or without flank bruising. Sudden, severe headache. Sudden weakness or numbness of the face, arm, or leg, especially on one side of the body. Sudden confusion. Trouble speaking (aphasia) or understanding. Sudden trouble seeing in one or both eyes. Sudden trouble walking. Dizziness. Loss of balance or coordination. Vaginal bleeding. Swelling or pain at an injection site. Superficial fat tissue (necrosis) which may cause skin scarring. This is more common in women and may first present as pain in the waist, thighs , or buttocks. Fever. Too little anticoagulation continues to allow the risk for blood clots. HOME CARE INSTRUCTIONS Due to the complications of anticoagulants, it is very important that you take your anticoagulant as directed by your health care provider. Anticoagulants need to be taken exactly as instructed. Be sure you understand all your anticoagulant instructions. Keep all follow-up appointments with your health care provider as directed. It is very important to keep your appointments. Not keeping appointments could result in a chronic or permanent injury, pain, or disability. Warfarin. Your health care provider will advise you on the length of treatment (usually 36 months, sometimes lifelong). Take warfarin exactly as directed by your health care provider. It is recommended that you take your warfarin dose at the same time of the day. It is preferred that you take warfarin in the late af ternoon. If you have been told to stop taking warfarin, do not resume taking warfarin until directed to do so by your health care provider. Follow your health care provider's instructions if you acciden tally take an extra dose or miss a dose of warfarin. It is very important to take warfarin as directed since bleeding or blood clots could result in chronic or permanent injury, pain, or disability. Too much and too little warfarin are both dangerous. Too much warfarin increases the risk of bleeding. Too little warfarin continues to allow the risk for blood clots. While taking warfarin, you wi ll need to have regular blood tests to measure your blood clotting time. These blood tests usually include both the prothrombin time (PT) and International Normalized Ratio (INR) tests. The PT and INR r esults allow your health care provider to adjust your dose of warfarin. The dose can change for many reasons. It is critically important that you have your PT and INR levels drawn exactly as directed. Y our warfarin dose may stay the same or change depending on what the PT and INR results are. Be sure to follow up with your health care provider regarding your PT and INR test results and what your warfarin dosage should be. Many medicines can interfere with warfarin and affect the PT and INR results. You must tell your health care provider about any and all medicines you take, this includes all vitamins and supplement s. Ask your health care provider before taking these. Prescription and over-the -counter medicine consistency is critical to warfarin management. It is important that potential interactions are checked b efore you start a new medicine. Be especially cautious with aspirin and anti- inflammatory medicines. Ask your health care provider before taking these. Medicines such as antibiotics and acid-reducing me dicine can interact with warfarin and can cause an increased warfarin effect. Warfarin can also interfere with the effectiveness of medicines you are taking. Do not take or discontinue any prescribed or [id number] medicine except on the advice of your health care provider or pharmacist. Some vitamins, supplements, and herbal products interfere with the effectiveness of warfarin. Vitamin E may increase the anticoagulant effects of warfarin. Vitamin K may can cause warfarin to be le ss effective. Do not take or discontinue any vitamin, supplement, or herbal product except on the advice of your health care provider or pharmacist. Eat what you normally eat and keep the vitamin K content of your diet consistent. Avoid major changes in your diet, or notify your health care provider before changing your diet. Suddenly getting a lot more vitamin K could cause your blood to clot too quickly. A sudden decrease in vitamin K intake could cause your blood to clot too slowly. These changes in vitamin K intake could lead to dangerous blood clotsor to bleeding. To keep your vitamin K intake consistent, you must be aware of which foods contain moderate or high amounts of vitamin K. Some foods high in vitamin K include spinach, kale , broccoli, cabbage, greens, [place] sprouts, asparagus, [place], coleslaw, parsley, and green tea. Arrange a visit with a dietitian to answer your questions. If you have a loss of appetite or get the stomach flu (viral gastroenteritis), talk to your health care provider as soon as possible. A decrease in your normal vitamin K intake can make you more sensitive to your usual dose of warfarin. Some medical conditions may increase your risk for bleeding while you are taking warfarin. A fever, diarrhea lasting more than a day, worsening heart failure, or worsening liver function are some m edical conditions that could affect warfarin. Contact your health care provider if you have any of these medical conditions. Alcohol can change the body's ability to handle warfarin. It is best to avoid alcoholic drinks or consume only very small amounts while taking warfarin. Notify your health care provider if you vallejo ge your alcohol intake. A sudden increase in alcohol use can increase your risk of bleeding. Chronic alcohol use can cause warfarin to be less effective. Be careful not to cut yourself when using sharp objects or while shaving. Inform all your health care providers and your dentist that you take an anticoagulant. Limit physical activities or sports that could result in a fall or cause injury. Avoid contact sports. Wear medical alert jewelry or carry a medical alert card. SEEK IMMEDIATE MEDICAL CARE IF: You cough up blood. You have dark or black stools or there is bright red blood coming from your rectum. You vomit blood or have nausea for more than 1 day. You have blood in the urine or pink colored urine. You have unusual bruising or have increased bruising. You have bleeding from the nose or gums that does not stop quickly. You have a cut that does not stop bleeding within a 23 minutes. You have sudden weakness or numbness of the face, arm, or leg, especially on one side of the body. You have sudden confusion. You have trouble speaking (aphasia) or understanding. You have sudden trouble seeing in one or both eyes. You have sudden trouble walking. You have dizziness. You have a loss of balance or coordination. You have a sudden, severe headache. You have a serious fall or head injury, even if you are not bleeding. You have swelling or pain at an injection site. You have unexplained tenderness or pain in the abdomen, back, waist, thighs or buttocks. You have a fever. Any of these symptoms may represent a serious problem that is an emergency. Do not wait to see if the symptoms will go away. Get medical help right away. Call your local emergency services (911 in [place] Do not drive yourself to the hospital. Document Released: 05/15/2006 Document Revised: 05/20/2014 Document Reviewed: 12/17/2008 [facility] Patient Information 2015 [facility], [facility]. This information is not intended to replace advice given to you by your health care provider. Make sure you discuss any questions you have with your health care provider. No follow up information was provided.
--- OUTSIDE RECORDS SUMMARY | 2017-02-02 23:26 | External Medical Summary | Referral Summary ---
:1935 Author Organization [facility] Address [address] [place] [address] [place] [address] Care Team Providers Name Role Phone Carmine Kearns V Primary Care Physician Encounter VC Date(s): 07/30/15 - 07/30/15 [facility] [place] [place] [phone] [place] Discharge Diagnosis: Encounter for chronic pain management Discharge Disposition: 01-Home or Self Care Attending Physician: Carmine Kearns MD Admitting Physician: Carmine Kearns MD Vital Signs Most recent to oldest [Reference Range]: 1 Temperature Tympanic [36.6-38.1 degC] 36.7 degC (07/30/15 3:27 PM) Peripheral Pulse Rate [60-100 bpm] 64 bpm (07/30/15 3:27 PM) Blood Pressure [90-140/60-90 mmHg] 150/70 mmHg *HI* (07/30/15 3:27 PM) Problem List Condition Effective Dates Status [...] # 180 tabs, 1 Refill( s), eRx: [facility] #[id number], TAKE ONE TABLET BY MOUTH EVERY 12 HOURS Start Date: 02/09/15 Status: Orderedbumetanide 1 mg oral tablet See Instructions, TAKE ONE AND ONE-HALF TABLET BY MOUTH EVERY DAY, # 45 tabs, 6 Refill(s), Pharmacy:[facility] #[id number], TAKE ONE AND ONE-HALF TABLET BY MOUTH [...] AND MONDAY, # 30 tabs, eRx: [facility] #[id number], TAKE ONE TABLET BY MOUTH ON MONDAY, MONDAY, AND MONDAY Start Date: 07/13/15 Status: OrderedCoumadin 2.5 mg oral tablet See Instructions, TAKE ONE TABLET BY MOUTH ON MONDAY, MONDAY, AND MONDAY, # 30 tabs, eRx: [facility] #[id number], TAKE ONE TABLET BY MOUTH ON MONDAY, MONDAY, AND MONDAY Start Date: 07/13/15 Status: Ordereddicyclomine 10 mg oral capsule See Instructions, TAKE 1-2 CAPSULES BY MOUTH EVERY 6 HOURS NEEDED FOR IRRITABLE BOWEL, # 100 caps, 4 Refill(s), Pharmacy: [facility] #[id number], TAKE 1-2 CAPSULES BY MOUTH EVERY 6 HOURS NEEDEDFOR IRRITABLE BOWEL Start Date: 04/27/15 Status: Orderedfolic acid 1 mg oral tablet See Instructions, TAKE ONE TABLET BY MOUTH EVERY DAY, # 90 tabs, 2 Refill(s), eRx: [facility] #[id number], TAKE ONE TABLET BY MOUTH EVERY DAY Start Date: 12/02/13 Status: OrderedMag-Ox 400 0 Refill(s) Start Date: 11/25/13 Status: Orderedmethotrexate 2.5 mg oral tablet See Instructions, TAKE 7 TABLETS BY MOUTH ONCE WEEKLY, # 35 tabs, 1 Refill(s), eRx: [facility]#[id number], TAKE 7 TABLETS BY MOUTH ONCE WEEKLY Start Date: 07/06/15 Status: OrderedMiraLax oral powder for reconstitution 17 g, Oral, Daily, dissolve in water before taking, # 527 g, 0 Refill(s) Start Date: 11/25/13 Status: OrderedpredniSONE 5 mg oral tablet See Instructions, TAKE ONE TABLET BY MOUTH DAILY, # 90 tabs, eRx: [facility] #[id number], TAKE ONETABLET BY MOUTH DAILY Start Date: 05/25/15 Status: OrderedProtonix 40 mg oral delayed release tablet 1 tabs, Oral, BID, # 60 tabs, 4 Refill(s), Pharmacy: [facility] #[id number], 1 tabs Oral BID Start Date: 08/28/14 Status: OrderedReclast mg, IV, Once, 0 Refill(s) Start Date: 04/04/14 Status: Orderedsertraline 100 mg oral tablet See Instructions, TAKE ONE TABLET BY MOUTH ONCE A DAY, # 90 tabs, 1 Refill(s), eRx: [facility]#[id number], TAKE ONE TABLET BY MOUTH ONCE A DAY Start Date: 06/01/15 Status: OrderedToviaz 8 mg oral tablet, extended release 8 mg 1 tabs, Oral, Daily, APPROVED THRU INS FOR #30, # 30 tabs, 6 Refill(s), Pharmacy: [facility] #[id number], 1 tabs Oral Daily,Instr:APPROVED THRU INS FOR [...] # 270 tabs , 1 Refill(s), Pharmacy: [facility] #[id number], TAKE 1 1/2 TABLETS BY MOUTH EVERY NIGHT AT BEDTIME Start Date: 06/24/15 Status: Orderedverapamil 180 mg/24 hours oral capsule, extended release 180 mg 1 caps, Oral, BID, # 60 caps, 3 Refill(s), Pharmacy: [facility] # [id number], 1 caps Oral BID Start Date: 04/09/15 [...] Sclerotherapy of vein 2012 Intraoperative lymphatic mapping, [place] 05/24/12 lymphadenectomy, Rt simple mastectomy Laser ablation [...] Visit Note Author: Carmine Kearns MD Date: 07/30/15 Assessment/Plan Encounter for chronic pain management Orders: traMADol, See Instructions, 1 tabs Q 6 hours up to 4 times per day. Maximum of 4 [id number] mg/day, # 120 tabs, 0 Refill(s), Must last at least 30 days.(thru 08/28) See discussion above. Follow-up one month or sooner if needed.
--- OUTSIDE RECORDS SUMMARY | 2017-02-02 23:26 | External Medical Summary | Referral Summary ---
:1935 Author Organization [facility] Address [address] [place] [address] [place] [address] Care Team Providers Name Role Phone Carmine Kearns V Primary Care Physician Encounter [facility] Date(s): 12/16/14 - 12/16/14 [facility] [place] [place] [address]- Discharge Diagnosis: CAD (coronary artery disease) Discharge Diagnosis: Migraine headache with aura Discharge Diagnosis: Back pain Discharge Diagnosis: Falls Discharge Diagnosis: Atrial fibrillation Discharge Disposition: 01-Home or Self Care Attending Physician: Carmine Kearns MD Admitting Physician: Carmine Kearns MD Vital Signs Most recent to oldest [Reference Range]: 1 Temperature Tympanic [36.6-38.1 degC] 36.5 degC *LOW* (12/16/14 1:51 PM) Peripheral Pulse Rate [60-100 bpm] 69 bpm (12/16/14 1:51 PM) Blood Pressure [90-140/60-90 mmHg] 119/61 mmHg (12/16/14 1:51 PM) Problem List Condition Effective Dates Status [...] # 180 tabs, 1 Refill( s), eRx: [facility] #[id number], TAKE ONE TABLET BY MOUTH EVERY 12 HOURS Start Date: 02/09/15 Status: Orderedbumetanide 1 mg oral tablet See Instructions, TAKE ONE AND ONE-HALF TABLET BY MOUTH EVERY DAY, # 45 tabs, 6 Refill(s), Pharmacy:[facility] #[id number], TAKE ONE AND ONE-HALF TABLET BY MOUTH [...] # 30 tabs, 3 Refill(s), MIGUELITO, eRx: [facility] #[id number], TAKE ONE TABLET BY MOUTH EVERY DAY Start Date: 03/25/14 Status: OrderedCoumadin 2.5 mg oral tablet See Instructions, 1 tabs mg Oral m,w,f, # 30 tabs, 1 Refill(s), Pharmacy: [facility] #[id number], 1 tabs mg Oral m,w,f Start Date: 05/13/14 Status: OrderedCoumadin 3 mg oral tablet 3 mg 1 tabs, Oral, Daily, # 60 tabs, 1 Refill(s), Pharmacy: [facility] # [id number], 1 tabs Oral Daily Start Date: 12/23/14 Status: Ordereddicyclomine 10 mg oral capsule See Instructions, TAKE 1-2 CAPSULES BY MOUTH EVERY 6 HOURS NEEDED FOR IRRITABLE BOWEL, # 100 caps, 4 Refill(s), Pharmacy: [facility] #[id number], TAKE 1-2 CAPSULES BY MOUTH EVERY 6 HOURS NEEDEDFOR IRRITABLE BOWEL Start Date: 04/07/14 Status: Ordereddicyclomine 10 mg oral capsule 1 caps, Oral, QID, # 56 caps, 0 Refill(s) Start Date: 11/25/13 Stop Date: 12/09/13 Status: OrderedDrisdol 50,000 intl units (1.25 mg) oral capsule See Instructions, TAKE ONE CAPSULE BY MOUTH ONCE WEEKLY, # 12 caps, 2 Refill(s) , eRx: [facility] #[id number], TAKE ONE CAPSULE BY MOUTH ONCE WEEKLY Start Date: 11/18/13 Status: Orderedferrous sulfate 325 mg (65 mg elemental iron) oral tablet 1 tabs, Oral, TID, # 270 tabs, 0 Refill(s) Start Date: 11/25/13 Status: Orderedfolic acid 1 mg oral tablet 1 tabs, Oral, Daily, # 30 tabs, 6 Refill(s), Pharmacy: [facility] #[id number] , 1 tabs Oral Daily Start Date: 09/15/14 Status: Orderedfolic acid 1 mg oral tablet See Instructions, TAKE ONE TABLET BY MOUTH EVERY DAY, # 90 tabs, 2 Refill(s), eRx: [facility] #[id number], TAKE ONE TABLET BY MOUTH EVERY DAY Start Date: 12/02/13 Status: OrderedLidocaine Viscous 2% mucous membrane solution 0.01 g 0.5 mL, Topical, q4hr, as needed for mouth sore pain, SWISH AND SPIT, # 20 mL, 0 Refill(s), Pharmacy: [facility] #[id number] Start Date: 02/03/15 Stop Date: 02/04/16 Status: OrderedMag-Ox 400 0 Refill(s) Start Date: 11/25/13 Status: Orderedmethotrexate 2.5 mg oral tablet See Instructions, TAKE 7 TABLETS BY MOUTH ONCE WEEKLY, # 35 tabs, 2 Refill(s), eRx: [facility]#[id number], TAKE 7 TABLETS BY MOUTH ONCE WEEKLY Start Date: 03/31/15 Status: OrderedMiacalcin Nasal 200 intl units/inh nasal spray 1 sprays, Nasal, Daily, Alternate alternate nostrils, # 3.7 mL, 0 Refill(s), Pharmacy: [facility] #[id number], 1 sprays Nasal Daily,Instr:Alternate ; alternate nostrils Start Date: 12/17/14 Status: OrderedMiraLax oral powder for reconstitution 17 g, Oral, Daily, dissolve in water before taking, # 527 g, 0 Refill(s) Start Date: 11/25/13 Status: Orderedmultivitamin Daily, 0 Refill(s) Start Date: 11/25/13 Status: OrderedpredniSONE 5 mg oral tablet 1 tabs, Oral, Daily, # 90 tabs, 1 Refill(s), Pharmacy: [facility] #[id number] , 1 tabs Oral Daily Start Date: 08/28/14 Stop Date: 09/15/16 Status: OrderedpredniSONE 5 mg oral tablet See Instructions, TAKE ONE TABLET BY MOUTH DAILY, # 90 tabs, eRx: [facility] #[id number], TAKE ONETABLET BY MOUTH DAILY Start Date: 03/02/15 Status: OrderedProtonix 40 mg oral delayed release tablet 1 tabs, Oral, BID, # 60 tabs, 4 Refill(s), Pharmacy: [facility] #[id number], 1 tabs Oral BID Start Date: 08/28/14 Status: OrderedProtonix 40 mg oral delayed release tablet 40 mg 1 tabs, Oral, Daily, # 30 tabs, 6 Refill(s), Pharmacy: [facility] # [id number], 1 tabs Oral Daily Start Date: 01/05/15 Status: OrderedReclast mg, IV, Once, 0 Refill(s) Start Date: 04/04/14 Status: Orderedsertraline 100 mg oral tablet 1 tabs, Oral, Daily, # 90 tabs, 2 Refill(s), Pharmacy: [facility] #[id number] , 1 tabs Oral Daily Start Date: 09/01/14 Status: OrderedToviaz 8 mg oral tablet, extended release 1 tabs, Oral, Daily, # 90 tabs, 1 Refill(s), Pharmacy: [facility] #[id number] , 1 tabs Oral Daily Start Date: 09/29/14 Status: OrderedToviaz 8 mg oral tablet, extended release 8 mg 1 tabs, Oral, Daily, # 90 tabs, 1 Refill(s), Pharmacy: [facility] # [id number], 1 tabs Oral Daily Start Date: 01/19/15 Status: OrderedtraMADol 50 mg oral tablet See Instructions, as needed for pain, 1 -2 tabs Oral q4hr PRN, # 120 tabs, 0 Refill(s) Start Date: 02/27/15 Status: OrderedtraZODone 100 mg oral tablet See Instructions, TAKE 1 1/2 TABLETS BY MOUTH EVERY NIGHT AT BEDTIME, # 270 tabs , 1 Refill(s), eRx: [facility] #[id number], TAKE THREE TABLETS BY MOUTH EVERY NIGHT AT BEDTIME Start Date: 05/12/14 Status: Orderedverapamil 180 mg/24 hours oral capsule, extended release 180 mg 1 caps, Oral, BID, PLEASE FILL #6 ONLY, # 6 caps, 0 Refill(s), Pharmacy: [facility] #[id number], 1 caps Oral BID,Instr:PLEASE FILL #6 ONLY Start Date: 03/31/15 Status: OrderedVitamin B Complex oral tablet tabs, Oral, Daily, 0 Refill(s) Start Date: 11/25/13 Status: OrderedVitamin B-12 1000 mcg oral tablet 1 tabs, Oral, Daily, # 90 tabs, 0 Refill(s) Start Date: 11/25/13 Status: Orderedwarfarin 2 mg oral tablet 2 mg 1 tabs, Oral, Daily, # 30 tabs, 1 Refill(s), Pharmacy: [facility] # [id number], 1 tabs Oral Daily Start Date: 03/11/15 Status: Ordered Results Hematology Most recent to oldest [Reference Range]: 1 WBC [4.8-10.8 10*3/uL] 6.8 10*3/uL (12/16/14 3:33 PM) RBC [4.00-5.20 10*6/uL] 3.48 10*6/uL *LOW* (12/16/14 3:33 PM) Hgb [12.0-16.0 gm/dL] 12.5 gm/dL (12/16/14 3:33 PM) Hct [37.0-47.0 %] 38.8 % (12/16/14 3:33 PM) MCV [82.0-99.0 fL] 111.5 fL *HI* (12/16/14 3:33 PM) MCH [27.0-32.0 pg] 35.9 pg *HI* (12/16/14 3:33 PM) MCHC [32.0-36.0 gm/dL] 32.2 gm/dL (12/16/14 3:33 PM) RDW [11.5-14.5 %] 14.4 % (12/16/14 3:33 PM) Platelet [150-400 10*3/uL] 386 10*3/uL (12/16/14 3:33 PM) MPV [8.8-14.8 fL] 12.1 fL (12/16/14 3:33 PM) Neutrophils [51-75 %] 82 % *HI* (12/16/14 3:33 PM) Lymphocytes [20-46 %] 14 % *LOW* (12/16/14 3:33 PM) Monocytes [4-11 %] 4 % (12/16/14 3:33 PM) Eosinophils [0-4 %] 0 % (12/16/14 3:33 PM) Basophils [0-2 %] 0 % (12/16/14 3:33 PM) Neutro Absolute [1.90-7.00 10*3] 5.58 10*3 (12/16/14 3:33 PM) Lymph Absolute [0.80-3.30 10*3] 0.95 10*3 (12/16/14 3:33 PM) [place] Absolute [0.30-1.00 10*3] 0.27 10*3 *LOW* (12/16/14 3:33 PM) Eos Absolute [0.00-0.50 10*3] 0.00 10*3 (12/16/14 3:33 PM) Baso Absolute [0.00-0.20 10*3] 0.00 10*3 (12/16/14 3:33 PM) Macrocyte Present *ABN* (12/16/14 3:33 PM) Differential Manual *ABN* (12/16/14 3:33 PM) Chemistry Most recent to oldest [Reference Range]: 1 Sodium Lvl [135-144 mEq/L] 138 mEq/L (12/16/14 3:33 PM) Potassium Lvl [3.5-5.2 mEq/L] 4.9 mEq/L (12/16/14 3:33 PM) Chloride [99-111 mEq/L] 99 mEq/L (12/16/14 3:33 PM) CO2 [22-31 mEq/L] 29 mEq/L (12/16/14 3:33 PM) AGAP [3-20] 10 (12/16/14 3:33 PM) BUN [10-20 mg/dL] 35 mg/dL *HI* (12/16/14 3:33 PM) Glucose Lvl [70-99 mg/dL] 103 mg/dL *HI* (12/16/14 3:33 PM) Creatinine Lvl [0.57-1.11 mg/dL] 1.11 mg/dL (12/16/14 3:33 PM) eGFR [>60 mL/min] 47 mL/min 1 *ABN* (12/16/14 3:33 PM) Calcium Lvl [8.9-10.5 mg/dL] 9.7 mg/dL (12/16/14 3:33 PM) 1Result Comment: Multiply eGFR results by [...] Sclerotherapy of vein 2012 Intraoperative lymphatic mapping, [place] 05/24/12 lymphadenectomy, Rt simple mastectomy Laser ablation [...] Visit Note Author: Carmine Kearns MD Date: 12/16/14 Assessment/Plan Atrial fibrillation Back pain CAD (coronary artery disease) Falls Ordered: CBC w/ Differential Migraine headache with aura Overall she seems to be fortunate from recent falls. We discussed fall prevention. We'll evaluate with CBC, BMP, x-rays of lumbar and thoracic spines. Regarding the abdominal discomfort I suggest ed trial of antacids. Will stop the iron supplementation which has potential for toxicity. Follow-up one month or sooner if needed.
--- OUTSIDE RECORDS SUMMARY | 2017-02-02 23:26 | External Medical Summary | Referral Summary ---
:1935 Author Organization [facility], [facility] Address [address] [place] [address] [place] [address] Care Team Providers Name Role Phone Carmine Kearns V Primary Care Physician Encounter [facility] [id number] Date(s): 12/08/15 - 12/08/15 [facility] [place] [place] [address] [place] Discharge Diagnosis: Encounter for chronic pain management Discharge Disposition: 01-Home or Self Care Attending Physician: Carmine Kearns MD Admitting Physician: Carmine Kearns MD Vital Signs Most recent to oldest [Reference Range]: 1 Temperature Tympanic [36.6-38.1 degC] 36.6 degC (12/08/15 1:01 PM) Peripheral Pulse Rate [60-100 bpm] 72 bpm (12/08/15 1:01 PM) Blood Pressure [90-140/60-90 mmHg] 135/64 mmHg (12/08/15 1:01 PM) Problem List Condition Effective Dates Status [...] Active (disorder)(Confirmed) 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) Encounter for [...] # 180 tabs, 1 Refill( s), eRx: [facility] #[id number], TAKE ONE TABLET BY MOUTH EVERY 12 HOURS Start Date: 11/09/15 Status: Orderedbumetanide 1 mg oral tablet See Instructions, TAKE ONE AND ONE-HALF TABLET BY MOUTH EVERY DAY, # 45 tabs, 6 Refill(s), Pharmacy:[facility] #[id number], TAKE ONE AND ONE-HALF TABLET BY MOUTH [...] 0 Refill(s) Start Date: 11/25/13 Status: OrderedCoumadin 2 mg oral tablet See Instructions, TAKE ONE TABLET BY MOUTH DAILY, # 30 tabs, 1 Refill(s), eRx: [facility] #[id number], TAKE ONE TABLET BY MOUTH DAILY Start Date: 08/31/15 Status: Orderedcyclobenzaprine 5 mg oral tablet 5 mg 1 tabs, Oral, TID, as needed for muscle spasm, X 7 days, # 15 tabs, 0 Refill(s), Pharmacy: [facility] #[id number], 1 tabs Oral TID,x7 days,PRN:as needed for muscle spasm Start Date: 12/08/15 Stop Date: 12/15/15 Status: Ordereddicyclomine 10 mg oral capsule See Instructions, TAKE 1-2 CAPSULES BY MOUTH EVERY 6 HOURS NEEDED FOR IRRITABLE BOWEL, # 100 caps, 4 Refill(s), Pharmacy: [facility] #[id number], TAKE 1-2 CAPSULES BY MOUTH EVERY 6 HOURS NEEDEDFOR IRRITABLE BOWEL Start Date: 04/27/15 Status: Orderedfolic acid 1 mg oral tablet See Instructions, TAKE ONE TABLET BY MOUTH EVERY DAY, # 90 tabs, 2 Refill(s), eRx: [facility] #[id number], TAKE ONE TABLET BY MOUTH EVERY DAY Start Date: 12/02/13 Status: OrderedMag-Ox 400 0 Refill(s) Start Date: 11/25/13 Status: Orderedmethotrexate 2.5 mg oral tablet See Instructions, TAKE 7 TABLETS BY MOUTH ONCE WEEKLY, # 35 tabs, 5 Refill(s), eRx: [facility]#[id number], TAKE 7 TABLETS BY MOUTH ONCE WEEKLY Start Date: 09/21/15 Status: OrderedMetroCream 0.75% topical cream 1 miguel a, Topical, BID, # 45 g, 0 Refill(s), Pharmacy: [facility] #[id number] Start Date: 10/23/15 Status: OrderedMiraLax oral powder for reconstitution 17 g, Oral, Daily, dissolve in water before taking, # 527 g, 0 Refill(s) Start Date: 11/25/13 Status: OrderedpredniSONE 5 mg oral tablet See Instructions, TAKE ONE TABLET BY MOUTH DAILY, # 90 tabs, eRx: [facility] #[id number], TAKE ONETABLET BY MOUTH DAILY Start Date: 09/07/15 Status: OrderedProtonix 40 mg oral delayed release tablet See Instructions, TAKE ONE TABLET BY MOUTH DAILY, # 30 tabs, 5 Refill(s), eRx: [facility] #[id number], TAKE ONE TABLET BY MOUTH DAILY Start Date: 08/31/15 Status: OrderedReclast mg, IV, Once, 0 Refill(s) Start Date: 04/04/14 Status: Orderedsertraline 100 mg oral tablet See Instructions, TAKE ONE TABLET BY MOUTH ONCE A DAY, # 90 tabs, 1 Refill(s), eRx: [facility]#[id number], TAKE ONE TABLET BY MOUTH ONCE A DAY Start Date: 12/01/15 Status: OrderedToviaz 8 mg oral tablet, extended release 8 mg 1 tabs, Oral, Daily, APPROVED THRU INS FOR #30, # 30 tabs, 6 Refill(s), Pharmacy: [facility] #[id number], 1 tabs Oral Daily,Instr:APPROVED THRU INS FOR #30 Start Date: 07/14/15 Status: OrderedtraMADol 50 mg oral tablet See Instructions, 1 tabs Q 6 hours up to 4 times per day. Maximum of 4 tablets= 200 mg/day, # 120 tabs, 0 Refill(s), Must last at least 30 days.(thru 08/28) Start Date: 11/23/15 Status: OrderedtraZODone 100 mg oral tablet See Instructions, TAKE 1 1/2 TABLETS BY MOUTH EVERY NIGHT AT BEDTIME, # 270 tabs , 1 Refill(s), Pharmacy: [facility] #[id number], TAKE 1 1/2 TABLETS BY MOUTH EVERY NIGHT AT BEDTIME Start Date: 06/24/15 Status: Orderedverapamil 180 mg/24 hours oral capsule, extended release See Instructions, TAKE ONE CAPSULE BY MOUTH TWICE A DAY, # 60 caps, 2 Refill(s) , eRx: [facility] #[id number], TAKE ONE CAPSULE BY MOUTH TWICE A DAY Start Date: 11/02/15 Status: OrderedVitamin B Complex oral tablet tabs, [...] vaccine, live 01/27/12 influenza virus vaccine, live 9/9/11 influenza virus vaccine, live 02/16/09 influenza virus vaccine, live 03/21/08 influenza virus vaccine, live 04/07/06 pneumococcal 13-valent conjugate vaccine 04/04/14 pneumococcal 23-polyvalent vaccine 01/27/12 tetanus-diphth toxoids (Td) adult/adol 09/24/11 tetanus-diphth toxoids (Td) adult/adol 06/09/99 zoster vaccine live 04/13/11 Procedures Procedure Date Related Diagnosis Body Site Arthrocentesis-aspiration of major joint 05/15/13 Sclerotherapy of vein 2012 Intraoperative lymphatic mapping, [place] 05/24/12 lymphadenectomy, Rt simple mastectomy Laser ablation of long saphenous vein Lt great 11/17/11 Prolift mesh & cystocele repair; cystoscopy 09/29/09 Hx of shoulder surgery Lt 2006 Hx of mastectomy Lt simple 2002 Revoved Rods 1994 Decomp. Laminectomy Disectomy CD Rods, Bones 1991 Tubal ligation 1976 Lumbar spinal fusion 1975 Dilation and curettage 1960 Appendectomy 1952 - Spontaneous vaginal delivery x5 Tonsillectomy and adenoidectomy Social History Social History Type Response Smoking Status Never smoker Assessment and Plan Extracted from: Title: 3 Month CDM Author: Carmine Kearns MD Date: 12/08/15 Impression and Plan Diagnosis Encounter for chronic pain management (ACT13-ZA G89.29, Discharge, Medical). Back muscle spasm (AON18-CA M62.830, Working, Medical). Orders Orders (Selected) Prescriptions Prescribed cyclobenzaprine 5 mg oral tablet: 5 mg=1 tabs, Oral, TID, for 7 days, PRN: as needed for muscle spasm, 15 tabs, 0 Refill(s).
--- OUTSIDE RECORDS SUMMARY | 2017-02-02 23:26 | External Medical Summary | Referral Summary ---
:1935 Author Organization [facility] Address [address] [place] [address] [place] [address] Care Team Providers Name Role Phone Carmine Kearns V Primary Care Physician Encounter [facility] Date(s): 12/16/14 - 12/16/14 [facility] [place] [place] [id number]- Discharge Diagnosis: CAD (coronary artery disease) Discharge [...] # 180 tabs, 1 Refill( s), eRx: [facility] #[id number], TAKE ONE TABLET BY MOUTH EVERY 12 HOURS Start Date: 02/09/15 Status: Orderedbumetanide 1 mg oral tablet See Instructions, TAKE ONE AND ONE-HALF TABLET BY MOUTH EVERY DAY, # 45 tabs, 6 Refill(s), Pharmacy:[facility] #[id number], TAKE ONE AND ONE-HALF TABLET BY MOUTH [...] # 30 tabs, 3 Refill(s), MIGUELITO, eRx: [facility] #[id number], TAKE ONE TABLET BY MOUTH EVERY DAY Start Date: 03/25/14 Status: OrderedCoumadin 2.5 mg oral tablet See Instructions, 1 tabs mg Oral m,w,f, # 30 tabs, 1 Refill(s), Pharmacy: [facility] #[id number], 1 tabs mg Oral m,w,f Start Date: 05/13/14 Status: OrderedCoumadin 3 mg oral tablet 3 mg 1 tabs, Oral, Daily, # 60 tabs, 1 Refill(s), Pharmacy: [facility] # [id number], 1 tabs Oral Daily Start Date: 12/23/14 Status: Ordereddicyclomine 10 mg oral capsule See Instructions, TAKE 1-2 CAPSULES BY MOUTH EVERY 6 HOURS NEEDED FOR IRRITABLE BOWEL, # 100 caps, 4 Refill(s), Pharmacy: [facility] #[id number], TAKE 1-2 CAPSULES BY MOUTH EVERY 6 HOURS NEEDEDFOR IRRITABLE BOWEL Start Date: 04/07/14 Status: Ordereddicyclomine 10 mg oral capsule 1 caps, Oral, QID, # 56 caps, 0 Refill(s) Start Date: 11/25/13 Stop Date: 12/09/13 Status: OrderedDrisdol 50,000 intl units (1.25 mg) oral capsule See Instructions, TAKE ONE CAPSULE BY MOUTH ONCE WEEKLY, # 12 caps, 2 Refill(s) , eRx: [facility] #[id number], TAKE ONE CAPSULE BY MOUTH ONCE WEEKLY Start Date: 11/18/13 Status: Orderedferrous sulfate 325 mg (65 mg elemental iron) oral tablet 1 tabs, Oral, TID, # 270 tabs, 0 Refill(s) Start Date: 11/25/13 Status: Orderedfolic acid 1 mg oral tablet 1 tabs, Oral, Daily, # 30 tabs, 6 Refill(s), Pharmacy: [facility] #[id number] , 1 tabs Oral Daily Start Date: 09/15/14 Status: Orderedfolic acid 1 mg oral tablet See Instructions, TAKE ONE TABLET BY MOUTH EVERY DAY, # 90 tabs, 2 Refill(s), eRx: [facility] #[id number], TAKE ONE TABLET BY MOUTH EVERY DAY Start Date: 12/02/13 Status: OrderedLidocaine Viscous 2% mucous membrane solution 0.01 g 0.5 mL, Topical, q4hr, as needed for mouth sore pain, SWISH AND SPIT, # 20 mL, 0 Refill(s), Pharmacy: [facility] #[id number] Start Date: 02/03/15 Stop Date: 02/04/16 Status: OrderedMag-Ox 400 0 Refill(s) Start Date: 11/25/13 Status: Orderedmethotrexate 2.5 mg oral tablet See Instructions, TAKE 7 TABLETS BY MOUTH ONCE WEEKLY, # 35 tabs, 2 Refill(s), eRx: [facility]#[id number], TAKE 7 TABLETS BY MOUTH ONCE WEEKLY Start Date: 03/31/15 Status: OrderedMiacalcin Nasal 200 intl units/inh nasal spray 1 sprays, Nasal, Daily, Alternate alternate nostrils, # 3.7 mL, 0 Refill(s), Pharmacy: [facility] #[id number], 1 sprays Nasal Daily,Instr:Alternate ; alternate nostrils Start Date: 12/17/14 Status: OrderedMiraLax oral powder for reconstitution 17 g, Oral, Daily, dissolve in water before taking, # 527 g, 0 Refill(s) Start Date: 11/25/13 Status: Orderedmultivitamin Daily, 0 Refill(s) Start Date: 11/25/13 Status: OrderedpredniSONE 5 mg oral tablet 1 tabs, Oral, Daily, # 90 tabs, 1 Refill(s), Pharmacy: [facility] #[id number] , 1 tabs Oral Daily Start Date: 08/28/14 Stop Date: 09/15/16 Status: OrderedpredniSONE 5 mg oral tablet See Instructions, TAKE ONE TABLET BY MOUTH DAILY, # 90 tabs, eRx: [facility] #[id number], TAKE ONETABLET BY MOUTH DAILY Start Date: 03/02/15 Status: OrderedProtonix 40 mg oral delayed release tablet 1 tabs, Oral, BID, # 60 tabs, 4 Refill(s), Pharmacy: [facility] #[id number], 1 tabs Oral BID Start Date: 08/28/14 Status: OrderedProtonix 40 mg oral delayed release tablet 40 mg 1 tabs, Oral, Daily, # 30 tabs, 6 Refill(s), Pharmacy: [facility] # [id number], 1 tabs Oral Daily Start Date: 01/05/15 Status: OrderedReclast mg, IV, Once, 0 Refill(s) Start Date: 04/04/14 Status: Orderedsertraline 100 mg oral tablet 1 tabs, Oral, Daily, # 90 tabs, 2 Refill(s), Pharmacy: [facility] #[id number] , 1 tabs Oral Daily Start Date: 09/01/14 Status: OrderedToviaz 8 mg oral tablet, extended release 1 tabs, Oral, Daily, # 90 tabs, 1 Refill(s), Pharmacy: [facility] #[id number] , 1 tabs Oral Daily Start Date: 09/29/14 Status: OrderedToviaz 8 mg oral tablet, extended release 8 mg 1 tabs, Oral, Daily, # 90 tabs, 1 Refill(s), Pharmacy: [facility] # [id number], 1 tabs Oral Daily Start Date: 01/19/15 Status: OrderedtraMADol 50 mg oral tablet See Instructions, as needed for pain, 1 -2 tabs Oral q4hr PRN, # 120 tabs, 0 Refill(s) Start Date: 02/27/15 Status: OrderedtraZODone 100 mg oral tablet See Instructions, TAKE 1 1/2 TABLETS BY MOUTH EVERY NIGHT AT BEDTIME, # 270 tabs , 1 Refill(s), eRx: [facility] #[id number], TAKE THREE TABLETS BY MOUTH EVERY NIGHT AT BEDTIME Start Date: 05/12/14 Status: Orderedverapamil 180 mg/24 hours oral capsule, extended release 180 mg 1 caps, Oral, BID, PLEASE FILL #6 ONLY, # 6 caps, 0 Refill(s), Pharmacy: [facility] #[id number], 1 caps Oral BID,Instr:PLEASE FILL #6 ONLY Start Date: 03/31/15 Status: OrderedVitamin B Complex oral tablet tabs, Oral, Daily, 0 Refill(s) Start Date: 11/25/13 Status: OrderedVitamin B-12 1000 mcg oral tablet 1 tabs, Oral, Daily, # 90 tabs, 0 Refill(s) Start Date: 11/25/13 Status: Orderedwarfarin 2 mg oral tablet 2 mg 1 tabs, Oral, Daily, # 30 tabs, 1 Refill(s), Pharmacy: [facility] # [id number], 1 tabs Oral Daily Start Date: 03/11/15 [...] [0.80-3.30 10*3] 0.95 10*3 (12/16/14 3:33 PM) [place] Absolute [0.30-1.00 10*3] 0.27 10*3 *LOW* (12/16/14 [...] Sclerotherapy of vein 2012 Intraoperative lymphatic mapping, [place] 05/24/12 lymphadenectomy, Rt simple mastectomy Laser ablation [...]
--- OUTSIDE RECORDS SUMMARY | 2017-02-02 23:27 | External Medical Summary | Referral Summary ---
:1935 Author Organization [facility] Address [address] [place] [address] [place] [address] Care Team Providers Name Role Phone Carmine Kearns V Primary Care Physician Encounter VC Date(s): 12/16/14 - 12/16/14 [facility] [place] [place] [address]- Discharge Diagnosis: CAD (coronary artery disease) Discharge [...] 180 tabs, 1 Refill( s), eRx: [facility] #[id number], TAKE ONE TABLET BY MOUTH EVERY 12 HOURS Start Date: 02/09/15 Status: Orderedbumetanide 1 mg oral tablet See Instructions, TAKE ONE AND ONE-HALF TABLET BY MOUTH EVERY DAY, # 45 tabs, 6 Refill(s), Pharmacy:[facility] #[id number], TAKE ONE AND ONE-HALF TABLET BY MOUTH [...] # 30 tabs, 3 Refill(s), MIGUELITO, eRx: [facility] #[id number], TAKE ONE TABLET BY MOUTH EVERY DAY Start Date: 03/25/14 Status: OrderedCoumadin 2.5 mg oral tablet See Instructions, 1 tabs mg Oral m,w,f, # 30 tabs, 1 Refill(s), Pharmacy: [facility] #[id number], 1 tabs mg Oral m,w,f Start Date: 05/13/14 Status: OrderedCoumadin 3 mg oral tablet 3 mg 1 tabs, Oral, Daily, # 60 tabs, 1 Refill(s), Pharmacy: [facility] # [id number], 1 tabs Oral Daily Start Date: 12/23/14 Status: Ordereddicyclomine 10 mg oral capsule See Instructions, TAKE 1-2 CAPSULES BY MOUTH EVERY 6 HOURS NEEDED FOR IRRITABLE BOWEL, # 100 caps, 4 Refill(s), Pharmacy: [facility] #[id number], TAKE 1-2 CAPSULES BY MOUTH EVERY 6 HOURS NEEDEDFOR IRRITABLE BOWEL Start Date: 04/07/14 Status: Ordereddicyclomine 10 mg oral capsule 1 caps, Oral, QID, # 56 caps, 0 Refill(s) Start Date: 11/25/13 Stop Date: 12/09/13 Status: OrderedDrisdol 50,000 intl units (1.25 mg) oral capsule See Instructions, TAKE ONE CAPSULE BY MOUTH ONCE WEEKLY, # 12 caps, 2 Refill(s) , eRx: [facility] #[id number], TAKE ONE CAPSULE BY MOUTH ONCE WEEKLY Start Date: 11/18/13 Status: Orderedferrous sulfate 325 mg (65 mg elemental iron) oral tablet 1 tabs, Oral, TID, # 270 tabs, 0 Refill(s) Start Date: 11/25/13 Status: Orderedfolic acid 1 mg oral tablet 1 tabs, Oral, Daily, # 30 tabs, 6 Refill(s), Pharmacy: [facility] #[id number] , 1 tabs Oral Daily Start Date: 09/15/14 Status: Orderedfolic acid 1 mg oral tablet See Instructions, TAKE ONE TABLET BY MOUTH EVERY DAY, # 90 tabs, 2 Refill(s), eRx: [facility] #[id number], TAKE ONE TABLET BY MOUTH EVERY DAY Start Date: 12/02/13 Status: OrderedLidocaine Viscous 2% mucous membrane solution 0.01 g 0.5 mL, Topical, q4hr, as needed for mouth sore pain, SWISH AND SPIT, # 20 mL, 0 Refill(s), Pharmacy: [facility] #[id number] Start Date: 02/03/15 Stop Date: 02/04/16 Status: OrderedMag-Ox 400 0 Refill(s) Start Date: 11/25/13 Status: Orderedmethotrexate 2.5 mg oral tablet See Instructions, TAKE 7 TABLETS BY MOUTH ONCE WEEKLY, # 35 tabs, 2 Refill(s), eRx: [facility]#[id number], TAKE 7 TABLETS BY MOUTH ONCE WEEKLY Start Date: 03/31/15 Status: OrderedMiacalcin Nasal 200 intl units/inh nasal spray 1 sprays, Nasal, Daily, Alternate alternate nostrils, # 3.7 mL, 0 Refill(s), Pharmacy: [facility] #[id number], 1 sprays Nasal Daily,Instr:Alternate ; alternate nostrils Start Date: 12/17/14 Status: OrderedMiraLax oral powder for reconstitution 17 g, Oral, Daily, dissolve in water before taking, # 527 g, 0 Refill(s) Start Date: 11/25/13 Status: Orderedmultivitamin Daily, 0 Refill(s) Start Date: 11/25/13 Status: OrderedpredniSONE 5 mg oral tablet 1 tabs, Oral, Daily, # 90 tabs, 1 Refill(s), Pharmacy: [facility] #[id number] , 1 tabs Oral Daily Start Date: 08/28/14 Stop Date: 09/15/16 Status: OrderedpredniSONE 5 mg oral tablet See Instructions, TAKE ONE TABLET BY MOUTH DAILY, # 90 tabs, eRx: [facility] #[id number], TAKE ONETABLET BY MOUTH DAILY Start Date: 03/02/15 Status: OrderedProtonix 40 mg oral delayed release tablet 1 tabs, Oral, BID, # 60 tabs, 4 Refill(s), Pharmacy: [facility] #[id number], 1 tabs Oral BID Start Date: 08/28/14 Status: OrderedProtonix 40 mg oral delayed release tablet 40 mg 1 tabs, Oral, Daily, # 30 tabs, 6 Refill(s), Pharmacy: [facility] # [id number], 1 tabs Oral Daily Start Date: 01/05/15 Status: OrderedReclast mg, IV, Once, 0 Refill(s) Start Date: 04/04/14 Status: Orderedsertraline 100 mg oral tablet 1 tabs, Oral, Daily, # 90 tabs, 2 Refill(s), Pharmacy: [facility] #[id number] , 1 tabs Oral Daily Start Date: 09/01/14 Status: OrderedToviaz 8 mg oral tablet, extended release 1 tabs, Oral, Daily, # 90 tabs, 1 Refill(s), Pharmacy: [facility] #[id number] , 1 tabs Oral Daily Start Date: 09/29/14 Status: OrderedToviaz 8 mg oral tablet, extended release 8 mg 1 tabs, Oral, Daily, # 90 tabs, 1 Refill(s), Pharmacy: [facility] # [id number], 1 tabs Oral Daily Start Date: 01/19/15 Status: OrderedtraMADol 50 mg oral tablet See Instructions, as needed for pain, 1 -2 tabs Oral q4hr PRN, # 120 tabs, 0 Refill(s) Start Date: 02/27/15 Status: OrderedtraZODone 100 mg oral tablet See Instructions, TAKE 1 1/2 TABLETS BY MOUTH EVERY NIGHT AT BEDTIME, # 270 tabs , 1 Refill(s), eRx: [facility] #[id number], TAKE THREE TABLETS BY MOUTH EVERY NIGHT AT BEDTIME Start Date: 05/12/14 Status: Orderedverapamil 180 mg/24 hours oral capsule, extended release 180 mg 1 caps, Oral, BID, PLEASE FILL #6 ONLY, # 6 caps, 0 Refill(s), Pharmacy: [facility] #[id number], 1 caps Oral BID,Instr:PLEASE FILL #6 ONLY Start Date: 03/31/15 Status: OrderedVitamin B Complex oral tablet tabs, Oral, Daily, 0 Refill(s) Start Date: 11/25/13 Status: OrderedVitamin B-12 1000 mcg oral tablet 1 tabs, Oral, Daily, # 90 tabs, 0 Refill(s) Start Date: 11/25/13 Status: Orderedwarfarin 2 mg oral tablet 2 mg 1 tabs, Oral, Daily, # 30 tabs, 1 Refill(s), Pharmacy: [facility] # [id number], 1 tabs Oral Daily Start Date: 03/11/15 [...] [0.80-3.30 10*3] 0.95 10*3 (12/16/14 3:33 PM) [place] Absolute [0.30-1.00 10*3] 0.27 10*3 *LOW* (12/16/14 [...] Sclerotherapy of vein 2012 Intraoperative lymphatic mapping, [place] 05/24/12 lymphadenectomy, Rt simple mastectomy Laser ablation [...]
--- OUTSIDE RECORDS SUMMARY | 2017-02-02 23:27 | External Medical Summary | Referral Summary ---
:1935 Author Organization [facility] Address [address] [place] [address] [place] [phone] Care Team Providers Name Role Phone Carmine Kearns V Primary Care Physician Encounter VC Date(s): 12/31/14 - 12/31/14 [facility] [place] [place] [address]- Discharge Diagnosis: Compression fracture of L1 lumbar vertebra Discharge Disposition: 01-Home or Self Care Attending Physician: Carmine Kearns MD Admitting Physician: Carmine Kearns MD Vital Signs Most recent to oldest [Reference Range]: 1 Temperature Tympanic [36.6-38.1 degC] 35.8 degC *LOW* (12/31/14 11:32 AM) Peripheral Pulse Rate [60-100 bpm] 68 bpm (12/31/14 11:32 AM) Blood Pressure [90-140/60-90 mmHg] 130/65 mmHg (12/31/14 11:32 AM) Problem List Condition Effective Dates Status [...] # 180 tabs, 1 Refill( s), eRx: [facility] #[id number], TAKE ONE TABLET BY MOUTH EVERY 12 HOURS Start Date: 02/09/15 Status: Orderedbumetanide 1 mg oral tablet See Instructions, TAKE ONE AND ONE-HALF TABLET BY MOUTH EVERY DAY, # 45 tabs, 5 Refill(s), eRx: [facility] #[id number], TAKE ONE AND ONE-HALF TABLET BY MOUTH EVERY DAY Start Date: 07/03/15 Status: Orderedbumetanide 1 mg oral tablet See Instructions, TAKE ONE AND ONE-HALF TABLET BY MOUTH EVERY DAY, # 45 tabs, 6 Refill(s), Pharmacy:[facility] #[id number], TAKE ONE AND ONE-HALF TABLET BY MOUTH [...] # 30 tabs, 3 Refill(s), MIGUELITO, eRx: [facility] #[id number], TAKE ONE TABLET BY MOUTH EVERY DAY Start Date: 03/25/14 Status: OrderedCoumadin 3 mg oral tablet 3 mg 1 tabs, Oral, Daily, # 60 tabs, 1 Refill(s), Pharmacy: [facility] # [id number], 1 tabs Oral Daily Start Date: 12/23/14 Status: Ordereddicyclomine 10 mg oral capsule See Instructions, TAKE 1-2 CAPSULES BY MOUTH EVERY 6 HOURS NEEDED FOR IRRITABLE BOWEL, # 100 caps, 4 Refill(s), Pharmacy: [facility] #[id number], TAKE 1-2 CAPSULES BY MOUTH EVERY 6 HOURS NEEDEDFOR IRRITABLE BOWEL Start Date: 04/27/15 Status: Orderedfolic acid 1 mg oral tablet See Instructions, TAKE ONE TABLET BY MOUTH EVERY DAY, # 90 tabs, 2 Refill(s), eRx: [facility] #[id number], TAKE ONE TABLET BY MOUTH EVERY DAY Start Date: 12/02/13 Status: Orderedfolic acid 1 mg oral tablet 1 mg 1 tabs, Oral, Daily, # 30 tabs, 6 Refill(s), Pharmacy: [facility] # [id number], 1 tabs Oral Daily Start Date: 05/11/15 Status: OrderedMag-Ox 400 0 Refill(s) Start Date: 11/25/13 Status: Orderedmethotrexate 2.5 mg oral tablet See Instructions, TAKE 7 TABLETS BY MOUTH ONCE WEEKLY, # 35 tabs, 1 Refill(s), eRx: [facility]#[id number], TAKE 7 TABLETS BY MOUTH ONCE WEEKLY Start Date: 07/06/15 Status: OrderedMiraLax oral powder for reconstitution 17 g, Oral, Daily, dissolve in water before taking, # 527 g, 0 Refill(s) Start Date: 11/25/13 Status: Orderedmultivitamin Daily, 0 Refill(s) Start Date: 11/25/13 Status: OrderedpredniSONE 5 mg oral tablet See Instructions, TAKE ONE TABLET BY MOUTH DAILY, # 90 tabs, eRx: [facility] #[id number], TAKE ONETABLET BY MOUTH DAILY Start Date: 05/25/15 Status: OrderedProtonix 40 mg oral delayed release tablet 1 tabs, Oral, BID, # 60 tabs, 4 Refill(s), Pharmacy: [facility] #[id number], 1 tabs Oral BID Start Date: 08/28/14 Status: OrderedReclast mg, IV, Once, 0 Refill(s) Start Date: 04/04/14 Status: Orderedsertraline 100 mg oral tablet See Instructions, TAKE ONE TABLET BY MOUTH ONCE A DAY, # 90 tabs, 1 Refill(s), eRx: [facility]#[id number], TAKE ONE TABLET BY MOUTH ONCE A DAY Start Date: 06/01/15 Status: OrderedtraMADol 50 mg oral tablet See Instructions, as needed for pain, 1 -2 tabs Oral q4hr PRN, # 120 tabs, 0 Refill(s) Start Date: 07/06/15 Status: OrderedtraZODone 100 mg oral tablet See Instructions, TAKE 1 1/2 TABLETS BY MOUTH EVERY NIGHT AT BEDTIME, # 270 tabs , 1 Refill(s), Pharmacy: [facility] #[id number], TAKE 1 1/2 TABLETS BY MOUTH EVERY NIGHT AT BEDTIME Start Date: 06/24/15 Status: Orderedverapamil 180 mg/24 hours oral capsule, extended release 180 mg 1 caps, Oral, BID, # 60 caps, 3 Refill(s), Pharmacy: [facility] # [id number], 1 caps Oral BID Start Date: 04/09/15 Status: OrderedVitamin B Complex oral tablet tabs, Oral, Daily, 0 Refill(s) Start Date: 11/25/13 Status: OrderedVitamin B-12 1000 mcg oral tablet 1 tabs, Oral, Daily, # 90 tabs, 0 Refill(s) Start Date: 11/25/13 Status: Orderedwarfarin 1 mg oral tablet See Instructions, PATIENT IS TAKING 3.5MG DAILY, # 90 tabs, 1 Refill(s), Pharmacy: [facility] #[id number], PATIENT IS TAKING 3.5MG DAILY Start Date: 04/27/15 Status: Orderedwarfarin 4 mg oral tablet 4 mg 1 tabs, Oral, Daily, # 30 tabs, 1 Refill(s), Pharmacy: [facility] # [id number], 2ND TIME E SCRIPTED 1ST TIME WAS 05/11/15, 1 tabs Oral Daily Start Date: 05/14/15 Status: Ordered Results No data available for [...] Sclerotherapy of vein 2012 Intraoperative lymphatic mapping, [place] 05/24/12 lymphadenectomy, Rt simple mastectomy Laser ablation [...] Visit Note Author: Carmine Kearns MD Date: 12/31/14 Assessment/Plan Compression fracture of L1 lumbar vertebra We discussed the diagnosis of compression fracture and expectations. This will hopefully heal spontaneously in 6-8 weeks. It will probably hurt a bit mor e when she is more active, but there are significant potential risks to being completely limited in her mobility (blood clots, pneumonia, other joint stiffness.) We discussed pain management and optio ns which are unfortunately somewhat limited. The best option right now seems to be to use ice packs. We talked about trying narcotics again, but she feels that that is too risky for the current situ ation. We'll continue the tramadol and Tylenol. Follow-up when necessary.
--- OUTSIDE RECORDS SUMMARY | 2017-02-02 23:27 | External Medical Summary | Referral Summary ---
:1935 Author Organization [facility] Address [address] [place] [address] [place] [address] Care Team Providers Name Role Phone Carmine Kearns V Primary Care Physician Encounter VC Date(s): 03/26/15 - 03/26/15 [facility] [place] [place] [address] [place] Discharge Diagnosis: Benign essential hypertension Discharge Disposition: 01-Home or Self Care Attending Physician: Carmine Kearns MD Admitting Physician: Carmine Kearns MD Vital Signs Most recent to oldest [Reference Range]: 1 Temperature Tympanic [36.6-38.1 degC] 36.4 degC *LOW* (03/26/15 3:50 PM) Peripheral Pulse Rate [60-100 bpm] 68 bpm (03/26/15 3:50 PM) Blood Pressure [90-140/60-90 mmHg] 160/75 mmHg *HI* (03/26/15 3:50 PM) Problem List Condition Effective Dates Status [...] # 180 tabs, 1 Refill( s), eRx: [facility] #[id number], TAKE ONE TABLET BY MOUTH EVERY 12 HOURS Start Date: 02/09/15 Status: Orderedbumetanide 1 mg oral tablet See Instructions, TAKE ONE AND ONE-HALF TABLET BY MOUTH EVERY DAY, # 45 tabs, 6 Refill(s), Pharmacy:[facility] #[id number], TAKE ONE AND ONE-HALF TABLET BY MOUTH [...] # 30 tabs, 3 Refill(s), [place]EL[place]O, eRx: [facility] #[id number], TAKE ONE TABLET BY MOUTH EVERY DAY Start Date: 03/25/14 Status: OrderedCoumadin 2.5 mg oral tablet See Instructions, 1 tabs mg Oral m,w,f, # 30 tabs, 1 Refill(s), Pharmacy: [facility] #[id number], 1 tabs mg Oral m,w,f Start Date: 05/13/14 Status: OrderedCoumadin 3 mg oral tablet 3 mg 1 tabs, Oral, Daily, # 60 tabs, 1 Refill(s), Pharmacy: [facility] # [id number], 1 tabs Oral Daily Start Date: 12/23/14 Status: Ordereddicyclomine 10 mg oral capsule See Instructions, TAKE 1-2 CAPSULES BY MOUTH EVERY 6 HOURS NEEDED FOR IRRITABLE BOWEL, # 100 caps, 4 Refill(s), Pharmacy: [facility] #[id number], TAKE 1-2 CAPSULES BY MOUTH EVERY 6 HOURS NEEDEDFOR IRRITABLE BOWEL Start Date: 04/07/14 Status: Ordereddicyclomine 10 mg oral capsule 1 caps, Oral, QID, # 56 caps, 0 Refill(s) Start Date: 11/25/13 Stop Date: 12/09/13 Status: OrderedDrisdol 50,000 intl units (1.25 mg) oral capsule See Instructions, TAKE ONE CAPSULE BY MOUTH ONCE WEEKLY, # 12 caps, 2 Refill(s) , eRx: [facility] #[id number], TAKE ONE CAPSULE BY MOUTH ONCE WEEKLY Start Date: 11/18/13 Status: Orderedferrous sulfate 325 mg (65 mg elemental iron) oral tablet 1 tabs, Oral, TID, # 270 tabs, 0 Refill(s) Start Date: 11/25/13 Status: Orderedfolic acid 1 mg oral tablet 1 tabs, Oral, Daily, # 30 tabs, 6 Refill(s), Pharmacy: [facility] #[id number] , 1 tabs Oral Daily Start Date: 09/15/14 Status: Orderedfolic acid 1 mg oral tablet See Instructions, TAKE ONE TABLET BY MOUTH EVERY DAY, # 90 tabs, 2 Refill(s), eRx: [facility] #[id number], TAKE ONE TABLET BY MOUTH EVERY DAY Start Date: 12/02/13 Status: OrderedLidocaine Viscous 2% mucous membrane solution 0.01 g 0.5 mL, Topical, q4hr, as needed for mouth sore pain, SWISH AND SPIT, # 20 mL, 0 Refill(s), Pharmacy: [facility] #[id number] Start Date: 02/03/15 Stop Date: 02/04/16 Status: OrderedMag-Ox 400 0 Refill(s) Start Date: 11/25/13 Status: Orderedmethotrexate 2.5 mg oral tablet See Instructions, TAKE 7 TABLETS BY MOUTH ONCE WEEKLY, # 35 tabs, eRx: [facility] #[id number], TAKE 7 TABLETS BY MOUTH ONCE WEEKLY Start Date: 02/26/15 Status: OrderedMiacalcin Nasal 200 intl units/inh nasal spray 1 sprays, Nasal, Daily, Alternate alternate nostrils, # 3.7 mL, 0 Refill(s), Pharmacy: [facility] #[id number], 1 sprays Nasal Daily,Instr:Alternate ; alternate nostrils Start Date: 12/17/14 Status: OrderedMiraLax oral powder for reconstitution 17 g, Oral, Daily, dissolve in water before taking, # 527 g, 0 Refill(s) Start Date: 11/25/13 Status: Orderedmultivitamin Daily, 0 Refill(s) Start Date: 11/25/13 Status: OrderedpredniSONE 5 mg oral tablet 1 tabs, Oral, Daily, # 90 tabs, 1 Refill(s), Pharmacy: [facility] #[id number] , 1 tabs Oral Daily Start Date: 08/28/14 Stop Date: 09/15/16 Status: OrderedpredniSONE 5 mg oral tablet See Instructions, TAKE ONE TABLET BY MOUTH DAILY, # 90 tabs, eRx: [facility] #[id number], TAKE ONETABLET BY MOUTH DAILY Start Date: 03/02/15 Status: OrderedProtonix 40 mg oral delayed release tablet 1 tabs, Oral, BID, # 60 tabs, 4 Refill(s), Pharmacy: [facility] #[id number], 1 tabs Oral BID Start Date: 08/28/14 Status: OrderedProtonix 40 mg oral delayed release tablet 40 mg 1 tabs, Oral, Daily, # 30 tabs, 6 Refill(s), Pharmacy: [facility] # [id number], 1 tabs Oral Daily Start Date: 01/05/15 Status: OrderedReclast mg, IV, Once, 0 Refill(s) Start Date: 04/04/14 Status: Orderedsertraline 100 mg oral tablet 1 tabs, Oral, Daily, # 90 tabs, 2 Refill(s), Pharmacy: [facility] #[id number] , 1 tabs Oral Daily Start Date: 09/01/14 Status: OrderedToviaz 8 mg oral tablet, extended release 1 tabs, Oral, Daily, # 90 tabs, 1 Refill(s), Pharmacy: [facility] #[id number] , 1 tabs Oral Daily Start Date: 09/29/14 Status: OrderedToviaz 8 mg oral tablet, extended release 8 mg 1 tabs, Oral, Daily, # 90 tabs, 1 Refill(s), Pharmacy: [facility] # [id number], 1 tabs Oral Daily Start Date: 01/19/15 Status: OrderedtraMADol 50 mg oral tablet See Instructions, as needed for pain, 1 -2 tabs Oral q4hr PRN, # 120 tabs, 0 Refill(s) Start Date: 02/27/15 Status: OrderedtraZODone 100 mg oral tablet See Instructions, TAKE 1 1/2 TABLETS BY MOUTH EVERY NIGHT AT BEDTIME, # 270 tabs , 1 Refill(s), eRx: [facility] #[id number], TAKE THREE TABLETS BY MOUTH EVERY NIGHT AT BEDTIME Start Date: 05/12/14 Status: Orderedverapamil 240 mg/24 hours oral capsule, extended release 240 mg 1 caps, Oral, Daily, TO REPLACE THE 180MG, # 30 caps, 1 Refill(s), Pharmacy: [facility]#[id number], 1 caps Oral Daily,Instr:TO REPLACE THE 180MG Start Date: 03/19/15 Status: OrderedVitamin B Complex oral tablet tabs, Oral, Daily, 0 Refill(s) Start Date: 11/25/13 Status: OrderedVitamin B-12 1000 mcg oral tablet 1 tabs, Oral, Daily, # 90 tabs, 0 Refill(s) Start Date: 11/25/13 Status: Orderedwarfarin 2 mg oral tablet 2 mg 1 tabs, Oral, Daily, # 30 tabs, 1 Refill(s), Pharmacy: [facility] # [id number], 1 tabs Oral Daily Start Date: 03/11/15 Status: Ordered Results No data available for [...] Sclerotherapy of vein 2012 Intraoperative lymphatic mapping, [place] 05/24/12 lymphadenectomy, Rt simple mastectomy Laser ablation of long saphenous vein Lt great 11/17/11 Prolift mesh & cystocele repair; cystoscopy 09/29/09 Hx of shoulder surgery Lt 2006 Hx of mastectomy Lt simple 2002 Revoved Rods 1994 Decomp. Laminectomy Disectomy CD Rods, Bones 1991 Tubal ligation 1975 Lumbar spinal fusion 1974 Dilation and curettage 1960 Appendectomy 1951 - Spontaneous vaginal delivery x5 Tonsillectomy and adenoidectomy Social History Social History Type Response Smoking Status Never smoker Assessment and Plan Extracted from: Title: Office Visit Note Author: Carmine Kearns MD Date: 03/26/15 Assessment/Plan Benign essential hypertension Her blood pressure is not particularly well controlled. I advised her that the verapamil is usually not a good choice in someone her age because of its effects on the AV node and potential to cause b radycardia, especially in association with a beta sandra. It is also a common cause for constipation. In spite of those theoretical concerns, she has done well with that in the past and is not havi ng any of those side effects/problems. After discussion, we decided to go up to 360 mg of verapamil daily (180 mg twice a day) as she was before the dose adjustment. She is to continue to monitor bl ood pressures, bring her cuff in for Validation, and give me an update about this in about 2-3 weeks.
--- OUTSIDE RECORDS SUMMARY | 2017-02-02 23:27 | External Medical Summary | Referral Summary ---
:1935 Author Organization [facility] Address [address] [place] [address] [place] [address] Care Team Providers Name Role Phone Carmine Kearns V Primary Care Physician Encounter VC Date(s): 12/16/14 - 12/16/14 [facility] [place] [place] [address]- Discharge Diagnosis: CAD (coronary artery disease) Discharge [...] # 180 tabs, 1 Refill( s), eRx: [facility] #[id number], TAKE ONE TABLET BY MOUTH EVERY 12 HOURS Start Date: 02/09/15 Status: Orderedbumetanide 1 mg oral tablet See Instructions, TAKE ONE AND ONE-HALF TABLET BY MOUTH EVERY DAY, # 45 tabs, 6 Refill(s), Pharmacy:[facility] #[id number], TAKE ONE AND ONE-HALF TABLET BY MOUTH [...] # 30 tabs, 3 Refill(s), MIGUELITO, eRx: [facility] #[id number], TAKE ONE TABLET BY MOUTH EVERY DAY Start Date: 03/25/14 Status: OrderedCoumadin 2.5 mg oral tablet See Instructions, 1 tabs mg Oral m,w,f, # 30 tabs, 1 Refill(s), Pharmacy: [facility] #[id number], 1 tabs mg Oral m,w,f Start Date: 05/13/14 Status: OrderedCoumadin 3 mg oral tablet 3 mg 1 tabs, Oral, Daily, # 60 tabs, 1 Refill(s), Pharmacy: [facility] # [id number], 1 tabs Oral Daily Start Date: 12/23/14 Status: Ordereddicyclomine 10 mg oral capsule See Instructions, TAKE 1-2 CAPSULES BY MOUTH EVERY 6 HOURS NEEDED FOR IRRITABLE BOWEL, # 100 caps, 4 Refill(s), Pharmacy: [facility] #[id number], TAKE 1-2 CAPSULES BY MOUTH EVERY 6 HOURS NEEDEDFOR IRRITABLE BOWEL Start Date: 04/07/14 Status: Ordereddicyclomine 10 mg oral capsule 1 caps, Oral, QID, # 56 caps, 0 Refill(s) Start Date: 11/25/13 Stop Date: 12/09/13 Status: OrderedDrisdol 50,000 intl units (1.25 mg) oral capsule See Instructions, TAKE ONE CAPSULE BY MOUTH ONCE WEEKLY, # 12 caps, 2 Refill(s) , eRx: [facility] #[id number], TAKE ONE CAPSULE BY MOUTH ONCE WEEKLY Start Date: 11/18/13 Status: Orderedferrous sulfate 325 mg (65 mg elemental iron) oral tablet 1 tabs, Oral, TID, # 270 tabs, 0 Refill(s) Start Date: 11/25/13 Status: Orderedfolic acid 1 mg oral tablet 1 tabs, Oral, Daily, # 30 tabs, 6 Refill(s), Pharmacy: [facility] #[id number] , 1 tabs Oral Daily Start Date: 09/15/14 Status: Orderedfolic acid 1 mg oral tablet See Instructions, TAKE ONE TABLET BY MOUTH EVERY DAY, # 90 tabs, 2 Refill(s), eRx: [facility] #[id number], TAKE ONE TABLET BY MOUTH EVERY DAY Start Date: 12/02/13 Status: OrderedLidocaine Viscous 2% mucous membrane solution 0.01 g 0.5 mL, Topical, q4hr, as needed for mouth sore pain, SWISH AND SPIT, # 20 mL, 0 Refill(s), Pharmacy: [facility] #[id number] Start Date: 02/03/15 Stop Date: 02/04/16 Status: OrderedMag-Ox 400 0 Refill(s) Start Date: 11/25/13 Status: Orderedmethotrexate 2.5 mg oral tablet See Instructions, TAKE 7 TABLETS BY MOUTH ONCE WEEKLY, # 35 tabs, 2 Refill(s), eRx: [facility]#[id number], TAKE 7 TABLETS BY MOUTH ONCE WEEKLY Start Date: 03/31/15 Status: OrderedMiacalcin Nasal 200 intl units/inh nasal spray 1 sprays, Nasal, Daily, Alternate alternate nostrils, # 3.7 mL, 0 Refill(s), Pharmacy: [facility] #[id number], 1 sprays Nasal Daily,Instr:Alternate ; alternate nostrils Start Date: 12/17/14 Status: OrderedMiraLax oral powder for reconstitution 17 g, Oral, Daily, dissolve in water before taking, # 527 g, 0 Refill(s) Start Date: 11/25/13 Status: Orderedmultivitamin Daily, 0 Refill(s) Start Date: 11/25/13 Status: OrderedpredniSONE 5 mg oral tablet 1 tabs, Oral, Daily, # 90 tabs, 1 Refill(s), Pharmacy: [facility] #[id number] , 1 tabs Oral Daily Start Date: 08/28/14 Stop Date: 09/15/16 Status: OrderedpredniSONE 5 mg oral tablet See Instructions, TAKE ONE TABLET BY MOUTH DAILY, # 90 tabs, eRx: [facility] #[id number], TAKE ONETABLET BY MOUTH DAILY Start Date: 03/02/15 Status: OrderedProtonix 40 mg oral delayed release tablet 1 tabs, Oral, BID, # 60 tabs, 4 Refill(s), Pharmacy: [facility] #[id number], 1 tabs Oral BID Start Date: 08/28/14 Status: OrderedProtonix 40 mg oral delayed release tablet 40 mg 1 tabs, Oral, Daily, # 30 tabs, 6 Refill(s), Pharmacy: [facility] # [id number], 1 tabs Oral Daily Start Date: 01/05/15 Status: OrderedReclast mg, IV, Once, 0 Refill(s) Start Date: 04/04/14 Status: Orderedsertraline 100 mg oral tablet 1 tabs, Oral, Daily, # 90 tabs, 2 Refill(s), Pharmacy: [facility] #[id number] , 1 tabs Oral Daily Start Date: 09/01/14 Status: OrderedToviaz 8 mg oral tablet, extended release 1 tabs, Oral, Daily, # 90 tabs, 1 Refill(s), Pharmacy: [facility] #[id number] , 1 tabs Oral Daily Start Date: 09/29/14 Status: OrderedToviaz 8 mg oral tablet, extended release 8 mg 1 tabs, Oral, Daily, # 90 tabs, 1 Refill(s), Pharmacy: [facility] # [id number], 1 tabs Oral Daily Start Date: 01/19/15 Status: OrderedtraMADol 50 mg oral tablet See Instructions, as needed for pain, 1 -2 tabs Oral q4hr PRN, # 120 tabs, 0 Refill(s) Start Date: 02/27/15 Status: OrderedtraZODone 100 mg oral tablet See Instructions, TAKE 1 1/2 TABLETS BY MOUTH EVERY NIGHT AT BEDTIME, # 270 tabs , 1 Refill(s), eRx: [facility] #[id number], TAKE THREE TABLETS BY MOUTH EVERY NIGHT AT BEDTIME Start Date: 05/12/14 Status: Orderedverapamil 180 mg/24 hours oral capsule, extended release 180 mg 1 caps, Oral, BID, PLEASE FILL #6 ONLY, # 6 caps, 0 Refill(s), Pharmacy: [facility] #[id number], 1 caps Oral BID,Instr:PLEASE FILL #6 ONLY Start Date: 03/31/15 Status: OrderedVitamin B Complex oral tablet tabs, Oral, Daily, 0 Refill(s) Start Date: 11/25/13 Status: OrderedVitamin B-12 1000 mcg oral tablet 1 tabs, Oral, Daily, # 90 tabs, 0 Refill(s) Start Date: 11/25/13 Status: Orderedwarfarin 2 mg oral tablet 2 mg 1 tabs, Oral, Daily, # 30 tabs, 1 Refill(s), Pharmacy: [facility] # [id number], 1 tabs Oral Daily Start Date: 03/11/15 [...] [0.80-3.30 10*3] 0.95 10*3 (12/16/14 3:33 PM) [place] Absolute [0.30-1.00 10*3] 0.27 10*3 *LOW* (12/16/14 [...] Sclerotherapy of vein 2012 Intraoperative lymphatic mapping, [place] 05/24/12 lymphadenectomy, Rt simple mastectomy Laser ablation [...]
--- OUTSIDE RECORDS SUMMARY | 2017-02-02 23:27 | External Medical Summary | Referral Summary ---
:1935 Author Organization [facility] Address [address] [place] [address] [place] [address] Care Team Providers Name Role Phone Carmine Kearns V Primary Care Physician Encounter VC Date(s): 05/19/15 - 05/19/15 [facility] [place] [place] [phone] [place] Discharge Diagnosis: Right shoulder pain Discharge Diagnosis: Bronchitis Discharge Diagnosis: Chronic anticoagulation Discharge Diagnosis: Cough Discharge Disposition: 01-Home or Self Care Attending Physician: Carmine Kearns MD Admitting Physician: Carmine Kearns MD Vital Signs Most recent to oldest [Reference Range]: 1 Temperature Tympanic [36.6-38.1 degC] 35.8 degC *LOW* (05/19/15 12:59 PM) Peripheral Pulse Rate [60-100 bpm] 75 bpm (05/19/15 12:59 PM) Blood Pressure [90-140/60-90 mmHg] 147/70 mmHg *HI* (05/19/15 12:59 PM) Problem List Condition Effective Dates Status [...] acetaminophen 0 Refill(s) Start Date: 11/25/13 Status: Orderedamoxicillin 875 mg oral tablet 875 mg 1 tabs, Oral, BID, X 10 days, # 20 tabs, 0 Refill(s), Pharmacy: [facility] #[id number], 1 tabs Oral BID,x10 days Start Date: 05/19/15 Stop Date: 05/29/15 Status: Orderedaspirin 81 mg oral tablet tabs, Oral, Daily, 0 Refill(s) Start Date: 11/25/13 Status: Orderedatenolol 25 mg oral tablet See Instructions, TAKE ONE TABLET BY MOUTH EVERY 12 HOURS, # 180 tabs, 1 Refill( s), eRx: [facility] #[id number], TAKE ONE TABLET BY MOUTH EVERY 12 HOURS Start Date: 02/09/15 Status: Orderedbumetanide 1 mg oral tablet See Instructions, TAKE ONE AND ONE-HALF TABLET BY MOUTH EVERY DAY, # 45 tabs, 6 Refill(s), Pharmacy:[facility] #[id number], TAKE ONE AND ONE-HALF TABLET BY MOUTH [...] 30 tabs, 3 Refill(s), MIGUELITO, eRx: [facility] #[id number], TAKE ONE TABLET BY MOUTH EVERY DAY Start Date: 03/25/14 Status: OrderedCoumadin 3 mg oral tablet 3 mg 1 tabs, Oral, Daily, # 60 tabs, 1 Refill(s), Pharmacy: [facility] # [id number], 1 tabs Oral Daily Start Date: 12/23/14 Status: Ordereddicyclomine 10 mg oral capsule See Instructions, TAKE 1-2 CAPSULES BY MOUTH EVERY 6 HOURS NEEDED FOR IRRITABLE BOWEL, # 100 caps, 4 Refill(s), Pharmacy: [facility] #[id number], TAKE 1-2 CAPSULES BY MOUTH EVERY 6 HOURS NEEDEDFOR IRRITABLE BOWEL Start Date: 04/27/15 Status: Orderedfolic acid 1 mg oral tablet See Instructions, TAKE ONE TABLET BY MOUTH EVERY DAY, # 90 tabs, 2 Refill(s), eRx: [facility] #[id number], TAKE ONE TABLET BY MOUTH EVERY DAY Start Date: 12/02/13 Status: Orderedfolic acid 1 mg oral tablet 1 mg 1 tabs, Oral, Daily, # 30 tabs, 6 Refill(s), Pharmacy: [facility] # [id number], 1 tabs Oral Daily Start Date: 05/11/15 Status: OrderedMag-Ox 400 0 Refill(s) Start Date: 11/25/13 Status: Orderedmethotrexate Takes 7 tablets once a week on Monday, 0 Refill(s) Start Date: 04/09/15 Status: Orderedmethotrexate 2.5 mg oral tablet See Instructions, TAKE 7 TABLETS BY MOUTH ONCE WEEKLY, # 35 tabs, 2 Refill(s), eRx: [facility]#[id number], TAKE 7 TABLETS BY MOUTH ONCE WEEKLY Start Date: 03/31/15 Status: OrderedMiraLax oral powder for reconstitution 17 g, Oral, Daily, dissolve in water before taking, # 527 g, 0 Refill(s) Start Date: 11/25/13 Status: Orderedmultivitamin Daily, 0 Refill(s) Start Date: 11/25/13 Status: OrderedpredniSONE 5 mg oral tablet 1 tabs, Oral, Daily, # 90 tabs, 1 Refill(s), Pharmacy: [facility] #[id number] , 1 tabs Oral Daily Start Date: 08/28/14 Stop Date: 09/15/16 Status: OrderedpredniSONE 5 mg oral tablet See Instructions, TAKE ONE TABLET BY MOUTH DAILY, # 90 tabs, eRx: [facility] #[id number], TAKE ONETABLET BY MOUTH DAILY Start Date: 03/02/15 Status: OrderedProtonix 40 mg oral delayed release tablet 1 tabs, Oral, BID, # 60 tabs, 4 Refill(s), Pharmacy: [facility] #[id number], 1 tabs Oral BID Start Date: 08/28/14 Status: OrderedReclast mg, IV, Once, 0 Refill(s) Start Date: 04/04/14 Status: Orderedsertraline 100 mg oral tablet 1 tabs, Oral, Daily, # 90 tabs, 2 Refill(s), Pharmacy: [facility] #[id number] , 1 tabs Oral Daily Start Date: 09/01/14 Status: OrderedtraMADol 50 mg oral tablet See Instructions, as needed for pain, 1 -2 tabs Oral q4hr PRN, # 120 tabs, 0 Refill(s) Start Date: 05/11/15 Status: OrderedtraZODone 100 mg oral tablet See Instructions, TAKE 1 1/2 TABLETS BY MOUTH EVERY NIGHT AT BEDTIME, # 270 tabs , 1 Refill(s), eRx: [facility] #[id number], TAKE THREE TABLETS BY MOUTH EVERY NIGHT AT BEDTIME Start Date: 05/12/14 Status: Orderedverapamil 180 mg/24 hours oral capsule, extended release 180 mg 1 caps, Oral, BID, # 60 caps, 3 Refill(s), Pharmacy: [facility] # [id number], 1 caps Oral BID Start Date: 04/09/15 Status: OrderedVitamin B Complex oral tablet tabs, Oral, Daily, 0 Refill(s) Start Date: 11/25/13 Status: OrderedVitamin B-12 1000 mcg oral tablet 1 tabs, Oral, Daily, # 90 tabs, 0 Refill(s) Start Date: 11/25/13 Status: Orderedwarfarin 1 mg oral tablet See Instructions, PATIENT IS TAKING 3.5MG DAILY, # 90 tabs, 1 Refill(s), Pharmacy: [facility] #[id number], PATIENT IS TAKING 3.5MG DAILY Start Date: 04/27/15 Status: Orderedwarfarin 4 mg oral tablet 4 mg 1 tabs, Oral, Daily, # 30 tabs, 1 Refill(s), Pharmacy: [facility] # [id number], 2ND TIME E SCRIPTED 1ST TIME WAS 05/11/15, 1 tabs Oral Daily Start Date: 05/14/15 Status: Ordered Results Hematology Most recent to oldest [Reference Range]: 1 WBC [5.0-10.0 10*3/uL] 5.7 10*3/uL (05/19/15 2:10 PM) RBC [3.70-5.20] 3.29 *LOW* (05/19/15 2:10 PM) Hgb [12.0-16.0 gm/dL] 11.0 gm/dL *LOW* (05/19/15 2:10 PM) Hct [37.0-47.0 %] 34.5 % *LOW* (05/19/15 2:10 PM) MCV [80.0-96.0 fL] 104.9 fL *HI* (05/19/15 2:10 PM) MCH [26.0-34.0 pg] 33.4 pg (05/19/15 2:10 PM) MCHC [32.0-36.0 gm/dL] 31.9 gm/dL *LOW* (05/19/15 2:10 PM) RDW [0.0-14.5 %] 14.0 % (05/19/15 2:10 PM) Platelet [150-400 10*3/uL] 376 10*3/uL (05/19/15 2:10 PM) MPV [8.8-14.8 fL] 10.3 fL (05/19/15 2:10 PM) Neutrophils [50-70 %] 82 % *HI* (05/19/15 2:10 PM) Lymphocytes [20-40 %] 15 % *LOW* (05/19/15 2:10 PM) Monocytes [4-8 %] 3 % *LOW* (05/19/15 2:10 PM) Eosinophils [0-6 %] 0 % (05/19/15 2:10 PM) Basophils [0-2 %] 0 % (05/19/15 2:10 PM) Neutro Absolute [2.50-7.00 10*3] 4.69 10*3 (05/19/15 2:10 PM) Lymph Absolute [1.00-4.00 10*3] 0.84 10*3 *LOW* (05/19/15 2:10 PM) [place] Absolute [0.20-0.80 10*3] 0.18 10*3 *LOW* (05/19/15 2:10 PM) Eos Absolute [0.00-0.60 10*3] 0.01 10*3 (05/19/15 2:10 PM) Baso Absolute [0.00-0.30] 0.01 (05/19/15 2:10 PM) Coagulation Most recent to oldest [Reference Range]: 1 PT Venous (05/19/15 2:10 PM) INR [0.8-1.2] 2.8 1 *HI* (05/19/15 2:10 PM) 1Result Comment: Normal (no anticoagulant): 0.8 - 1.2 Units Routine Therapeutic Range: 2.0 - 3.0 Units High Risk Therapeutic Range: 2.5 - 3.5 Units Immunizations Vaccine Date Refusal Reason influenza virus [...] Sclerotherapy of vein 2012 Intraoperative lymphatic mapping, [place] 05/24/12 lymphadenectomy, Rt simple mastectomy Laser ablation [...] Visit Note Author: Carmine Kearns MD Date: 05/19/15 Assessment/Plan Bronchitis Chronic anticoagulation Cough Right shoulder pain Orders: amoxicillin, 875 mg 1 tabs, Oral, BID, X 10 days, # 20 tabs, 0 Refill (s), Pharmacy: [facility] #[id number], 1 tabs Oral BID,x10 days Evaluation of shoulder pain included an x-ray. 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 As we discussed this it seems as if these are really not the cause of her acute problems and we will just observe. Encourage range of motion of the shoulder to prevent frozen shoulder. Evaluation included CBC and chest x-ray which were overall reassuring. We' ll treat bronchitis with amoxicillin. Her INR was checked and was now into the therapeutic range and I restarted Coumadin-see INR flowsheet. Follow-up when necessary/if not improving in next few days/as already planned for long-term follow-up.
--- OUTSIDE RECORDS SUMMARY | 2017-02-02 23:27 | External Medical Summary | Referral Summary ---
:1935 Author Organization [facility] [place] [place] [address] Care Team Providers Name Role Phone Carmine Kearns V Primary Care Physician Encounter VC Date(s): 02/29/16 - 02/29/16 [facility] [place] [place] [phone] [place] Discharge Diagnosis: Chronic atrial fibrillation Discharge Diagnosis: Warfarin anticoagulation Discharge Diagnosis: Hypertension Discharge Diagnosis: At high risk for falls Discharge Diagnosis: Polypharmacy Discharge Diagnosis: Overactive bladder Discharge Diagnosis: Depression Discharge Disposition: 01-Home or Self Care Attending Physician: Carmine Kearns MD Admitting Physician: Carmine Kearns MD Vital Signs Most recent to oldest [Reference Range]: 1 Temperature Tympanic [36.6-38.1 degC] 36.7 degC (02/29/16 1:17 PM) Peripheral Pulse Rate [60-100 bpm] 109 bpm *HI* (02/29/16 1:17 PM) Blood Pressure [90-140/60-90 mmHg] 148/60 mmHg *HI* (02/29/16 1:17 PM) Problem List Condition [...] 180 tabs, 1 Refill( s), eRx: [facility] #[id number], TAKE ONE TABLET BY MOUTH EVERY 12 HOURS Start Date: 11/09/15 Status: Orderedbumetanide 1 mg oral tablet See Instructions, TAKE ONE AND ONE-HALF TABLET BY MOUTH EVERY DAY, # 45 tabs, 6 Refill(s), Pharmacy:[facility] #[id number], TAKE ONE AND ONE-HALF TABLET BY MOUTH [...] MONDAY, AND MONDAY, # 30 tabs, [id number], TAKE ONE TABLET BY MOUTH ON MONDAY, MONDAY, AND MONDAY Start Date: 02/08/16 Status: Ordereddicyclomine 10 mg oral capsule See Instructions, TAKE 1-2 CAPSULES BY MOUTH EVERY 6 HOURS NEEDED FOR IRRITABLE BOWEL, # 100 caps, 4 Refill(s), Pharmacy: [facility] #[id number], TAKE 1-2 CAPSULES BY MOUTH EVERY 6 HOURS NEEDEDFOR IRRITABLE BOWEL Start Date: 04/27/15 Status: Orderedfolic acid 1 mg oral tablet See Instructions, TAKE ONE TABLET BY MOUTH DAILY, # 30 tabs, 3 Refill(s), eRx: [facility] #[id number], TAKE ONE TABLET BY MOUTH DAILY Start Date: 12/28/15 Status: Orderedlosartan Oral, Daily, 0 Refill(s) Start Date: 02/29/16 Status: OrderedMag-Ox 400 0 Refill(s) Start Date: 11/25/13 Status: Orderedmethotrexate 2.5 mg oral tablet See Instructions, TAKE 7 TABLETS BY MOUTH ONCE WEEKLY, # 35 tabs, 5 Refill(s), eRx: [facility]#[id number], TAKE 7 TABLETS BY MOUTH ONCE WEEKLY Start Date: 09/21/15 Status: OrderedMetroCream 0.75% topical cream 1 miguel a, Topical, BID, # 45 g, 0 Refill(s), Pharmacy: [facility] #[id number] Start Date: 10/23/15 Status: OrderedMiraLax oral powder for reconstitution 17 g, Oral, Daily, dissolve in water before taking, # 527 g, 0 Refill(s) Start Date: 11/25/13 Status: OrderedpredniSONE 5 mg oral tablet See Instructions, TAKE ONE TABLET BY MOUTH DAILY, # 90 tabs, 2 Refill(s), eRx: [facility] #[id number], TAKE ONE TABLET BY MOUTH DAILY Start Date: 12/14/15 Status: OrderedProtonix 40 mg oral delayed release tablet See Instructions, TAKE ONE TABLET BY MOUTH DAILY, # 30 tabs, 5 Refill(s), eRx: [facility] #[id number], TAKE ONE TABLET BY MOUTH DAILY Start Date: 08/31/15 Status: OrderedReclast mg, IV, Once, 0 Refill(s) Start Date: 04/04/14 Status: Orderedsertraline 100 mg oral tablet See Instructions, TAKE ONE TABLET BY MOUTH ONCE A DAY, # 90 tabs, 1 Refill(s), eRx: [facility]#[id number], TAKE ONE TABLET BY MOUTH ONCE A DAY Start Date: 12/01/15 Status: OrderedToviaz 8 mg oral tablet, extended release See Instructions, TAKE ONE TABLET BY MOUTH DAILY, # 30 tabs, 5 Refill(s), eRx: [facility] #[id number], TAKE ONE TABLET BY MOUTH DAILY Start Date: 01/25/16 Status: OrderedtraMADol 50 mg oral tablet See Instructions, 1 tabs Q 6 hours up to 4 times per day. Maximum of 4 tablets= 200 mg/day, # 120 tabs, 0 Refill(s), Must last at least 30 days.(thru 08/28) Start Date: 02/22/16 Status: OrderedtraZODone 100 mg oral tablet See Instructions, TAKE 1 1/2 TABLETS BY MOUTH EVERY NIGHT AT BEDTIME, # 270 tabs , 1 Refill(s), Pharmacy: [facility] #[id number], TAKE 1 1/2 TABLETS BY MOUTH EVERY NIGHT AT BEDTIME Start Date: 06/24/15 Status: Orderedverapamil 180 mg/24 hours oral capsule, extended release See Instructions, TAKE ONE CAPSULE BY MOUTH TWICE A DAY, # 60 caps, 1 Refill(s) , eRx: [facility] #[id number], TAKE ONE CAPSULE BY MOUTH TWICE A [...] Sclerotherapy of vein 2012 Intraoperative lymphatic mapping, [place] 05/24/12 lymphadenectomy, Rt simple mastectomy Laser ablation of long saphenous vein Lt great 11/17/11 Prolift mesh & cystocele repair; cystoscopy 09/29/09 Hx of shoulder surgery Lt 2006 Hx of mastectomy Lt simple 2003 Colonoscopy 05/29/00 Revoved Rods 1994 Decomp. Laminectomy Disectomy CD Rods, Bones 1991 Tubal ligation 1975 Lumbar spinal fusion 1974 Dilation and curettage 1959 Appendectomy 1952 - Spontaneous vaginal delivery x5 Tonsillectomy and adenoidectomy Social History Social History Type Response Smoking Status Never smoker Assessment and Plan Extracted from: Title: 3 Month CDM Author: Carmine Kearns MD Date: 02/29/16 Impression and Plan Diagnosis Warfarin anticoagulation (GQA68-PC Z79.01, Discharge, Medical). Polypharmacy ([id number] Z79.899, Discharge, Medical). Overactive bladder (RHK81-AP N32.81, Discharge, Medical). Need for vaccination ([id number] Z23, Working, Medical). Hypertension (TAE18-[id number] I10, Discharge, Medical). Depression (ONF44-SJ F32.9, Discharge, Medical). Chronic atrial fibrillation (PTE62-UI I48.2, Discharge, Medical). At high risk for falls (DDC70-XG Z91.81, Discharge, Medical). Orders Orders (Selected) Outpatient Orders Completed influenza virus vaccine, inactivated: 0.5 mL, IntraMuscular, Once.
--- OUTSIDE RECORDS SUMMARY | 2017-02-02 23:27 | External Medical Summary | Referral Summary ---
:1935 Author Organization [facility] Address [address] [place] [phone] Care Team Providers Name Role Phone Carmine Kearns V Primary Care Physician Encounter VC Date(s): 07/14/15 - 07/14/15 [facility] [address] [place] [phone] [place] Discharge Diagnosis: AK (actinic keratosis) Discharge Diagnosis: Rosacea Discharge Diagnosis: Scalp pruritus Discharge Disposition: 01-Home or Self Care Attending Physician: Patrick Neville MD Admitting Physician: Patrick Neville MD Referring Physician: Carmine Kearns MD Vital Signs No data available for this section Problem List Condition Effective Dates Status Health [...] finger(Confirmed) 1979 Resolved Varicose veins Lt leg(Confirmed) 2012 Resolved Venous insufficiency Lt 2011 Resolved leg(Confirmed) [...] # 180 tabs, 1 Refill( s), eRx: [facility] #[id number], TAKE ONE TABLET BY MOUTH EVERY 12 HOURS Start Date: 02/09/15 Status: Orderedbumetanide 1 mg oral tablet See Instructions, TAKE ONE AND ONE-HALF TABLET BY MOUTH EVERY DAY, # 45 tabs, 5 Refill(s), eRx: [facility] #[id number], TAKE ONE AND ONE-HALF TABLET BY MOUTH EVERY DAY Start Date: 07/03/15 Status: Orderedbumetanide 1 mg oral tablet See Instructions, TAKE ONE AND ONE-HALF TABLET BY MOUTH EVERY DAY, # 45 tabs, 6 Refill(s), Pharmacy:[facility] #[id number], TAKE ONE AND ONE-HALF TABLET BY MOUTH [...] MONDAY, AND MONDAY, # 30 tabs, eRx: [facility] #[id number], TAKE ONE TABLET BY MOUTH ON MONDAY, MONDAY, AND MONDAY Start Date: 07/13/15 Status: OrderedCoumadin 2.5 mg oral tablet See Instructions, TAKE ONE TABLET BY MOUTH ON MONDAY, MONDAY, AND MONDAY, # 30 tabs, eRx: [facility] #[id number], TAKE ONE TABLET BY MOUTH ON MONDAY, MONDAY, AND MONDAY Start Date: 07/13/15 Status: Ordereddicyclomine 10 mg oral capsule See Instructions, TAKE 1-2 CAPSULES BY MOUTH EVERY 6 HOURS NEEDED FOR IRRITABLE BOWEL, # 100 caps, 4 Refill(s), Pharmacy: [facility] #[id number], TAKE 1-2 CAPSULES BY MOUTH EVERY 6 HOURS NEEDEDFOR IRRITABLE BOWEL Start Date: 04/27/15 Status: Orderedfolic acid 1 mg oral tablet See Instructions, TAKE ONE TABLET BY MOUTH EVERY DAY, # 90 tabs, 2 Refill(s), eRx: [facility] #[id number], TAKE ONE TABLET BY MOUTH EVERY DAY Start Date: 12/02/13 Status: Orderedfolic acid 1 mg oral tablet 1 mg 1 tabs, Oral, Daily, # 30 tabs, 6 Refill(s), Pharmacy: [facility] # [id number], 1 tabs Oral Daily Start Date: 05/11/15 Status: OrderedMag-Ox 400 0 Refill(s) Start Date: 11/25/13 Status: Orderedmethotrexate 2.5 mg oral tablet See Instructions, TAKE 7 TABLETS BY MOUTH ONCE WEEKLY, # 35 tabs, 1 Refill(s), eRx: [facility]#[id number], TAKE 7 TABLETS BY MOUTH ONCE WEEKLY Start Date: 07/06/15 Status: OrderedMiraLax oral powder for reconstitution 17 g, Oral, Daily, dissolve in water before taking, # 527 g, 0 Refill(s) Start Date: 11/25/13 Status: Orderedmultivitamin Daily, 0 Refill(s) Start Date: 11/25/13 Status: OrderedpredniSONE 5 mg oral tablet See Instructions, TAKE ONE TABLET BY MOUTH DAILY, # 90 tabs, eRx: [facility] #[id number], TAKE ONETABLET BY MOUTH DAILY Start Date: 05/25/15 Status: OrderedProtonix 40 mg oral delayed release tablet 1 tabs, Oral, BID, # 60 tabs, 4 Refill(s), Pharmacy: [facility] #[id number], 1 tabs Oral BID Start Date: 08/28/14 Status: OrderedReclast mg, IV, Once, 0 Refill(s) Start Date: 04/04/14 Status: Orderedsertraline 100 mg oral tablet See Instructions, TAKE ONE TABLET BY MOUTH ONCE A DAY, # 90 tabs, 1 Refill(s), eRx: [facility]#[id number], TAKE ONE TABLET BY MOUTH ONCE A DAY Start Date: 06/01/15 Status: OrderedToviaz 8 mg oral tablet, extended release 8 mg 1 tabs, Oral, Daily, APPROVED THRU INS FOR #30, # 30 tabs, 6 Refill(s), Pharmacy: [facility] #[id number], 1 tabs Oral Daily,Instr:APPROVED THRU INS FOR #30 Start Date: 07/14/15 Status: OrderedtraMADol 50 mg oral tablet See Instructions, as needed for pain, 1 -2 tabs Oral q4hr PRN, # 120 tabs, 0 Refill(s) Start Date: 07/06/15 Status: OrderedtraZODone 100 mg oral tablet See Instructions, TAKE 1 1/2 TABLETS BY MOUTH EVERY NIGHT AT BEDTIME, # 270 tabs , 1 Refill(s), Pharmacy: [facility] #[id number], TAKE 1 1/2 TABLETS BY MOUTH EVERY NIGHT AT BEDTIME Start Date: 06/24/15 Status: Orderedverapamil 180 mg/24 hours oral capsule, extended release 180 mg 1 caps, Oral, BID, # 60 caps, 3 Refill(s), Pharmacy: [facility] # [id number], 1 caps Oral BID Start Date: 04/09/15 [...] Procedures Procedure Date Related Diagnosis Body Site Destruction (eg, laser surgery, electrosurgery, 07/14/15 cryosurgery, chemosurgery, surgical curettement), premalignant lesions (eg, actinic keratoses); first lesion Arthrocentesis-aspiration of major joint 05/15/13 Sclerotherapy of [...] Extracted from: Title: Office Visit Note Author: Patrick Neville MD Date: 07/14/15 Assessment/Plan 1.AK (actinic keratosis) I froze one AK on the nasal tip with liquid nitrogen for5 seconds. No evidence of recurrent skin cancer in this area. Recommend yearly exam Ordered: Destruction premalignant lesion 1st [id number] Office Visit Level 2 New [id number] 2.Rosacea She is doing well withMetroCream. Recommend once daily application of her 0.75 percent cream. She can call as needed for refills. We discussed gentle skin cleanser's and I gave h er handout and sample skin cleansers to try. We discussed skin care for rosacea Ordered: Office Visit Level 2 New 3.Scalp pruritus No rash or obvious cause. This is often neurogenic. We discussed this difficult to treat condition. I do not recommend oral therapy for her intermittent symptoms as the risks would outweigh the benefits Ordered: Office Visit Level 2 New [id number]
--- OUTSIDE RECORDS SUMMARY | 2017-02-02 23:28 | External Medical Summary | Referral Summary ---
:1935 Author Organization [facility] Address [address] [place] [address] [place]E Reilly [phone] Care Team Providers Name Role Phone Carmine Kearns V Primary Care Physician Encounter VC Date(s): 04/28/16 - 04/28/16 [facility] [place] [place] [phone] [place] Discharge Diagnosis: H/O cardiomyopathy Discharge Diagnosis: Encounter for medication monitoring Discharge Diagnosis: Fatigue Discharge Diagnosis: Visit for wound care Discharge Disposition: 01-Home or Self Care Attending Physician: Carmine Kearns MD Admitting Physician: Carmine Kearns MD Vital Signs Most recent to oldest [Reference Range]: 1 Temperature Tympanic [36.6-38.1 degC] 36.6 degC (04/28/16 1:08 PM) Peripheral Pulse Rate [60-100 bpm] 101 bpm *HI* (04/28/16 1:08 PM) Blood Pressure [90-140/60-90 mmHg] 141/67 mmHg *HI* (04/28/16 1:08 PM) Problem List Condition [...] gain., # 45 tabs, 4 Refill(s), eRx: [facility] # [id number], TAKE ONE AND ONE-HALF TABLET BY MOUTH EVERY DAY Start Date: 03/14/16 Status: Orderedbutalbital/aspirin/caffeine 50 mg-325 mg-40 mg oral tablet 2 tabs, Oral, q6hr, as needed for pain, S JOEL, # 120 tabs, 0 Refill(s) Start Date: [...] # 30 tabs, 5 Refill(s ), Pharmacy: [facility] #[id number], TAKE ONE TABLET BY MOUTH 5 DAYS A WEEK Start Date: 03/31/16 Status: Orderedcyclobenzaprine 5 mg oral tablet See Instructions, TAKE ONE TABLET BY MOUTH THREE TIMES A DAY FOR 7 DAYS NEEDED FOR MUSCLE SPASM, # 15 tabs, eRx: [facility] #[id number], TAKE ONE TABLET BY MOUTH THREE TIMES A DAY FOR 7 DAYS NEEDED FOR MUSCLE SPASM Start Date: 03/14/16 Status: Ordereddicyclomine 10 mg oral capsule See Instructions, TAKE 1-2 CAPSULES BY MOUTH EVERY 6 HOURS NEEDED FOR IRRITABLE BOWEL, # 100 caps, 4 Refill(s), Pharmacy: [facility] #[id number], TAKE 1-2 CAPSULES BY MOUTH EVERY 6 HOURS NEEDEDFOR IRRITABLE BOWEL Start Date: 04/27/15 Status: Orderedfolic acid 1 mg oral tablet See Instructions, TAKE ONE TABLET BY MOUTH DAILY, # 30 tabs, 2 Refill(s), eRx: [facility] #[id number], TAKE ONE TABLET BY MOUTH DAILY Start Date: 04/04/16 Status: Orderedlosartan 50 mg, Oral, BID, 0 Refill(s) Start Date: 02/29/16 Status: OrderedMag-Ox 400 0 Refill(s) Start Date: 11/25/13 Status: Orderedmethotrexate 2.5 mg oral tablet See Instructions, TAKE 7 TABLETS BY MOUTH ONCE WEEKLY, # 35 tabs, 5 Refill(s), eRx: [facility]#[id number], TAKE 7 TABLETS BY MOUTH ONCE WEEKLY Start Date: 04/18/16 Status: OrderedMetroCream 0.75% topical cream 1 miguel a, Topical, BID, # 45 g, 0 Refill(s), Pharmacy: [facility] #[id number] Start Date: 10/23/15 Status: OrderedMiraLax oral powder for reconstitution 17 g, Oral, Daily, dissolve in water before taking, # 527 g, 0 Refill(s) Start Date: 11/25/13 Status: Orderedpantoprazole 40 mg oral delayed release tablet See Instructions, TAKE ONE TABLET BY MOUTH DAILY, # 30 tabs, 4 Refill(s), eRx: [facility] #[id number], TAKE ONE TABLET BY MOUTH DAILY Start Date: 03/14/16 Status: OrderedpredniSONE 5 mg oral tablet See Instructions, TAKE ONE TABLET BY MOUTH DAILY, # 90 tabs, 2 Refill(s), eRx: [facility] #[id number], TAKE ONE TABLET BY MOUTH DAILY Start Date: 12/14/15 Status: OrderedReclast mg, IV, Once, 0 Refill(s) Start Date: 04/04/14 Status: Orderedsertraline 100 mg oral tablet See Instructions, TAKE ONE TABLET BY MOUTH ONCE A DAY, # 90 tabs, 1 Refill(s), eRx: [facility]#[id number], TAKE ONE TABLET BY MOUTH ONCE A DAY Start Date: 12/01/15 Status: Orderedsimethicone 180 mg oral capsule 180 mg 1 caps, Oral, Daily, gas Start Date: 03/03/16 Status: OrderedToviaz 8 mg oral tablet, extended release See Instructions, TAKE ONE TABLET BY MOUTH DAILY, # 30 tabs, 5 Refill(s), Pharmacy: [facility]#[id number], TAKE ONE TABLET BY MOUTH DAILY Start Date: 03/10/16 Status: OrderedtraMADol 50 mg oral tablet See Instructions, 1 tabs Q 6 hours up to 4 times per day. Maximum of 4 tablets= 200 mg/day, # 120 tabs, 0 Refill(s), Must last at least 30 days.(thru 08/28) Start Date: 04/25/16 Status: OrderedtraZODone 100 mg oral tablet See Instructions, TAKE 1 1/2 TABLETS BY MOUTH EVERY NIGHT AT BEDTIME, # 270 tabs , 1 Refill(s), Pharmacy: [facility] #[id number], TAKE 1 1/2 TABLETS BY MOUTH EVERY NIGHT AT BEDTIME Start Date: 06/24/15 Status: Orderedverapamil 180 mg/24 hours oral capsule, extended release See Instructions, TAKE ONE CAPSULE BY MOUTH TWICE A DAY, # 60 caps, eRx: [facility] #[id number], TAKE ONE CAPSULE BY MOUTH TWICE A DAY Start Date: 04/11/16 Status: OrderedVitamin B Complex oral tablet tabs, Oral, Daily, 0 Refill(s) Start Date: 11/25/13 Status: OrderedVitamin B-12 1000 mcg oral tablet 1 tabs, Oral, Daily, # 90 tabs, 0 Refill(s) Start Date: 11/25/13 Status: Ordered Results Hematology Most recent to oldest [Reference Range]: 1 WBC [4.8-10.8 10*3/uL] 5.6 10*3/uL (04/28/16 2:00 PM) RBC [4.00-5.20] 3.67 *LOW* (04/28/16 2:00 PM) Hgb [12.0-16.0 gm/dL] 11.1 gm/dL *LOW* (04/28/16 2:00 PM) Hct [37.0-47.0 %] 35.4 % *LOW* (04/28/16 2:00 PM) MCV [82.0-99.0 fL] 96.5 fL (04/28/16 2:00 PM) MCH [27.0-32.0 pg] 30.2 pg (04/28/16 2:00 PM) MCHC [32.0-36.0 gm/dL] 31.4 gm/dL *LOW* (04/28/16 2:00 PM) RDW [11.5-14.5 %] 17.4 % *HI* (04/28/16 2:00 PM) Platelet [150-400 10*3/uL] 383 10*3/uL (04/28/16 2:00 PM) MPV [8.8-14.8 fL] 11.9 fL (04/28/16 2:00 PM) Immature Granulocytes [0.0-1.0 %] 1.2 % *HI* (04/28/16 2:00 PM) Neutrophils [51-75 %] 61 % (04/28/16 2:00 PM) Lymphocytes [20-46 %] 23 % (04/28/16 2:00 PM) Monocytes [4-11 %] 14 % *HI* (04/28/16 2:00 PM) Eosinophils [0-4 %] 1 % (04/28/16 2:00 PM) Basophils [0-2 %] 0 % (04/28/16 2:00 PM) Neutro Absolute [1.90-7.00 10*3] 3.40 10*3 (04/28/16 2:00 PM) Lymph Absolute [0.80-3.30 10*3] 1.31 10*3 (04/28/16 2:00 PM) [place] Absolute [0.30-1.00 10*3] 0.76 10*3 (04/28/16 2:00 PM) Eos Absolute [0.00-0.50 10*3] 0.06 10*3 (04/28/16 2:00 PM) Baso Absolute [0.00-0.20 10*3] 0.02 10*3 (04/28/16 2:00 PM) Chemistry Most recent to oldest [Reference Range]: 1 Sodium Lvl [135-144 mEq/L] 138 mEq/L (04/28/16 2:00 PM) Potassium Lvl [3.5-5.2 mEq/L] 5.1 mEq/L (04/28/16 2:00 PM) Chloride [99-111 mEq/L] 107 mEq/L (04/28/16 2:00 PM) CO2 [22-31 mEq/L] 22 mEq/L (04/28/16 2:00 PM) AGAP [3-20] 9 (04/28/16 2:00 PM) BUN [10-20 mg/dL] 27 mg/dL *HI* (04/28/16 2:00 PM) Glucose Lvl [70-99 mg/dL] 97 mg/dL (04/28/16 2:00 PM) Creatinine Lvl [0.57-1.11 mg/dL] 0.89 mg/dL (04/28/16 2:00 PM) eGFR [>60 mL/min] >60 mL/min 1 (04/28/16 2:00 PM) Calcium Lvl [8.9-10.5 mg/dL] 8.7 mg/dL *LOW* (04/28/16 2:00 PM) 1Result Comment: Multiply [...] vaccine live 04/13/11 1Location History: [place] [facility] [place] Procedures Procedure Date Related Diagnosis Body Site Arthrocentesis-aspiration of major joint 05/15/13 Sclerotherapy of vein 2012 Intraoperative lymphatic mapping, [place] 05/24/12 lymphadenectomy, Rt simple mastectomy Laser ablation [...] and Plan Diagnosis Visit for wound care ([id number] Z51.89, Discharge, Medical). H/O cardiomyopathy ([id number] Z86.79, Discharge, Medical). Encounter for medication monitoring ([id number] Z51.81, Discharge, Medical). Fatigue ([id number] R53.83, Discharge, Medical). Orders Orders (Selected) Outpatient Orders Future (On Hold) BMP: CBC w/ Differential: .
--- OUTSIDE RECORDS SUMMARY | 2017-02-02 23:28 | External Medical Summary | Referral Summary ---
:1935 Author Organization [facility] Address [address] [place] [address] [place] Reilly [phone] Care Team Providers Name Role Phone Carmine Kearns V Primary Care Physician Encounter [facility] [id number] Date(s): 03/26/15 - 03/26/15 [facility] [address] [place] [phone] [place] Discharge Diagnosis: [...] EVERY 12 HOURS, # 180 tabs, eRx: [facility] #[id number], TAKE ONE TABLET BY MOUTH EVERY 12 HOURS Start Date: 08/10/15 Status: Orderedbumetanide 1 mg oral tablet See Instructions, TAKE ONE AND ONE-HALF TABLET BY MOUTH EVERY DAY, # 45 tabs, 6 Refill(s), Pharmacy:[facility] #[id number], TAKE ONE AND ONE-HALF TABLET BY MOUTH [...] DAILY, # 30 tabs, 1 Refill(s), eRx: [facility] #[id number], TAKE ONE TABLET BY MOUTH DAILY Start Date: 08/31/15 Status: Ordereddicyclomine 10 mg oral capsule See Instructions, TAKE 1-2 CAPSULES BY MOUTH EVERY 6 HOURS NEEDED FOR IRRITABLE BOWEL, # 100 caps, 4 Refill(s), Pharmacy: [facility] #[id number], TAKE 1-2 CAPSULES BY MOUTH EVERY 6 HOURS NEEDEDFOR IRRITABLE BOWEL Start Date: 04/27/15 Status: Orderedfolic acid 1 mg oral tablet See Instructions, TAKE ONE TABLET BY MOUTH EVERY DAY, # 90 tabs, 2 Refill(s), eRx: [facility] #[id number], TAKE ONE TABLET BY MOUTH EVERY DAY Start Date: 12/02/13 Status: OrderedMag-Ox 400 0 Refill(s) Start Date: 11/25/13 Status: Orderedmethotrexate 2.5 mg oral tablet See Instructions, TAKE 7 TABLETS BY MOUTH ONCE WEEKLY, # 35 tabs, 5 Refill(s), eRx: [facility]#[id number], TAKE 7 TABLETS BY MOUTH ONCE WEEKLY Start Date: 09/21/15 Status: OrderedMiraLax oral powder for reconstitution 17 g, Oral, Daily, dissolve in water before taking, # 527 g, 0 Refill(s) Start Date: 11/25/13 Status: OrderedpredniSONE 5 mg oral tablet See Instructions, TAKE ONE TABLET BY MOUTH DAILY, # 90 tabs, eRx: [facility] #[id number], TAKE ONETABLET BY MOUTH DAILY Start Date: 09/07/15 Status: OrderedProtonix 40 mg oral delayed release tablet See Instructions, TAKE ONE TABLET BY MOUTH DAILY, # 30 tabs, 5 Refill(s), eRx: [facility] #[id number], TAKE ONE TABLET BY MOUTH DAILY Start Date: 08/31/15 Status: OrderedReclast mg, IV, Once, 0 Refill(s) Start Date: 04/04/14 Status: Orderedsertraline 100 mg oral tablet See Instructions, TAKE ONE TABLET BY MOUTH ONCE A DAY, # 90 tabs, 1 Refill(s), eRx: [facility]#[id number], TAKE ONE TABLET BY MOUTH ONCE A DAY Start Date: 06/01/15 Status: OrderedToviaz 8 mg oral tablet, extended release 8 mg 1 tabs, Oral, Daily, APPROVED THRU INS FOR #30, # 30 tabs, 6 Refill(s), Pharmacy: [facility] #[id number], 1 tabs Oral Daily,Instr:APPROVED THRU INS FOR #30 Start Date: 07/14/15 Status: OrderedtraMADol 50 mg oral tablet See Instructions, 1 tabs Q 6 hours up to 4 times per day. Maximum of 4 tablets= 200 mg/day MAY FILL ON 08/30/15, # 120 tabs, 0 Refill(s), Must last at least 30 days.(thru 08/28) Start Date: 09/28/15 Stop Date: 10/29/15 Status: OrderedtraZODone 100 mg oral tablet See Instructions, TAKE 1 1/2 TABLETS BY MOUTH EVERY NIGHT AT BEDTIME, # 270 tabs , 1 Refill(s), Pharmacy: [facility] #[id number], TAKE 1 1/2 TABLETS BY MOUTH EVERY NIGHT AT BEDTIME Start Date: 06/24/15 Status: Orderedverapamil 180 mg/24 hours oral capsule, extended release See Instructions, TAKE ONE CAPSULE BY MOUTH TWICE A DAY, # 60 caps, 2 Refill(s) , eRx: [facility] #[id number], TAKE ONE CAPSULE BY MOUTH TWICE A [...] of major joint 05/15/13 Sclerotherapy of vein 2013 Intraoperative lymphatic mapping, [place] 05/24/12 lymphadenectomy, Rt simple mastectomy Laser ablation of long saphenous vein Lt great 11/17/11 Prolift mesh & cystocele repair; cystoscopy 09/29/09 Hx of shoulder surgery Lt 2006 Hx of mastectomy Lt simple 2003 Revoved Rods 1994 Decomp. Laminectomy Disectomy CD [...]
--- OUTSIDE RECORDS SUMMARY | 2017-02-02 23:28 | External Medical Summary | Referral Summary ---
:1935 Author Organization [facility] Address [address] [place] [address] [place] [address] Care Team Providers Name Role Phone Carmine Kearns V Primary Care Physician Encounter VC Date(s): 02/16/15 - 02/16/15 [facility] [place] [place] [phone] Discharge Diagnosis: Weight loss Discharge Diagnosis: Polypharmacy Discharge Diagnosis: Chronic anticoagulation Discharge Diagnosis: Michelle esophagitis Discharge Disposition: 01-Home or Self Care Attending Physician: Carmine Kearns MD Admitting Physician: Carmine Kearns MD Vital Signs Most recent to oldest [Reference Range]: 1 Temperature Tympanic [36.6-38.1 degC] 36.4 degC *LOW* (02/16/15 12:56 PM) Peripheral Pulse Rate [60-100 bpm] 84 bpm (02/16/15 12:56 PM) Blood Pressure [90-140/60-90 mmHg] 120/64 mmHg (02/16/15 12:56 PM) Problem List Condition Effective Dates Status [...] EVERY 12 HOURS, # 180 tabs, eRx: [facility] #[id number], TAKE ONE TABLET BY MOUTH EVERY 12 HOURS Start Date: 08/10/15 Status: Orderedbumetanide 1 mg oral tablet See Instructions, TAKE ONE AND ONE-HALF TABLET BY MOUTH EVERY DAY, # 45 tabs, 6 Refill(s), Pharmacy:[facility] #[id number], TAKE ONE AND ONE-HALF TABLET BY MOUTH [...] MONDAY, AND MONDAY, # 30 tabs, eRx: [facility] #[id number], TAKE ONE TABLET BY MOUTH ON MONDAY, MONDAY, AND MONDAY Start Date: 07/13/15 Status: OrderedCoumadin 2.5 mg oral tablet See Instructions, TAKE ONE TABLET BY MOUTH ON MONDAY, MONDAY, AND MONDAY, # 30 tabs, eRx: [facility] #[id number], TAKE ONE TABLET BY MOUTH ON MONDAY, MONDAY, AND MONDAY Start Date: 07/13/15 Status: Ordereddicyclomine 10 mg oral capsule See Instructions, TAKE 1-2 CAPSULES BY MOUTH EVERY 6 HOURS NEEDED FOR IRRITABLE BOWEL, # 100 caps, 4 Refill(s), Pharmacy: [facility] #[id number], TAKE 1-2 CAPSULES BY MOUTH EVERY 6 HOURS NEEDEDFOR IRRITABLE BOWEL Start Date: 04/27/15 Status: Orderedfolic acid 1 mg oral tablet See Instructions, TAKE ONE TABLET BY MOUTH EVERY DAY, # 90 tabs, 2 Refill(s), eRx: [facility] #[id number], TAKE ONE TABLET BY MOUTH EVERY DAY Start Date: 12/02/13 Status: OrderedMag-Ox 400 0 Refill(s) Start Date: 11/25/13 Status: Orderedmethotrexate 2.5 mg oral tablet See Instructions, TAKE 7 TABLETS BY MOUTH ONCE WEEKLY, # 35 tabs, 1 Refill(s), eRx: [facility]#[id number], TAKE 7 TABLETS BY MOUTH ONCE WEEKLY Start Date: 07/06/15 Status: OrderedMiraLax oral powder for reconstitution 17 g, Oral, Daily, dissolve in water before taking, # 527 g, 0 Refill(s) Start Date: 11/25/13 Status: OrderedpredniSONE 5 mg oral tablet See Instructions, TAKE ONE TABLET BY MOUTH DAILY, # 90 tabs, eRx: [facility] #[id number], TAKE ONETABLET BY MOUTH DAILY Start Date: 05/25/15 Status: OrderedProtonix 40 mg oral delayed release tablet 1 tabs, Oral, BID, # 60 tabs, 4 Refill(s), Pharmacy: [facility] #[id number], 1 tabs Oral BID Start Date: 08/28/14 Status: OrderedReclast mg, IV, Once, 0 Refill(s) Start Date: 04/04/14 Status: Orderedsertraline 100 mg oral tablet See Instructions, TAKE ONE TABLET BY MOUTH ONCE A DAY, # 90 tabs, 1 Refill(s), eRx: [facility]#[id number], TAKE ONE TABLET BY MOUTH ONCE A DAY Start Date: 06/01/15 Status: OrderedToviaz 8 mg oral tablet, extended release 8 mg 1 tabs, Oral, Daily, APPROVED THRU INS FOR #30, # 30 tabs, 6 Refill(s), Pharmacy: [facility] #[id number], 1 tabs Oral Daily,Instr:APPROVED THRU INS FOR #30 Start Date: 07/14/15 Status: OrderedtraMADol 50 mg oral tablet See Instructions, 1 tabs Q 6 hours up to 4 times per day. Maximum of 4 tablets= 200 mg/day MAY FILL ON 08/30/15, # 120 tabs, 0 Refill(s), Must last at least 30 days.(thru 08/28) Start Date: 08/27/15 Stop Date: 08/26/16 Status: OrderedtraZODone 100 mg oral tablet See Instructions, TAKE 1 1/2 TABLETS BY MOUTH EVERY NIGHT AT BEDTIME, # 270 tabs , 1 Refill(s), Pharmacy: [facility] #[id number], TAKE 1 1/2 TABLETS BY MOUTH EVERY NIGHT AT BEDTIME Start Date: 06/24/15 Status: Orderedverapamil 180 mg/24 hours oral capsule, extended release See Instructions, TAKE ONE CAPSULE BY MOUTH TWICE A DAY, # 60 caps, 2 Refill(s) , eRx: [facility] #[id number], TAKE ONE CAPSULE BY MOUTH TWICE A [...] daily, # 30 tabs, 2 Refill(s), Pharmacy: [facility] #[id number], 1 tabs Oral Daily, Instr:take one daily along with a 1mg to equal 3.5 daily Start Date: 08/12/15 Status: Ordered Results No data available for [...] Sclerotherapy of vein 2012 Intraoperative lymphatic mapping, [place] 05/24/12 lymphadenectomy, Rt simple mastectomy Laser ablation [...] Visit Note Author: Carmine Kearns MD Date: 02/16/15 Assessment/Plan Michelle esophagitis Chronic anticoagulation Polypharmacy Weight loss Orders: fluconazole, 100 mg 1 tabs, Oral, Daily, X 14 days, # 14 tabs, 0 Refill(s), Pharmacy: [facility] #[id number], 1 tabs Oral Daily,x14 days traMADol, See Instructions, as needed for pain, 1 -2 tabs Oral q4hr PRN, # 120 tabs, 0 Refill(s) verapamil, 120 mg 1 tabs, Oral, Daily, # 15 tabs, 0 Refill(s), Pharmacy: [facility] #[id number], 1 tabs Oral Daily We discussed the biopsy results. I think she needs to be treated for yeast esophagitis which is likely been a cause for a lot of her symptoms. We'll plan to start her on oral Diflucan. However, t his is a medication with lots of potential drug interactions. I discussed this with her and wrote out a plan for reducing several of her medications. It will require close INR monitoring. We'll al so request consult for medical therapeutic management because of polypharmacy. Follow-up with me again in 2-3 weeks. Instructions reviewed including: Reduce Verapamil to 120 mg daily. A new (temporary) prescription was sent to [facility]. Reduce Pantopropazole from twice per day to once per day. Reduce Trazadone from 1-1/2 tablets at bedtime to one halftablet at bedtime. Reduce warfarin to 2 mg daily and we'll especially need to follow this closely. Check an INR again daily for the next 3 days. When we finish the Diflucan, we'll likely need to put the medicines back to their prior doses, although we'll need to monitor the INR and adjust the Warfarin based on those results. We'll also schedule an appointment for Medication Therapeutic management consult with Dr. Mcclure or Dr. Escobedo. Extracted from: Title: Ambulatory Patient Education Author: Carmine Kearns MD Date: Family Medicine Polypharmacy Problems Polypharmacy problems can occur when you take more than one medicine. Your caregivers need to know about all the medicines you take. This includes vitamins , herbs, eyedrops, kryy-dis-rtijahd medicines, prescription medicines, and creams. Drug interaction problems can include: Bad reactions or side effects. This can occur when certain drugs are taken together. Reduced benefit from your medicines. This can occur if one drug reduces the ability of another drug to work. Some drug interaction problems can be life-threatening. Your caregivers can coordinate a plan to help you avoid polypharmacy problems. RISK FACTORS Polypharmacy problems are more likely to occur if: You have many caregivers prescribing different medicines for you. This is a common problem for elderly patients. You have a long-term (chronic) medical condition. You have had an organ transplant. You have human immunodeficiency virus (HIV). You are undergoing chemotherapy. You have hepatitis. You have kidney disease or kidney failure. You have significant heart disease or lung disease. You are elderly. You are taking medicines that have a low margin of error. This means there is little difference between the right amount of medicine and too much medicine. Medicines in this category include: Warfarin. Digoxin. [place]. Theophylline. Monoamine oxidase (MAO) inhibitors. Seizure medicines. Cyclosporine. PREVENTION Choose one caregiver to be in charge of coordinating your medicines. Inform this caregiver about all medicines and supplements you take, even if they are prescribed by another caregiver. Purchase all your medicines through the same pharmacy. The pharmacy keeps track of your medicines and possible drug interactions. They can notify your caregiver of potential problems. Read the information given to you at your pharmacy. Carry a list of all your medicines and their doses with you. This informs your caregivers, emergency department caregivers, and specialists about the medicines you are taking. This is especially important before you start a new medicine. Use a system to keep track of which medicines you are taking and when. Many patients use a pillbox that separates medicines by the day and time they are supposed to be taken. Carry a list of your chronic medical problems with you. Conditions such as kidney problems, liver problems, organ transplants, and chronic viral infections affect the way your body handles medicines. Ask your caregiver or pharmacist if you have any questions about your medicines. SEEK MEDICAL CARE IF: You have any problems that may be caused by your medicines. You have chest pain. You have shortness of breath. You have an irregular heartbeat. You have fainting spells. You have shaking or tremors. You have weakness or tiredness (lethargy). You have a rash or swelling in any part of the body. You have increased bleeding, rectal bleeding, vaginal bleeding, or you bruise easily. You have abdominal pain. You have nausea. You have vomiting. Document Released: 06/22/2005 Document Revised: 08/06/2012 Document Reviewed: 02/01/2012 ExitCare Patient Information 2015 [employer] [facility]. This information is not intended to replace advice given to you by your health care provider. Make sure you discuss any questions you have with your health care provider. No follow up information was provided.
--- OUTSIDE RECORDS SUMMARY | 2017-02-02 23:28 | External Medical Summary | Referral Summary ---
:1935 Author Organization [facility], [facility] Address [address] [place] [address] [place] [address] Care Team Providers Name Role Phone Carmine Kearns V Primary Care Physician Encounter Date(s): 12/04/15 - 12/04/15 [facility] [place] [place] [phone] [place] Discharge Diagnosis: CAD (coronary artery disease) Discharge Diagnosis: Frail Elderly Discharge Diagnosis: H/O fall Discharge Disposition: 01-Home or Self Care Attending Physician: Carmine Kearns MD Admitting Physician: Carmine Kearns MD Vital Signs Most recent to oldest [Reference Range]: 1 Temperature Tympanic [36.6-38.1 degC] 36.8 degC (12/04/15 10:18 AM) Peripheral Pulse Rate [60-100 bpm] 75 bpm (12/04/15 10:18 AM) Problem List Condition Effective Dates Status [...] 180 tabs, 1 Refill( s), eRx: [facility] #[id number], TAKE ONE TABLET BY MOUTH EVERY 12 HOURS Start Date: 11/09/15 Status: Orderedbumetanide 1 mg oral tablet See Instructions, TAKE ONE AND ONE-HALF TABLET BY MOUTH EVERY DAY, # 45 tabs, 6 Refill(s), Pharmacy:[facility] #[id number], TAKE ONE AND ONE-HALF TABLET BY MOUTH [...] DAILY, # 30 tabs, 1 Refill(s), eRx: [facility] #[id number], TAKE ONE TABLET BY MOUTH DAILY Start Date: 08/31/15 Status: Ordereddicyclomine 10 mg oral capsule See Instructions, TAKE 1-2 CAPSULES BY MOUTH EVERY 6 HOURS NEEDED FOR IRRITABLE BOWEL, # 100 caps, 4 Refill(s), Pharmacy: [facility] #[id number], TAKE 1-2 CAPSULES BY MOUTH EVERY 6 HOURS NEEDEDFOR IRRITABLE BOWEL Start Date: 04/27/15 Status: Orderedfolic acid 1 mg oral tablet See Instructions, TAKE ONE TABLET BY MOUTH EVERY DAY, # 90 tabs, 2 Refill(s), eRx: [facility] #[id number], TAKE ONE TABLET BY MOUTH EVERY DAY Start Date: 12/02/13 Status: OrderedMag-Ox 400 0 Refill(s) Start Date: 11/25/13 Status: Orderedmethotrexate 2.5 mg oral tablet See Instructions, TAKE 7 TABLETS BY MOUTH ONCE WEEKLY, # 35 tabs, 5 Refill(s), eRx: [facility]#[id number], TAKE 7 TABLETS BY MOUTH ONCE WEEKLY Start Date: 09/21/15 Status: OrderedMetroCream 0.75% topical cream 1 miguel a, Topical, BID, # 45 g, 0 Refill(s), Pharmacy: [facility] #[id number] Start Date: 10/23/15 Status: OrderedMiraLax oral powder for reconstitution 17 g, Oral, Daily, dissolve in water before taking, # 527 g, 0 Refill(s) Start Date: 11/25/13 Status: OrderedpredniSONE 5 mg oral tablet See Instructions, TAKE ONE TABLET BY MOUTH DAILY, # 90 tabs, eRx: [facility] #[id number], TAKE ONETABLET BY MOUTH DAILY Start Date: 09/07/15 Status: OrderedProtonix 40 mg oral delayed release tablet See Instructions, TAKE ONE TABLET BY MOUTH DAILY, # 30 tabs, 5 Refill(s), eRx: [facility] #[id number], TAKE ONE TABLET BY MOUTH DAILY Start Date: 08/31/15 Status: OrderedReclast mg, IV, Once, 0 Refill(s) Start Date: 04/04/14 Status: Orderedsertraline 100 mg oral tablet See Instructions, TAKE ONE TABLET BY MOUTH ONCE A DAY, # 90 tabs, 1 Refill(s), eRx: [facility]#[id number], TAKE ONE TABLET BY MOUTH ONCE A DAY Start Date: 12/01/15 Status: OrderedToviaz 8 mg oral tablet, extended release 8 mg 1 tabs, Oral, Daily, APPROVED THRU INS FOR #30, # 30 tabs, 6 Refill(s), Pharmacy: [facility] #[id number], 1 tabs Oral Daily,Instr:APPROVED THRU INS FOR #30 Start Date: 07/14/15 Status: OrderedtraMADol 50 mg oral tablet See Instructions, 1 tabs Q 6 hours up to 4 times per day. Maximum of 4 tablets= 200 mg/day, # 120 tabs, 0 Refill(s), Must last at least 30 days.(thru 4/2) Start Date: 11/23/15 Status: OrderedtraZODone 100 mg oral tablet See Instructions, TAKE 1 1/2 TABLETS BY MOUTH EVERY NIGHT AT BEDTIME, # 270 tabs , 1 Refill(s), Pharmacy: [facility] #[id number], TAKE 1 1/2 TABLETS BY MOUTH EVERY NIGHT AT BEDTIME Start Date: 06/24/15 Status: Orderedverapamil 180 mg/24 hours oral capsule, extended release See Instructions, TAKE ONE CAPSULE BY MOUTH TWICE A DAY, # 60 caps, 2 Refill(s) , eRx: [facility] #[id number], TAKE ONE CAPSULE BY MOUTH TWICE A DAY Start Date: 11/02/15 Status: OrderedVitamin B Complex oral tablet tabs, Oral, Daily, 0 Refill(s) Start Date: 11/25/13 Status: OrderedVitamin B-12 1000 mcg oral tablet 1 tabs, Oral, Daily, # 90 tabs, 0 Refill(s) Start Date: 11/25/13 Status: Ordered Results Chemistry Most recent to oldest [Reference Range]: 1 Sodium Venous [136-145 mmol/L] 137 mmol/L (12/04/15 11:42 AM) Potassium Venous [3.5-5.1 mmol/L] 4.4 mmol/L 1 (12/04/15 11:42 AM) Calcium Ionized Venous [1.10-1.30 mmol/L] 1.22 mmol/L (12/04/15 11:42 AM) Total CO2 Venous [24-29 mmol/L] 23 mmol/L *LOW* (12/04/15 11:42 AM) Glucose Venous [70-100 mg/dL] 64 mg/dL *LOW* (12/04/15 11:42 AM) BUN Venous [8-26] 33 *HI* (12/04/15 11:42 AM) Creatinine Venous [0.6-1.2 mg/dL] 1.1 mg/dL (12/04/15 11:42 AM) Venous CL [98-109 mmol/L] 103 mmol/L (12/04/15 11:42 AM) 1Result Comment: This test was performed on a whole blood specimen. The presence or absence of hemolysis cannot be assessed. Hemolysis can falsely elevate potassium levels. Normals are for venous specimens only. Immunizations Vaccine Date Refusal Reason influenza virus [...] Sclerotherapy of vein 2012 Intraoperative lymphatic mapping, [place] 05/24/12 lymphadenectomy, Rt simple mastectomy Laser ablation [...] Assessment and Plan Extracted from: Title: CDM OV Author: Carmine Kearns MD Date: 12/04/15 Impression and Plan Diagnosis Medication monitoring encounter ([id number] Z51.81, Working, Medical). Dyspnea (JFD53-SP R06.00, Working, Medical). Frail Elderly ([id number] R54, Discharge, Medical). H/O fall (ZLT32-QS Z91.81, Discharge, Medical). CAD (coronary artery disease) (SQQ25-LR I25.10, Discharge, Medical). Orders Orders (Selected) Outpatient Orders Ordered Calcium Ionized: Metabolic Panel i-STAT: eGFR: Ordered (Exam Started) Chest XR 2 Views: .
--- OUTSIDE RECORDS SUMMARY | 2017-02-02 23:28 | External Medical Summary | Referral Summary ---
:1935 Author Organization [facility], [facility] Address [address] [place] [address] [place] [address] Care Team Providers Name Role Phone Carmine Kearns V Primary Care Physician Encounter Date(s): 03/28/16 - 03/28/16 [facility] [place] [place] [phone] [place] Discharge Diagnosis: Laceration of left lower leg Discharge Diagnosis: Visit for wound care Discharge Disposition: 01-Home or Self Care Attending Physician: Carmine Kearns MD Admitting Physician: Carmine Kearns MD Vital Signs Most recent to oldest [Reference Range]: 1 Peripheral Pulse Rate [60-100 bpm] 65 bpm (03/28/16 1:50 PM) Blood Pressure [90-140/60-90 mmHg] 130/70 mmHg (03/28/16 1:50 PM) SpO2 92 % (03/28/16 1:50 PM) Problem List Condition Effective Dates Status [...] DAY, # 45 tabs, 4 Refill(s), eRx: [facility] #[id number], TAKE ONE AND ONE-HALF TABLET BY MOUTH [...] MONDAY, MONDAY, AND MONDAY, # 30 tabs, 5 Refill(s),eRx: [facility] #[id number], TAKE ONE TABLET BY MOUTH ON MONDAY, MONDAY, AND MONDAY Start Date: 03/28/16 Status: Orderedcyclobenzaprine 5 mg oral tablet See Instructions, TAKE ONE TABLET BY MOUTH THREE TIMES A DAY FOR 7 DAYS NEEDED FOR MUSCLE SPASM, # 15 tabs, eRx: [facility] #[id number], TAKE ONE TABLET BY MOUTH THREE TIMES A DAY FOR 7 DAYS NEEDED FOR MUSCLE SPASM Start Date: 03/14/16 Status: Ordereddicyclomine 10 mg oral capsule See Instructions, TAKE 1-2 CAPSULES BY MOUTH EVERY 6 HOURS NEEDED FOR IRRITABLE BOWEL, # 100 caps, 4 Refill(s), Pharmacy: [facility] #[id number], TAKE 1-2 CAPSULES BY MOUTH EVERY 6 HOURS NEEDEDFOR IRRITABLE BOWEL Start Date: 04/27/15 Status: Orderedfolic acid 1 mg oral tablet See Instructions, TAKE ONE TABLET BY MOUTH DAILY, # 30 tabs, 3 Refill(s), eRx: [facility] #[id number], TAKE ONE TABLET BY MOUTH DAILY Start Date: 12/28/15 Status: Orderedlosartan 50 mg, Oral, BID, 0 Refill(s) Start Date: 02/29/16 Status: OrderedMag-Ox 400 0 Refill(s) Start Date: 11/25/13 Status: Orderedmethotrexate 2.5 mg oral tablet See Instructions, TAKE 7 TABLETS BY MOUTH ONCE WEEKLY, # 35 tabs, 5 Refill(s), eRx: [facility]#[id number], TAKE 7 TABLETS BY MOUTH ONCE WEEKLY Start Date: 09/21/15 Status: OrderedMetroCream 0.75% topical cream 1 miguel a, Topical, BID, # 45 g, 0 Refill(s), Pharmacy: [facility] #[id number] Start Date: 10/23/15 Status: OrderedMiraLax oral powder for reconstitution 17 g, Oral, Daily, dissolve in water before taking, # 527 g, 0 Refill(s) Start Date: 11/25/13 Status: Orderedpantoprazole 40 mg oral delayed release tablet See Instructions, TAKE ONE TABLET BY MOUTH DAILY, # 30 tabs, 4 Refill(s), eRx: [facility] #[id number], TAKE ONE TABLET BY MOUTH DAILY Start Date: 03/14/16 Status: OrderedpredniSONE 5 mg oral tablet See Instructions, TAKE ONE TABLET BY MOUTH DAILY, # 90 tabs, 2 Refill(s), eRx: [facility] #[id number], TAKE ONE TABLET BY MOUTH DAILY Start Date: 12/14/15 Status: OrderedReclast mg, IV, Once, 0 Refill(s) Start Date: 04/04/14 Status: Orderedsertraline 100 mg oral tablet See Instructions, TAKE ONE TABLET BY MOUTH ONCE A DAY, # 90 tabs, 1 Refill(s), eRx: [facility]#[id number], TAKE ONE TABLET BY MOUTH ONCE A DAY Start Date: 12/01/15 Status: Orderedsimethicone 180 mg oral capsule 180 mg 1 caps, Oral, Daily, gas Start Date: 03/03/16 Status: OrderedToviaz 8 mg oral tablet, extended release See Instructions, TAKE ONE TABLET BY MOUTH DAILY, # 30 tabs, 5 Refill(s), Pharmacy: [facility]#[id number], TAKE ONE TABLET BY MOUTH DAILY Start [...] # 270 tabs , 1 Refill(s), Pharmacy: [facility] #[id number], TAKE 1 1/2 TABLETS BY MOUTH EVERY NIGHT AT BEDTIME Start Date: 06/24/15 Status: Orderedverapamil 180 mg/24 hours oral capsule, extended release See Instructions, TAKE ONE CAPSULE BY MOUTH TWICE A DAY, # 60 caps, 1 Refill(s) , eRx: [facility] #[id number], TAKE ONE CAPSULE BY MOUTH TWICE A DAY Start Date: 02/02/16 Status: OrderedVitamin B Complex oral tablet tabs, Oral, Daily, 0 Refill(s) Start Date: 6/30/14 Status: OrderedVitamin B-12 1000 mcg oral tablet [...] vaccine live 04/13/11 1Location History: given at [facility] Procedures Procedure Date Related Diagnosis Body Site Arthrocentesis-aspiration of major joint 05/15/13 Sclerotherapy of vein 2012 Intraoperative lymphatic mapping, [place] 05/24/12 lymphadenectomy, Rt simple mastectomy Laser ablation [...] Visit Note Author: Carmine Kearns MD Date: 03/28/16 Assessment/Plan 1.Laceration of left lower leg It appears to be healing well, butis stilla bit loose at the edges. I'm concerned that if we remove all the sutures that this will pull open. He does not appear to have any inflammation or seco ndary infection. I suggested leaving the sutures in for another weekand reevaluate/remove at that time. We discussed wound management and advised against continuing use of Neosporin. Discussed a ppropriate dressings which I demonstrated using Telfa and Coban wrap. Follow- up one week or sooner if needed.
--- OUTSIDE RECORDS SUMMARY | 2017-02-02 23:28 | External Medical Summary | Referral Summary ---
:1935 Author Organization [facility] Address [address] [place] [address] [place] [phone] Care Team Providers Name Role Phone Carmine Kearns V Primary Care Physician Encounter [facility] Date(s): 03/05/15 - 03/05/15 [facility] [address] [place] [phone] Discharge Diagnosis: Chronic atrial fibrillation Discharge Diagnosis: Michelle esophagitis Discharge Diagnosis: Hypertension Discharge Diagnosis: Insomnia Discharge Diagnosis: Chronic anticoagulation Discharge Disposition: 01-Home or Self Care Attending Physician: Carmine Kearns MD Admitting Physician: Carmine Kearns MD Vital Signs Most recent to oldest [Reference Range]: 1 Temperature Tympanic [36.6-38.1 degC] 36.3 degC *LOW* (03/05/15 1:57 PM) Peripheral Pulse Rate [60-100 bpm] 65 bpm (03/05/15 1:57 PM) Blood Pressure [90-140/60-90 mmHg] 150/68 mmHg *HI* (03/05/15 1:57 PM) Problem List Condition Effective Dates Status [...] EVERY 12 HOURS, # 180 tabs, eRx: [facility] #[id number], TAKE ONE TABLET BY MOUTH EVERY 12 HOURS Start Date: 08/10/15 Status: Orderedbumetanide 1 mg oral tablet See Instructions, TAKE ONE AND ONE-HALF TABLET BY MOUTH EVERY DAY, # 45 tabs, 6 Refill(s), Pharmacy:[facility] #[id number], TAKE ONE AND ONE-HALF TABLET BY MOUTH [...] DAILY, # 30 tabs, 1 Refill(s), eRx: [facility] #[id number], TAKE ONE TABLET BY MOUTH DAILY Start Date: 08/31/15 Status: Ordereddicyclomine 10 mg oral capsule See Instructions, TAKE 1-2 CAPSULES BY MOUTH EVERY 6 HOURS NEEDED FOR IRRITABLE BOWEL, # 100 caps, 4 Refill(s), Pharmacy: [facility] #[id number], TAKE 1-2 CAPSULES BY MOUTH EVERY 6 HOURS NEEDEDFOR IRRITABLE BOWEL Start Date: 04/27/15 Status: Orderedfolic acid 1 mg oral tablet See Instructions, TAKE ONE TABLET BY MOUTH EVERY DAY, # 90 tabs, 2 Refill(s), eRx: [facility] #[id number], TAKE ONE TABLET BY MOUTH EVERY DAY Start Date: 12/02/13 Status: OrderedMag-Ox 400 0 Refill(s) Start Date: 11/25/13 Status: Orderedmethotrexate 2.5 mg oral tablet See Instructions, TAKE 7 TABLETS BY MOUTH ONCE WEEKLY, # 35 tabs, 1 Refill(s), eRx: [facility]#[id number], TAKE 7 TABLETS BY MOUTH ONCE WEEKLY Start Date: 07/06/15 Status: OrderedMiraLax oral powder for reconstitution 17 g, Oral, Daily, dissolve in water before taking, # 527 g, 0 Refill(s) Start Date: 11/25/13 Status: OrderedpredniSONE 5 mg oral tablet See Instructions, TAKE ONE TABLET BY MOUTH DAILY, # 90 tabs, eRx: [facility] #[id number], TAKE ONETABLET BY MOUTH DAILY Start Date: 09/07/15 Status: OrderedProtonix 40 mg oral delayed release tablet See Instructions, TAKE ONE TABLET BY MOUTH DAILY, # 30 tabs, 5 Refill(s), eRx: [facility] #[id number], TAKE ONE TABLET BY MOUTH DAILY Start Date: 08/31/15 Status: OrderedReclast mg, IV, Once, 0 Refill(s) Start Date: 04/04/14 Status: Orderedsertraline 100 mg oral tablet See Instructions, TAKE ONE TABLET BY MOUTH ONCE A DAY, # 90 tabs, 1 Refill(s), eRx: [facility]#[id number], TAKE ONE TABLET BY MOUTH ONCE A DAY Start Date: 06/01/15 Status: OrderedToviaz 8 mg oral tablet, extended release 8 mg 1 tabs, Oral, Daily, APPROVED THRU INS FOR #30, # 30 tabs, 6 Refill(s), Pharmacy: [facility] #[id number], 1 tabs Oral Daily,Instr:APPROVED THRU INS FOR [...] # 270 tabs , 1 Refill(s), Pharmacy: [facility] #[id number], TAKE 1 1/2 TABLETS BY MOUTH EVERY NIGHT AT BEDTIME Start Date: 06/24/15 Status: Orderedverapamil 180 mg/24 hours oral capsule, extended release See Instructions, TAKE ONE CAPSULE BY MOUTH TWICE A DAY, # 60 caps, 2 Refill(s) , eRx: [facility] #[id number], TAKE ONE CAPSULE BY MOUTH TWICE A [...] Sclerotherapy of vein 2012 Intraoperative lymphatic mapping, [place] 05/24/12 lymphadenectomy, Rt simple mastectomy Laser ablation of long saphenous vein Lt great 11/17/11 Prolift mesh & cystocele repair; cystoscopy 09/29/09 Hx of shoulder surgery Lt 2006 Hx of mastectomy Lt simple 2002 Revoved Rods 1994 Decomp. Laminectomy Disectomy CD Rods, Bones 1991 Tubal ligation 1976 Lumbar spinal fusion 1975 Dilation and curettage 1959 Appendectomy 2 - Spontaneous vaginal delivery x5 Tonsillectomy and adenoidectomy Social History Social History Type Response Smoking Status Never smoker Assessment and Plan Extracted from: Title: Office Visit Note Author: Carmine Kearns MD Date: 03/05/15 Assessment/Plan Michelle esophagitis Chronic anticoagulation Chronic atrial fibrillation Hypertension Insomnia She will finish the Diflucan tomorrow. Since this may be in the system for a few days I advised that she should not start increasing back to her previous medication levels for another week. I did e ncourage careful monitoring of INR on Monday as she usually does, and also midweek next week. She is to call an update in one week with anticipation of we will increase her medications back to previous levels. Extracted from: Title: Ambulatory Patient Education Author: Carmine Kearns MD Date: Ophthalmology Basics of Medication Management UNDERSTAND YOUR MEDICATIONS Read all of the labels and inserts that come with your medications. Review the information on this form often. Know what potential side effects to look for (for each medication). Know what each of your medications look like (by color, shape, size, stamp ). If you are getting confused and having a hard time telling them apart, talk with your caregiver or pharmacist. They may be able to change the medication or help you to identify them more easily. Check with your pharmacist if you notice a difference in the size or color of your medication. Get all of your medications at one pharmacy. The pharmacist will have all of your information and understand possible drug interactions. Ask your caregiver questions about your prescriptions and any over-the- counter medications, vitamins, herbal or dietary supplements that you take. TAKE YOUR MEDICATION SAFELY Take medications only as prescribed. Talk with your caregiver or pharmacist if some of your pills look the same and it is difficult to tell them apart. They can help you to recognize different medications. Never double up on your medication. Never take anyone else's medication or share your medications. Do not stop taking your medication(s) unless you have discussed it with your caregiver. Do not split, mash, or chew medications unless your caregiver tells you to do so. Tell your caregiver if you have trouble swallowing your medication(s). For liquid medications, make sure you use the dosing container provided to you. You may need to avoid alcohol or certain foods or liquids with one or more of your medications. Make sure you remember how to take each medication with some of the tools below. ORGANIZE YOUR MEDICATIONS Use a tool, such as a weekly pill box (available at your local pharmacy), written chart from your caregiver, notebook, binder, or your own calendar to organize your daily medications. Please note: if you are having trouble telling your different medications apart, keep them in the original bottles. Set cues or reminders for taking your medications. Use watch alarms, mobile device/phone calendar alarms, or sticky notes. More advanced medication management systems are also available. These offer weekly or monthly options complete with storage, alarms, and visual and audio prompts. Your system should help you to keep track of the: Name of medication and dose. Day. Time. Pill to take (by color, shape, size, or name/imprint). How to take it (with or without certain foods, on an empty stomach, with fluids etc.). Review your medication schedule with a family member or friend to help you. Other household members should understand your medications. If you are taking medications on an "as needed" basis such as those for nausea or pain, write down the name, dose, and time you took the medication so that you remember what you have taken. PLAN AHEAD FOR REFILLS AND TRAVEL Take your pill box, medications, and calendar system with you when you travel. Plan ahead for refills as to not run out of your medication(s). Always carry an updated list of your medications with you. If there is an emergency, a respondent can quickly see what medications you are taking. STORE AND DISCARD YOUR MEDICATIONS SAFELY Store medications in a cool, dry area away from light. (The bathroom is not a good place for storage because of heat and humidity.) Store your medications away from chemicals, pet medications, or other family member's medications. Keep medications out of children's reach, away from counters and bedside tables. Store them up high in cabinets or shelves. Check expiration dates regularly. Learn about the best way to dispose of each medication you take. Find out if your local government recycling program has a Medicine Take Back program for safe disposal. If not, some medications may be mixed with inedible substances and thrown away in the trash. Certain medications are to be flushed down the toilet. REMEMBER: Tell your caregiver if you experience side effects, new symptoms, or have other concerns. There may be dosing changes or alternative medications that would be better for you. Review your medications regularly with your caregiver. Check to see if you need to continue to take each medication, and discuss how well they are working. Medicines, diet, medical conditions, weig ht changes, and other habits can all affect how medicines work. PEDIATRIC CONSIDERATIONS If you are taking care of an or child who needs multiple medications, follow the tips above to organize a medication schedule and safely give and store medications. Use positive reinforcement (singing, cuddling, reward) for your child to help him or her take necessary medications. Use only syringes, droppers, dosing spoons, or dosing cups provided by your caregiver or pharmacist. Always wash your hands before giving medications. Get to know your child's school medication policies. Meet with the school nurse to review the medication schedule in detail. Never send the medication to school with your child. Check with your child's caregiver if he or she has trouble taking medication, forgets a dose, or spits it up. Make sure your child knows how to use an inhaler properly if needed. Do not give your child ijdc-qah-[id number] cough and cold medicines if they are under 2 years of age. Avoid giving your child or teenager Aspirin or Aspirin-containing products. Document Released: 08/30/2011 Document Revised: 08/06/2012 Document Reviewed: 08/30/2011 ExitCare Patient Information 2015 [employer]. This information is not intended to replace advice given to you by your health care provider. Make sure you discuss any questions you have with your health care provider. No follow up information was provided.
--- OUTSIDE RECORDS SUMMARY | 2017-02-02 23:28 | External Medical Summary | Referral Summary ---
:1935 Author Organization [facility], [facility] Address [address] [place] [address] [place] [address] Care Team Providers Name Role Phone Carmine Kearns V Primary Care Physician Encounter [facility] [id number] Date(s): 08/31/15 - 08/31/15 [facility] [address] [place] [phone] Discharge Diagnosis: Encounter for chronic pain management Discharge Diagnosis: Insomnia Discharge Disposition: 01-Home or Self Care Attending Physician: Carmine Kearns MD Admitting Physician: Carmine Kearns MD Vital Signs Most recent to oldest [Reference Range]: 1 Peripheral Pulse Rate [60-100 bpm] 77 bpm (08/31/15 2:30 PM) Blood Pressure [90-140/60-90 mmHg] 110/60 mmHg (08/31/15 2:30 PM) SpO2 100 % (08/31/15 2:30 PM) Problem List Condition Effective Dates Status [...] EVERY 12 HOURS, # 180 tabs, eRx: [facility] #[id number], TAKE ONE TABLET BY MOUTH EVERY 12 HOURS Start Date: 08/10/15 Status: Orderedbumetanide 1 mg oral tablet See Instructions, TAKE ONE AND ONE-HALF TABLET BY MOUTH EVERY DAY, # 45 tabs, 6 Refill(s), Pharmacy:[facility] #[id number], TAKE ONE AND ONE-HALF TABLET BY MOUTH [...] DAILY, # 30 tabs, 1 Refill(s), eRx: [facility] #[id number], TAKE ONE TABLET BY MOUTH DAILY Start Date: 08/31/15 Status: Ordereddicyclomine 10 mg oral capsule See Instructions, TAKE 1-2 CAPSULES BY MOUTH EVERY 6 HOURS NEEDED FOR IRRITABLE BOWEL, # 100 caps, 4 Refill(s), Pharmacy: [facility] #[id number], TAKE 1-2 CAPSULES BY MOUTH EVERY 6 HOURS NEEDEDFOR IRRITABLE BOWEL Start Date: 04/27/15 Status: Orderedfolic acid 1 mg oral tablet See Instructions, TAKE ONE TABLET BY MOUTH EVERY DAY, # 90 tabs, 2 Refill(s), eRx: [facility] #[id number], TAKE ONE TABLET BY MOUTH EVERY DAY Start Date: 12/02/13 Status: OrderedMag-Ox 400 0 Refill(s) Start Date: 11/25/13 Status: Orderedmethotrexate 2.5 mg oral tablet See Instructions, TAKE 7 TABLETS BY MOUTH ONCE WEEKLY, # 35 tabs, 1 Refill(s), eRx: [facility]#[id number], TAKE 7 TABLETS BY MOUTH ONCE WEEKLY Start Date: 07/06/15 Status: OrderedMiraLax oral powder for reconstitution 17 g, Oral, Daily, dissolve in water before taking, # 527 g, 0 Refill(s) Start Date: 11/25/13 Status: OrderedpredniSONE 5 mg oral tablet See Instructions, TAKE ONE TABLET BY MOUTH DAILY, # 90 tabs, eRx: [facility] #[id number], TAKE ONETABLET BY MOUTH DAILY Start Date: 05/25/15 Status: OrderedProtonix 40 mg oral delayed release tablet See Instructions, TAKE ONE TABLET BY MOUTH DAILY, # 30 tabs, 5 Refill(s), eRx: [facility] #[id number], TAKE ONE TABLET BY MOUTH DAILY Start Date: 08/31/15 Status: OrderedReclast mg, IV, Once, 0 Refill(s) Start Date: 04/04/14 Status: Orderedsertraline 100 mg oral tablet See Instructions, TAKE ONE TABLET BY MOUTH ONCE A DAY, # 90 tabs, 1 Refill(s), eRx: [facility]#[id number], TAKE ONE TABLET BY MOUTH ONCE A DAY Start Date: 06/01/15 Status: OrderedToviaz 8 mg oral tablet, extended release 8 mg 1 tabs, Oral, Daily, APPROVED THRU INS FOR #30, # 30 tabs, 6 Refill(s), Pharmacy: [facility] #[id number], 1 tabs Oral Daily,Instr:APPROVED THRU INS FOR [...] # 270 tabs , 1 Refill(s), Pharmacy: [facility] #[id number], TAKE 1 1/2 TABLETS BY MOUTH EVERY NIGHT AT BEDTIME Start Date: 06/24/15 Status: Orderedverapamil 180 mg/24 hours oral capsule, extended release See Instructions, TAKE ONE CAPSULE BY MOUTH TWICE A DAY, # 60 caps, 2 Refill(s) , eRx: [facility] #[id number], TAKE ONE CAPSULE BY MOUTH TWICE A [...] Sclerotherapy of vein 2012 Intraoperative lymphatic mapping, [place] 05/24/12 lymphadenectomy, Rt simple mastectomy Laser ablation of long saphenous vein Lt great 6/21/12 Prolift mesh & cystocele repair; cystoscopy 09/29/09 [...] Visit Note Author: Carmine Kearns MD Date: 08/31/15 Assessment/Plan Encounter for chronic pain management Insomnia Orders: pantoprazole, See Instructions, TAKE ONE TABLET BY MOUTH DAILY, # 30 tabs, 5 Refill(s), eRx: [facility] #[id number], TAKE ONE TABLET BY MOUTH DAILY warfarin, See Instructions, TAKE ONE TABLET BY MOUTH DAILY, # 30 tabs, 1 Refill(s), eRx: [facility] #[id number], TAKE ONE TABLET BY MOUTH DAILY She is doing reasonably well on the current regimen and we will stay with current regimen including tramadol 50 mg tablets up to 4 per day (200 mg) and trazodone 100 mg at bedtime. I encouraged her to counter pills that she feels that the pharmacy is not actually providing the number prescribed. We reviewed some of that prescribing guidelines/regulations. Follow-up again in 3 months or sooner if needed.
--- OUTSIDE RECORDS SUMMARY | 2017-02-02 23:29 | External Medical Summary | Referral Summary ---
:1935 Author Organization [facility] Address [address] [place] [address] [place] [address] Care Team Providers Name Role Phone Carmine Kearns V Primary Care Physician Encounter [facility] [id number] Date(s): 05/31/16 - 05/31/16 [facility] [place] [place] [phone] [place] Discharge Diagnosis: Chronic pain Discharge Diagnosis: CAD (coronary artery disease) Discharge Diagnosis: Chronic ulcer of left leg Discharge Diagnosis: Rheumatoid arthritis Discharge Diagnosis: Venous insufficiency Lt leg Discharge Disposition: 01-Home or Self Care Attending Physician: Carmine Kearns MD Admitting Physician: Carmine Kearns MD Vital Signs Most recent to oldest [Reference Range]: 1 Peripheral Pulse Rate [60-100 bpm] 75 bpm (05/31/16 1:04 PM) Blood Pressure [90-140/60-90 mmHg] 144/70 mmHg *HI* (05/31/16 1:04 PM) Problem List Condition [...] Daily, 0 Refill(s) Start Date: 11/25/13 Status: Orderedbutalbital/aspirin/caffeine 50 mg-325 mg-40 mg oral [...] 0 Refill(s) Start Date: 11/25/13 Status: OrderedCoumadin 3 mg oral tablet See Instructions, TAKE ONE TABLET BY MOUTH DAILY, # 60 tabs, eRx: [facility] #[id number] Start Date: 05/24/16 Status: Orderedcyclobenzaprine 5 mg oral tablet See Instructions, TAKE ONE TABLET BY MOUTH THREE TIMES A DAY FOR 7 DAYS NEEDED FOR MUSCLE SPASM, # 15 tabs, eRx: [facility] #[id number], TAKE ONE TABLET BY MOUTH THREE TIMES A DAY FOR 7 DAYS NEEDED FOR MUSCLE SPASM Start Date: 03/14/16 Status: Ordereddicyclomine 10 mg oral capsule See Instructions, TAKE 1-2 CAPSULES BY MOUTH EVERY 6 HOURS NEEDED FOR IRRITABLE BOWEL, # 100 caps, 4 Refill(s), Pharmacy: [facility] #[id number], TAKE 1-2 CAPSULES BY MOUTH EVERY 6 HOURS NEEDEDFOR IRRITABLE BOWEL Start Date: 04/27/15 Status: Orderedfolic acid 1 mg oral tablet See Instructions, TAKE ONE TABLET BY MOUTH DAILY, # 30 tabs, 2 Refill(s), eRx: [facility] #[id number], TAKE ONE TABLET BY MOUTH DAILY Start Date: 04/04/16 Status: Orderedlosartan 50 mg, Oral, BID, 0 Refill(s) Start Date: 02/29/16 Status: OrderedMag-Ox 400 0 Refill(s) Start Date: 11/25/13 Status: Orderedmethotrexate 2.5 mg oral tablet See Instructions, TAKE 7 TABLETS BY MOUTH ONCE WEEKLY, # 35 tabs, 5 Refill(s), eRx: [facility]#[id number], TAKE 7 TABLETS BY MOUTH ONCE WEEKLY Start Date: 04/18/16 Status: OrderedMetroCream 0.75% topical cream 1 miguel a, Topical, BID, # 45 g, 0 Refill(s), Pharmacy: [facility] #[id number] Start Date: 10/23/15 Status: OrderedMiraLax oral powder for reconstitution 17 g, Oral, Daily, dissolve in water before taking, # 527 g, 0 Refill(s) Start Date: 11/25/13 Status: Orderedpantoprazole 40 mg oral delayed release tablet See Instructions, TAKE ONE TABLET BY MOUTH DAILY, # 30 tabs, 4 Refill(s), eRx: [facility] #[id number], TAKE ONE TABLET BY MOUTH DAILY Start Date: 03/14/16 Status: OrderedpredniSONE 5 mg oral tablet See Instructions, TAKE ONE TABLET BY MOUTH DAILY, # 90 tabs, 2 Refill(s), eRx: [facility] #[id number], TAKE ONE TABLET BY MOUTH DAILY Start Date: 12/14/15 Status: OrderedReclast mg, IV, Once, 0 Refill(s) Start Date: 04/04/14 Status: Orderedsertraline 100 mg oral tablet See Instructions, TAKE ONE TABLET BY MOUTH ONCE A DAY, # 90 tabs, eRx: [facility] #[id number] Start Date: 05/28/16 Status: Orderedsimethicone 180 mg oral capsule 180 mg 1 caps, Oral, Daily, gas Start Date: 03/03/16 Status: OrderedToviaz 8 mg oral tablet, extended release See Instructions, TAKE ONE TABLET BY MOUTH DAILY, # 30 tabs, 5 Refill(s), Pharmacy: [facility]#[id number], TAKE ONE TABLET BY MOUTH DAILY Start Date: 03/10/16 Status: OrderedtraMADol 50 mg oral tablet 50 mg 1 tabs, Oral, q6hr, as needed for pain, MAX OF 4 PER DAY, # 240 tabs, 5 Refill(s) Start Date: 05/31/16 Status: OrderedtraZODone 100 mg oral tablet See Instructions, TAKE 1 TABLETS BY MOUTH EVERY NIGHT AT BEDTIME, # 270 tabs, 1 Refill(s), Pharmacy: [facility] #[id number] Start Date: 06/24/15 Status: Orderedverapamil 180 mg/24 hours oral capsule, extended release See Instructions, TAKE ONE CAPSULE BY MOUTH TWICE A DAY, # 60 caps, 5 Refill(s) , eRx: [facility] #[id number] Start Date: 05/09/16 Status: OrderedVitamin B Complex oral tablet tabs, [...] live 04/07/06 Given pneumococcal 13-valent conjugate vaccine 11/7/14 Given pneumococcal 13-valent conjugate vaccine1 01/27/12 Given pneumococcal 23-polyvalent vaccine 01/27/12 Recorded pneumococcal 23-polyvalent vaccine2 01/27/12 Given tetanus-diphth toxoids (Td) adult/adol3 03/17/16 Recorded tetanus-diphth toxoids (Td) adult/adol 09/24/11 Given tetanus-diphth toxoids (Td) adult/adol 06/09/99 Given zoster vaccine live 04/13/11 Given 1Result Comment: [12/15/2014 Uncharted] WRON [id number] Comment: [02/17/2015 Uncharted] Uploaded in Error - [id number] History: given at [facility] Procedures Procedure Date Related Diagnosis Body Site Arthrocentesis-aspiration of major joint 05/15/13 Sclerotherapy of vein 2012 Intraoperative lymphatic mapping, [place] 05/24/12 lymphadenectomy, Rt simple mastectomy Laser ablation [...] 05/31/16 Impression and Plan Diagnosis Chronic pain (LCZ77-SY G89.29, Discharge, Medical). Chronic ulcer of left leg (PKF67-KO L97.929, Discharge, Medical). Venous insufficiency Lt leg (HDF81-UV I87.2, Discharge, Medical). CAD (coronary artery disease) (SRJ78-NM I25.10, Discharge, Medical). Rheumatoid arthritis (YOG20-HH M06.9, Discharge, Medical). Orders Orders (Selected) Prescriptions Prescribed traMADol 50 mg oral tablet: 50 mg=1 tabs, Oral, q6hr, MAX OF 4 PER DAY, PRN: as needed for pain, 240 tabs, 5 Refill(s).
--- OUTSIDE RECORDS SUMMARY | 2017-02-02 23:29 | External Medical Summary | Referral Summary ---
:1935 Author Organization [facility], [facility] Address [address] [place] [address] [place] [address] Care Team Providers Name Role Phone Carmine Kearns V Primary Care Physician Encounter VC Date(s): 05/04/16 - 05/04/16 [facility] [address] [place] [phone] Discharge Diagnosis: Chronic ulcer of left leg Discharge Diagnosis: Right inguinal hernia Discharge Disposition: 01-Home or Self Care Attending Physician: Carmine Kearns MD Admitting Physician: Carmine Kearns MD Vital Signs Most recent to oldest [Reference Range]: 1 Temperature Tympanic [36.6-38.1 degC] 36 degC *LOW* (05/04/16 10:28 AM) Peripheral Pulse Rate [60-100 bpm] 93 bpm (05/04/16 10:28 AM) Blood Pressure [90-140/60-90 mmHg] 126/62 mmHg (05/04/16 10:28 AM) Problem List Condition Effective [...] gain., # 45 tabs, 4 Refill(s), eRx: [facility] # [id number], TAKE ONE AND ONE-HALF TABLET BY MOUTH [...] # 30 tabs, 5 Refill(s ), Pharmacy: [facility] #[id number], TAKE ONE TABLET BY MOUTH 5 DAYS A WEEK Start Date: 03/31/16 Status: Orderedcyclobenzaprine 5 mg oral tablet See Instructions, TAKE ONE TABLET BY MOUTH THREE TIMES A DAY FOR 7 DAYS NEEDED FOR MUSCLE SPASM, # 15 tabs, eRx: [facility] #[id number], TAKE ONE TABLET BY MOUTH THREE TIMES A DAY FOR 7 DAYS NEEDED FOR MUSCLE SPASM Start Date: 03/14/16 Status: Ordereddicyclomine 10 mg oral capsule See Instructions, TAKE 1-2 CAPSULES BY MOUTH EVERY 6 HOURS NEEDED FOR IRRITABLE BOWEL, # 100 caps, 4 Refill(s), Pharmacy: [facility] #[id number], TAKE 1-2 CAPSULES BY MOUTH EVERY 6 HOURS NEEDEDFOR IRRITABLE BOWEL Start Date: 04/27/15 Status: Orderedfolic acid 1 mg oral tablet See Instructions, TAKE ONE TABLET BY MOUTH DAILY, # 30 tabs, 2 Refill(s), eRx: [facility] #[id number], TAKE ONE TABLET BY MOUTH DAILY Start Date: 04/04/16 Status: Orderedlosartan 50 mg, Oral, BID, 0 Refill(s) Start Date: 02/29/16 Status: OrderedMag-Ox 400 0 Refill(s) Start Date: 11/25/13 Status: Orderedmethotrexate 2.5 mg oral tablet See Instructions, TAKE 7 TABLETS BY MOUTH ONCE WEEKLY, # 35 tabs, 5 Refill(s), eRx: [facility]#[id number], TAKE 7 TABLETS BY MOUTH ONCE WEEKLY Start Date: 04/18/16 Status: OrderedMetroCream 0.75% topical cream 1 miguel a, Topical, BID, # 45 g, 0 Refill(s), Pharmacy: [facility] #[id number] Start Date: 10/23/15 Status: OrderedMiraLax oral powder for reconstitution 17 g, Oral, Daily, dissolve in water before taking, # 527 g, 0 Refill(s) Start Date: 11/25/13 Status: Orderedpantoprazole 40 mg oral delayed release tablet See Instructions, TAKE ONE TABLET BY MOUTH DAILY, # 30 tabs, 4 Refill(s), eRx: [facility] #[id number], TAKE ONE TABLET BY MOUTH DAILY Start Date: 03/14/16 Status: OrderedpredniSONE 5 mg oral tablet See Instructions, TAKE ONE TABLET BY MOUTH DAILY, # 90 tabs, 2 Refill(s), eRx: [facility] #[id number], TAKE ONE TABLET BY MOUTH DAILY Start Date: 12/14/15 Status: OrderedReclast mg, IV, Once, 0 Refill(s) Start Date: 04/04/14 Status: Orderedsertraline 100 mg oral tablet See Instructions, TAKE ONE TABLET BY MOUTH ONCE A DAY, # 90 tabs, 1 Refill(s), eRx: [facility]#[id number], TAKE ONE TABLET BY MOUTH ONCE A DAY Start Date: 12/01/15 Status: Orderedsimethicone 180 mg oral capsule 180 mg 1 caps, Oral, Daily, gas Start Date: 03/03/16 Status: OrderedToviaz 8 mg oral tablet, extended release See Instructions, TAKE ONE TABLET BY MOUTH DAILY, # 30 tabs, 5 Refill(s), Pharmacy: [facility]#[id number], TAKE ONE TABLET BY MOUTH DAILY Start [...] [facility] #[id number], TAKE 1 1/2 TABLETS BY MOUTH EVERY NIGHT AT BEDTIME Start Date: 06/24/15 Status: Orderedverapamil 180 mg/24 hours oral capsule, extended release See Instructions, TAKE ONE CAPSULE BY MOUTH TWICE A DAY, # 60 caps, eRx: [facility] #[id number], TAKE ONE CAPSULE BY MOUTH TWICE A [...] vaccine live 04/13/11 1Location History: [place] [facility] Procedures Procedure Date Related Diagnosis Body Site Arthrocentesis-aspiration of major joint 05/15/13 Sclerotherapy of vein 2012 Intraoperative lymphatic mapping, [place] 05/24/12 lymphadenectomy, Rt simple mastectomy Laser ablation [...] Plan Diagnosis Chronic ulcer of left leg ([id number] L97.929, Discharge, Medical). Right inguinal hernia ([id number] K40.90, Discharge, Medical).
--- OUTSIDE RECORDS SUMMARY | 2017-02-02 23:29 | External Medical Summary | Referral Summary ---
:1935 Author Organization [facility] [place] [address] [place] [address] Care Team Providers Name Role Phone Carmine Kearns V Primary Care Physician Encounter VC [facility] [id number] Date(s): 07/27/15 - 07/27/15 [facility] [address] [place] [phone] Discharge Diagnosis: Chronic pain Discharge Diagnosis: Right shoulder pain Discharge Diagnosis: Right foot pain Discharge Diagnosis: Head injury Discharge Diagnosis: Epigastric abdominal pain Discharge Diagnosis: Skin tear of left upper arm without complication Discharge Diagnosis: Warfarin anticoagulation Discharge Disposition: 01-Home or Self Care Attending Physician: Carmine Kaerns MD Admitting Physician: Carmine Kearns MD Vital Signs Most recent to oldest [Reference Range]: 1 Temperature Tympanic [36.6-38.1 degC] 36.2 degC *LOW* (07/27/15 2:05 PM) Peripheral Pulse Rate [60-100 bpm] 72 bpm (07/27/15 2:05 PM) Blood Pressure [90-140/60-90 mmHg] 145/82 mmHg *HI* (07/27/15 2:05 PM) Problem List Condition Effective Dates Status [...] 180 tabs, 1 Refill( s), eRx: [facility] #[id number], TAKE ONE TABLET BY MOUTH EVERY 12 HOURS Start Date: 02/09/15 Status: Orderedbumetanide 1 mg oral tablet See Instructions, TAKE ONE AND ONE-HALF TABLET BY MOUTH EVERY DAY, # 45 tabs, 5 Refill(s), eRx: [facility] #[id number], TAKE ONE AND ONE-HALF TABLET BY MOUTH EVERY DAY Start Date: 07/03/15 Status: Orderedbumetanide 1 mg oral tablet See Instructions, TAKE ONE AND ONE-HALF TABLET BY MOUTH EVERY DAY, # 45 tabs, 6 Refill(s), Pharmacy:[facility] #[id number], TAKE ONE AND ONE-HALF TABLET BY MOUTH [...] AND MONDAY, # 30 tabs, eRx: [facility] #[id number], TAKE ONE TABLET BY MOUTH ON MONDAY, MONDAY, AND MONDAY Start Date: 07/13/15 Status: OrderedCoumadin 2.5 mg oral tablet See Instructions, TAKE ONE TABLET BY MOUTH ON MONDAY, MONDAY, AND MONDAY, # 30 tabs, eRx: [facility] #[id number], TAKE ONE TABLET BY MOUTH ON MONDAY, MONDAY, AND MONDAY Start Date: 07/13/15 Status: Ordereddicyclomine 10 mg oral capsule See Instructions, TAKE 1-2 CAPSULES BY MOUTH EVERY 6 HOURS NEEDED FOR IRRITABLE BOWEL, # 100 caps, 4 Refill(s), Pharmacy: [facility] #[id number], TAKE 1-2 CAPSULES BY MOUTH EVERY 6 HOURS NEEDEDFOR IRRITABLE BOWEL Start Date: 04/27/15 Status: Orderedfolic acid 1 mg oral tablet See Instructions, TAKE ONE TABLET BY MOUTH EVERY DAY, # 90 tabs, 2 Refill(s), eRx: [facility] #[id number], TAKE ONE TABLET BY MOUTH EVERY DAY Start Date: 12/02/13 Status: Orderedfolic acid 1 mg oral tablet 1 mg 1 tabs, Oral, Daily, # 30 tabs, 6 Refill(s), Pharmacy: [facility] # [id number], 1 tabs Oral Daily Start Date: 05/11/15 Status: OrderedMag-Ox 400 0 Refill(s) Start Date: 11/25/13 Status: Orderedmethotrexate 2.5 mg oral tablet See Instructions, TAKE 7 TABLETS BY MOUTH ONCE WEEKLY, # 35 tabs, 1 Refill(s), eRx: [facility]#[id number], TAKE 7 TABLETS BY MOUTH ONCE WEEKLY Start Date: 07/06/15 Status: OrderedMiraLax oral powder for reconstitution 17 g, Oral, Daily, dissolve in water before taking, # 527 g, 0 Refill(s) Start Date: 11/25/13 Status: Orderedmultivitamin Daily, 0 Refill(s) Start Date: 11/25/13 Status: OrderedpredniSONE 5 mg oral tablet See Instructions, TAKE ONE TABLET BY MOUTH DAILY, # 90 tabs, eRx: [facility] #[id number], TAKE ONETABLET BY MOUTH DAILY Start Date: 05/25/15 Status: OrderedProtonix 40 mg oral delayed release tablet 1 tabs, Oral, BID, # 60 tabs, 4 Refill(s), Pharmacy: [facility] #[id number], 1 tabs Oral BID Start Date: 08/28/14 Status: OrderedReclast mg, IV, Once, 0 Refill(s) Start Date: 04/04/14 Status: Orderedsertraline 100 mg oral tablet See Instructions, TAKE ONE TABLET BY MOUTH ONCE A DAY, # 90 tabs, 1 Refill(s), eRx: [facility]#[id number], TAKE ONE TABLET BY MOUTH ONCE A DAY Start Date: 06/01/15 Status: OrderedToviaz 8 mg oral tablet, extended release 8 mg 1 tabs, Oral, Daily, APPROVED THRU INS FOR #30, # 30 tabs, 6 Refill(s), Pharmacy: [facility] #[id number], 1 tabs Oral Daily,Instr:APPROVED THRU INS FOR #30 Start Date: 07/14/15 Status: OrderedtraMADol 50 mg oral tablet See Instructions, as needed for pain, 1 -2 tabs Oral q4hr PRN, # 120 tabs, 0 Refill(s) Start Date: 07/06/15 Status: OrderedtraZODone 100 mg oral tablet See Instructions, TAKE 1 1/2 TABLETS BY MOUTH EVERY NIGHT AT BEDTIME, # 270 tabs , 1 Refill(s), Pharmacy: [facility] #[id number], TAKE 1 1/2 TABLETS BY MOUTH EVERY NIGHT AT BEDTIME Start Date: 06/24/15 Status: Orderedverapamil 180 mg/24 hours oral capsule, extended release 180 mg 1 caps, Oral, BID, # 60 caps, 3 Refill(s), Pharmacy: [facility] # [id number], 1 caps Oral BID Start Date: 04/09/15 Status: OrderedVitamin B Complex oral tablet tabs, Oral, Daily, 0 Refill(s) Start Date: 11/25/13 Status: OrderedVitamin B-12 1000 mcg oral tablet 1 tabs, Oral, Daily, # 90 tabs, 0 Refill(s) Start Date: 11/25/13 Status: Ordered Results Hematology Most recent to oldest [Reference Range]: 1 WBC [4.8-10.8 10*3/uL] 6.1 10*3/uL (07/27/15 4:00 PM) RBC [4.00-5.20] 3.47 *LOW* (07/27/15 4:00 PM) Hgb [12.0-16.0 gm/dL] 11.7 gm/dL *LOW* (07/27/15 4:00 PM) Hct [37.0-47.0 %] 36.6 % *LOW* (07/27/15 4:00 PM) MCV [82.0-99.0 fL] 105.5 fL *HI* (07/27/15 4:00 PM) MCH [27.0-32.0 pg] 33.7 pg *HI* (07/27/15 4:00 PM) MCHC [32.0-36.0 gm/dL] 32.0 gm/dL (07/27/15 4:00 PM) RDW [11.5-14.5 %] 16.3 % *HI* (07/27/15 4:00 PM) Platelet [150-400 10*3/uL] 280 10*3/uL (07/27/15 4:00 PM) MPV [8.8-14.8 fL] 12.2 fL (07/27/15 4:00 PM) Immature Granulocytes [0.0-1.0 %] 0.2 % (07/27/15 4:00 PM) Neutrophils [51-75 %] 71 % (07/27/15 4:00 PM) Lymphocytes [20-46 %] 19 % *LOW* (07/27/15 4:00 PM) Monocytes [4-11 %] 9 % (07/27/15 4:00 PM) Eosinophils [0-4 %] 0 % (07/27/15 4:00 PM) Basophils [0-2 %] 0 % (07/27/15 4:00 PM) Neutro Absolute [1.90-7.00 10*3] 4.38 10*3 (2/29/16 4:00 PM) Lymph Absolute [0.80-3.30 10*3] 1.15 10*3 (07/27/15 4:00 PM) [place] Absolute [0.30-1.00 10*3] 0.58 10*3 (07/27/15 4:00 PM) Eos Absolute [0.00-0.50 10*3] 0.01 10*3 (07/27/15 4:00 PM) Baso Absolute [0.00-0.20 10*3] 0.01 10*3 (07/27/15 4:00 PM) Macrocyte Present *ABN* (07/27/15 4:00 PM) Coagulation Most recent to oldest [Reference Range]: 1 PT Venous (07/27/15 4:00 PM) INR [0.8-1.2] 5.5 1 *HHI* (07/27/15 4:00 PM) 1Result Comment: Normal (no anticoagulant): 0.8 [...] Sclerotherapy of vein 2012 Intraoperative lymphatic mapping, [place] 05/24/12 lymphadenectomy, Rt simple mastectomy Laser ablation of long saphenous vein Lt great 11/17/11 Prolift mesh & cystocele repair; cystoscopy 09/29/09 Hx of shoulder surgery Lt 2006 Hx of mastectomy Lt simple 2002 Revoved Rods 1994 Decomp. Laminectomy Disectomy CD Rods, Bones 1992 Tubal ligation 1976 Lumbar spinal fusion 1975 Dilation and curettage 1960 Appendectomy 2 - Spontaneous vaginal delivery x5 Tonsillectomy and adenoidectomy Social History Social History Type Response Smoking Status Never smoker Assessment and Plan Extracted from: Title: Office Visit Note Author: Carmine Kearns MD Date: 07/27/15 Assessment/Plan Chronic pain Epigastric abdominal pain Ordered: CBC w/ Differential Head injury Ordered: CT Head or Brain w/o Contrast Right foot pain Right shoulder pain Ordered: XR Shoulder Complete Right Skin tear of left upper arm without complication Warfarin anticoagulation Ordered: PT Recurrent epigastric pain. Generally this is thought to be due to acid- related problem and I suggested use of the liquid antacid such as Maalox or Mylanta. We will check a CBC, and also check an INR because of increased bleeding risk. Recent fall and fall prevention is a high priority. The heel pain appears to be biomechanical and I suggested podiatry as the best way to try to help that pain. She already sees a manager voice, Dr. Biggs. I encouraged her to schedule appointment with him to talk about possible footwear to support this soft tissue problem. After the visit we briefly talked in the hallway about pain management and will schedule appointment to address that in greater detail sometime soon. Addendum by Carmine Kearns MD on We will also check an x-ray of her right shoulder to check for re-injury/new injury with this recent fall, and CT of the head because of possible mild head injury. We discussed increased bleeding risk associated with anticoagulation and falling. July 27, 2015 15:44:34 [employer] We will send a copy of this dictation to manager voice, Dr. Biggs at [address] [place], [address].
--- OUTSIDE RECORDS SUMMARY | 2017-02-02 23:29 | External Medical Summary | Referral Summary ---
:1935 Author Organization [facility] Address [address] [place] [address] [place] [address] Care Team Providers Name Role Phone Carmine Kearns V Primary Care Physician Encounter VC Date(s): 12/16/14 - 12/16/14 [facility] [address] [place] [address]- Discharge Diagnosis: CAD (coronary artery disease) Discharge [...] # 180 tabs, 1 Refill( s), eRx: [facility] #[id number], TAKE ONE TABLET BY MOUTH EVERY 12 HOURS Start Date: 02/09/15 Status: Orderedbumetanide 1 mg oral tablet See Instructions, TAKE ONE AND ONE-HALF TABLET BY MOUTH EVERY DAY, # 45 tabs, 6 Refill(s), Pharmacy:[facility] #[id number], TAKE ONE AND ONE-HALF TABLET BY MOUTH [...] # 30 tabs, 3 Refill(s), MIGUELITO, eRx: [facility] #[id number], TAKE ONE TABLET BY MOUTH EVERY DAY Start Date: 03/25/14 Status: OrderedCoumadin 2.5 mg oral tablet See Instructions, 1 tabs mg Oral m,w,f, # 30 tabs, 1 Refill(s), Pharmacy: [facility] #[id number], 1 tabs mg Oral m,w,f Start Date: 05/13/14 Status: OrderedCoumadin 3 mg oral tablet 3 mg 1 tabs, Oral, Daily, # 60 tabs, 1 Refill(s), Pharmacy: [facility] # [id number], 1 tabs Oral Daily Start Date: 12/23/14 Status: Ordereddicyclomine 10 mg oral capsule See Instructions, TAKE 1-2 CAPSULES BY MOUTH EVERY 6 HOURS NEEDED FOR IRRITABLE BOWEL, # 100 caps, 4 Refill(s), Pharmacy: [facility] #[id number], TAKE 1-2 CAPSULES BY MOUTH EVERY 6 HOURS NEEDEDFOR IRRITABLE BOWEL Start Date: 04/07/14 Status: Ordereddicyclomine 10 mg oral capsule 1 caps, Oral, QID, # 56 caps, 0 Refill(s) Start Date: 11/25/13 Stop Date: 12/09/13 Status: OrderedDrisdol 50,000 intl units (1.25 mg) oral capsule See Instructions, TAKE ONE CAPSULE BY MOUTH ONCE WEEKLY, # 12 caps, 2 Refill(s) , eRx: [facility] #[id number], TAKE ONE CAPSULE BY MOUTH ONCE WEEKLY Start Date: 11/18/13 Status: Orderedferrous sulfate 325 mg (65 mg elemental iron) oral tablet 1 tabs, Oral, TID, # 270 tabs, 0 Refill(s) Start Date: 11/25/13 Status: Orderedfolic acid 1 mg oral tablet 1 tabs, Oral, Daily, # 30 tabs, 6 Refill(s), Pharmacy: [facility] #[id number] , 1 tabs Oral Daily Start Date: 09/15/14 Status: Orderedfolic acid 1 mg oral tablet See Instructions, TAKE ONE TABLET BY MOUTH EVERY DAY, # 90 tabs, 2 Refill(s), eRx: [facility] #[id number], TAKE ONE TABLET BY MOUTH EVERY DAY Start Date: 12/02/13 Status: OrderedLidocaine Viscous 2% mucous membrane solution 0.01 g 0.5 mL, Topical, q4hr, as needed for mouth sore pain, SWISH AND SPIT, # 20 mL, 0 Refill(s), Pharmacy: [facility] #[id number] Start Date: 02/03/15 Stop Date: 02/04/16 Status: OrderedMag-Ox 400 0 Refill(s) Start Date: 11/25/13 Status: Orderedmethotrexate 2.5 mg oral tablet See Instructions, TAKE 7 TABLETS BY MOUTH ONCE WEEKLY, # 35 tabs, 2 Refill(s), eRx: [facility]#[id number], TAKE 7 TABLETS BY MOUTH ONCE WEEKLY Start Date: 03/31/15 Status: OrderedMiacalcin Nasal 200 intl units/inh nasal spray 1 sprays, Nasal, Daily, Alternate alternate nostrils, # 3.7 mL, 0 Refill(s), Pharmacy: [facility] #[id number], 1 sprays Nasal Daily,Instr:Alternate ; alternate nostrils Start Date: 12/17/14 Status: OrderedMiraLax oral powder for reconstitution 17 g, Oral, Daily, dissolve in water before taking, # 527 g, 0 Refill(s) Start Date: 11/25/13 Status: Orderedmultivitamin Daily, 0 Refill(s) Start Date: 11/25/13 Status: OrderedpredniSONE 5 mg oral tablet 1 tabs, Oral, Daily, # 90 tabs, 1 Refill(s), Pharmacy: [facility] #[id number] , 1 tabs Oral Daily Start Date: 08/28/14 Stop Date: 09/15/16 Status: OrderedpredniSONE 5 mg oral tablet See Instructions, TAKE ONE TABLET BY MOUTH DAILY, # 90 tabs, eRx: [facility] #[id number], TAKE ONETABLET BY MOUTH DAILY Start Date: 03/02/15 Status: OrderedProtonix 40 mg oral delayed release tablet 1 tabs, Oral, BID, # 60 tabs, 4 Refill(s), Pharmacy: [facility] #[id number], 1 tabs Oral BID Start Date: 08/28/14 Status: OrderedProtonix 40 mg oral delayed release tablet 40 mg 1 tabs, Oral, Daily, # 30 tabs, 6 Refill(s), Pharmacy: [facility] # [id number], 1 tabs Oral Daily Start Date: 01/05/15 Status: OrderedReclast mg, IV, Once, 0 Refill(s) Start Date: 04/04/14 Status: Orderedsertraline 100 mg oral tablet 1 tabs, Oral, Daily, # 90 tabs, 2 Refill(s), Pharmacy: [facility] #[id number] , 1 tabs Oral Daily Start Date: 09/01/14 Status: OrderedToviaz 8 mg oral tablet, extended release 1 tabs, Oral, Daily, # 90 tabs, 1 Refill(s), Pharmacy: [facility] #[id number] , 1 tabs Oral Daily Start Date: 09/29/14 Status: OrderedToviaz 8 mg oral tablet, extended release 8 mg 1 tabs, Oral, Daily, # 90 tabs, 1 Refill(s), Pharmacy: [facility] # [id number], 1 tabs Oral Daily Start Date: 01/19/15 Status: OrderedtraMADol 50 mg oral tablet See Instructions, as needed for pain, 1 -2 tabs Oral q4hr PRN, # 120 tabs, 0 Refill(s) Start Date: 02/27/15 Status: OrderedtraZODone 100 mg oral tablet See Instructions, TAKE 1 1/2 TABLETS BY MOUTH EVERY NIGHT AT BEDTIME, # 270 tabs , 1 Refill(s), eRx: [facility] #[id number], TAKE THREE TABLETS BY MOUTH EVERY NIGHT AT BEDTIME Start Date: 05/12/14 Status: Orderedverapamil 180 mg/24 hours oral capsule, extended release 180 mg 1 caps, Oral, BID, PLEASE FILL #6 ONLY, # 6 caps, 0 Refill(s), Pharmacy: [facility] #[id number], 1 caps Oral BID,Instr:PLEASE FILL #6 ONLY Start Date: 03/31/15 Status: OrderedVitamin B Complex oral tablet tabs, Oral, Daily, 0 Refill(s) Start Date: 11/25/13 Status: OrderedVitamin B-12 1000 mcg oral tablet 1 tabs, Oral, Daily, # 90 tabs, 0 Refill(s) Start Date: 11/25/13 Status: Orderedwarfarin 2 mg oral tablet 2 mg 1 tabs, Oral, Daily, # 30 tabs, 1 Refill(s), Pharmacy: [facility] # [id number], 1 tabs Oral Daily Start Date: 03/11/15 [...] [0.80-3.30 10*3] 0.95 10*3 (12/16/14 3:33 PM) Power Absolute [0.30-1.00 10*3] 0.27 10*3 *LOW* (12/16/14 [...] Sclerotherapy of vein 2012 Intraoperative lymphatic mapping, [place] 05/24/12 lymphadenectomy, Rt simple mastectomy Laser ablation [...]
--- OUTSIDE RECORDS SUMMARY | 2017-02-02 23:29 | External Medical Summary | Referral Summary ---
:1935 Author Organization [facility] Address [address] [place] [address] [place] [address] Care Team Providers Name Role Phone Carmine Kearns V Primary Care Physician Encounter VC Date(s): 12/16/14 - 12/16/14 [facility] [place] [place] [id number]- Discharge Diagnosis: CAD (coronary artery disease) Discharge [...] # 180 tabs, 1 Refill( s), eRx: [facility] #[id number], TAKE ONE TABLET BY MOUTH EVERY 12 HOURS Start Date: 02/09/15 Status: Orderedbumetanide 1 mg oral tablet See Instructions, TAKE ONE AND ONE-HALF TABLET BY MOUTH EVERY DAY, # 45 tabs, 6 Refill(s), Pharmacy:[facility] #[id number], TAKE ONE AND ONE-HALF TABLET BY MOUTH [...] # 30 tabs, 3 Refill(s), MIGUELITO, eRx: [facility] #[id number], TAKE ONE TABLET BY MOUTH EVERY DAY Start Date: 03/25/14 Status: OrderedCoumadin 3 mg oral tablet 3 mg 1 tabs, Oral, Daily, # 60 tabs, 1 Refill(s), Pharmacy: [facility] # [id number], 1 tabs Oral Daily Start Date: 12/23/14 Status: Ordereddicyclomine 10 mg oral capsule See Instructions, TAKE 1-2 CAPSULES BY MOUTH EVERY 6 HOURS NEEDED FOR IRRITABLE BOWEL, # 100 caps, 4 Refill(s), Pharmacy: [facility] #[id number], TAKE 1-2 CAPSULES BY MOUTH EVERY 6 HOURS NEEDEDFOR IRRITABLE BOWEL Start Date: 04/27/15 Status: Orderedfolic acid 1 mg oral tablet See Instructions, TAKE ONE TABLET BY MOUTH EVERY DAY, # 90 tabs, 2 Refill(s), eRx: [facility] #[id number], TAKE ONE TABLET BY MOUTH EVERY DAY Start Date: 12/02/13 Status: Orderedfolic acid 1 mg oral tablet 1 mg 1 tabs, Oral, Daily, # 30 tabs, 6 Refill(s), Pharmacy: [facility] # [id number], 1 tabs Oral Daily Start Date: 05/11/15 Status: OrderedMag-Ox 400 0 Refill(s) Start Date: 11/25/13 Status: Orderedmethotrexate Takes 7 tablets once a week on Monday, 0 Refill(s) Start Date: 04/09/15 Status: Orderedmethotrexate 2.5 mg oral tablet See Instructions, TAKE 7 TABLETS BY MOUTH ONCE WEEKLY, # 35 tabs, 2 Refill(s), eRx: [facility]#[id number], TAKE 7 TABLETS BY MOUTH ONCE WEEKLY Start Date: 03/31/15 Status: OrderedMiraLax oral powder for reconstitution 17 g, Oral, Daily, dissolve in water before taking, # 527 g, 0 Refill(s) Start Date: 11/25/13 Status: Orderedmultivitamin Daily, 0 Refill(s) Start Date: 11/25/13 Status: OrderedpredniSONE 5 mg oral tablet See Instructions, TAKE ONE TABLET BY MOUTH DAILY, # 90 tabs, eRx: [facility] #[id number], TAKE ONETABLET BY MOUTH DAILY Start Date: 05/25/15 Status: OrderedProtonix 40 mg oral delayed release tablet 1 tabs, Oral, BID, # 60 tabs, 4 Refill(s), Pharmacy: [facility] #[id number], 1 tabs Oral BID Start Date: 08/28/14 Status: OrderedReclast mg, IV, Once, 0 Refill(s) Start Date: 04/04/14 Status: Orderedsertraline 100 mg oral tablet See Instructions, TAKE ONE TABLET BY MOUTH ONCE A DAY, # 90 tabs, 1 Refill(s), eRx: [facility]#[id number], TAKE ONE TABLET BY MOUTH ONCE A DAY Start Date: 06/01/15 Status: OrderedtraMADol 50 mg oral tablet See Instructions, as needed for pain, 1 -2 tabs Oral q4hr PRN, # 120 tabs, 0 Refill(s) Start Date: 06/22/15 Status: OrderedtraZODone 100 mg oral tablet See Instructions, TAKE 1 1/2 TABLETS BY MOUTH EVERY NIGHT AT BEDTIME, # 270 tabs , 1 Refill(s), Pharmacy: [facility] #[id number], TAKE 1 1/2 TABLETS BY MOUTH EVERY NIGHT AT BEDTIME Start Date: 06/24/15 Status: Orderedverapamil 180 mg/24 hours oral capsule, extended release 180 mg 1 caps, Oral, BID, # 60 caps, 3 Refill(s), Pharmacy: [facility] # [id number], 1 caps Oral BID Start Date: 04/09/15 Status: OrderedVitamin B Complex oral tablet tabs, Oral, Daily, 0 Refill(s) Start Date: 11/25/13 Status: OrderedVitamin B-12 1000 mcg oral tablet 1 tabs, Oral, Daily, # 90 tabs, 0 Refill(s) Start Date: 11/25/13 Status: Orderedwarfarin 1 mg oral tablet See Instructions, PATIENT IS TAKING 3.5MG DAILY, # 90 tabs, 1 Refill(s), Pharmacy: [facility] #[id number], PATIENT IS TAKING 3.5MG DAILY Start Date: 04/27/15 Status: Orderedwarfarin 4 mg oral tablet 4 mg 1 tabs, Oral, Daily, # 30 tabs, 1 Refill(s), Pharmacy: [facility] # [id number], 2ND TIME E SCRIPTED 1ST TIME WAS [...] [0.80-3.30 10*3] 0.95 10*3 (12/16/14 3:33 PM) [place] Absolute [0.30-1.00 10*3] 0.27 10*3 *LOW* (12/16/14 [...] Sclerotherapy of vein 2012 Intraoperative lymphatic mapping, [place] 05/24/12 lymphadenectomy, Rt simple mastectomy Laser ablation [...]
--- OUTSIDE RECORDS SUMMARY | 2017-02-02 23:29 | External Medical Summary | Referral Summary ---
:1935 Author Organization [facility] Address [address] [place] [address] [place] [phone] Care Team Providers Name Role Phone Carmine Kearns V Primary Care Physician Encounter VC Date(s): 03/05/15 - 03/05/15 [facility] [place] [place] [phone] [place] Discharge Diagnosis: [...] # 180 tabs, 1 Refill( s), eRx: [facility] #[id number], TAKE ONE TABLET BY MOUTH EVERY 12 HOURS Start Date: 02/09/15 Status: Orderedbumetanide 1 mg oral tablet See Instructions, TAKE ONE AND ONE-HALF TABLET BY MOUTH EVERY DAY, # 45 tabs, 6 Refill(s), Pharmacy:[facility] #[id number], TAKE ONE AND ONE-HALF TABLET BY MOUTH [...] # 30 tabs, 3 Refill(s), [place]EL[place]O, eRx: [facility] #[id number], TAKE ONE TABLET BY MOUTH EVERY DAY Start Date: 03/25/14 Status: OrderedCoumadin 2.5 mg oral tablet See Instructions, 1 tabs mg Oral m,w,f, # 30 tabs, 1 Refill(s), Pharmacy: [facility] #[id number], 1 tabs mg Oral m,w,f Start Date: 05/13/14 Status: OrderedCoumadin 3 mg oral tablet 3 mg 1 tabs, Oral, Daily, # 60 tabs, 1 Refill(s), Pharmacy: [facility] # [id number], 1 tabs Oral Daily Start Date: 12/23/14 Status: Ordereddicyclomine 10 mg oral capsule See Instructions, TAKE 1-2 CAPSULES BY MOUTH EVERY 6 HOURS NEEDED FOR IRRITABLE BOWEL, # 100 caps, 4 Refill(s), Pharmacy: [facility] #[id number], TAKE 1-2 CAPSULES BY MOUTH EVERY 6 HOURS NEEDEDFOR IRRITABLE BOWEL Start Date: 04/07/14 Status: Ordereddicyclomine 10 mg oral capsule 1 caps, Oral, QID, # 56 caps, 0 Refill(s) Start Date: 11/25/13 Stop Date: 12/09/13 Status: OrderedDrisdol 50,000 intl units (1.25 mg) oral capsule See Instructions, TAKE ONE CAPSULE BY MOUTH ONCE WEEKLY, # 12 caps, 2 Refill(s) , eRx: [facility] #[id number], TAKE ONE CAPSULE BY MOUTH ONCE WEEKLY Start Date: 11/18/13 Status: Orderedferrous sulfate 325 mg (65 mg elemental iron) oral tablet 1 tabs, Oral, TID, # 270 tabs, 0 Refill(s) Start Date: 11/25/13 Status: Orderedfolic acid 1 mg oral tablet 1 tabs, Oral, Daily, # 30 tabs, 6 Refill(s), Pharmacy: [facility] #[id number] , 1 tabs Oral Daily Start Date: 09/15/14 Status: Orderedfolic acid 1 mg oral tablet See Instructions, TAKE ONE TABLET BY MOUTH EVERY DAY, # 90 tabs, 2 Refill(s), eRx: [facility] #[id number], TAKE ONE TABLET BY MOUTH EVERY DAY Start Date: 12/02/13 Status: OrderedLidocaine Viscous 2% mucous membrane solution 0.01 g 0.5 mL, Topical, q4hr, as needed for mouth sore pain, SWISH AND SPIT, # 20 mL, 0 Refill(s), Pharmacy: [facility] #[id number] Start Date: 02/03/15 Stop Date: 02/04/16 Status: OrderedMag-Ox 400 0 Refill(s) Start Date: 11/25/13 Status: Orderedmethotrexate 2.5 mg oral tablet See Instructions, TAKE 7 TABLETS BY MOUTH ONCE WEEKLY, # 35 tabs, eRx: [facility] #[id number], TAKE 7 TABLETS BY MOUTH ONCE WEEKLY Start Date: 02/26/15 Status: OrderedMiacalcin Nasal 200 intl units/inh nasal spray 1 sprays, Nasal, Daily, Alternate alternate nostrils, # 3.7 mL, 0 Refill(s), Pharmacy: [facility] #[id number], 1 sprays Nasal Daily,Instr:Alternate ; alternate nostrils Start Date: 12/17/14 Status: OrderedMiraLax oral powder for reconstitution 17 g, Oral, Daily, dissolve in water before taking, # 527 g, 0 Refill(s) Start Date: 11/25/13 Status: Orderedmultivitamin Daily, 0 Refill(s) Start Date: 11/25/13 Status: OrderedpredniSONE 5 mg oral tablet 1 tabs, Oral, Daily, # 90 tabs, 1 Refill(s), Pharmacy: [facility] #[id number] , 1 tabs Oral Daily Start Date: 08/28/14 Stop Date: 09/15/16 Status: OrderedpredniSONE 5 mg oral tablet See Instructions, TAKE ONE TABLET BY MOUTH DAILY, # 90 tabs, eRx: [facility] #[id number], TAKE ONETABLET BY MOUTH DAILY Start Date: 03/02/15 Status: OrderedProtonix 40 mg oral delayed release tablet 1 tabs, Oral, BID, # 60 tabs, 4 Refill(s), Pharmacy: [facility] #[id number], 1 tabs Oral BID Start Date: 08/28/14 Status: OrderedProtonix 40 mg oral delayed release tablet 40 mg 1 tabs, Oral, Daily, # 30 tabs, 6 Refill(s), Pharmacy: [facility] # [id number], 1 tabs Oral Daily Start Date: 01/05/15 Status: OrderedReclast mg, IV, Once, 0 Refill(s) Start Date: 04/04/14 Status: Orderedsertraline 100 mg oral tablet 1 tabs, Oral, Daily, # 90 tabs, 2 Refill(s), Pharmacy: [facility] #[id number] , 1 tabs Oral Daily Start Date: 09/01/14 Status: OrderedToviaz 8 mg oral tablet, extended release 1 tabs, Oral, Daily, # 90 tabs, 1 Refill(s), Pharmacy: [facility] #[id number] , 1 tabs Oral Daily Start Date: 09/29/14 Status: OrderedToviaz 8 mg oral tablet, extended release 8 mg 1 tabs, Oral, Daily, # 90 tabs, 1 Refill(s), Pharmacy: [facility] # [id number], 1 tabs Oral Daily Start Date: 01/19/15 Status: OrderedtraMADol 50 mg oral tablet See Instructions, as needed for pain, 1 -2 tabs Oral q4hr PRN, # 120 tabs, 0 Refill(s) Start Date: 02/27/15 Status: OrderedtraZODone 100 mg oral tablet See Instructions, TAKE THREE TABLETS BY MOUTH EVERY NIGHT AT BEDTIME, # 270 tabs , 1 Refill(s), eRx: [facility] #[id number], TAKE THREE TABLETS BY MOUTH EVERY NIGHT AT BEDTIME Start Date: 05/12/14 Status: Orderedverapamil 120 mg/12 hours oral tablet, extended release 120 mg 1 tabs, Oral, Daily, # 15 tabs, 0 Refill(s), Pharmacy: [facility] # [id number], 1 tabs Oral Daily Start Date: 02/16/15 Status: OrderedVitamin B Complex oral tablet tabs, [...] Sclerotherapy of vein 2012 Intraoperative lymphatic mapping, [place] 05/24/12 lymphadenectomy, Rt simple mastectomy Laser ablation [...] If you are taking care of an infant or child who needs multiple medications, follow [...] if needed. Do not give your child yert-fzl-cjkyujj cough and cold medicines if they are under 2 years of age. Avoid giving your child or teenager Aspirin or Aspirin-containing products. Document Released: 08/30/2011 Document Revised: 08/06/2012 Document Reviewed: 08/30/2011 ExitCare Patient Information 2015 [facility] [place]. This information is not intended to replace advice given to you by your health care provider. Make sure you discuss any questions you have with your health care provider. No follow up information was provided.
--- OUTSIDE RECORDS SUMMARY | 2017-02-02 23:30 | External Medical Summary | Referral Summary ---
:1935 Author Organization [facility] Address [address] [place] [address] [place] [address] Care Team Providers Name Role Phone Carmine Kearns V Primary Care Physician Encounter VC Date(s): 12/16/14 - 12/16/14 [facility] [place] [place] [address]- Discharge Diagnosis: CAD (coronary artery disease) Discharge [...] # 180 tabs, 1 Refill( s), eRx: [facility] #[id number], TAKE ONE TABLET BY MOUTH EVERY 12 HOURS Start Date: 02/09/15 Status: Orderedbumetanide 1 mg oral tablet See Instructions, TAKE ONE AND ONE-HALF TABLET BY MOUTH EVERY DAY, # 45 tabs, 6 Refill(s), Pharmacy:[facility] #[id number], TAKE ONE AND ONE-HALF TABLET BY MOUTH [...] # 30 tabs, 3 Refill(s), [place]O, eRx: [facility] #[id number], TAKE ONE TABLET BY MOUTH EVERY DAY Start Date: 03/25/14 Status: OrderedCoumadin 2.5 mg oral tablet See Instructions, 1 tabs mg Oral m,w,f, # 30 tabs, 1 Refill(s), Pharmacy: [facility] #[id number], 1 tabs mg Oral m,w,f Start Date: 05/13/14 Status: OrderedCoumadin 3 mg oral tablet 3 mg 1 tabs, Oral, Daily, # 60 tabs, 1 Refill(s), Pharmacy: [facility] # [id number], 1 tabs Oral Daily Start Date: 12/23/14 Status: Ordereddicyclomine 10 mg oral capsule See Instructions, TAKE 1-2 CAPSULES BY MOUTH EVERY 6 HOURS NEEDED FOR IRRITABLE BOWEL, # 100 caps, 4 Refill(s), Pharmacy: [facility] #[id number], TAKE 1-2 CAPSULES BY MOUTH EVERY 6 HOURS NEEDEDFOR IRRITABLE BOWEL Start Date: 04/07/14 Status: Ordereddicyclomine 10 mg oral capsule 1 caps, Oral, QID, # 56 caps, 0 Refill(s) Start Date: 11/25/13 Stop Date: 12/09/13 Status: OrderedDrisdol 50,000 intl units (1.25 mg) oral capsule See Instructions, TAKE ONE CAPSULE BY MOUTH ONCE WEEKLY, # 12 caps, 2 Refill(s) , eRx: [facility] #[id number], TAKE ONE CAPSULE BY MOUTH ONCE WEEKLY Start Date: 11/18/13 Status: Orderedferrous sulfate 325 mg (65 mg elemental iron) oral tablet 1 tabs, Oral, TID, # 270 tabs, 0 Refill(s) Start Date: 11/25/13 Status: Orderedfolic acid 1 mg oral tablet 1 tabs, Oral, Daily, # 30 tabs, 6 Refill(s), Pharmacy: [facility] #[id number] , 1 tabs Oral Daily Start Date: 09/15/14 Status: Orderedfolic acid 1 mg oral tablet See Instructions, TAKE ONE TABLET BY MOUTH EVERY DAY, # 90 tabs, 2 Refill(s), eRx: [facility] #[id number], TAKE ONE TABLET BY MOUTH EVERY DAY Start Date: 12/02/13 Status: OrderedLidocaine Viscous 2% mucous membrane solution 0.01 g 0.5 mL, Topical, q4hr, as needed for mouth sore pain, SWISH AND SPIT, # 20 mL, 0 Refill(s), Pharmacy: [facility] #[id number] Start Date: 02/03/15 Stop Date: 02/04/16 Status: OrderedMag-Ox 400 0 Refill(s) Start Date: 11/25/13 Status: Orderedmethotrexate 2.5 mg oral tablet See Instructions, TAKE 7 TABLETS BY MOUTH ONCE WEEKLY, # 35 tabs, 2 Refill(s), eRx: [facility]#[id number], TAKE 7 TABLETS BY MOUTH ONCE WEEKLY Start Date: 03/31/15 Status: OrderedMiacalcin Nasal 200 intl units/inh nasal spray 1 sprays, Nasal, Daily, Alternate alternate nostrils, # 3.7 mL, 0 Refill(s), Pharmacy: [facility] #[id number], 1 sprays Nasal Daily,Instr:Alternate ; alternate nostrils Start Date: 12/17/14 Status: OrderedMiraLax oral powder for reconstitution 17 g, Oral, Daily, dissolve in water before taking, # 527 g, 0 Refill(s) Start Date: 11/25/13 Status: Orderedmultivitamin Daily, 0 Refill(s) Start Date: 11/25/13 Status: OrderedpredniSONE 5 mg oral tablet 1 tabs, Oral, Daily, # 90 tabs, 1 Refill(s), Pharmacy: [facility] #[id number] , 1 tabs Oral Daily Start Date: 08/28/14 Stop Date: 09/15/16 Status: OrderedpredniSONE 5 mg oral tablet See Instructions, TAKE ONE TABLET BY MOUTH DAILY, # 90 tabs, eRx: [facility] #[id number], TAKE ONETABLET BY MOUTH DAILY Start Date: 03/02/15 Status: OrderedProtonix 40 mg oral delayed release tablet 1 tabs, Oral, BID, # 60 tabs, 4 Refill(s), Pharmacy: [facility] #[id number], 1 tabs Oral BID Start Date: 08/28/14 Status: OrderedProtonix 40 mg oral delayed release tablet 40 mg 1 tabs, Oral, Daily, # 30 tabs, 6 Refill(s), Pharmacy: [facility] # [id number], 1 tabs Oral Daily Start Date: 01/05/15 Status: OrderedReclast mg, IV, Once, 0 Refill(s) Start Date: 04/04/14 Status: Orderedsertraline 100 mg oral tablet 1 tabs, Oral, Daily, # 90 tabs, 2 Refill(s), Pharmacy: [facility] #[id number] , 1 tabs Oral Daily Start Date: 09/01/14 Status: OrderedToviaz 8 mg oral tablet, extended release 1 tabs, Oral, Daily, # 90 tabs, 1 Refill(s), Pharmacy: [facility] #[id number] , 1 tabs Oral Daily Start Date: 09/29/14 Status: OrderedToviaz 8 mg oral tablet, extended release 8 mg 1 tabs, Oral, Daily, # 90 tabs, 1 Refill(s), Pharmacy: [facility] # [id number], 1 tabs Oral Daily Start Date: 01/19/15 Status: OrderedtraMADol 50 mg oral tablet See Instructions, as needed for pain, 1 -2 tabs Oral q4hr PRN, # 120 tabs, 0 Refill(s) Start Date: 02/27/15 Status: OrderedtraZODone 100 mg oral tablet See Instructions, TAKE 1 1/2 TABLETS BY MOUTH EVERY NIGHT AT BEDTIME, # 270 tabs , 1 Refill(s), eRx: [facility] #[id number], TAKE THREE TABLETS BY MOUTH EVERY NIGHT AT BEDTIME Start Date: 05/12/14 Status: Orderedverapamil 180 mg/24 hours oral capsule, extended release 180 mg 1 caps, Oral, BID, PLEASE FILL #6 ONLY, # 6 caps, 0 Refill(s), Pharmacy: [facility] #[id number], 1 caps Oral BID,Instr:PLEASE FILL #6 ONLY Start Date: 03/31/15 Status: OrderedVitamin B Complex oral tablet tabs, Oral, Daily, 0 Refill(s) Start Date: 11/25/13 Status: OrderedVitamin B-12 1000 mcg oral tablet 1 tabs, Oral, Daily, # 90 tabs, 0 Refill(s) Start Date: 11/25/13 Status: Orderedwarfarin 2 mg oral tablet 2 mg 1 tabs, Oral, Daily, # 30 tabs, 1 Refill(s), Pharmacy: [facility] # [id number], 1 tabs Oral Daily Start Date: 03/11/15 [...] [0.80-3.30 10*3] 0.95 10*3 (12/16/14 3:33 PM) [place] Absolute [0.30-1.00 10*3] 0.27 10*3 *LOW* (12/16/14 [...] Sclerotherapy of vein 2012 Intraoperative lymphatic mapping, [place] 05/24/12 lymphadenectomy, Rt simple mastectomy Laser ablation [...]
[2017-02-03] MEDS ORDERED: ACETAMINOPHEN 325 MG TABLET PO PRN (01:42)
[2017-02-03] MEDS ORDERED: ONDANSETRON 4 MG/2 ML INJECTION IVP PRN (01:42)
[2017-02-03] MEDS ORDERED: NS FLUSH BAG 500ml IV PRN (01:42)
[2017-02-03] MEDS: PANTOPRAZOLE 40 MG INJECTION IVP SCH ×2 (02:05→13:40)
--- NOTE | 2017-02-03 02:14 | History & Physical Report ---
<Johnny Liz Sherine - Last Filed: 02/03/17 02:11> History of Present Illness Date: 02/03/17 Chief complaint: weakness HPI: This is a 81 y/o female with a history of chronic anemia on Coumadin for atrial fibrillation. The patient has noticed increased weakness and was seen in her PCP clinic today and had a Hg check that demonstrated 6.9. The patient was contacted by PCP and told to go to the ED to confirm this level of anemia. In the ED the Hg was also 6.9. At this time the patient will be admitted for a blood transfusion and further considerations for ongoing anemia. Note that this is a normocytic anemia. The patient has a history of esophageal stricture and has had a colonoscopy and EGD done in the past that was not concerning otherwise. The patient is on MTX and prednisone for RA. But has been on these medications for several years. The patient will have an anemia panel done and transfuse 2 units of blood. Review of Systems Review of systems: no headache, no change in vision, chronic hard of hearing, no dysphagia, odynophagia, no chest pain, no cough, increased dyspnea with exertion, no chest pain or palpitation, no abdomen pain. does not describe a change inBM, no focal neuro complaints. 10 point ROS otherwise neg except for described above. [facility] Patient Stated Medical History Cataracts Yes Angina Yes Hypertension Yes Anemia Yes Other Musculoskeletal Yes: R. ARTHRITIS Depression Yes Surgical History: General: appendix, back, neck, tonsils. Cardiac: radio ablation, valve replacement. Reproductive/: D&C, tubal ligation. Joint: carpal tunnel, shoulder - Social History Smoking status: Never smoker Medications Home Medications Medication Instructions Recorded Confirmed Type Aspirin 81 mg PO DAILY #0 12/30/11 02/03/17 History Colchicine 0.6 mg PO BID #0 12/30/11 02/03/17 History Magnesium Oxide 400 mg PO DAILY #0 12/30/11 02/03/17 History Tramadol HCl 50 mg PO Q6H PRN #0 12/30/11 02/03/17 History predniSONE [Prednisone] 5 mg PO DAILY #0 12/30/11 02/03/17 History Dicyclomine HCl 10 mg PO QID PRN #0 11/13/15 02/03/17 History Fesoterodine Fumarate [Toviaz] 8 mg PO DAILY #0 11/13/15 02/03/17 History Folic Acid 1 mg PO DAILY #0 11/13/15 02/03/17 History Pantoprazole Sodium 40 mg PO BID #0 11/13/15 02/03/17 History Sertraline HCl 100 mg PO NOON #0 11/13/15 02/03/17 History metHOTREXate sodium [Methotrexate] 7 tab PO MONDAY #0 11/13/15 02/03/17 History Cyanocobalamin (Vitamin B-12) 1,000 mcg PO DAILY #0 07/16/16 02/03/17 History [Vitamin B-12] Losartan Potassium 50 mg PO BID #0 07/16/16 02/03/17 History Polyethylene Glycol 3350 [Miralax] 17 g PO DAILY #0 07/16/16 02/03/17 History Simethicone 180 mg PO DAILY PRN #0 07/16/16 02/03/17 History Trazodone HCl 100 mg PO HS #0 07/16/16 02/03/17 History Warfarin Sodium 3 mg PO QMWF #0 07/16/16 02/03/17 History Acetaminophen [Acetaminophen 8 650 mg PO TID #0 09/08/16 02/03/17 History Hour] Multivitamin [Multi-Day Vitamins] 1 tab PO DAILY #0 09/08/16 02/03/17 History metroNIDAZOLE [Metronidazole] 1 applic TOP BID PRN #0 09/08/16 02/03/17 History Calcium Carbonate [[id number]] 1 tab PO NOON #0 09/09/16 02/03/17 History Cyclobenzaprine HCl 1 tab PO TID PRN #0 tab 09/09/16 02/03/17 History Digoxin 1 tab PO DAILY #0 tab 09/09/16 02/03/17 History dilTIAZem HCl [Diltiazem 24Hr ER] 1 cap PO BID #30 cap 09/09/16 02/03/17 History Warfarin Sodium 1 tab PO QTUTHSASU 02/02/17 02/03/17 History Allergies Allergy/AdvReac Type Severity Reaction Status Date / Time morphine Allergy Intermediate BEHAVIOR Verified 02/02/17 23:03 DISTURBANCE zolpidem Allergy Intermediate MADE ME Verified 02/02/17 23:03 CRAZY Malt Extract. Allergy Mild DIARRHEA Verified 02/02/17 23:03 codeine Allergy Unknown Nausea Verified 02/02/17 23:28 hydroxychloroquine Allergy Unknown Hives Verified 02/02/17 23:28 terbinafine HCl Allergy Intermediate RASH Uncoded 02/02/17 23:03 Exam Vital Signs: Temperature 98.0 F 02/03/17 01:14 Pulse Rate 74 02/03/17 01:14 Respiratory Rate 16 02/03/17 01:14 Blood Pressure 160/70 H 02/03/17 01:14 Pulse Oximetry 99 02/03/17 01:14 Telemetry Rhythm: Sinus Rhythm Height/Weight/BMI: Height 1.52 m Weight 45.3 kg Body Mass Index 19.5 Comments: well developed elderly apearing female with obvious degenerative joint issues on exam. alert and oriented x 4 hard of hearing but supposrted by her daughter - Constitutional Present: mild distress, well nourished, well developed, thin, cooperative - Routine HEENT Exam Head: Present: normocephalic, atraumatic Eye: Present: PERRL, conjunctivae pink ENT: Present: mucous membranes dry - Routine Neck Exam Comments: arthritic with obviousl limitations in motion - Routine Respiratory Exam Present: CTA bilaterally - Routine Cardiovascular Exam Present: RRR, murmur Comments: 4/6 holosystolic systolic ejection murmur - Routine Abdominal Exam Present: soft, normoactive bowel sounds, non distended, non tender - Routine Rectal Exam Comments: ED did rectal and demonstrated hemorrhoid and quaic positive stool - Routine Extremities Exam Present: no edema, full ROM - Routine Skin Exam Present: intact - Routine Neurological Exam Present: alert, oriented X3, CN II-XII intact, moving all extremities. Absent: motor deficit, altered mental status - Routine Psychiatric Exam Present: normal affect, normal thought process Results - Labs CBC & Chem 7: 02/02/17 23:13 02/02/17 23:13 Assessment and Plan (1) Normocytic anemia Current visit: Yes Status: Acute 02/03/17 02:19 this patient has a baseline hg around 9. now 6.9 confirmed. multiple reasons including anemia of chronic disease, MTX toxicity, occult gi loss on coumadin, will check anemia panel (retic, b12, folate, ferritin, tibc, serum iron). go ahead and tx 2units. with ? cardiac history need to be closer to 9 than 7. aware of goals of less blood tx. need to proceed with EGD and colon as an outpatient (has a surgeon in [place] who has participated in this in the past). (2) Atrial fibrillation Current visit: Yes Status: Acute 02/03/17 02:21 med rec needs to be confirmed. looks to be on coumadin, digoxin, diltiazem, asa. adjust medicatons as indicated . will need to hold coumadin with ? bleeding. risk to benefit favors holding (3) HTN (hypertension) Current visit: Yes Status: Acute 02/03/17 02:23 appears to be on losartan and diltiazem, will confirm med rec and monitor blood pressure ovenright and if stable restart as indicated. (4) Rheumatoid arthritis Current visit: Yes Status: Acute 02/03/17 02:23 patient on chronic MTX weekly and prednisone. see discussion above. will hold for now. prednisone will need to continue though. DVT Prophylaxis: SCD's, Coumadin GI Prophylaxis: Protonix Resuscitation Status: Full Code Hospital Course Summary Disclaimer: The visit summary below is not to be considered part of the above Progress Note. <Wen Jaffe - Last Filed: 02/03/17 16:03> History of Present Illness Date: 02/03/17 [facility] Patient Stated Medical History Hypertension Rheumatoid arthritis managed by Dr. Eller Anemia Depression History DVT Paroxysmal atrial fibrillation Cardiomyopathy with preserved LV function by last echocardiogram Aortic stenosis Pubic rami fracture August 2016 History peptic ulcer disease with partial gastrectomy Mild gastritis by last EGD Breast cancer Chronic chest pain but normal coronaries by cardiac catheterization October 2015 Exam Vital Signs: Temperature 97.8 F 02/03/17 08:24 Pulse Rate 79 02/03/17 08:24 Respiratory Rate 18 02/03/17 08:24 Blood Pressure 172/72 H 02/03/17 08:24 Pulse Oximetry 97 02/03/17 08:24 Height/Weight/BMI: Height 1.52 m Weight 45.9 kg Body Mass Index 19.3 Results - Labs CBC & Chem 7: 02/03/17 13:46 02/03/17 06:08 Assessment and Plan (1) Normocytic anemia Current visit: Yes Status: Acute (2) Atrial fibrillation Current visit: Yes Status: Acute (3) HTN (hypertension) Current visit: Yes Status: Acute (4) Rheumatoid arthritis Current visit: Yes Status: Acute Assessment and Plan: Dr. Liz's note reviewed. Mrs. Antunez interviewed and examined. CC: Weakness HPI: Mrs. Antunez s a 81 y/o female with a history of chronic anemia on Coumadin for atrial fibrillation and history of DVT. The patient has noticed increased weakness/fatigue. She was seen in her PCP clinic today and had a Hg check that demonstrated 6.9. The patient was contacted by PCP and told to go to the ED to confirm this level of anemia. In the ED the Hg was also 6.9. At this time the patient will be admitted for a blood transfusion and further considerations for ongoing anemia. Note that this is a normocytic anemia. The patient has a history of peptic ulcer disease, gastritis, esophageal stricture and has had a colonoscopy and EGD done in the past 1-2 years that was not concerning otherwise. The patient is on MTX and prednisone for RA. But has been on these medications for several years. Patient hospitalized for blood transfusion. She denies any recognized bleeding other some minor spotting of blood that she attributes to hemorrhoids. She's had no melena, hematemesis, hematuria, or epistaxis. She denies indigestion but reports episodic abdominal pain which is better when she eats. She uses an [id number] product when her stomach bothers her in conjunction with PPI chronically. She describes some chronic exertional dyspnea which is not significantly changed now than it has been over the past year and she has chronic epigastric/lower chest pain which involves the left shoulder but has been worked up and is believed to be noncardiac. Chest pain is unchanged recently to PH/SH/FH: agree with that recorded above by Dr. Liz with additions to the past medical history as noted above by myself. Patient has a remote history of tobacco use discontinued at age 45, infrequent alcohol use and no history of illicit drug use. She is and lives independently although family provides daily assistance. The patient has multiple family members listed as DPOA including Pollo Antunez. She is a full code. Family history for colon cancer. ROS: 10 point review only for an oral lesion on her lower lip which is painful and prompted yesterday's office visit. Orajel was recommended. She complains of gas pains in the abdomen. Remainder of ROS as described by Dr. Liz. EXAM: General-NAD, alert, cooperative HEENT-PERRL, EOMI without nystagmus, conjunctiva clear, sclera anicteric, conjugate gaze, facial structures symmetric, oropharynx clear with superficial aphthous ulcer right lower lip, neck supple and without adenopathy Lungs-respirations nonlabored, good airflow, breath sounds clear Cardiac-regular rhythm, S1-S2, 3/6 systolic murmurs heard throughout the precordium Abd-soft, nontender, without palpable mass Ext-without edema; rheumatoid deformities in the hands/wrists Skin-extensive bruising on the forearms and dorsal hands Neuro-MAEW, sensation intact to light touch 4 extremities Psych-calm DATA: Admission hemoglobin 6.9 improving to 7.6 after 1 unit of transfused blood and 9.1 after second unit. Admission INR 3.2 B 12> 1000, folic acid> 20, serum iron 17, TIBC 393, iron saturation 4, ferritin 10.1 A/P: Chronic blood loss anemia Iron deficiency Paroxysmal atrial fibrillation Aortic stenosis Rheumatoid arthritis History DVT Chronic anticoagulation Patient has been transfused 2 units of blood with hemoglobin improving to 9.1. Studies are consistent with iron deficiency and oral supplementation will be initiated. She was evaluated by physical therapy and continued use of walker strongly recommended. Patient follow-up with Dr. Kearns in the near future to readdress question of whether repeat endoscopic studies should be pursued. In reviewing outpatient records noted that Dr. Gomez previously discussed switching from Coumadin to Xarelto-patient does not recall this but is interested in considering this option. Creatinine clearance for patient would require dose adjustment 15 mg Xarelto daily and pricing for medication is being obtained. Discharge home anticipated when family members are available later today. Hospital Course Summary Disclaimer: The visit summary below is not to be considered part of the above Progress Note. Hospital Course: 02/03/17 16:02 Mrs. Antunez was hospitalized overnight after hemoglobin was found to be low on routine office visit yesterday. Patient has been transfused 2 units of blood with hemoglobin improving to 9.1. Studies are consistent with iron deficiency and oral supplementation will be initiated. She was evaluated by physical therapy and continued use of walker strongly recommended. Patient follow-up with Dr. Kearns in the near future to readdress question of whether repeat endoscopic studies should be pursued. In reviewing outpatient records noted that Dr. Gomez previously discussed switching from Coumadin to Xarelto-patient does not recall this but is interested in considering this option. Creatinine clearance for patient would require dose adjustment 15 mg Xarelto daily and pricing for medication is being obtained. Discharge home anticipated when family members are available later today.
[2017-02-03] MEDS: SALINE FLUSH 10ml SYRINGE IVF PRN (06:16)
[2017-02-03 07:53] VITALS: BMI 19.3
[2017-02-03 08:27] VITALS: O2SAT 97
[2017-02-03] MEDS ORDERED: DICYCLOMINE 10mg CAPSULE PO PRN (09:46)
[2017-02-03] MEDS ORDERED: CYCLOBENZAPRINE 5 MG TABLET PO PRN (09:46)
[2017-02-03] MEDS ORDERED: MAGNESIUM OXIDE 400 MG TABLET PO SCH (10:00)
[2017-02-03] MEDS ORDERED: CYANOCOBALAMIN (B-12) 500mcg TABLET PO SCH (10:00)
[2017-02-03] MEDS ORDERED: FOLIC ACID 1 MG TABLET PO SCH (10:00)
[2017-02-03] MEDS ORDERED: CALCIUM CARBONATE 500 MG TABLET PO SCH (12:00)
[2017-02-03 15:50] VITALS: BP 135/67; PULSE 78; RESP 16; TEMP 98.6
[2017-02-03] MEDS ORDERED: FERROUS SULFATE 324 MG TABLET PO SCH (16:15)
--- NOTE | 2017-02-03 17:24 | Discharge Instructions ---
Discharge Plan - Med Rec/Dispo Referrals/Follow Up: Carmine Kearns MD [Family Provider] - 1 Week Prescriptions: New Ferrous Sulfate [Feosol] 324 mg PO WB #100 tab Continue Magnesium Oxide 400 mg PO DAILY #0 predniSONE [Prednisone] 5 mg PO DAILY #0 Tramadol HCl 50 mg PO Q6H PRN #0 PRN Reason: PAIN Sertraline HCl 100 mg PO NOON #0 Dicyclomine HCl 10 mg PO QID PRN #0 PRN Reason: IRRITABLE BOWEL Folic Acid 1 mg PO DAILY #0 metHOTREXate sodium [Methotrexate] 7 tab PO MONDAY #0 Pantoprazole Sodium 40 mg PO BID #0 Cyanocobalamin (Vitamin B-12) [Vitamin B-12] 1,000 mcg PO DAILY #0 Losartan Potassium 50 mg PO BID #0 Simethicone 180 mg PO DAILY PRN #0 PRN Reason: GAS Trazodone HCl 100 mg PO HS #0 Acetaminophen [Acetaminophen 8 Hour] 650 mg PO TID #0 Multivitamin [Multi-Day Vitamins] 1 tab PO DAILY #0 Cyclobenzaprine HCl 1 tab PO TID PRN #0 tab PRN Reason: SPASMS Aspirin 81 mg PO DAILY #0 Colchicine 0.6 mg PO BID #0 Fesoterodine Fumarate [Toviaz] 8 mg PO DAILY #0 Polyethylene Glycol 3350 [Miralax] 17 g PO DAILY #0 metroNIDAZOLE [Metronidazole] 1 applic TOP BID PRN #0 PRN Reason: Prn Orders dilTIAZem HCl [Diltiazem 24Hr ER] 1 cap PO BID #30 cap Digoxin 1 tab PO DAILY #0 tab Calcium Carbonate [[id number]] 1 tab PO NOON #0 Changed Warfarin Sodium 1 tab PO 5XW #0 Warfarin Sodium 3 mg PO 2XW #0 Discharge Instructions/Outpatient Orders: Final Provider Discharge Instructions Location: Determined By Patient - Disposition 01 Discharged Home, Self-Care
--- NOTE | 2017-02-03 17:32 | Discharge Summary ---
Discharge Summary- Blank Discharge Summary: Chronic blood loss anemia Iron deficiency Paroxysmal atrial fibrillation Aortic stenosis Rheumatoid arthritis History DVT Chronic anticoagulation Patient has been transfused 2 units of blood with hemoglobin improving to 9.1. Studies are consistent with iron deficiency and oral supplementation will be initiated. She was evaluated by physical therapy and continued use of walker strongly recommended. Patient follow-up with Dr. Kearns in the near future to readdress question of whether repeat endoscopic studies should be pursued. In reviewing outpatient records noted that Dr. Gomez previously discussed switching from Coumadin to Xarelto-patient does not recall this but is interested in considering this option. Creatinine clearance for patient would require dose adjustment 15 mg Xarelto daily and pricing for medication is being obtained. Discharge home anticipated when family members are available later today. Discharge medications are unchanged from admission other than addition of iron sulfate 324 mg daily and minor reduction in warfarin to 2 mg 5 days a week and 3 mg 2 days a week on Monday/Monday-dose to be held today. Please refer to my addendum to the H&P for details of admission and laboratory data.
[2017-02-03] MEDS ORDERED: LOSARTAN 50 MG TABLET PO SCH (21:00)
[2017-02-03] MEDS ORDERED: COLCHICINE 0.6 MG TABLET PO SCH (21:00)
[2017-02-04] MEDS ORDERED: DIGOXIN 125 MCG TABLET PO SCH (09:00)
== END 2017-02-03 19:20 | disposition home or self-care (01) ==
LOC: ED 22:50 → MED 22:50
PROVIDERS: ADMIT Emergency Medicine; ATTEND Internal Medicine

== ENCOUNTER 2017-02-21 20:51 | Observation (INO) ==
--- NOTE | 2017-02-21 21:49 | Emergency Department Report ---
General Adult HPI - General Chief complaint: Medical Emergency Stated complaint: anemia Time Seen by Provider: 02/21/17 20:59 - History of Present Illness HPI narrative: 82 yo female reports hx of anemia and states she received a call from her PCP that her rbc are low and she needs to come to ED. We have no communication or labs and they were performed through [facility] and do not have access to them. Pt had transfusion two weeks ago by hx. She has had worsening fatigue over the last few days. She is very frustrated that the last transfusion did not hold. - Related Data Home Medications Medication Instructions Recorded Confirmed Aspirin 81 mg PO DAILY #0 12/30/11 02/21/17 Colchicine 0.6 mg PO BID #0 12/30/11 02/21/17 Tramadol HCl 50 mg PO Q6H PRN #0 12/30/11 02/21/17 predniSONE [Prednisone] 5 mg PO DAILY #0 12/30/11 02/21/17 Dicyclomine HCl 10 mg PO QID PRN #0 11/13/15 02/21/17 Fesoterodine Fumarate [Toviaz] 8 mg PO DAILY #0 11/13/15 02/21/17 Folic Acid 1 mg PO DAILY #0 11/13/15 02/21/17 Pantoprazole Sodium 40 mg PO BID #0 11/13/15 02/21/17 Sertraline HCl 100 mg PO NOON #0 11/13/15 02/21/17 metHOTREXate sodium [Methotrexate] 7 tab PO MONDAY #0 11/13/15 02/21/17 Cyanocobalamin (Vitamin B-12) 1,000 mcg PO DAILY #0 07/16/16 02/21/17 [Vitamin B-12] Losartan Potassium 50 mg PO BID #0 07/16/16 02/21/17 Polyethylene Glycol 3350 [Miralax] 17 g PO DAILY #0 07/16/16 02/21/17 Simethicone 180 mg PO DAILY PRN #0 07/16/16 02/21/17 Trazodone HCl 100 mg PO HS #0 07/16/16 02/21/17 Acetaminophen [Acetaminophen 8 650 mg PO TID #0 09/08/16 02/21/17 Hour] Multivitamin [Multi-Day Vitamins] 1 tab PO DAILY #0 09/08/16 02/21/17 metroNIDAZOLE [Metronidazole] 1 applic TOP BID PRN #0 09/08/16 02/21/17 Calcium Carbonate [[id number]] 1 tab PO NOON #0 09/09/16 02/21/17 Cyclobenzaprine HCl 1 tab PO TID PRN #0 tab 09/09/16 02/21/17 Digoxin 1 tab PO DAILY #0 tab 09/09/16 02/21/17 dilTIAZem HCl [Diltiazem 24Hr ER] 1 cap PO BID #30 cap 09/09/16 02/21/17 Ferrous Sulfate [Feosol] 1 tab PO DAILY 02/21/17 02/21/17 Rivaroxaban [Xarelto] 20 mg PO WS 02/21/17 02/21/17 Previous Rx's Medication Instructions Recorded Ferrous Sulfate [Feosol] 324 mg PO WB #100 tab 02/03/17 Allergies Allergy/AdvReac Type Severity Reaction Status Date / Time morphine Allergy Intermediate BEHAVIOR Verified 02/21/17 20:59 DISTURBANCE zolpidem Allergy Intermediate MADE ME Verified 02/21/17 20:59 CRAZY Malt Extract. Allergy Mild DIARRHEA Verified 02/21/17 20:59 codeine Allergy Unknown Nausea Verified 02/21/17 20:59 hydroxychloroquine Allergy Unknown Hives Verified 02/21/17 20:59 terbinafine HCl Allergy Intermediate RASH Uncoded 02/21/17 20:59 Review of Systems All systems: reviewed and negative except as stated PFSH Patient Stated Medical History Cataracts Yes Angina Yes Hypertension Yes Anemia Yes Other Musculoskeletal Yes: R. ARTHRITIS Depression Yes Surgical History: General: appendix, back, neck, tonsils. Cardiac: radio ablation, valve replacement. Reproductive/: D&C, tubal ligation. Joint: carpal tunnel, shoulder - Social History Smoking status: Never smoker Substance use type: does not use Alcohol intake frequency: does not drink Current residence: Apartment/Private Home Physical Exam - Limitations Limitations: no limitations - General General appearance: alert, in no apparent distress - Normal Exams: Head:: Normocephalic without trauma Chest/Respirations:: Clear all mast, with good airflow, and symmetry bilaterally Cardiovascular:: Regular rate and rhythm, without murmur or gallop, Pulses 2+ all extremities, capillary refill, <2 seconds all extremities Neurological:: Patient is alert, and oriented, cranial nerves, motor/sensory/ cerebellar, exams w/o gross deficits, to observation Psychiatric:: Patient exhibits, appropriate attention, emotion and affect Course Vital Signs Temperature 98.1 F 02/21/17 20:53 Pulse Rate 88 02/21/17 20:53 Respiratory Rate 12 02/21/17 20:53 Blood Pressure 146/67 H 02/21/17 20:53 Pulse Oximetry 100 02/21/17 20:53 Temperature 98.1 F 02/21/17 20:53 Pulse Rate 88 02/21/17 20:53 Respiratory Rate 12 02/21/17 20:53 Blood Pressure 146/67 H 02/21/17 20:53 Pulse Oximetry 100 02/21/17 20:53 Medical Decision Making - MDM Narrative Medical decision making narrative: hgb returned at 6.4. Patient symptomatic with weakness and lightheadedness. Cause of anemia is unknown. She does need transfusion at this point and hospitalist agreed to admit her for transfusion. We discussed option of setting up outpatient transfusions and she will check with her doctor. - Lab Data Result diagrams: 02/21/17 21:59 02/21/17 21:59 Lab Results 02/21/17 02/21/17 02/21/17 Range/Units 21:59 21:59 21:59 WBC 5.7 (4.5-11.0) T/MM3 RBC 2.41 L (4.00-5.20) M/MM3 Hgb 6.4 L (12-16) GM/DL Hct 22.6 L (36-46) % MCV 93.8 (80-100) UM3 MCH 26.6 (26-34) UUG MCHC 28.3 L (31-37) GM/DL RDW Std Deviation 77.4 H (36.9-50.2) FL Plt Count 441 H (130-400) T/MM3 MPV 10.9 (9.4-12.4) UM3 Immature Gran % (Auto) 0.2 (0.0-0.5) % Neut % (Auto) 83.5 H (33-66) % Lymph % (Auto) 11.2 L (23-45) % [place] % (Auto) 4.2 (0-9.0) % Eos % (Auto) 0.5 (0-4) % Baso % (Auto) 0.4 (0-2) % Neut # (Auto) 4.8 (1.8-7.7) T/MM3 Lymph # (Auto) 0.6 L (1-4.8) T/MM3 [place] # (Auto) 0.2 (0-0.8) T/MM3 Eos # (Auto) 0.0 (0-0.5) T/MM3 Baso # (Auto) 0.0 (0-0.2) T/MM3 Abs Immat Gran (auto) 0.01 (0.00-0.03) T/MM3 Turbidity < 20 (0-20) Sodium 144 (134-144) MEQ/L Potassium 4.5 (3.6-5) MEQ/L Chloride 113 H (98-107) MEQ/L Carbon Dioxide 22 (22-30) MEQ/L Anion Gap 9 (5-15) MEQ/L BUN 27.0 H (7-17) MG/DL Creatinine 1.0 (0.7-1.2) MG/DL GFR Calculation 53 BUN/Creatinine Ratio 27 H (6-26) RATIO Glucose 90 (65-110) MG/DL Calculated Osmolality 282 H (261-280) MOSM/KG Calcium 8.5 (8.4-10.2) MG/DL Total Bilirubin 0.40 (0.20-1.30) MG/DL Icterus Index < 2 (0-7) AST 45 H (14-36) U/L ALT 42 (9-52) U/L Alkaline Phosphatase 106 (38-126) U/L Total Protein 5.7 L (6.3-8.2) G/DL Albumin 3.3 L (3.5-5.0) G/DL Globulin 2.4 (2.4-3.6) G/DL Albumin/Globulin Ratio 1.4 (1.1-2.2) RATIO Specimen Hemolysis < 15 (0-25) Blood Type O Positive Antibody Screen Negative Disposition Clinical Impression: Anemia, Atrial fibrillation Disposition: To [facility] Condition: Stable Prescriptions: No Action predniSONE [Prednisone] 5 mg PO DAILY #0 Tramadol HCl 50 mg PO Q6H PRN #0 PRN Reason: PAIN Sertraline HCl 100 mg PO NOON #0 Dicyclomine HCl 10 mg PO QID PRN #0 PRN Reason: IRRITABLE BOWEL Folic Acid 1 mg PO DAILY #0 metHOTREXate sodium [Methotrexate] 7 tab PO MONDAY #0 Pantoprazole Sodium 40 mg PO BID #0 Cyanocobalamin (Vitamin B-12) [Vitamin B-12] 1,000 mcg PO DAILY #0 Losartan Potassium 50 mg PO BID #0 Simethicone 180 mg PO DAILY PRN #0 PRN Reason: GAS Trazodone HCl 100 mg PO HS #0 Acetaminophen [Acetaminophen 8 Hour] 650 mg PO TID #0 Multivitamin [Multi-Day Vitamins] 1 tab PO DAILY #0 Cyclobenzaprine HCl 1 tab PO TID PRN #0 tab PRN Reason: SPASMS Ferrous Sulfate [Feosol] 324 mg PO WB #100 tab Ferrous Sulfate [Feosol] 1 tab PO DAILY Aspirin 81 mg PO DAILY #0 Colchicine 0.6 mg PO BID #0 Fesoterodine Fumarate [Toviaz] 8 mg PO DAILY #0 Polyethylene Glycol 3350 [Miralax] 17 g PO DAILY #0 metroNIDAZOLE [Metronidazole] 1 applic TOP BID PRN #0 PRN Reason: Prn Orders dilTIAZem HCl [Diltiazem 24Hr ER] 1 cap PO BID #30 cap Digoxin 1 tab PO DAILY #0 tab Calcium Carbonate [[id number]] 1 tab PO NOON #0 Rivaroxaban [Xarelto] 20 mg PO WS Referrals: Carmine Kearns MD [Family Provider] - Time of Disposition: 23:28 - Seen By: physician
[2017-02-21] MEDS: SALINE FLUSH 10ml SYRINGE IVF PRN (21:50)
--- NOTE | 2017-02-22 00:45 | History & Physical Report ---
<Johnny Liz - Last Filed: 02/22/17 00:42> History of Present Illness Date: 02/22/17 Chief complaint: anemai HPI: See recent h and p. This patient has ongoing anemia. Does not appear to be GI related. is anticoagulated for atrial fibrillation. recently changed from coumdin to xaralto. The patient had labs today inclinic and sent home. Patient was contacted tonight that her Hg was 6.4 and was referred to ED for a blood transfusion tonight. Patient is scheduled for an appointment with her Rhumatologoist next month to discuss her use of MTX which is a reasonable candidate for her ongoing anemia. Review of Systems Review of systems: no headache, no change in vision, generally weak, describes chronic chest pain, occasional cough, no congestion, no abdomen pain, no nasuea or vomitng. patient with diarrhea this week that has stopped. no focal neurological complaints. 10 point ROS otherwsie negative except for described above. PFSH atrial fibrillation, RA, normocytic anemia, esopohagaeal stricture, CAD, depression Surgical History: General: appendix, back, neck, tonsils. Cardiac: radio ablation, valve replacement. Reproductive/: D&C, tubal ligation. Joint: carpal tunnel, shoulder - Social History Smoking status: Never smoker Current residence: Apartment/Private Home Medications Home Medications Medication Instructions Recorded Confirmed Type Aspirin 81 mg PO DAILY #0 12/30/11 02/21/17 History Colchicine 0.6 mg PO BID #0 12/30/11 02/21/17 History Tramadol HCl 50 mg PO Q6H PRN #0 12/30/11 02/21/17 History predniSONE [Prednisone] 5 mg PO DAILY #0 12/30/11 02/21/17 History Dicyclomine HCl 10 mg PO QID PRN #0 11/13/15 02/21/17 History Fesoterodine Fumarate [Toviaz] 8 mg PO DAILY #0 11/13/15 02/21/17 History Folic Acid 1 mg PO DAILY #0 11/13/15 02/21/17 History Pantoprazole Sodium 40 mg PO BID #0 11/13/15 02/21/17 History Sertraline HCl 100 mg PO NOON #0 11/13/15 02/21/17 History metHOTREXate sodium [Methotrexate] 7 tab PO MONDAY #0 11/13/15 02/21/17 History Cyanocobalamin (Vitamin B-12) 1,000 mcg PO DAILY #0 07/16/16 02/21/17 History [Vitamin B-12] Losartan Potassium 50 mg PO BID #0 07/16/16 02/21/17 History Polyethylene Glycol 3350 [Miralax] 17 g PO DAILY #0 07/16/16 02/21/17 History Simethicone 180 mg PO DAILY PRN #0 07/16/16 02/21/17 History Trazodone HCl 100 mg PO HS #0 07/16/16 02/21/17 History Acetaminophen [Acetaminophen 8 650 mg PO TID #0 09/08/16 02/21/17 History Hour] Multivitamin [Multi-Day Vitamins] 1 tab PO DAILY #0 09/08/16 02/21/17 History metroNIDAZOLE [Metronidazole] 1 applic TOP BID PRN #0 09/08/16 02/21/17 History Calcium Carbonate [Rqku-Cps-032] 1 tab PO NOON #0 09/09/16 02/21/17 History Cyclobenzaprine HCl 1 tab PO TID PRN #0 tab 09/09/16 02/21/17 History Digoxin 1 tab PO DAILY #0 tab 09/09/16 02/21/17 History dilTIAZem HCl [Diltiazem 24Hr ER] 1 cap PO BID #30 cap 09/09/16 02/21/17 History Ferrous Sulfate [Feosol] 1 tab PO DAILY 02/21/17 02/21/17 History Rivaroxaban [Xarelto] 20 mg PO WS 02/21/17 02/21/17 History Allergies Allergy/AdvReac Type Severity Reaction Status Date / Time morphine Allergy Intermediate BEHAVIOR Verified 02/21/17 20:59 DISTURBANCE zolpidem Allergy Intermediate MADE ME Verified 02/21/17 20:59 CRAZY Malt Extract. Allergy Mild DIARRHEA Verified 02/21/17 20:59 codeine Allergy Unknown Nausea Verified 02/21/17 20:59 hydroxychloroquine Allergy Unknown Hives Verified 02/21/17 20:59 terbinafine HCl Allergy Intermediate RASH Uncoded 02/21/17 20:59 Exam Vital Signs: Temperature 98.1 F 02/21/17 20:53 Pulse Rate 81 02/21/17 23:30 Respiratory Rate 16 02/21/17 23:30 Blood Pressure 141/66 H 02/21/17 23:30 Pulse Oximetry 95 02/21/17 23:30 Comments: well developed well nourished female who appears her stated age in minimal distress - Constitutional Present: mild distress, well nourished, thin, cooperative - Routine HEENT Exam Head: Present: normocephalic, atraumatic Eye: Present: EOMI ENT: Present: mucous membranes dry - Routine Neck Exam Present: supple, full ROM - Routine Respiratory Exam Present: decreased breath sounds, CTA bilaterally - Routine Cardiovascular Exam Present: RRR Comments: 09/01 Asha - Routine Abdominal Exam Present: soft, normoactive bowel sounds, non distended, non tender - Routine Extremities Exam Present: no edema - Routine Skin Exam Present: intact, dry - Routine Neurological Exam Present: alert, oriented X3, CN II-XII intact. Absent: motor deficit - Routine Psychiatric Exam Present: normal affect, normal thought process Results - Labs CBC & Chem 7: 02/21/17 21:59 02/21/17 21:59 Labs: reviewed Assessment and Plan (1) Normocytic anemia Current visit: No Status: Acute 02/22/17 00:47 as noted above, most likely related to MTX. Rhuematology appt scheduled. tx 2 units 2/2 cardiac disease and followup with labs in the am. comprehensive workup at this time will not be undertaken as this can be continued in the outpatietn setting with access to all records so as not to repeat unnecessary steps. Unlikely iron def with normocytic values (2) Rheumatoid arthritis Current visit: No Status: Acute 02/22/17 00:48 as noted above will continue to wait on rhuematatologist appt DVT Prophylaxis: SCD's GI Prophylaxis: Protonix Resuscitation Status: Full Code Assessment and Plan: Note please see recent h and p to review the remaining problems as they have not changed ove rthe past weeks. Hospital Course Summary Disclaimer: The visit summary below is not to be considered part of the above Progress Note. <Wen Jaffe - Last Filed: 02/22/17 15:51> History of Present Illness Date: 02/22/17 [facility] Patient Stated Medical History Cataracts Yes Angina Yes Hypertension Yes Anemia Yes Other Musculoskeletal Yes: R. ARTHRITIS Blood Transfusions Yes Depression Yes Exam Vital Signs: Temperature 98.0 F 02/22/17 15:12 Pulse Rate 80 02/22/17 15:12 Respiratory Rate 18 02/22/17 15:12 Blood Pressure 148/72 H 02/22/17 15:12 Pulse Oximetry 97 02/22/17 15:12 Height/Weight/BMI: Height 1.52 m Weight 45.813 kg Body Mass Index 19.7 Results - Labs CBC & Chem 7: 02/22/17 09:38 02/22/17 09:38 Assessment and Plan (1) Normocytic anemia Current visit: No Status: Acute (2) Rheumatoid arthritis Current visit: No Status: Acute Assessment and Plan: Dr. Liz's note reviewed. Mrs. Antunez interviewed and examined. CC: Weakness/anemia HPI: Mrs. Antunez had blood work done at the office yesterday morning and was subsequently called that her hemoglobin was 6.4 and referred to the hospital to coordinate blood transfusion late yesterday evening. She reports that she's had no energy for the past 4-5 days, been concerned that she would fall for fear that her legs will go out from underneath her, and had exertional dyspnea. She denies apparent bleeding but reports her stools are dark which she attributes to taking iron. She was hospitalized approximately 3 weeks ago for transfusion under similar circumstances. At that time she was found to be significantly iron deficient. The patient reports that colonoscopy is up-to-date and has chronic heartburn being treated with PPI and [id number] antacids. PH/SH/FH: agree with that recorded above with additions that patient has family history positive for colon cancer and a personal history of tobacco use until age 45, infrequent alcohol use, and no illicit drug use. Patient is a full code and her children serve as DPOA. I believe the patient had a mitral valve repair rather than valve replacement previously. ROS: 10 point review as recorded by Dr. Liz with additions and the patient complains of heel pain recently and has decreased sensation in her feet and fingertips. EXAM: General-NAD, alert HEENT-PERRL, EOMI without nystagmus, conjunctiva clear, sclera anicteric, conjugate gaze, facial structures symmetric, oropharynx clear, neck supple and without adenopathy Lungs-respirations nonlabored, good airflow, breath sounds clear Cardiac-regular rhythm, S1-S2, harsh 3/6 systolic murmur Abd-soft, nontender Ext-without edema Skin-multiple bruises on the upper extremities Neuro-moves all extremities well Psych-calm, cooperative DATA: Admission hemoglobin 6.4 improving to 10.6 following 2 units of packed red blood cells. Platelet count mildly elevated at 441 on admission, chemistries unremarkable. Ferritin last admission was 10.1, iron 17, TIBC 393, and iron saturation 4%. B-12 and folic acid were both elevated. A/P: Recurrent anemia, known iron deficiency Rheumatoid arthritis Aortic stenosis Proximal atrial fibrillation Transfusions overnight have effectively raised hemoglobin for present time. May benefit from iron infusion to promote reticulocytosis. Plan discharge home this afternoon when patient's daughter is available. Recommend that hemoglobin be checked weekly to permit outpatient transfusion before hemoglobin reaches critical level. Recent change from warfarin to Xarelto noted. Plans discussed with Dr. Kearns. Hospital Course Summary Disclaimer: The visit summary below is not to be considered part of the above Progress Note.
[2017-02-22] MEDS ORDERED: HYDROCODONE/APAP 5mg/325mg TABLET PO PRN (01:13)
[2017-02-22] MEDS ORDERED: ACETAMINOPHEN 325 MG TABLET PO PRN (01:13)
[2017-02-22] MEDS ORDERED: NS FLUSH BAG 500ml IV PRN (01:13)
[2017-02-22] MEDS ORDERED: ONDANSETRON 4 MG/2 ML INJECTION IVP PRN (01:13)
[2017-02-22] MEDS ORDERED: TRAMADOL 50 MG TABLET PO PRN (01:13)
[2017-02-22] MEDS: SALINE FLUSH 10ml SYRINGE IVF PRN (02:39)
[2017-02-22 07:56] VITALS: O2SAT 97
[2017-02-22] MEDS ORDERED: PredniSONE 5 MG TABLET PO SCH (09:00)
[2017-02-22] MEDS ORDERED: POLYETHYL GLYCOL 3350 17gm PACKET PO SCH (09:00)
[2017-02-22] MEDS ORDERED: FERROUS SULFATE 324 MG TABLET PO SCH (09:00)
[2017-02-22] MEDS ORDERED: FOLIC ACID 1 MG TABLET PO SCH (09:00)
[2017-02-22] MEDS ORDERED: DIGOXIN 125 MCG TABLET PO SCH (09:00)
[2017-02-22] MEDS ORDERED: LOSARTAN 50 MG TABLET PO SCH (09:00)
[2017-02-22] MEDS ORDERED: ASPIRIN 81 MG CHEWABLE TABLET PO SCH (09:00)
[2017-02-22] MEDS ORDERED: COLCHICINE 0.6 MG TABLET PO SCH (09:00)
[2017-02-22] MEDS: PANTOPRAZOLE 40 MG TABLET PO SCH ×2 (09:10→17:53)
[2017-02-22 09:11] VITALS: BMI 19.7
[2017-02-22] MEDS ORDERED: SERTRALINE 100 MG TABLET PO SCH (12:00)
[2017-02-22 15:13] VITALS: BP 148/72; PULSE 80; RESP 18; TEMP 98
[2017-02-22] MEDS ORDERED: PNEUMOCOCCAL 13 VACCINE 0.5ml INJECTION IM ONE (16:58)
--- NOTE | 2017-02-22 17:01 | Discharge Instructions ---
Discharge Plan - Med Rec/Dispo Referrals/Follow Up: Carmine Kearns MD [Family Provider] - 1 Week (Recheck hemoglobin in 1 week) Damion Instructions: Anemia (GEN) Prescriptions: Continue predniSONE [Prednisone] 5 mg PO DAILY #0 Tramadol HCl 50 mg PO Q6H PRN #0 PRN Reason: PAIN Sertraline HCl 100 mg PO NOON #0 Dicyclomine HCl 10 mg PO QID PRN #0 PRN Reason: IRRITABLE BOWEL Folic Acid 1 mg PO DAILY #0 metHOTREXate sodium [Methotrexate] 7 tab PO MONDAY #0 Pantoprazole Sodium 40 mg PO BID #0 Cyanocobalamin (Vitamin B-12) [Vitamin B-12] 1,000 mcg PO DAILY #0 Losartan Potassium 50 mg PO BID #0 Simethicone 180 mg PO DAILY PRN #0 PRN Reason: GAS Trazodone HCl 100 mg PO HS #0 Acetaminophen [Acetaminophen 8 Hour] 650 mg PO TID #0 Multivitamin [Multi-Day Vitamins] 1 tab PO DAILY #0 Cyclobenzaprine HCl 1 tab PO TID PRN #0 tab PRN Reason: SPASMS Ferrous Sulfate [Feosol] 324 mg PO WB #100 tab Ferrous Sulfate [Feosol] 1 tab PO DAILY Aspirin 81 mg PO DAILY #0 Colchicine 0.6 mg PO BID #0 Fesoterodine Fumarate [Toviaz] 8 mg PO DAILY #0 Polyethylene Glycol 3350 [Miralax] 17 g PO DAILY #0 metroNIDAZOLE [Metronidazole] 1 applic TOP BID PRN #0 PRN Reason: Prn Orders dilTIAZem HCl [Diltiazem 24Hr ER] 1 cap PO BID #30 cap Digoxin 1 tab PO DAILY #0 tab Calcium Carbonate [[id number]-[id number]-[id number]] 1 tab PO NOON #0 Rivaroxaban [Xarelto] 20 mg PO WS Discharge Instructions/Outpatient Orders: Final Provider Discharge Instructions Location: Determined By Patient - Disposition 01 Discharged Home, Self-Care
--- NOTE | 2017-02-22 17:03 | Discharge Summary ---
Discharge Summary- Blank Discharge Summary: Mrs. Antunez was hospitalized overnight for blood transfusions after outpatient hemoglobin was reported to be 6.4. This was confirmed and she received 2 units of packed red blood cells with follow-up hemoglobin of 10.6. The patient was hemodynamically stable throughout hospital stay and no change in medications were made. She'll follow up with Dr. Kearns for repeat hemoglobin in approximately one week. She has known iron deficiency anemia and is chronically anticoagulated due to paroxysmal atrial fibrillation. IV iron replacement was discussed as possible intervention to minimize recurrent transfusion need.
[2017-02-22] MEDS ORDERED: RIVAROXABAN 20 MG TABLET PO SCH (17:30)
[2017-02-22] MEDS ORDERED: TRAZODONE 100 MG TABLET PO SCH (21:00)
== END 2017-02-22 18:32 | disposition home or self-care (01) ==
LOC: ED 20:51 → MED 20:51
PROVIDERS: ADMIT Emergency Medicine; ATTEND Internal Medicine

== ENCOUNTER 2017-04-06 12:58 | Inpatient (IN) ==
--- NOTE | 2017-04-06 13:12 | Emergency Department Report ---
Weakness HPI - General Chief complaint: Weakness Stated complaint: weak,anemic Time Seen by Provider: 04/06/17 13:12 Source: patient, family Mode of arrival: wheelchair Limitations: no limitations - History of Present Illness HPI Narrative: Pt presents from her PCP office with a Hgb of 5.9. Family reports pt has been seeing Dr Arvizu regarding source of anemia. She has had multiple transfusions in the past and had a bone biopsy done last week. Family states she has had dark diarrhea which started this am and they are concerned that her urine is cloudy. MD Complaint: generalized weakness, lack of energy Onset (ago): day(s) Duration: constant Context: history of similar Associated symptoms: dark stools - Related Data Home Medications Medication Instructions Recorded Confirmed Colchicine 0.6 mg PO BID #0 12/30/11 04/06/17 Tramadol HCl 50 mg PO Q6H PRN #0 12/30/11 04/06/17 predniSONE [Prednisone] 5 mg PO DAILY #0 12/30/11 04/06/17 Fesoterodine Fumarate [Toviaz] 8 mg PO DAILY #0 11/13/15 04/06/17 Pantoprazole Sodium 40 mg PO BID #0 11/13/15 04/06/17 Sertraline HCl 100 mg PO NOON #0 11/13/15 04/06/17 Cyanocobalamin (Vitamin B-12) 1,000 mcg PO DAILY #0 07/16/16 04/06/17 [Vitamin B-12] Losartan Potassium 50 mg PO BID #0 07/16/16 04/06/17 Trazodone HCl 100 mg PO HS #0 07/16/16 04/06/17 Multivitamin [Multi-Day Vitamins] 1 tab PO DAILY #0 09/08/16 04/06/17 Calcium Carbonate [Jeml-[id number]-834] 500 mg PO NOON #0 09/09/16 04/06/17 Digoxin 125 mg PO DAILY #0 tab 09/09/16 04/06/17 dilTIAZem HCl [Diltiazem 24Hr ER] 180 mg PO BID #30 cap 09/09/16 04/06/17 Rivaroxaban [Xarelto] 20 mg PO WS 02/21/17 04/06/17 Aspirin [[place] Aspirin] 81 mg PO DAILY 04/06/17 04/06/17 Butalbital/Aspirin/Caffeine 2 each PO Q6H PRN 04/06/17 04/06/17 [Fiorinal] Cholecalciferol (Vitamin D3) 1,000 unit PO NOON 04/06/17 04/06/17 [Vitamin D3] Ferrous Sulfate 325 mg PO DAILY 04/06/17 04/06/17 Vitamin B Complex + C [Total B + C] 1 tab PO DAILY 04/06/17 04/06/17 Allergies Allergy/AdvReac Type Severity Reaction Status Date / Time morphine Allergy Intermediate BEHAVIOR Verified 04/06/17 13:54 DISTURBANCE zolpidem Allergy Intermediate MADE ME Verified 04/06/17 13:54 CRAZY Malt Extract. Allergy Mild DIARRHEA Verified 04/06/17 13:54 codeine Allergy Unknown Nausea Verified 04/06/17 13:54 hydroxychloroquine Allergy Unknown Hives Verified 04/06/17 13:54 terbinafine HCl Allergy Intermediate RASH Uncoded 02/21/17 20:59 Review of Systems All systems: reviewed and negative except as stated Constitutional: Reports: weakness. Denies: fever, chills Gastrointestinal: Reports: diarrhea, hematochezia. Denies: nausea, vomiting Musculoskeletal: Reports: joint swelling, arthralgia PFSH Patient Stated Medical History Cataracts Yes Angina Yes Hypertension Yes Anemia Yes Other Musculoskeletal Yes: R. ARTHRITIS Blood Transfusions Yes Depression Yes Clinic Medical History Anemia (Acute Medical) Normocytic anemia (Acute Medical) Atrial fibrillation (Acute Medical) HTN (hypertension) (Acute Medical) Rheumatoid arthritis (Acute Medical) GI bleed (Acute Medical) Surgical History: General: appendix, back, neck, tonsils. Cardiac: radio ablation, valve replacement. Reproductive/: D&C, tubal ligation. Joint: carpal tunnel, shoulder - Social History Smoking status: Never smoker Current residence: Apartment/Private Home Physical Exam - Limitations Limitations: no limitations - General General appearance: alert, in distress - Normal Exams: Head:: Normocephalic without trauma Eyes:: Pupils are PERRLA w/ EOMI Neck:: Full range of motion, without adenopathy Chest/Respirations:: Clear all mast, with good airflow, and symmetry bilaterally Cardiovascular:: Regular rate and rhythm (grade 3 murmur) Abdomen:: Bowel sounds positive (hypoactive), soft, non-tender, non-distended Musculoskeletal:: No tenderness, or deformity noted, good range of motion, all extremities Integumentary:: No rashes (extremely pale) Neurological:: Patient is alert, and oriented Psychiatric:: Patient exhibits, appropriate attention (obviously very weak but appropriate) Course Vital Signs Temperature 97.6 F 04/06/17 12:58 Pulse Rate 79 04/06/17 12:58 Respiratory Rate 23 04/06/17 12:58 Blood Pressure 92/46 04/06/17 12:58 Pulse Oximetry 100 04/06/17 12:58 Temperature 97.6 F 04/06/17 12:58 Pulse Rate 75 04/06/17 14:09 Respiratory Rate 21 04/06/17 14:09 Blood Pressure 92/41 04/06/17 14:09 Pulse Oximetry 100 04/06/17 12:58 Weakness - MDM Narrative Medical decision making narrative: Labs reviewed and show a Hgb of 5.9. Type and screen for 2 units ordered. Pt having PVCs and PACs on the monitor. BP progressively dropping. 500 cc NS bolus given with stabilization of blood pressure. Dr Jaffe notified for admission. Stool for occult blood positive. Pt to be admitted to CCU. - Differential Diagnosis Differential diagnosis: Likely: anemia, rhabdomyolysis, sepsis (GI bleed) - Lab Data Attestation: I reviewed the patient's lab results. Result diagrams: 04/06/17 13:11 04/06/17 13:11 Lab Results 04/06/17 04/06/17 04/06/17 Range/Units 13:11 13:11 13:12 WBC 13.2 H (4.5-11.0) T/MM3 RBC 1.82 L (4.00-5.20) M/MM3 Hgb 5.6 L* (12-16) GM/DL Hct 19.8 L (36-46) % MCV 108.8 H (80-100) UM3 MCH 30.8 (26-34) UUG MCHC 28.3 L (31-37) GM/DL RDW Std Deviation 72.6 H (36.9-50.2) FL Plt Count 286 (130-400) T/MM3 MPV 12.6 H (9.4-12.4) UM3 Immature Gran % (Auto) 0.6 H (0.0-0.5) % Neut % (Auto) 73.5 H (33-66) % Lymph % (Auto) 18.2 L (23-45) % Lewis % (Auto) 6.8 (0-9.0) % Eos % (Auto) 0.5 (0-4) % Baso % (Auto) 0.4 (0-2) % Neut # (Auto) 9.7 H (1.8-7.7) T/MM3 Lymph # (Auto) 2.4 (1-4.8) T/MM3 Lewis # (Auto) 0.9 H (0-0.8) T/MM3 Eos # (Auto) 0.1 (0-0.5) T/MM3 Baso # (Auto) 0.1 (0-0.2) T/MM3 Abs Immat Gran (auto) 0.08 H (0.00-0.03) T/MM3 Turbidity < 20 (0-20) Sodium 140 (134-144) MEQ/L Potassium 4.3 (3.6-5) MEQ/L Chloride 109 H (98-107) MEQ/L Carbon Dioxide 17 L (22-30) MEQ/L Anion Gap 14 (5-15) MEQ/L Creatinine 1.4 H (0.7-1.2) MG/DL GFR Calculation 36 BUN/Creatinine Ratio 41 H (6-26) RATIO Glucose 147 H (65-110) MG/DL Calculated Osmolality 288 H (261-280) MOSM/KG Calcium 8.2 L (8.4-10.2) MG/DL Total Bilirubin 0.20 (0.20-1.30) MG/DL Icterus Index < 2 (0-7) AST 33 (14-36) U/L ALT 34 (9-52) U/L Alkaline Phosphatase 78 (38-126) U/L Total Protein 5.3 L (6.3-8.2) G/DL Albumin 3.0 L (3.5-5.0) G/DL Globulin 2.3 L (2.4-3.6) G/DL Albumin/Globulin Ratio 1.3 (1.1-2.2) RATIO Specimen Hemolysis < 15 (0-25) Ur Collection Type Urine Color (YELLOW) Urine Clarity Urine pH (5.0-8.0) Ur Specific Worden (1.015-1.025) Urine Protein (NEGATIVE) Urine Glucose (UA) (NEGATIVE) Urine Ketones (NEGATIVE) Urine Occult Blood (NEGATIVE) Urine Nitrate (NEGATIVE) Urine Bilirubin (NEGATIVE) Urine Urobilinogen (NORMAL) EU/DL Ur Leukocyte Esterase (NEGATIVE) Urine RBC (0-3) /HPF Urine WBC (0-5) /HPF Urine WBC Clumps Urine Bacteria (NEGATIVE) Ur Culture Indicated? Blood Type O Positive Antibody Screen Negative Crossmatch (AHG) See Detail Blood Product Request 04/06/17 04/06/17 Range/Units 13:52 14:14 WBC (4.5-11.0) T/MM3 RBC (4.00-5.20) M/MM3 Hgb (12-16) GM/DL Hct (36-46) % MCV (80-100) UM3 MCH (26-34) UUG MCHC (31-37) GM/DL RDW Std Deviation (36.9-50.2) FL Plt Count (130-400) T/MM3 MPV (9.4-12.4) UM3 Immature Gran % (Auto) (0.0-0.5) % Neut % (Auto) (33-66) % Lymph % (Auto) (23-45) % Lewis % (Auto) (0-9.0) % Eos % (Auto) (0-4) % Baso % (Auto) (0-2) % Neut # (Auto) (1.8-7.7) T/MM3 Lymph # (Auto) (1-4.8) T/MM3 Lewis # (Auto) (0-0.8) T/MM3 Eos # (Auto) (0-0.5) T/MM3 Baso # (Auto) (0-0.2) T/MM3 Abs Immat Gran (auto) (0.00-0.03) T/MM3 Turbidity (0-20) Sodium (134-144) MEQ/L Potassium (3.6-5) MEQ/L Chloride (98-107) MEQ/L Carbon Dioxide (22-30) MEQ/L Anion Gap (5-15) MEQ/L Creatinine (0.7-1.2) MG/DL GFR Calculation BUN/Creatinine Ratio (6-26) RATIO Glucose (65-110) MG/DL Calculated Osmolality (261-280) MOSM/KG Calcium (8.4-10.2) MG/DL Total Bilirubin (0.20-1.30) MG/DL Icterus Index (0-7) AST (14-36) U/L ALT (9-52) U/L Alkaline Phosphatase (38-126) U/L Total Protein (6.3-8.2) G/DL Albumin (3.5-5.0) G/DL Globulin (2.4-3.6) G/DL Albumin/Globulin Ratio (1.1-2.2) RATIO Specimen Hemolysis (0-25) Ur Collection Type Urine, catheter Urine Color Yellow (YELLOW) Urine Clarity Sl cloudy Urine pH 5.5 (5.0-8.0) Ur Specific Worden 1.020 (1.015-1.025) Urine Protein Negative (NEGATIVE) Urine Glucose (UA) Negative (NEGATIVE) Urine Ketones Negative (NEGATIVE) Urine Occult Blood Negative (NEGATIVE) Urine Nitrate Negative (NEGATIVE) Urine Bilirubin Negative (NEGATIVE) Urine Urobilinogen 0.2 (NORMAL) EU/DL Ur Leukocyte Esterase 2+ A (NEGATIVE) Urine RBC None seen (0-3) /HPF Urine WBC 50-200 H (0-5) /HPF Urine WBC Clumps Many H Urine Bacteria 3+ H (NEGATIVE) Ur Culture Indicated? Cult reflexed &setup Blood Type Antibody Screen Crossmatch (AHG) Blood Product Request 1 unit pc issued Disposition Clinical Impression: Anemia Qualifiers: Anemia type: other cause GI bleed Qualifiers: GI bleed type/associated pathology: unspecified gastrointestinal hemorrhage type Qualified Code(s): K92.2 - Gastrointestinal hemorrhage, unspecified Disposition: 02 To [facility] [place] Acute Care Condition: Stable Time of Disposition: 14:16 - Seen By: midlevel
[2017-04-06] MEDS ORDERED: SALINE FLUSH 10ml SYRINGE IVF PRN (13:28)
[2017-04-06] MEDS: NS 1,000 ML IV SCH ×2 (14:35→22:08)
--- NOTE | 2017-04-06 14:41 | History & Physical Report ---
History of Present Illness Date: 04/06/17 Chief complaint: Anemia, Weakness HPI: Patient is an 82-year-old female who is had an long-standing history of normocytic anemia and is been followed by Dr. Tran. Yesterday she underwent an outpatient bone marrow biopsy. She was scheduled for routine CBC outpatient in which she had done today revealing significant anemia with a hemoglobin of 5.6. Daughter reported that patient has been having dark stools for the last 2 days. She has been off of her methotrexate since January and has not required a transfusion until now. Last reported hemoglobin was on 03/30 at which time her hemoglobin was 9.7.Yesterday Hgb was 6.9. Prior to this, her last transfusion was in January in which hemoglobin was down to 6.4. Patient is chronically anticoagulated on Xarelto due to Valvular disease with hx of and mitral valve repair. Today, patient was notified of her outpatient hemoglobin and was instructed to come to the emergency room for acute evaluation. Monitor studies were repeated, white count was found be slightly elevated at 13.1, RBCs 1.8, hemoglobin 5.6, hematocrit 19.8, platelet count 286. Retina and was found to be elevated at 1.4 , last creatinine from 02/22 was 0.8. Stool was Hemoccult positive. A urinalysis was obtained today showing positive nitrites, 2+ leukocyte esterase, 5-200 WBCs with clumps and 3+ bacteria. Patient was hypotensive 92/46, pulse in the 70s. Patient was typed and screened and blood transfusion was initiated while still in the ER. The hospitalist services were contacted and accepted patient for inpatient admission to the ICU for further evaluation and treatment. Patient is seen for initial examination while still in the emergency room. Her daughter, PAIGE is at the bedside. She does indicate patient has been doing fairly well since last hospitalized in January. She has been having outpatient CBCs every 2 weeks. However, has not required transfusion since the end of January. Patient has been off methotrexate, however, does continue to take prednisone for her RA. Daughter reports noticing increased weakness with dark stools for the past 2 days. This is been new for patient. She is so reports patient has complained of abdominal discomfort intermittently and takes antacids frequently. Reports this morning she was so significantly weak. She was unable to eat. She decided to do her scheduled routine labs this morning in which she found to be significantly anemic. We did discuss advanced directives with patient at the bedside and she does indicate she is a full code. Review of Systems All systems PM: 10-point ROS was reviewed, no additional remarkable complaints except - Constitutional Constitutional: Present: fatigue, lethargy, weakness - Gastrointestinal Gastrointestinal: Present: as per HPI, abdominal pain (epigastric), nausea - Integumentary/Breasts Integumentary Comments: Pale in color [facility] Medical History Hypertension Rheumatoid arthritis managed by Dr. Eller Normocytic Anemia Valvular heart disease (, S/P mitral valve repair- 2007) Depression History DVT Paroxysmal atrial fibrillation Cardiomyopathy with preserved LV function by last echocardiogram Aortic stenosis Pubic rami fracture August 2016 History peptic ulcer disease with partial gastrectomy Mild gastritis by last EGD- 2014 Breast cancer Hx Chronic chest pain but normal coronaries by cardiac catheterization October 2015 Echocardiogram-10/2015 revealed an EF of 55% Surgical History: EGD- 2014- mild gastritis. Mitral valve repair- 2007. Arthrocentesis-2012. Prolift of mesh and cystocele repair, cystoscopy-2009. Colonoscopy-2007, 2000. Left shoulder surgery-2005. Left mastectomy-2002. Laminectomy- 1991. Tubal ligation-1975. Spinal fusion-1974. D&C-1915. Appendectomy 1951. 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 Medications Home Medications Medication Instructions Recorded Confirmed Type Colchicine 0.6 mg PO BID #0 12/30/11 04/06/17 History Tramadol HCl 50 mg PO Q6H PRN #0 12/30/11 04/06/17 History predniSONE [Prednisone] 5 mg PO DAILY #0 12/30/11 04/06/17 History Fesoterodine Fumarate [Toviaz] 8 mg PO DAILY #0 11/13/15 04/06/17 History Pantoprazole Sodium 40 mg PO BID #0 11/13/15 04/06/17 History Sertraline HCl 100 mg PO NOON #0 11/13/15 04/06/17 History Cyanocobalamin (Vitamin B-12) 1,000 mcg PO DAILY #0 07/16/16 04/06/17 History [Vitamin B-12] Losartan Potassium 50 mg PO BID #0 07/16/16 04/06/17 History Trazodone HCl 100 mg PO HS #0 07/16/16 04/06/17 History Multivitamin [Multi-Day Vitamins] 1 tab PO DAILY #0 09/08/16 04/06/17 History Calcium Carbonate [[id number]] 500 mg PO NOON #0 09/09/16 04/06/17 History Digoxin 125 mg PO DAILY #0 tab 09/09/16 04/06/17 History dilTIAZem HCl [Diltiazem 24Hr ER] 180 mg PO BID #30 cap 09/09/16 04/06/17 History Rivaroxaban [Xarelto] 20 mg PO WS 02/21/17 04/06/17 History Aspirin [[place] Aspirin] 81 mg PO DAILY 04/06/17 04/06/17 History Butalbital/Aspirin/Caffeine 2 each PO Q6H PRN 04/06/17 04/06/17 History [Fiorinal] Cholecalciferol (Vitamin D3) 1,000 unit PO NOON 04/06/17 04/06/17 History [Vitamin D3] Ferrous Sulfate 325 mg PO DAILY 04/06/17 04/06/17 History Vitamin B Complex + C [Total B + C] 1 tab PO DAILY 04/06/17 04/06/17 History Allergies Allergy/AdvReac Type Severity Reaction Status Date / Time morphine Allergy Intermediate BEHAVIOR Verified 04/06/17 13:54 DISTURBANCE zolpidem Allergy Intermediate MADE ME Verified 04/06/17 13:54 CRAZY Malt Extract. Allergy Mild DIARRHEA Verified 04/06/17 13:54 codeine Allergy Unknown Nausea Verified 04/06/17 13:54 hydroxychloroquine Allergy Unknown Hives Verified 04/06/17 13:54 terbinafine HCl Allergy Intermediate RASH Uncoded 02/21/17 20:59 Exam Telemetry Rhythm: A-fib - Constitutional Present: mild distress, well nourished, well developed - Routine HEENT Exam Eye: Present: EOMI ENT: Present: mucous membranes dry, dentition normal - Routine Respiratory Exam Present: CTA bilaterally. Absent: wheezes - Routine Cardiovascular Exam Present: RRR, S1, S2, murmur (systolic ) - Routine Abdominal Exam Present: soft, normoactive bowel sounds, non distended, non tender. Absent: tenderness - Routine Extremities Exam Present: normal capillary refill - Routine Skin Exam Present: dry, pallor, warm - Routine Neurological Exam Present: alert, oriented X3, CN II-XII intact - Routine Psychiatric Exam Present: normal affect, cooperative Results - Labs CBC & Chem 7: 04/06/17 13:11 04/06/17 13:11 Assessment and Plan (1) Anemia Current visit: Yes Status: Acute (2) Atrial fibrillation Current visit: No Status: Acute Assessment and Plan: Impression GI bleed, likely upper Acute Anemia- Hgb on admission 5.6 Acute Hypotension- POA Chronic Normocytic anemia Chronic anticoagulation- Xarelto Bacteriuria- POA Valvular heart disease- Mitral valve repair, chronic Proximal atrial fibrillation Hypertension Rheumatoid arthritis- chronically on prednisone Plan Admit to CCU as a inpatient under the care of Dr Jaffe for acute anemia. Patient is type and screen for 2 units and will receive transfusion of both units today. Recheck posttransfusion hemoglobin. At this point will hold all anticoagulation, Xarelto. Need to likely discuss this with Dr. Gomez, patient's funeral workers given findings of Hemoccult positive stool. Monitor patient Cardiac telemetry known hx of paroxysmal atrial fibrillation Last EGD was in 2016 that did revel mild gastritis. Patient reports increase epigastric pain recently and is taking routine Protonix BID as well as antacids frequently at home. Will schedule Protonix 40 mg IV BID for GI protection. Bacteriuria present on admission, will wait to evaluate urine culture. Patient have clear liquid diet Will discuss home medications with attending. Will need to hold antihypertensive medications given hypotension. She will likely need cardiac rate control given A-fibulation SCDs to bilateral lower extremity for DVT prophylaxis Patient does wish to be a full code and this order is written Discuss further orders and plan of care with attending, Dr. Jaffe. At time of discharge medical care will return to Dr. Kearns and cardiology care to Dr. Parris Gomez 04/16/17 [id number] Rony Jaffe M.D.: I have independently evaluated and examined this patient. I reviewed the chart, the patient's history, and the [employer]/PA's documented findings as above. We discussed and formulated the assessment and plan as above with additions as below: Mrs. Antunez is well known from multiple prior admissions. She has recurrent anemia requiring transfusions in early and late January. Last colonoscopy was within a couple of years by Dr. Miranda. EGD as above. She's had increasing weakness for several days requiring that her daughter stay with her and assist with transfers. Daphnie reports that the patient was too weak to eat breakfast today and had to be fed. The patient has had formed black stools for a couple of days (darker than baseline associated with iron therapy) but after arriving at the infusion center had a large liquid stool which she couldn't control. Hemoccult was subsequently positive when checked in the emergency room. Patient denies prior melanotic stools and has had no additional stools since. She denies syncope or falls. Methotrexate was discontinued as noted. BUN is elevated at 57 compared to baseline of 20-30. Systolic blood pressure on presentation in the ER was 90 compared to baseline of 140-150. The patient is pale and hard of hearing; there is conjunctival pallor. She is alert and cooperates with history although defers much of history to her daughter. There are faint crackles at the bases bilaterally-inspiratory and expiratory. Cardiac exam is slightly irregular with a harsh 3/6 systolic murmur best heard throughout the left precordium. Abdomen is soft with mild tenderness on palpation throughout but no guarding or focal findings. She has erythematous lesions on the lower extremities-larger than petechiae and clustered; no associated bruising. No lower extremity edema. Bedside telemetry with atrial fibrillation with rate in the 70s by my review; oxygenating well on room air. Discussed with Dr. Gomez; patient is anticoagulated for atrial fibrillation and he indicated that he has attempted to discontinue anticoagulation in the past but patient's fear of stroke has precluded doing so and she has wished to continue anticoagulants despite risk of blood loss/GI bleed. The patient's prior mitral valve repair does not require anticoagulation. Transfuse 2 units of blood as outlined above, monitor hemoglobin closely; may require EGD. Prior records reviewed, outpatient records reviewed, discussed with ER provider. Hospital Course Summary Disclaimer: The visit summary below is not to be considered part of the above Progress Note. Hospital Course: 04/06/17 - Admission Impression Acute Anemia- Hgb on admission 5.6 Chronic Normocytic anemia Acute Hypotension- POA Chronic anticoagulation- Xarelto Bacteriuria- POA Valvular heart disease- Mitral valve repair, chronic Proximal atrial fibrillation Hypertension Rheumatoid arthritis- chronically on prednisone Plan Admit to CCU as a inpatient under the care of Dr Jaffe for acute anemia. Patient is type and screen for 2 units and will receive transfusion of both units today. Recheck posttransfusion hemoglobin. At this point will hold all anticoagulation, Xarelto. Need to likely discuss this with Dr. Gomez, patient's funeral workers given findings of Hemoccult positive stool. Monitor patient Cardiac telemetry known hx of paroxysmal atrial fibrillation Last EGD was in 2016 that did revel mild gastritis. Patient reports increase epigastric pain recently and is taking routine Protonix BID as well as antacids frequently at home. Will schedule Protonix 40 mg IV BID for GI protection. Bacteriuria present on admission, will wait to evaluate urine culture. Patient have clear liquid diet Will discuss home medications with attending. Will need to hold antihypertensive medications given hypotension. She will likely need cardiac rate control given A-fibulation SCDs to bilateral lower extremity for DVT prophylaxis Patient does wish to be a full code and this order is written Discuss further orders and plan of care with attending, Dr. Jaffe. At time of discharge medical care will return to Dr. Kearns and cardiology care to Dr. Parris Gomez
[2017-04-06 14:47] VITALS: BMI 19.4
[2017-04-06] MEDS ORDERED: ONDANSETRON 4 MG/2 ML INJECTION IVP PRN (15:12)
[2017-04-06] MEDS ORDERED: GAVISCON SUSPENSION 15ml PO PRN (17:24)
[2017-04-06] MEDS: ACETAMINOPHEN 325 MG TABLET PO PRN (18:58)
[2017-04-06] MEDS ORDERED: FALL RISK - PHARMACY CONSULT MC ONE (20:30)
[2017-04-06] MEDS: TRAZODONE 100 MG TABLET PO SCH (22:09)
[2017-04-06] MEDS: PANTOPRAZOLE 40 MG INJECTION IVP SCH (22:10)
[2017-04-07] MEDS: NS 1,000 ML IV SCH ×3 (03:52→20:28)
[2017-04-07] MEDS: PANTOPRAZOLE 40 MG INJECTION IVP SCH ×2 (08:04→20:29)
[2017-04-07] MEDS: DIGOXIN 125 MCG TABLET PO SCH (08:06)
[2017-04-07] MEDS: PredniSONE 5 MG TABLET PO SCH (08:06)
[2017-04-07] MEDS: CYANOCOBALAMIN (B-12) 500mcg TABLET PO SCH (09:09)
--- NOTE | 2017-04-07 11:32 | Anesthesia Preoperative Report ---
Anesthesia Preoperative Record - Date and Time Date: 04/07/17 Preoperative Diagnosis: anemia,hypotension NPO Since Date: 04/07/17 NPO Since Time: 07:30 (Two small bite of apple sauce for meds and broth) Allergies/Adverse Reactions: Allergies Allergy/AdvReac Type Severity Reaction Status Date / Time morphine Allergy Intermediate BEHAVIOR Verified 04/06/17 13:54 DISTURBANCE zolpidem Allergy Intermediate MADE ME Verified 04/06/17 13:54 CRAZY Malt Extract. Allergy Mild DIARRHEA Verified 04/06/17 13:54 codeine Allergy Unknown Nausea Verified 04/06/17 13:54 hydroxychloroquine Allergy Unknown Hives Verified 04/06/17 13:54 terbinafine HCl Allergy Intermediate RASH Uncoded 02/21/17 20:59 - Vital Signs Vital Signs: Temperature 97.5 F 04/07/17 08:00 Pulse Rate 100 04/07/17 08:06 Respiratory Rate 24 04/07/17 08:00 Blood Pressure 126/91 H 04/07/17 08:00 Pulse Oximetry 99 04/07/17 08:00 Height and Weight: Height 1.52 m Weight 46.9 kg Body Mass Index 19.4 - Medications Inpatient Medications: Current Medications Acetaminophen (Tylenol) 650 mg PO QID PRN PRN Reason: Discomfort Last Admin: 04/06/17 18:58 Dose: 650 mg Al Hydroxide/Mg Carbonate (Mag Carb/Al Hydrox/Alginic Ac) 15 ml PO PC PRN Cyanocobalamin (Vit. B-12) 1,000 mcg PO DAILY [facility] Last Admin: 04/07/17 09:09 Dose: 1,000 mcg Digoxin (Lanoxin) 125 mcg PO DAILY [facility] Last Admin: 04/07/17 08:06 Dose: 125 mcg Sodium Chloride (Normal Saline) 1,000 mls @ 100 mls/hr IV .Q10H [facility] Last Admin: 04/07/17 08:02 Dose: 100 mls/hr Ondansetron HCl (Zofran) 4 mg IVP Q6H PRN PRN Reason: Nausea &/or vomiting Pantoprazole Sodium (Protonix Iv) 40 mg IVP BID [facility] Last Admin: 04/07/17 08:04 Dose: 40 mg Prednisone (Deltasone) 5 mg PO DAILY [facility] Last Admin: 04/07/17 08:06 Dose: 5 mg Sodium Chloride (Iv Flush) 10 - 80 ml IVF PRN PRN PRN Reason: Flushing Last Admin: 04/06/17 14:05 Dose: 10 ml Trazodone HCl (Desyrel) 100 mg PO HS [facility] Last Admin: 04/06/17 22:09 Dose: 100 mg Home Medications: Home Medications Medication Instructions Recorded Confirmed Type Colchicine 0.6 mg PO BID #0 12/30/11 04/06/17 History Tramadol HCl 50 mg PO Q6H PRN #0 12/30/11 04/06/17 History predniSONE [Prednisone] 5 mg PO DAILY #0 12/30/11 04/06/17 History Fesoterodine Fumarate [Toviaz] 8 mg PO DAILY #0 11/13/15 04/06/17 History Pantoprazole Sodium 40 mg PO BID #0 11/13/15 04/06/17 History Sertraline HCl 100 mg PO NOON #0 11/13/15 04/06/17 History Cyanocobalamin (Vitamin B-12) 1,000 mcg PO DAILY #0 07/16/16 04/06/17 History [Vitamin B-12] Losartan Potassium 50 mg PO BID #0 07/16/16 04/06/17 History Trazodone HCl 100 mg PO HS #0 07/16/16 04/06/17 History Multivitamin [Multi-Day Vitamins] 1 tab PO DAILY #0 09/08/16 04/06/17 History Calcium Carbonate [[id number]] 500 mg PO NOON #0 09/09/16 04/06/17 History Digoxin 125 mg PO DAILY #0 tab 09/09/16 04/06/17 History dilTIAZem HCl [Diltiazem 24Hr ER] 180 mg PO BID #30 cap 09/09/16 04/06/17 History Rivaroxaban [Xarelto] 20 mg PO WS 02/21/17 04/06/17 History Aspirin [[place] Aspirin] 81 mg PO DAILY 04/06/17 04/06/17 History Butalbital/Aspirin/Caffeine 2 each PO Q6H PRN 04/06/17 04/06/17 History [Fiorinal] Cholecalciferol (Vitamin D3) 1,000 unit PO NOON 04/06/17 04/06/17 History [Vitamin D3] Ferrous Sulfate 325 mg PO DAILY 04/06/17 04/06/17 History Vitamin B Complex + C [Total B + C] 1 tab PO DAILY 04/06/17 04/06/17 History Is Patient on Beta Scot?: No - Medical History Cardiovascular: Reports: Angina, Arrhythmia (paroxysmal A Fib), Coronary Artery Disease (chronic Chest pain but normal coronaries with heart cath), Heart Murmur (Aortic stenosis), Hypertension, Hypotension (severe anemia), Valvular Heart Disease (s/p mitral valve repair in 2007, Echo 2016 with EF 55%), Other ( heart cath-Dr. Gomez, cardiomyopathy with preserved LV function. ) Gastrointestional: Reports: Gastrointestinal Bleeding (history of PUD ) Neuro/Musculoskeletal: Reports: Back Problems (MULTIPLE BACK/NECK SURGERIES), Depression, Other (R. ARTHRITIS) Other History: Reports: Blood Transfusions, Cancer (breast/bilat, mastectomy) - Surgical History Cardiac Surgeries/Treatments: Reports: Cardiac Catheterization (4 yrs ago) GI Surgery/Treatments: Reports: Appendectomy, Other (part of stomach removed) Reproductive Surgery/Treatment: Reports: Hysterectomy Anesthesia Reactions: None Hx Family Anesthesia Reaction: No History of Motion Sickness: No - Social History Smoking Status: Never smoker Hx Chewing Tobacco Use: No Second Hand Exposure: No Substance Use Type: does not use Alcohol Intake Frequency: does not drink - Pertinent Findings Laboratory: CBC and BMP 04/07/17 11:02 04/07/17 04:33 BMP 04/07/17 04:33 Sodium 143 Potassium 3.5 L D Chloride 114 H Carbon Dioxide 20 L BUN 46.0 H Creatinine 0.9 D Glucose 86 Calcium 7.6 L EKG: A-fib - Physical Exam Respiratory Exam: Present: lungs clear Cardiovascular Exam: Present: irregularly irregular (with PVC's ), systolic murmur - Airway Assessment Mallampati Score: I TMD: 3 Fingerbreadths Neck Extension: poor Teeth: chipped teeth/crowns (and missing), poor dentation Overall Assessment: no airway concerns - ASA ASA Score: 3 - Plan Anesthesia: General TIVA - Discussion Discussion: Discussed risks/options/alternatives of anesthesia and questions answered. Patient consents. Nursing pain assessment noted. Attestation Statement: Prior to the delivery of any anesthetic medication, I examined the patient, developed the plan, obtained the patient's consent and discussed the risk and benefits of the procedure with the patient/guardian. - Additional Information Seen by Anesthesia: Yes
[2017-04-07] MEDS ORDERED: LIDOCAINE VISCOUS 2% ORAL LIQUID 15ml ONE ×2 (11:58→12:09)
[2017-04-07] MEDS ORDERED: SALINE FLUSH 10ml SYRINGE ONE (12:08)
[2017-04-07] MEDS ORDERED: PROPOFOL 500 MG/50 ML VIAL IV ONE (12:08)
[2017-04-07] MEDS ORDERED: EPINEPHrine 1mg/ml PF INJ AMP ONE (12:09)
--- NOTE | 2017-04-07 12:20 | General Surgery Consult Note ---
Consult date: 04/07/17 Attending Physician: MD akash Alvarez [facility] Reason for consult: endoscopy PFSH Patient Stated Medical History Cataracts Yes Angina Yes Cardiac Arrhythmia Yes: paroxysmal A Fib Coronary Artery Disease Yes: chronic Chest pain but normal coronaries with heart cath Heart Murmur Yes: Aortic stenosis Hypertension Yes Hypotension Yes: severe anemia Valvular Heart Disease Yes: s/p mitral valve repair in 2007, Echo 2016 with EF 55% Other Cardiology Yes: heart cath-Dr. Gomez, cardiomyopathy with preserved LV function. Gastrointestinal Bleeding Yes: history of PUD Hx Incontinence Yes Hx Urinary Tract Infection Yes Other UTI Anemia Yes Other Hematologic Yes: bone marrow bx Other Musculoskeletal Yes: R. ARTHRITIS Blood Transfusions Yes Depression Yes Clinic Medical History Anemia (Acute Medical) Normocytic anemia (Acute Medical) Atrial fibrillation (Acute Medical) HTN (hypertension) (Acute Medical) Rheumatoid arthritis (Acute Medical) GI bleed (Acute Medical) Surgical History: EGD- 2014- mild gastritis. Mitral valve repair- 2007. Arthrocentesis-2012. Prolift of mesh and cystocele repair, cystoscopy-2009. Colonoscopy-2007, 2000. Left shoulder surgery-2005. Left mastectomy-2002. Laminectomy- 1991. Tubal ligation-1975. Spinal fusion-1974. D&C-1915. Appendectomy 1951. Tonsillectomy. Gastroduodenostomy Family History: Father-coronary artery disease, hypertension Mother-CVA - Social History Smoking status: Never smoker Does patient use chewing tobacco?: No Current residence: Apartment/Private Home Medications Home Medications Medication Instructions Recorded Confirmed Type Colchicine 0.6 mg PO BID #0 12/30/11 04/06/17 History Tramadol HCl 50 mg PO Q6H PRN #0 12/30/11 04/06/17 History predniSONE [Prednisone] 5 mg PO DAILY #0 12/30/11 04/06/17 History Fesoterodine Fumarate [Toviaz] 8 mg PO DAILY #0 11/13/15 04/06/17 History Pantoprazole Sodium 40 mg PO BID #0 11/13/15 04/06/17 History Sertraline HCl 100 mg PO NOON #0 11/13/15 04/06/17 History Cyanocobalamin (Vitamin B-12) 1,000 mcg PO DAILY #0 07/16/16 04/06/17 History [Vitamin B-12] Losartan Potassium 50 mg PO BID #0 07/16/16 04/06/17 History Trazodone HCl 100 mg PO HS #0 07/16/16 04/06/17 History Multivitamin [Multi-Day Vitamins] 1 tab PO DAILY #0 09/08/16 04/06/17 History Calcium Carbonate [Wzjn-Aef-930] 500 mg PO NOON #0 09/09/16 04/06/17 History Digoxin 125 mg PO DAILY #0 tab 09/09/16 04/06/17 History dilTIAZem HCl [Diltiazem 24Hr ER] 180 mg PO BID #30 cap 09/09/16 04/06/17 History Rivaroxaban [Xarelto] 20 mg PO WS 02/21/17 04/06/17 History Aspirin [[place] Aspirin] 81 mg PO DAILY 04/06/17 04/06/17 History Butalbital/Aspirin/Caffeine 2 each PO Q6H PRN 04/06/17 04/06/17 History [Fiorinal] Cholecalciferol (Vitamin D3) 1,000 unit PO NOON 04/06/17 04/06/17 History [Vitamin D3] Ferrous Sulfate 325 mg PO DAILY 04/06/17 04/06/17 History Vitamin B Complex + C [Total B + C] 1 tab PO DAILY 04/06/17 04/06/17 History Allergies Allergy/AdvReac Type Severity Reaction Status Date / Time morphine Allergy Intermediate BEHAVIOR Verified 04/06/17 13:54 DISTURBANCE zolpidem Allergy Intermediate MADE ME Verified 04/06/17 13:54 CRAZY Malt Extract. Allergy Mild DIARRHEA Verified 04/06/17 13:54 codeine Allergy Unknown Nausea Verified 04/06/17 13:54 hydroxychloroquine Allergy Unknown Hives Verified 04/06/17 13:54 terbinafine HCl Allergy Intermediate RASH Uncoded 02/21/17 20:59 Review of Systems 10-point ROS: negative except for HPI and the following: - General General: Present: other (fatigue) - Cardiovascular Cardiovascular: Present: irregular heart beat - Gastrointestinal Gastrointestinal: Present: other (See HPI) - Musculoskeletal Musculoskeletal: Present: joint pain - Neurological Neurological: Present: muscle weakness - Hematologic/Lymphatic Hematologic/Lymphatic: Present: easy bruising, use of blood thinners, other ( chronic anemia, under care of Dr. Tran) - Vital Signs Last Vital Signs Temp 97.5 F 04/07/17 08:00 Pulse 100 04/07/17 08:06 Resp 24 04/07/17 08:00 BP 126/91 H 04/07/17 08:00 Pulse Ox 99 04/07/17 08:00 - Laboratory Result Diagrams: 04/07/17 11:02 04/07/17 04:33 General Surgery Results - Results Labs: 04/07/17 11:02 04/07/17 04:33 Hospital Course Summary Disclaimer: The visit summary below is not to be considered part of the above Progress Note. Hospital Course: 04/06/17 - Admission Impression Acute Anemia- Hgb on admission 5.6 Chronic Normocytic anemia Acute Hypotension- POA Chronic anticoagulation- Xarelto Bacteriuria- POA Valvular heart disease- Mitral valve repair, chronic Proximal atrial fibrillation Hypertension Rheumatoid arthritis- chronically on prednisone Plan Admit to CCU as a inpatient under the care of Dr Jaffe for acute anemia. Patient is type and screen for 2 units and will receive transfusion of both units today. Recheck posttransfusion hemoglobin. At this point will hold all anticoagulation, Xarelto. Need to likely discuss this with Dr. Gomez, patient's health management consultant given findings of Hemoccult positive stool. Monitor patient Cardiac telemetry known hx of paroxysmal atrial fibrillation Last EGD was in 2016 that did revel mild gastritis. Patient reports increase epigastric pain recently and is taking routine Protonix BID as well as antacids frequently at home. Will schedule Protonix 40 mg IV BID for GI protection. Bacteriuria present on admission, will wait to evaluate urine culture. Patient have clear liquid diet Will discuss home medications with attending. Will need to hold antihypertensive medications given hypotension. She will likely need cardiac rate control given A-fibulation SCDs to bilateral lower extremity for DVT prophylaxis Patient does wish to be a full code and this order is written Discuss further orders and plan of care with attending, Dr. Jaffe. At time of discharge medical care will return to Dr. Kearns and cardiology care to Dr. Parris Gomez
--- NOTE | 2017-04-07 12:28 | General Surgery Procedure Note ---
Date of Procedure: 04/07/17 Surgeon: Ava Postoperative Diagnosis: Rectal bleeding, normal EGD Procedure: EGD Estimated Blood Loss: See Anesthesia Record. Pathology: none sent
--- NOTE | 2017-04-07 13:51 | Progress Note ---
- Date 04/07/17 Subjective: Mrs. Antunez reports multiple stools this morning. Stools were initially somewhat formed but have become liquid with tarry/melanotic stools followed by more loose/liquid stools but all have been black. The patient denies any unusual abdominal pain starting only her usual left upper quadrant pain. She does note that she has chronic indigestion and typically uses antacids frequently in addition to PPI daily. She additionally complains of urinary frequency which had developed several days prior to hospitalization but does not describe dysuria. She continues to report a painful spot on the back of her head where a cyst was recently removed at least partially. She denied dyspnea, chest pain, or palpitations. She was able to rest part of the night. Objective Vital signs: Temperature 98.4 F 04/07/17 13:30 Pulse Rate 88 04/07/17 13:30 Respiratory Rate 21 04/07/17 13:30 Blood Pressure 126/86 04/07/17 13:30 Pulse Oximetry 100 04/07/17 13:30 I/O 2162/395+ EXAM General-NAD, alert, kyphotic HEENT-conjunctiva clear, conjugate gaze, pupils equal, oropharynx clear with moist membranes; 5-7 mm firm nodule palpable posterior scalp Lungs-respirations nonlabored, breath sounds clear anteriorly and upper posterior mast Cardiac-irregular rhythm, S1-S2, harsh 3/6 systolic murmur Abd-soft, mild tenderness on palpation left upper quadrant without guarding Ext-without edema, extensive bruising on arms and legs Neuro-moving all extremities spontaneously Psych-cooperative, pleasant - Rhythm: Atrial Fibrillation with Normal Ventricular Rate Height/Weight/BMI: Height 1.52 m Weight 46.9 kg Body Mass Index 19.4 Results - Labs CBC & Chem 7: 04/07/17 11:02 04/07/17 04:33 Labs: WBC 9.8, Hbg 8.6 @ 0433 Digoxin 1.1. Microbiology Results: UC > 100,000 GNR Assessment and Plan (1) GI bleed Problem details: Melena Current visit: Yes Status: Acute (2) Anemia Current visit: Yes Status: Acute (3) Atrial fibrillation Current visit: No Status: Acute Assessment and Plan: Impression GI bleed-acute, likely upper Acute Anemia- Hgb on admission 5.6 Acute Hypotension-POA Chronic Normocytic anemia Chronic anticoagulation- Xarelto Bacteriuria- POA Valvular heart disease- Mitral valve repair, chronic Proximal atrial fibrillation Hypertension, chronic Rheumatoid arthritis- chronically on prednisone History gastritis by EGD 2016 Plan Recurrent blood loss this morning with multiple stools described by nursing and patient. Hemoglobin had improved with transfusion yesterday but is now down to 5.7 and additional blood has been ordered. 2 additional units of blood being given today in addition to [address] Escalante consulted for EGD-study completed without demonstration of a bleeding site in the stomach or esophagus. May require colonoscopy as status permits. Results of EGD discussed with Dr. Escalante. Patient reports last dose of Xarelto was Monday evening-typically takes with evening meal. Continue to hold. Urinary frequency (new) described by patient, gram-negative rods in urine- ceftriaxone initiated pending culture results. Continues to require close observation in ICU due to ongoing blood loss. Patient remains critically ill and at high risk for decompensation. DVT Prophylaxis: SCD's GI Prophylaxis: Protonix Resuscitation Status: Full Code - Time spent with patient Time with patient PN: 35 minutes (critically ill) Hospital Course Summary Disclaimer: The visit summary below is not to be considered part of the above Progress Note. Hospital Course: 04/06/17 - Admission Impression Acute Anemia- Hgb on admission 5.6 Chronic Normocytic anemia Acute Hypotension- POA Chronic anticoagulation- Xarelto Bacteriuria- POA Valvular heart disease- Mitral valve repair, chronic Proximal atrial fibrillation Hypertension Rheumatoid arthritis- chronically on prednisone Plan Admit to CCU as a inpatient under the care of Dr Jaffe for acute anemia. Patient is type and screen for 2 units and will receive transfusion of both units today. Recheck posttransfusion hemoglobin. At this point will hold all anticoagulation, Xarelto. Anticoagulation discussed with Dr. Gomez-he is pretty slowly recommended patient discontinue however patient has been opposed due to potential risk of stroke despite clear risk of blood loss/GI bleed. Monitor patient Cardiac telemetry known hx of paroxysmal atrial fibrillation Last EGD was in 2016 that did revel mild gastritis. Patient reports increase epigastric pain recently and is taking routine Protonix BID as well as antacids frequently at home. Will schedule Protonix 40 mg IV BID for GI protection. Bacteriuria present on admission, will wait to evaluate urine culture. Patient have clear liquid diet Will discuss home medications with attending. Will need to hold antihypertensive medications given hypotension. She will likely need cardiac rate control given A-fibulation SCDs to bilateral lower extremity for DVT prophylaxis Patient does wish to be a full code and this order is written At time of discharge medical care will return to Dr. Kearns and cardiology care to Dr. Parirs Gomez 04/07/17 Recurrent blood loss this morning with multiple stools described by nursing and patient. Hemoglobin had improved with transfusion yesterday but is now down to 5.7 and additional blood has been ordered. 2 additional units of blood being given today in addition to [address] Escalante consulted for EGD-study completed without demonstration of a bleeding site in the stomach or esophagus. May require colonoscopy as status permits. Patient reports last dose of Xarelto was Monday evening-typically takes with evening meal. Continue to hold. Urinary frequency (new) described by patient, gram-negative rods in urine- ceftriaxone initiated pending culture results. Continues to require close observation in ICU due to ongoing blood loss.
--- NOTE | 2017-04-07 14:50 | Consultation ---
DATE OF CONSULTATION 04/07/2017 FINDINGS Mrs. Antunez is a 82-year-old female whom I was asked to see today as a result of her history for anemia and melanotic stools. Patient this morning was not the best historian. She informs me that she was somewhat more "cloudy" than usual. She states that she does not "remember much from yesterday." The majority of the information was obtained from the patient's electronic medical record as well as discussing the case with the hospitalist, Dr. Jaffe. Upon questioning the patient, she informs me that she does have a prior history for peptic ulcer disease. She informs me that about 20 years ago or more she had a "large portion" of her stomach removed as a result of "ulcers that would not heal." Patient informs me that she has had a history for anemia. She informs me that Dr. Miranda who is a general surgeon in [place] had "looked in her stomach within the last few years." Patient informs me that she does have a history for anemia. The patient apparently had lab drawn on an outpatient basis and was found be quite anemic in nature. She was instructed to present to the emergency room for acute evaluation. Hemoglobin was 5.6. The patient was hypotensive with blood pressure in the 90s systolically. The patient was subsequently admitted from the Emergency Room and placed in the ICU for further evaluation. Upon entering the room this morning, one could smell a melanotic stool. Nursing staff states that she has had several dark stools since her admission. PAST MEDICAL HISTORY Performed by my nurse practitionerKirit. PAST SURGICAL HISTORY Performed by my nurse practitionerKirit. MEDICATIONS Performed by my nurse practitionerKirit. ALLERGIES Performed by my nurse practitionerKirit. SOCIAL HISTORY Performed by my nurse practitionerKirit. FAMILY HISTORY Performed by my nurse practitionerKirit. REVIEW OF SYSTEMS Performed by my nurse practitionerKirit. PHYSICAL EXAMINATION Mrs. Antunez is a 82-year-old female who does not appear to be in acute distress. VITALS: Temperature 97.5, pulse 100, respirations 24, blood pressure 126/91, SaO2 99% on room air. HEENT: Normocephalic. Pupils are equal, round and reactive to light and accommodation. NECK: Supple without lymphadenopathy. CHEST: Clear to auscultation bilaterally. HEART: Regular rate and rhythm. Normal S1 and S2 without gallops, murmurs or clicks. ABDOMEN: Palpation of the abdomen does reveal some tenderness within the epigastric region. There is, however, no evidence for guarding or rebound. I do not appreciate evidence for past hepatosplenomegaly or other abnormal masses. EXTREMITIES: Without clubbing, cyanosis, or edema. NEURO: Cranial nerves II-XII grossly intact. Patient is without focal motor or sensory deficits. LABORATORY/RADIOGRAPH EVALUATION The patient's hemoglobin was 8.3 last evening. Earlier this morning her hemoglobin was 8.6 following transfusions. Hemoglobin obtained at 1100 hours was once again low at 5.7. BMP was obtained yesterday and today. Her BUN was elevated at 57 yesterday and 46 today, indicative of recent GI bleed. Potassium slightly low at 3.5. ASSESSMENT 82-year-old female with probable upper GI bleed. PLAN Esophagogastroduodenoscopy. It was my recommendation that we proceed with an EGD given her ongoing evidence for bleeding requiring multiple transfusions. I did discuss with the patient what an EGD entails and its associated risk which includes, but is not limited to, bleeding and/or perforation. Nursing staff was also to notify the patient's durable power of corporate associate attorney and discuss the above recommendations with the DPOA. MTDD
--- NOTE | 2017-04-07 14:55 | Operative Note ---
DATE OF SERVICE 04/07/2017 SURGEON Asa Escalante MD PREOPERATIVE DIAGNOSIS GI bleed, anemia. POSTOPERATIVE DIAGNOSIS Normal EGD. PROCEDURE Esophagogastroduodenoscopy. ANESTHESIA TIVA BRIEF HISTORY/INDICATIONS Mrs. Antunez is an 82-year-old female who has been having melanotic stools and was found to be significantly anemic upon laboratory evaluation. The patient had several large melanotic stools this morning. To further evaluate the underlying etiology of her bleeding it was recommended that she undergo esophagogastroduodenoscopy. Patient informs me that she had "stomach surgery" performed in the remote past as a result of chronic peptic ulcer disease. She states that a "good portion of the stomach was resected." FINDINGS Upon upper endoscopy it appeared that the patient had undergone a prior antrectomy with a Billroth I reconstruction. The remaining stomach was fairly small. There was not a typical appearance of the pylorus and one could directly advance the scope from the stomach and into the duodenum without noticing any type of pyloric region. The esophagus, stomach and duodenum were found to be essentially within normal limits. There was a small amount of some "whitish plaques" involving the mid esophageal region suggestive of perhaps Michelle esophagitis. The patient had been on antiplatelet therapy and I elected not to proceed with any biopsies from this area. There was, however, no evidence for bleeding. There was no blood upon the surface of the mucosa within the esophagus, stomach or duodenum. NARRATIVE OF PROCEDURE After informed consent was obtained the patient was brought to the operative suite and placed on the table in supine fashion. Patient subsequently underwent total intravenous anesthesia by the nurse advanced nursing professor at my request. Formal time-out was then completed. Next, an Olympus gastroscope was inserted into the oral hypopharynx and subsequently the esophagus under direct visualization. Gastroscope was advanced through the esophagus, stomach, and into the duodenum. Scope was then slowly withdrawn. There was no evidence of old blood or new blood upon the mucosa within the duodenum, stomach or esophagus. Duodenal mucosa was found to be completely within normal limits. Scope was drawn back into the gastric lumen. As stated above it appeared that the patient had undergone a prior antrectomy with Billroth I reconstruction. There was no evidence for a pylorus and the stomach was of a smaller caliber. There was no evidence for gastrojejunostomy but it appeared that the patient had undergone a prior gastroduodenostomy as stated above. Scope was withdrawn back out of the small bowel and into the remaining stomach. J-maneuver was performed. Cardia and fundus of the stomach were able to be visualized and were without noted abnormalities. Endoscopically there was no evidence for hiatal hernia. Again, no ulcerations or evidence for gastritis was present. Scope was allowed to straighten and was drawn back to the level of the diaphragm. Squamocolumnar junction was located at the level of the diaphragm and was well demarcated with no endoscopic evidence for Lai's metaplasia or distal esophagitis. Scope was slowly withdrawn. One could see a few 5-6 mm whitish-like areas upon the surface of the mucosa suggestive of possible Michelle esophagitis. These whitish plaque-like areas were irrigated but were somewhat adherent to the esophageal mucosa. Again, this did not appear suspicious in nature and I elected not to proceed with any type of biopsies given the fact that she had been on antiplatelet therapy. Scope was slowly withdrawn and the remaining esophageal mucosa was found to otherwise be within normal limits. The patient tolerated the procedure without difficulty and will be sent back to the ICU once deemed in stable condition. BALDO
[2017-04-07] MEDS: CEFTRIAXONE 1 G in NS 100 ML IV SCH (16:08)
[2017-04-07] MEDS: ACETAMINOPHEN 325 MG TABLET PO PRN (16:14)
[2017-04-07] MEDS: TRAMADOL 50 MG TABLET PO PRN (18:18)
[2017-04-07] MEDS: TRAZODONE 100 MG TABLET PO SCH (20:29)
[2017-04-07] MEDS: LOSARTAN 50 MG TABLET PO SCH (20:43)
[2017-04-08] MEDS: TRAMADOL 50 MG TABLET PO PRN ×3 (04:30→22:35)
[2017-04-08] MEDS: ACETAMINOPHEN 325 MG TABLET PO PRN ×2 (05:27→23:28)
[2017-04-08] MEDS: DIGOXIN 125 MCG TABLET PO SCH (08:25)
[2017-04-08] MEDS: CYANOCOBALAMIN (B-12) 500mcg TABLET PO SCH (08:25)
[2017-04-08] MEDS: PANTOPRAZOLE 40 MG INJECTION IVP SCH (08:25)
[2017-04-08] MEDS: PredniSONE 5 MG TABLET PO SCH (08:25)
[2017-04-08] MEDS: SERTRALINE 100 MG TABLET PO SCH ×2 (08:27→11:27)
[2017-04-08] MEDS: LOSARTAN 50 MG TABLET PO SCH ×2 (08:27→21:24)
[2017-04-08] MEDS: LIDOCAINE 1% 2ml INJ 10 MG, POTASSIUM CHLORIDE INJ 10 MEQ in NS 100 ML IV SCH ×4 (11:13→15:14)
[2017-04-08] MEDS ORDERED: NON-FORMULARY MEDICATION 1 EACH EACH (Cholecalciferol (Vitamin D3) [Vitamin D3] 1,000 UNIT PO SCH (12:45)
[2017-04-08] MEDS: CAFFEINE PO PRN (13:05)
[2017-04-08] MEDS: BUTALBITAL PO PRN (13:05)
[2017-04-08] MEDS: APAP PO PRN (13:05)
[2017-04-08] MEDS: NS 1,000 ML IV SCH ×2 (13:09→22:37)
--- NOTE | 2017-04-08 13:55 | Progress Note ---
- Date 04/08/17 Subjective: Mrs. Antunez c/o BAZAN this am and soreness at site of recent cyst drainage on posterior scalp. Nursing report to soft dark stools overnight but the patient reports no stools this morning. She is voiding without difficulty and denies dysuria. She denies difficulty swallowing or pain with swallowing. She reports feeling that she needs to take deep breaths intermittently but denies dyspnea or cough. She's had no lightheadedness and doesn't feel weak when she is up to the bathroom. Objective Vital signs: Temperature 98.8 F 04/08/17 12:00 Pulse Rate 94 04/08/17 12:00 Respiratory Rate 16 04/08/17 12:00 Blood Pressure 152/88 H 04/08/17 12:00 Pulse Oximetry 100 04/08/17 12:00 I/O 2700/2800 EXAM General-NAD, alert, cheeks pink HEENT-conjugate gaze, pupils equal, conjunctiva clear, oropharynx clear Lungs-respirations nonlabored, good airflow, breath sounds clear Cardiac-slightly irregular rhythm, S1-S2, prominent murmur as previously noted Abd-soft, nontender, bowel sounds present Ext-without edema Neuro-MAEW Psych-calm, cooperative - Rhythm: Atrial Fibrillation with Normal Ventricular Rate Height/Weight/BMI: Height 1.52 m Weight 44.7 kg Body Mass Index 19.4 Results - Labs CBC & Chem 7: 04/08/17 04:14 04/08/17 04:14 Labs: Phosphorus 2.9 and magnesium 2.1 Microbiology Results: Urine culture > 100,000 CFU Klebsiella, resistant to ampicillin Assessment and Plan (1) GI bleed Problem details: Melena Current visit: Yes Status: Acute (2) Anemia Current visit: Yes Status: Acute (3) Atrial fibrillation Current visit: No Status: Acute Assessment and Plan: Impression GI bleed-acute, likely upper Acute Anemia- Hgb on admission 5.6. Transfused 2 units PRBCs 04/06, 2 units Acute Hypotension-POA Chronic Normocytic anemia Chronic anticoagulation- Xarelto Klebsiella UTI-POA Hypokalemia-04/08 Valvular heart disease- Mitral valve repair, chronic Proximal atrial fibrillation Hypertension, chronic Rheumatoid arthritis- chronically on prednisone Migraine headaches History gastritis by EGD 2016 Plan Mrs. Antunez has remained hemodynamically stable without evidence of significant blood loss overnight. She did have some dark stools but they were soft. EGD was without evidence of bleeding source; several white plaques were reported in the esophagus raising question of some fungal esophagitis but the patient denies any symptoms. Hemoglobin significantly improved after blood yesterday-in retrospect question accuracy of low hemoglobin yesterday morning. Have discussed colonoscopy to complete workup with patient and her daughter. Advised them that with colonoscopy within past 2 years we are not likely to find any pathologic source of bleeding and that nature of bleed suggested an upper source. Finding of AVM may offer treatment option however. Discussed with Dr. Escalante-procedure can be completed on Monday if patient elects to proceed. Switch from IV to oral PPI. Again discussed his continuing anticoagulation long-term due to excess risk of bleeding. Headache described this morning with increased discomfort by early afternoon- patient reports using Fiorinal at home, fioricet started. Ceftriaxone initiated yesterday for Klebsiella UTI, sensitivities noted. Potassium supplemented, recheck in a.m. Stable to transfer out of ICU. GI Prophylaxis: Protonix Resuscitation Status: Full Code Hospital Course Summary Disclaimer: The visit summary below is not to be considered part of the above Progress Note. Hospital Course: 04/06/17 - Admission Impression Acute Anemia- Hgb on admission 5.6 Chronic Normocytic anemia Acute Hypotension- POA Chronic anticoagulation- Xarelto Bacteriuria- POA Valvular heart disease- Mitral valve repair, chronic Proximal atrial fibrillation Hypertension Rheumatoid arthritis- chronically on prednisone Plan Admit to CCU as a inpatient under the care of Dr Jaffe for acute anemia. Patient is type and screen for 2 units and will receive transfusion of both units today. Recheck posttransfusion hemoglobin. At this point will hold all anticoagulation, Xarelto. Anticoagulation discussed with Dr. Gomez-he is pretty slowly recommended patient discontinue however patient has been opposed due to potential risk of stroke despite clear risk of blood loss/GI bleed. Monitor patient Cardiac telemetry known hx of paroxysmal atrial fibrillation Last EGD was in 2016 that did revel mild gastritis. Patient reports increase epigastric pain recently and is taking routine Protonix BID as well as antacids frequently at home. Will schedule Protonix 40 mg IV BID for GI protection. Bacteriuria present on admission, will wait to evaluate urine culture. Patient have clear liquid diet Will discuss home medications with attending. Will need to hold antihypertensive medications given hypotension. She will likely need cardiac rate control given A-fibulation SCDs to bilateral lower extremity for DVT prophylaxis Patient does wish to be a full code and this order is written At time of discharge medical care will return to Dr. Kearns and cardiology care to Dr. Parris Gomez 04/07/17 Recurrent blood loss this morning with multiple stools described by nursing and patient. Hemoglobin had improved with transfusion yesterday but is now down to 5.7 and additional blood has been ordered. 2 additional units of blood being given today in addition to [address] Escalante consulted for EGD-study completed without demonstration of a bleeding site in the stomach or esophagus. May require colonoscopy as status permits. Patient reports last dose of Xarelto was Monday evening-typically takes with evening meal. Continue to hold. Urinary frequency (new) described by patient, gram-negative rods in urine- ceftriaxone initiated pending culture results. Continues to require close observation in ICU due to ongoing blood loss. 04/08/17 Mrs. Antunez has remained hemodynamically stable without evidence of significant blood loss overnight. She did have some dark stools but they were soft. EGD was without evidence of bleeding source; several white plaques were reported in the esophagus raising question of some fungal esophagitis but the patient denies any symptoms. Hemoglobin significantly improved after blood yesterday-in retrospect question accuracy of low hemoglobin yesterday morning. Have discussed colonoscopy to complete workup with patient and her daughter. Advised them that with colonoscopy within past 2 years we are not likely to find any pathologic source of bleeding and that nature of bleed suggested an upper source. Finding of AVM may offer treatment option however. Switch from IV to oral PPI. Again discussed his continuing anticoagulation long-term due to excess risk of bleeding. Headache described this morning with increased discomfort by early afternoon- patient reports using Fiorinal at home, fioricet started. Ceftriaxone initiated yesterday for Klebsiella UTI, sensitivities noted. Potassium supplemented, recheck in a.m. Stable to transfer out of ICU.
[2017-04-08] MEDS: CALCIUM CARBONATE 500 MG TABLET PO SCH (14:46)
[2017-04-08] MEDS: CEFTRIAXONE 1 G in NS 100 ML IV SCH (16:17)
[2017-04-08] MEDS ORDERED: ROPINIROLE 0.25 MG TABLET PO ONE (20:27)
[2017-04-08] MEDS: PANTOPRAZOLE 40 MG TABLET PO SCH (21:10)
[2017-04-08] MEDS: TRAZODONE 100 MG TABLET PO SCH (21:23)
[2017-04-09] MEDS: PANTOPRAZOLE 40 MG TABLET PO SCH ×2 (06:33→22:03)
[2017-04-09] MEDS ORDERED: FESOTERODINE FUMARATE 8 MG PO SCH (09:00)
[2017-04-09] MEDS: CYANOCOBALAMIN (B-12) 500mcg TABLET PO SCH (09:30)
[2017-04-09] MEDS: PredniSONE 5 MG TABLET PO SCH (09:31)
[2017-04-09] MEDS: VITAMIN B COMPLEX + C TABLET PO SCH (09:31)
[2017-04-09] MEDS: DIGOXIN 125 MCG TABLET PO SCH (09:31)
[2017-04-09] MEDS: LOSARTAN 50 MG TABLET PO SCH ×2 (09:31→22:03)
[2017-04-09] MEDS: BUTALBITAL PO PRN (11:47)
[2017-04-09] MEDS: SERTRALINE 100 MG TABLET PO SCH (11:47)
[2017-04-09] MEDS: APAP PO PRN (11:47)
[2017-04-09] MEDS: CALCIUM CARBONATE 500 MG TABLET PO SCH (11:47)
[2017-04-09] MEDS: CAFFEINE PO PRN (11:47)
[2017-04-09] MEDS ORDERED: Bisacodyl EC TAB 5 MG TABLET PO ONE (13:30)
[2017-04-09] MEDS: CEFTRIAXONE 1 G in NS 100 ML IV SCH (14:04)
[2017-04-09] MEDS ORDERED: POLYETHYL. GLYCOL 3350 BOTTLE 238 GM PO ONE (15:30)
[2017-04-09] MEDS ORDERED: FUROSEMIDE 20 MG/2 ML INJECTION IVP ONE (15:33)
--- NOTE | 2017-04-09 15:39 | Progress Note ---
<Janeth Hyatt D - Last Filed: 04/09/17 15:35> - Date 04/09/17 Subjective: Cheryl is seen today in follow up. She is feeling fairly well. Is a bit anxious about her potential need for colonoscopy. She reports she is unclear if she has ever had a colonoscopy before, is aware of two EGD in the past. She states that she has been seeing "dark spots" all over the soriano. She also has been seeing "yellow spots" on her blankets. She does have a hx of migraine, but this is not her typical aura. No falls or head injury reported. Pt. does not believe that she is confused, but endorses that being awakened throughout the night is affecting her. Her daughter joined us mid-way into our conversation. She reports that pt reported to family that her nurse was in a "tutu and tights" all night, and she was upset by that. Family does feel that she is a bit confused, which is not normal for her. They have been discussing DC planning- pt. is willing to go to [facility] for SNU post discharge. Chart reviewed for collateral information. Objective Vital signs: Temperature 98.3 F 04/09/17 11:56 Pulse Rate 95 04/09/17 11:56 Respiratory Rate 16 04/09/17 11:56 Blood Pressure 154/76 H 04/09/17 11:56 Pulse Oximetry 99 04/09/17 11:56 Rhythm: Atrial Fibrillation with Normal Ventricular Rate Height/Weight/BMI: Height 1.52 m Weight 46.5 kg Body Mass Index 19.4 - Constitutional Present: no acute distress, thin, cooperative - Routine HEENT Exam Head: Present: normocephalic, atraumatic Eye: Present: EOMI, PERRL ENT: Present: mucous membranes moist - Routine Respiratory Exam Present: CTA bilaterally. Absent: rhonchi, wheezes, crackles - Routine Cardiovascular Exam Present: RRR, S1, S2, irregular rhythm - Routine Abdominal Exam Present: soft, normoactive bowel sounds, non distended, non tender - Routine Extremities Exam Present: no edema, non tender - Routine Back/Spine/Pelvis Exam Back/Spine: Present: full ROM - Routine Musculoskeletal Exam Musculoskeletal: Present: no clubbing or cyanosis, moving extremities well - Routine Skin Exam Present: intact, dry, warm Comments: Mildly icteric. - Routine Neurological Exam Present: alert, moving all extremities - Routine Psychiatric Exam Present: normal affect, cooperative, anxious (mildly anxious) Results - Labs CBC & Chem 7: 04/09/17 05:08 04/09/17 05:08 Assessment and Plan (1) Anemia Current visit: Yes Status: Acute (2) Atrial fibrillation Current visit: No Status: Acute (3) GI bleed Problem details: Melena Current visit: Yes Status: Acute Assessment and Plan: Impression GI bleed-acute, likely upper Acute Anemia- Hgb on admission 5.6. Transfused 2 units PRBCs 04/06, 2 units Acute Hypotension-POA Chronic Normocytic anemia Chronic anticoagulation- Xarelto Klebsiella UTI-POA Hypokalemia-04/08 Valvular heart disease- Mitral valve repair, chronic Proximal atrial fibrillation Hypertension, chronic Rheumatoid arthritis- chronically on prednisone Migraine headaches History gastritis by EGD 2015 Plan 04/09/17 HGB is improving overall s/p transfusion. D/W Dr. Jaffe. Xarelto to remain DC'd due to high risk for bleeding. Continue to hold ASA for now. Potential colonoscopy in AM for more complete screening. Bone Marrow bx did show significant iron depletion- order IV replacement. Continue HR control with Cardizem. BP is running a bit high, weight trending up. Suspect some fluid overload given IVF and transfusion- Give Lasix, KCL x 1 now. Repeat labs in AM. RA, chronically on prednisone- continue to monitor. Concern for esophageal plaquing- monitor for sx. Continue Rocephin for UTI treatment. Potential DC to SNU when medically stable. DVT Prophylaxis: SCD's GI Prophylaxis: Protonix Hospital Course Summary Disclaimer: The visit summary below is not to be considered part of the above Progress Note. Hospital Course: 04/06/17 - Admission Impression Acute Anemia- Hgb on admission 5.6 Chronic Normocytic anemia Acute Hypotension- POA Chronic anticoagulation- Xarelto Bacteriuria- POA Valvular heart disease- Mitral valve repair, chronic Proximal atrial fibrillation Hypertension Rheumatoid arthritis- chronically on prednisone Plan Admit to CCU as a inpatient under the care of Dr Jaffe for acute anemia. Patient is type and screen for 2 units and will receive transfusion of both units today. Recheck posttransfusion hemoglobin. At this point will hold all anticoagulation, Xarelto. Anticoagulation discussed with Dr. Gomez-he is pretty slowly recommended patient discontinue however patient has been opposed due to potential risk of stroke despite clear risk of blood loss/GI bleed. Monitor patient Cardiac telemetry known hx of paroxysmal atrial fibrillation Last EGD was in 2016 that did revel mild gastritis. Patient reports increase epigastric pain recently and is taking routine Protonix BID as well as antacids frequently at home. Will schedule Protonix 40 mg IV BID for GI protection. Bacteriuria present on admission, will wait to evaluate urine culture. Patient have clear liquid diet Will discuss home medications with attending. Will need to hold antihypertensive medications given hypotension. She will likely need cardiac rate control given A-fibulation SCDs to bilateral lower extremity for DVT prophylaxis Patient does wish to be a full code and this order is written At time of discharge medical care will return to Dr. Kearns and cardiology care to Dr. Parris Gomez 04/07/17 Recurrent blood loss this morning with multiple stools described by nursing and patient. Hemoglobin had improved with transfusion yesterday but is now down to 5.7 and additional blood has been ordered. 2 additional units of blood being given today in addition to [address] Escalante consulted for EGD-study completed without demonstration of a bleeding site in the stomach or esophagus. May require colonoscopy as status permits. Patient reports last dose of Xarelto was Monday evening-typically takes with evening meal. Continue to hold. Urinary frequency (new) described by patient, gram-negative rods in urine- ceftriaxone initiated pending culture results. Continues to require close observation in ICU due to ongoing blood loss. 04/08/17 Mrs. Antunez has remained hemodynamically stable without evidence of significant blood loss overnight. She did have some dark stools but they were soft. EGD was without evidence of bleeding source; several white plaques were reported in the esophagus raising question of some fungal esophagitis but the patient denies any symptoms. Hemoglobin significantly improved after blood yesterday-in retrospect question accuracy of low hemoglobin yesterday morning. Have discussed colonoscopy to complete workup with patient and her daughter. Advised them that with colonoscopy within past 2 years we are not likely to find any pathologic source of bleeding and that nature of bleed suggested an upper source. Finding of AVM may offer treatment option however. Switch from IV to oral PPI. Again discussed his continuing anticoagulation long-term due to excess risk of bleeding. Headache described this morning with increased discomfort by early afternoon- patient reports using Fiorinal at home, fioricet started. Ceftriaxone initiated yesterday for Klebsiella UTI, sensitivities noted. Potassium supplemented, recheck in a.m. Stable to transfer out of ICU. 04/09/17 15:46 HGB is improving overall s/p transfusion. D/W Dr. Jaffe. Xarelto to remain DC'd due to high risk for bleeding. Continue to hold ASA for now. Potential colonoscopy in AM for more complete screening. Bone Marrow bx did show significant iron depletion- order IV replacement. Continue HR control with Cardizem. BP is running a bit high, weight trending up. Suspect some fluid overload given IVF and transfusion- Give Lasix, KCL x 1 now. Repeat labs in AM. RA, chronically on prednisone- continue to monitor. Concern for esophageal plaquing- monitor for sx. Continue Rocephin for UTI treatment. Potential DC to SNU when medically stable. <Wen Jaffe - Last Filed: 04/09/17 20:21> - Date 04/09/17 Objective Vital signs: Height/Weight/BMI: Results - Labs CBC & Chem 7: 04/09/17 05:08 04/09/17 05:08 Assessment and Plan (1) GI bleed Problem details: Melena Current visit: Yes Status: Acute (2) Anemia Current visit: Yes Status: Acute (3) Atrial fibrillation Current visit: No Status: Acute Assessment and Plan: I have independently evaluated and examined this patient. I reviewed the chart, the patient's history, and the GRAPHICS PRODUCTION SPECIALIST/PA's documented findings as above. We discussed and formulated the assessment and plan as above with additions as below: Mrs. Antunez reports sleeping poorly overnight and describes seeing the nurse in a tutu; today she seemed fuzzy pattern on the wall. She describes ongoing headache. Outpatient records were reviewed further and it was learned that she's had 2 EGDs in the past 2 years both demonstrating some gastritis and white plaques in the esophagus consistent with esophageal candidiasis but she did not have a colonoscopy with either EGD as the patient had previously described. Last reported colonoscopy in medical records was in 2007. Accordingly I strongly recommended that she proceed with colonoscopy at this time and have discussed this with patient and her daughter and they are agreeable. Additionally results of the bone marrow biopsy done last week were available in the [facility] record and indicate very poor iron stores and no evidence of malignancy. This was shared with the patient and IV iron supplementation recommended. She indicated there was concern about possible iron overload at some point however her last ferritin measurement was on February 02 of this year at which time ferritin was 10.1. On examination the patient is awake but slightly drowsy. She is cooperative. Respirations are nonlabored, abdomen is benign, and extremities are without edema Proceed with colonoscopy in a.m.-discussed with Dr. Esclaante. IV iron replacement Patient and family are interested in long-term placement-hope to go [facility]. Avoid sleeping interruptions tonight if possible. Convert from IV to oral antibiotics for UTI 3 EGDs have demonstrated white plaques in the esophagus and patient has chronic esophageal symptoms-treatment will be initiated with Diflucan 200 mg daily for esophageal candidiasis (chronic immunosuppression with methotrexate-recently discontinued) In addition to above diagnoses please add: Esophageal candidiasis, probable Hospital Course Summary Disclaimer: The visit summary below is not to be considered part of the above Progress Note. Addendum entered and electronically signed by Janeth Hyatt APRN 04/09/17 15:48 : Possibly developing some hospital-associated delirium. Monitor. D/W pt and family. 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 Monitor- she would not do well with any surgical repair of such a risky area.
[2017-04-09] MEDS ORDERED: IRON - PHARMACY CONSULT MC ONE (15:47)
[2017-04-09] MEDS: TRAZODONE 100 MG TABLET PO SCH (22:02)
[2017-04-10] MEDS: PANTOPRAZOLE 40 MG TABLET PO SCH ×2 (06:12→21:29)
[2017-04-10] MEDS: CYANOCOBALAMIN (B-12) 500mcg TABLET PO SCH (10:37)
[2017-04-10] MEDS: DIGOXIN 125 MCG TABLET PO SCH (10:38)
[2017-04-10] MEDS: LOSARTAN 50 MG TABLET PO SCH ×3 (10:39→21:30)
[2017-04-10] MEDS: PredniSONE 5 MG TABLET PO SCH (10:39)
[2017-04-10] MEDS: FLUCONAZOLE 100 MG TABLET PO SCH (10:39)
[2017-04-10] MEDS: VITAMIN B COMPLEX + C TABLET PO SCH (10:40)
[2017-04-10] MEDS ORDERED: LR 1,000 ML IV SCH (10:45)
[2017-04-10] MEDS ORDERED: PROPOFOL 500 MG/50 ML VIAL IV ONE (10:56)
--- NOTE | 2017-04-10 11:41 | General Surgery Procedure Note ---
Date of Procedure: 04/10/17 Surgeon: Ava Postoperative Diagnosis: Colonoscopy Procedure: Diverticulosis Estimated Blood Loss: See Anesthesia Record. Pathology: none sent
--- NOTE | 2017-04-10 11:57 | Anesthesia Postoperative Note ---
- Date and Time Date: 04/10/17 Time: 11:57 - Status Patient Participated in Evaluation: Patient Participated in Person Vital Signs: Temperature 98.7 F 04/10/17 11:44 Pulse Rate 84 04/10/17 11:55 Respiratory Rate 16 04/10/17 11:55 Blood Pressure 166/76 H 04/10/17 11:55 Pulse Oximetry 100 04/10/17 11:55 Respiratory Function: Airway Patent, Regular Respirations Cardiovascular Function: Regular Pulse Mental Status: Alert and Oriented Pain Intensity: 0 Hydration: IV Infusing Complications During Recover: None Apparent - Follow-Up Instructions Instructions: Per Surgeon
[2017-04-10] MEDS: SERTRALINE 100 MG TABLET PO SCH (12:57)
[2017-04-10] MEDS: CALCIUM CARBONATE 500 MG TABLET PO SCH (12:57)
[2017-04-10] MEDS: NS 1,000 ML IV SCH (13:07)
--- NOTE | 2017-04-10 13:29 | Pharmacy Consult ---
Pharmacy Consult-[facility] - Laboratory Information [facility] 04/06/17 04/06/17 04/07/17 23:32 23:32 04:33 Hgb 8.3 L D Cancelled 8.6 L Hct 27.0 L D 27.9 L 04/07/17 04/07/17 04/08/17 11:02 18:09 00:09 Hgb 5.7 L* D 12.2 D 11.7 L Hct 18.4 L D 38.8 D 36.5 04/08/17 04/09/17 04/10/17 04:14 05:08 04:28 Hgb 12.8 11.9 L 12.3 Hct 40.5 38.3 39.3 - Consult Information IV IRON CONSULT: Dx: Chronic Anemia: Will give TDI (Total Dose Infusion) over 4 hours. Actual body weight = 44kg Hgb Level = Estimating 10 g/dL after blood transfusions. Calculated Dosing weight = 45 kg Total dose needed: 1050 mg (21 mL) Will give test dose of 25mg IV push over 30 seconds. Watch VS q 15 minutes x 1 hr. (watching for anaphylaxis, respiratory distress, hives.) If no reaction will give full dose in NS 500ml TRA 125ml/hr. Watch VS q 1 hr during infusion. Thank you.
[2017-04-10] MEDS ORDERED: IRON DEXTRAN COMPLEX 100mg/2ml INJECTION IV ONE (14:00)
--- NOTE | 2017-04-10 14:06 | Operative Note ---
DATE OF SERVICE 04/10/2017 SURGEON Asa Escalante MD PREOPERATIVE DIAGNOSIS Anemia, history for melanotic stools. POSTOPERATIVE DIAGNOSIS Anemia, history for melanotic stools, sigmoid diverticulosis. PROCEDURES Colonoscopy ANESTHESIA TIVA BRIEF HISTORY/INDICATIONS Mrs. Antunez is an 82-year-old female who was recently admitted to our facility as a result of the finding of marked anemia upon laboratory evaluation. The patient's hemoglobin was found on an outpatient basis to be 5.6. Shortly after admission, the patient was found to have melanotic stools. She did undergo an EGD following admission that did not reveal any etiology for her GI bleeding. It was therefore recommended that she undergo a colonoscopy for further evaluation. Patient presents today to undergo this procedure. For completeness please refer to notes included in the patient's chart. FINDINGS Upon colonoscopy there was no evidence for angiodysplastic lesions, polyps or eugenia malignancies. The patient was found to have numerous diverticula within the sigmoid colon region. It is my intuition that the patient's recent melanotic stools was likely diverticular in its etiology. DESCRIPTION OF PROCEDURE After informed consent was obtained, patient was brought to the endoscopy suite and placed on the table in left lateral decubitus position. The patient subsequently underwent total intravenous anesthesia by the nurse seed trucker per my request. Formal time-out was then completed. Next a digital rectal examination was performed. Normal sphincter tone. No rectal masses were appreciated. An Olympus colonoscope was inserted in the anus and advanced through the lumen of the colon under direct visualization at all times until the cecum was ascertained. Triangulation of the teniae coli, ileocecal valve and appendiceal lumen were all visualized. Scope was slowly withdrawn again maintaining visualization of the lumen at all times. The entire colon was without evidence for angiodysplastic lesions, polyps or eugenia malignancies. The patient was found to have numerous diverticula within the sigmoid colon region. There was no evidence for old blood upon the surface of the mucosa to suggest ongoing bleeding. Once the colonoscope was withdrawn back to the rectal vault a J-maneuver was then performed. No worrisome perianal pathology was noted. Scope was allowed to straighten and withdrawn through the anal verge. The patient tolerated the procedure without difficulty and was sent back to the preop area in stable condition. Given the patient's advanced age and the absence of findings upon this colonoscopy, I believe the patient will not need a repeat colonoscopy in her lifetime unless new specific indication should arise. One may need to address the issue of her ongoing anticoagulation from a "risk versus benefits standpoint ". Apparently the patient's beef pusher has informed the patient in the past that she did not have to continue with ongoing anticoagulation but there was some hesitancy to discontinue anticoagulation from a "stroke standpoint". BALDO
[2017-04-10] MEDS ORDERED: IRON DEXTRAN IV ONE (15:00)
[2017-04-10] MEDS ORDERED: NS IV ONE (15:00)
--- NOTE | 2017-04-10 15:45 | Progress Note ---
- Date 04/10/17 Subjective: Mrs. Antunez tolerated colonoscopy. Has eaten lunch. Complains about frequent use of bedside commode with colon prep and now IVF. She says she did not sleep well last night. A daughter from [id number] is visiting. Patient is hard of hearing. She reports seeing spots. Objective Vital signs: Temperature 98.1 F 04/10/17 15:10 Pulse Rate 87 04/10/17 15:10 Respiratory Rate 22 04/10/17 15:10 Blood Pressure 157/76 H 04/10/17 15:10 Pulse Oximetry 100 04/10/17 15:10 Rhythm: Atrial Fibrillation with Normal Ventricular Rate Height/Weight/BMI: Height 5 ft Weight 44 kg Body Mass Index 19.4 - Constitutional Present: well nourished, well developed - Routine HEENT Exam Eye: Present: EOMI ENT: Present: mucous membranes moist, dentition normal - Routine Respiratory Exam Present: CTA bilaterally. Absent: rhonchi, wheezes, crackles - Routine Cardiovascular Exam Present: irregularly irregular - Routine Abdominal Exam Present: soft, normoactive bowel sounds, non distended. Absent: tenderness - Routine Extremities Exam Present: normal capillary refill. Absent: edema Results - Labs CBC & Chem 7: 04/10/17 04:28 04/10/17 04:28 Assessment and Plan (1) Anemia Current visit: Yes Status: Acute (2) Atrial fibrillation Current visit: No Status: Acute (3) GI bleed Problem details: Melena Current visit: Yes Status: Acute Assessment and Plan: GI bleed-acute, likely upper Acute Anemia- Hgb on admission 5.6. Transfused 2 units PRBCs 04/06, 2 units Acute Hypotension-POA Chronic Normocytic anemia Chronic anticoagulation- Xarelto Klebsiella UTI-POA Hypokalemia-04/08 Valvular heart disease- Mitral valve repair, chronic Proximal atrial fibrillation Hypertension, chronic Rheumatoid arthritis- chronically on prednisone Migraine headaches History gastritis by EGD 2016 Esophageal candidiasis diverticulosis Hemoglobin is stable. Colonoscopy showed diverticulosis. Planning IV iron replacement. No more Xarelto. Will resume ASA. Encourage activity. Now on Keflex for UTI. Minimize sleeping interruptions - should be easier w/o colon prep. Diflucan for esophageal candidiasis. Rate controlled on diltiazem but BP more elevated. DC IVF and give dose lasix. monitor. Hospital Course Summary Disclaimer: The visit summary below is not to be considered part of the above Progress Note. Hospital Course: 04/06/17 - Admission Impression Acute Anemia- Hgb on admission 5.6 Chronic Normocytic anemia Acute Hypotension- POA Chronic anticoagulation- Xarelto Bacteriuria- POA Valvular heart disease- Mitral valve repair, chronic Proximal atrial fibrillation Hypertension Rheumatoid arthritis- chronically on prednisone Plan Admit to CCU as a inpatient under the care of Dr Jaffe for acute anemia. Patient is type and screen for 2 units and will receive transfusion of both units today. Recheck posttransfusion hemoglobin. At this point will hold all anticoagulation, Xarelto. Anticoagulation discussed with Dr. Gomez-he is pretty slowly recommended patient discontinue however patient has been opposed due to potential risk of stroke despite clear risk of blood loss/GI bleed. Monitor patient Cardiac telemetry known hx of paroxysmal atrial fibrillation Last EGD was in 2015 that did revel mild gastritis. Patient reports increase epigastric pain recently and is taking routine Protonix BID as well as antacids frequently at home. Will schedule Protonix 40 mg IV BID for GI protection. Bacteriuria present on admission, will wait to evaluate urine culture. Patient have clear liquid diet Will discuss home medications with attending. Will need to hold antihypertensive medications given hypotension. She will likely need cardiac rate control given A-fibulation SCDs to bilateral lower extremity for DVT prophylaxis Patient does wish to be a full code and this order is written At time of discharge medical care will return to Dr. Kearns and cardiology care to Dr. Parris Gomez 04/07/17 Recurrent blood loss this morning with multiple stools described by nursing and patient. Hemoglobin had improved with transfusion yesterday but is now down to 5.7 and additional blood has been ordered. 2 additional units of blood being given today in addition to [address] Escalante consulted for EGD-study completed without demonstration of a bleeding site in the stomach or esophagus. May require colonoscopy as status permits. Patient reports last dose of Xarelto was Monday evening-typically takes with evening meal. Continue to hold. Urinary frequency (new) described by patient, gram-negative rods in urine- ceftriaxone initiated pending culture results. Continues to require close observation in ICU due to ongoing blood loss. 04/08/17 Mrs. Antunez has remained hemodynamically stable without evidence of significant blood loss overnight. She did have some dark stools but they were soft. EGD was without evidence of bleeding source; several white plaques were reported in the esophagus raising question of some fungal esophagitis but the patient denies any symptoms. Hemoglobin significantly improved after blood yesterday-in retrospect question accuracy of low hemoglobin yesterday morning. Have discussed colonoscopy to complete workup with patient and her daughter. Advised them that with colonoscopy within past 2 years we are not likely to find any pathologic source of bleeding and that nature of bleed suggested an upper source. Finding of AVM may offer treatment option however. Switch from IV to oral PPI. Again discussed his continuing anticoagulation long-term due to excess risk of bleeding. Headache described this morning with increased discomfort by early afternoon- patient reports using Fiorinal at home, fioricet started. Ceftriaxone initiated yesterday for Klebsiella UTI, sensitivities noted. Potassium supplemented, recheck in a.m. Stable to transfer out of ICU. 04/09/17 15:46 HGB is improving overall s/p transfusion. D/W Dr. Jaffe. Xarelto to remain DC'd due to high risk for bleeding. Continue to hold ASA for now. Potential colonoscopy in AM for more complete screening. Bone Marrow bx did show significant iron depletion- order IV replacement. Continue HR control with Cardizem. BP is running a bit high, weight trending up. Suspect some fluid overload given IVF and transfusion- Give Lasix, KCL x 1 now. Repeat labs in AM. RA, chronically on prednisone- continue to monitor. Concern for esophageal plaquing- monitor for sx. Continue Rocephin for UTI treatment. Potential DC to SNU when medically stable. 04/10/17 16:07 GI bleed-acute, likely upper Acute Anemia- Hgb on admission 5.6. Transfused 2 units PRBCs 04/06, 2 units Acute Hypotension-POA Chronic Normocytic anemia Chronic anticoagulation- Xarelto Klebsiella UTI-POA Hypokalemia-04/08 Valvular heart disease- Mitral valve repair, chronic Proximal atrial fibrillation Hypertension, chronic Rheumatoid arthritis- chronically on prednisone Migraine headaches History gastritis by EGD 2015 Esophageal candidiasis diverticulosis Hemoglobin is stable. Colonoscopy showed diverticulosis. Planning IV iron replacement. No more Xarelto. Will resume ASA. Encourage activity. Now on Keflex for UTI. Minimize sleeping interruptions - should be easier w/o colon prep. Diflucan for esophageal candidiasis. Rate controlled on diltiazem but BP more elevated. DC IVF and give dose lasix. monitor.
[2017-04-10] MEDS ORDERED: FUROSEMIDE 20 MG/2 ML INJECTION IVP ONE (16:14)
[2017-04-10] MEDS: ASPIRIN *EC* 81 MG TABLET PO SCH (18:03)
[2017-04-10] MEDS: TRAZODONE 100 MG TABLET PO SCH (21:29)
[2017-04-10] MEDS ORDERED: HYDRALAZINE 20 MG/ML INJECTION IVP PRN (23:07)
[2017-04-11] MEDS: TRAMADOL 50 MG TABLET PO PRN ×2 (00:22→06:25)
[2017-04-11] MEDS: APAP PO PRN (04:25)
[2017-04-11] MEDS: CAFFEINE PO PRN (04:25)
[2017-04-11] MEDS: BUTALBITAL PO PRN (04:25)
[2017-04-11] MEDS: PANTOPRAZOLE 40 MG TABLET PO SCH (05:52)
[2017-04-11 07:28] VITALS: RESP 16
[2017-04-11] MEDS ORDERED: PredniSONE 5 MG TABLET PO SCH (08:00)
[2017-04-11] MEDS: FLUCONAZOLE 100 MG TABLET PO SCH (09:45)
[2017-04-11] MEDS: LOSARTAN 50 MG TABLET PO SCH (09:46)
[2017-04-11] MEDS: VITAMIN B COMPLEX + C TABLET PO SCH (09:47)
[2017-04-11] MEDS: DIGOXIN 125 MCG TABLET PO SCH (09:47)
[2017-04-11] MEDS: ASPIRIN *EC* 81 MG TABLET PO SCH (09:49)
[2017-04-11] MEDS: CYANOCOBALAMIN (B-12) 500mcg TABLET PO SCH (09:49)
[2017-04-11] MEDS: SERTRALINE 100 MG TABLET PO SCH (12:36)
[2017-04-11] MEDS: CALCIUM CARBONATE 500 MG TABLET PO SCH (12:36)
--- NOTE | 2017-04-11 15:33 | Extended Care Facility Orders ---
<Cindy Albert - Last Filed: 04/11/17 15:30> Admission Orders Admit to:: Long-Term Allergies/Adverse Reactions: Allergies morphine Allergy (Intermediate, Verified 04/06/17 13:54) BEHAVIOR DISTURBANCE zolpidem Allergy (Intermediate, Verified 04/06/17 13:54) MADE ME CRAZY Malt Extract. Allergy (Mild, Verified 04/06/17 13:54) DIARRHEA codeine Allergy (Unknown, Verified 04/06/17 13:54) Nausea hydroxychloroquine Allergy (Unknown, Verified 04/06/17 13:54) Hives terbinafine HCl Allergy (Intermediate, Uncoded 02/21/17 20:59) RASH Admitting Diagnosis: anemia,hypotension Admitting Physician: Jarocho Pride IV, MD Attending Physician: Jarocho Pride IV, MD Code Status: Full Code Anticiapted Length of Stay: 30 days or less Rehab Potential: fair Rehab Prognosis: fair Diet: 04/10/17 Dinner Regular Diet [DIET] Diet Modifications: 04/10/17 Lunch Regular Diet [DIET] Diet Modifications: Wound/Incision Care: n/a May use Facility Protocol or Standing Orders: Yes May have flu vaccine: Yes Evaluations/Treatment: PT, OT Long-Term Certification: I certify that SNF services are required to be given on an Inpatient basis because of the patients need for [facility] care on a continuing basis for the condition(s) for which he/she received inpatient hospital services prior to his/her transfer to the SNF. SNF inpatient care is necessary for the following reasons Indication for Long-Term: Med Admininistration, Other (PT/OT) - Additional Information In Event of Arrest: Start CPR,call 911,send patient to the ER Resident is Aware of Diagnosis: Yes Laboratory/Radiology: CBC and BMP in 1 week Referrals: Carmine Kearns MD [Family Provider] - 1 Week <Jarocho Pride IV - Last Filed: 04/11/17 15:47> Admission Orders Admitting Diagnosis: anemia,hypotension Admitting Physician: Jarocho Pride IV, MD Attending Physician: Jarocho Pride IV, MD Code Status: Full Code Diet: 04/10/17 Dinner Regular Diet [DIET] Diet Modifications: 04/10/17 Lunch Regular Diet [DIET] Diet Modifications: Long-Term Certification: I certify that SNF services are required to be given on an Inpatient basis because of the patients need for [facility] care on a continuing basis for the condition(s) for which he/she received inpatient hospital services prior to his/her transfer to the SNF. SNF inpatient care is necessary for the following reasons
[2017-04-11 16:32] VITALS: BP 123/68; PULSE 89; TEMP 97.7; O2SAT 97
--- NOTE | 2017-04-11 21:31 | Discharge Summary ---
<Cindy Albert - Last Filed: 04/12/17 13:53> Discharge Information Date of admission: 04/06/17 14:23 Anticipated date of discharge: 04/11/17 Attending Physician: Eugenia Pride IV, MD Primary care physician: Carmine Kearns MD Consults: 04/07/17 09:44 Physician Consult [CONS] Routine Consulting Provider: Asa Escalante Reason For Exam: melena/GI bleed Ordering Provider has Notified Building Dismantler: Yes 04/11/17 10:12 Doctor [Physician Consult] [CONS] Routine Consulting Provider: Ketan Valentino Reason For Exam: CONTINUED CARE Ordering Provider has Notified Building Dismantler: Yes - Discharge Diagnosis (1) Anemia Status: Resolved (2) Atrial fibrillation Status: Chronic (3) GI bleed Status: Resolved GI bleed-acute Acute Anemia- Hgb on admission 5.6. Transfused 2 units PRBCs 04/06, 2 units Acute Hypotension-POA Chronic Normocytic anemia Chronic anticoagulation- Xarelto Klebsiella UTI-POA Hypokalemia-04/08 Valvular heart disease- Mitral valve repair, chronic Atrial fibrillation Hypertension, chronic Rheumatoid arthritis- chronically on prednisone Migraine headaches History gastritis by EGD 2015 Esophageal candidiasis vs eosinophilic esophagitis Diverticulosis - Procedures Procedures: DATE OF SERVICE 04/07/2017 SURGEON Asa Escalante MD PREOPERATIVE DIAGNOSIS GI bleed, anemia. POSTOPERATIVE DIAGNOSIS Normal EGD. PROCEDURE Esophagogastroduodenoscopy. ANESTHESIA TIVA BRIEF HISTORY/INDICATIONS Mrs. Antunez is an 82-year-old female who has been having melanotic stools and was found to be significantly anemic upon laboratory evaluation. The patient had several large melanotic stools this morning. To further evaluate the underlying etiology of her bleeding it was recommended that she undergo esophagogastroduodenoscopy. Patient informs me that she had "stomach surgery" performed in the remote past as a result of chronic peptic ulcer disease. She states that a "good portion of the stomach was resected." FINDINGS Upon upper endoscopy it appeared that the patient had undergone a prior antrectomy with a Billroth I reconstruction. The remaining stomach was fairly small. There was not a typical appearance of the pylorus and one could directly advance the scope from the stomach and into the duodenum without noticing any type of pyloric region. The esophagus, stomach and duodenum were found to be essentially within normal limits. There was a small amount of some "whitish plaques" involving the mid esophageal region suggestive of perhaps Michelle esophagitis. The patient had been on antiplatelet therapy and I elected not to proceed with any biopsies from this area. There was, however, no evidence for bleeding. There was no blood upon the surface of the mucosa within the esophagus, stomach or duodenum. NARRATIVE OF PROCEDURE After informed consent was obtained the patient was brought to the operative suite and placed on the table in supine fashion. Patient subsequently underwent total intravenous anesthesia by the nurse freight hustler at my request. Formal time-out was then completed. Next, an Olympus gastroscope was inserted into the oral hypopharynx and subsequently the esophagus under direct visualization. Gastroscope was advanced through the esophagus, stomach, and into the duodenum. Scope was then slowly withdrawn. There was no evidence of old blood or new blood upon the mucosa within the duodenum, stomach or esophagus. Duodenal mucosa was found to be completely within normal limits. Scope was drawn back into the gastric lumen. As stated above it appeared that the patient had undergone a prior antrectomy with Billroth I reconstruction. There was no evidence for a pylorus and the stomach was of a smaller caliber. There was no evidence for gastrojejunostomy but it appeared that the patient had undergone a prior gastroduodenostomy as stated above. Scope was withdrawn back out of the small bowel and into the remaining stomach. J-maneuver was performed. Cardia and fundus of the stomach were able to be visualized and were without noted abnormalities. Endoscopically there was no evidence for hiatal hernia. Again, no ulcerations or evidence for gastritis was present. Scope was allowed to straighten and was drawn back to the level of the diaphragm. Squamocolumnar junction was located at the level of the diaphragm and was well demarcated with no endoscopic evidence for Lai's metaplasia or distal esophagitis. Scope was slowly withdrawn. One could see a few 5-6 mm whitish-like areas upon the surface of the mucosa suggestive of possible Michelle esophagitis. These whitish plaque-like areas were irrigated but were somewhat adherent to the esophageal mucosa. Again, this did not appear suspicious in nature and I elected not to proceed with any type of biopsies given the fact that she had been on antiplatelet therapy. Scope was slowly withdrawn and the remaining esophageal mucosa was found to otherwise be within normal limits. The patient tolerated the procedure without difficulty and will be sent back to the ICU once deemed in stable condition. DATE OF SERVICE 04/10/2017 SURGEON Asa Escalante MD PREOPERATIVE DIAGNOSIS Anemia, history for melanotic stools. POSTOPERATIVE DIAGNOSIS Anemia, history for melanotic stools, sigmoid diverticulosis. PROCEDURES Colonoscopy ANESTHESIA TIVA BRIEF HISTORY/INDICATIONS Mrs. Antunez is an 82-year-old female who was recently admitted to our facility as a result of the finding of marked anemia upon laboratory evaluation. The patient's hemoglobin was found on an outpatient basis to be 5.6. Shortly after admission, the patient was found to have melanotic stools. She did undergo an EGD following admission that did not reveal any etiology for her GI bleeding. It was therefore recommended that she undergo a colonoscopy for further evaluation. Patient presents today to undergo this procedure. For completeness please refer to notes included in the patient's chart. FINDINGS Upon colonoscopy there was no evidence for angiodysplastic lesions, polyps or eugenia malignancies. The patient was found to have numerous diverticula within the sigmoid colon region. It is my intuition that the patient's recent melanotic stools was likely diverticular in its etiology. DESCRIPTION OF PROCEDURE After informed consent was obtained, patient was brought to the endoscopy suite and placed on the table in left lateral decubitus position. The patient subsequently underwent total intravenous anesthesia by the nurse freight hustler per my request. Formal time-out was then completed. Next a digital rectal examination was performed. Normal sphincter tone. No rectal masses were appreciated. An Olympus colonoscope was inserted in the anus and advanced through the lumen of the colon under direct visualization at all times until the cecum was ascertained. Triangulation of the teniae coli, ileocecal valve and appendiceal lumen were all visualized. Scope was slowly withdrawn again maintaining visualization of the lumen at all times. The entire colon was without evidence for angiodysplastic lesions, polyps or eugenia malignancies. The patient was found to have numerous diverticula within the sigmoid colon region. There was no evidence for old blood upon the surface of the mucosa to suggest ongoing bleeding. Once the colonoscope was withdrawn back to the rectal vault a J-maneuver was then performed. No worrisome perianal pathology was noted. Scope was allowed to straighten and withdrawn through the anal verge. The patient tolerated the procedure without difficulty and was sent back to the preop area in stable condition. Given the patient's advanced age and the absence of findings upon this colonoscopy, I believe the patient will not need a repeat colonoscopy in her lifetime unless new specific indication should arise. One may need to address the issue of her ongoing anticoagulation from a "risk versus benefits standpoint ". Apparently the patient's log check scaler has informed the patient in the past that she did not have to continue with ongoing anticoagulation but there was some hesitancy to discontinue anticoagulation from a "stroke standpoint". - Laboratory Labs: 04/11/17 04:28 04/11/17 04:28 Laboratory Tests 04/06/17 04/07/17 04/07/17 13:11 04:33 18:09 Hgb 5.6 L* 8.6 L 12.2 D 04/08/17 04/08/17 04/09/17 00:09 04:14 05:08 Hgb 11.7 L 12.8 11.9 L 04/10/17 04/11/17 04:28 04:28 Hgb 12.3 12.9 Laboratory Tests 04/07/17 04/09/17 04/11/17 04:33 05:08 04:28 Potassium 3.5 L D 3.5 L 3.4 L Laboratory Tests 04/07/17 04:33 Digoxin 1.1 - Microbiology Urine culture grew out Klebsiella pneumoniae sensitive to all tested except ampicillin History of Present Illness HPI: Patient is an 82-year-old female who is had an long-standing history of normocytic anemia and is been followed by Dr. Tran. Yesterday she underwent an outpatient bone marrow biopsy. She was scheduled for routine CBC outpatient in which she had done today revealing significant anemia with a hemoglobin of 5.6. Daughter reported that patient has been having dark stools for the last 2 days. She has been off of her methotrexate since January and has not required a transfusion until now. Last reported hemoglobin was on 03/30 at which time her hemoglobin was 9.7.Yesterday Hgb was 6.9. Prior to this, her last transfusion was in January in which hemoglobin was down to 6.4. Patient is chronically anticoagulated on Xarelto due to Valvular disease with hx of and mitral valve repair. Today, patient was notified of her outpatient hemoglobin and was instructed to come to the emergency room for acute evaluation. Monitor studies were repeated, white count was found be slightly elevated at 13.1, RBCs 1.8, hemoglobin 5.6, hematocrit 19.8, platelet count 286. Retina and was found to be elevated at 1.4 , last creatinine from 02/22 was 0.8. Stool was Hemoccult positive. A urinalysis was obtained today showing positive nitrites, 2+ leukocyte esterase, 5-200 WBCs with clumps and 3+ bacteria. Patient was hypotensive 92/46, pulse in the 70s. Patient was typed and screened and blood transfusion was initiated while still in the ER. The hospitalist services were contacted and accepted patient for inpatient admission to the ICU for further evaluation and treatment. Patient is seen for initial examination while still in the emergency room. Her daughter, PAIGE is at the bedside. She does indicate patient has been doing fairly well since last hospitalized in January. She has been having outpatient CBCs every 2 weeks. However, has not required transfusion since the end of January. Patient has been off methotrexate, however, does continue to take prednisone for her RA. Daughter reports noticing increased weakness with dark stools for the past 2 days. This is been new for patient. She is so reports patient has complained of abdominal discomfort intermittently and takes antacids frequently. Reports this morning she was so significantly weak. She was unable to eat. She decided to do her scheduled routine labs this morning in which she found to be significantly anemic. We did discuss advanced directives with patient at the bedside and she does indicate she is a full code. Objective Vital signs: Temperature 97.7 F 04/11/17 15:23 Pulse Rate 89 04/11/17 15:23 Respiratory Rate 16 04/11/17 15:23 Blood Pressure 123/68 04/11/17 15:23 Pulse Oximetry 97 04/11/17 15:23 Rhythm: Atrial Fibrillation with Normal Ventricular Rate Height/Weight/BMI: Height 1.52 m Weight 43.5 kg Body Mass Index 19.4 - Constitutional Present: no acute distress, well nourished, well developed - Routine HEENT Exam Head: Present: normocephalic, atraumatic - Routine Respiratory Exam Present: CTA bilaterally. Absent: wheezes - Routine Cardiovascular Exam Present: irregular rhythm - Routine Abdominal Exam Present: soft, normoactive bowel sounds, non distended. Absent: tenderness - Routine Extremities Exam Present: edema (trace bilateral), normal capillary refill - Routine Skin Exam Present: dry, warm - Routine Neurological Exam Present: alert, oriented X3 - Routine Lymphatic Exam Lymphatic: Absent: adenopathy - Routine Psychiatric Exam Present: normal affect, cooperative Hospital Course This is a general summary of the patient's hospital course. For more details refer to the complete medical record. Hospital course: 04/06/17-hospital admission to CCU. Admit to CCU as a inpatient under the care of Dr Jaffe for acute anemia. Patient is type and screen for 2 units and will receive transfusion of both units today. Recheck posttransfusion hemoglobin. At this point will hold all anticoagulation, Xarelto. Anticoagulation discussed with Dr. Gomez-he is pretty slowly recommended patient discontinue however patient has been opposed due to potential risk of stroke despite clear risk of blood loss/GI bleed. Monitor patient Cardiac telemetry known hx of paroxysmal atrial fibrillation Last EGD was in 2016 that did revel mild gastritis. Patient reports increase epigastric pain recently and is taking routine Protonix BID as well as antacids frequently at home. Will schedule Protonix 40 mg IV BID for GI protection. Bacteriuria present on admission, will wait to evaluate urine culture. Patient have clear liquid diet Will discuss home medications with attending. Will need to hold antihypertensive medications given hypotension. She will likely need cardiac rate control given A-fibulation SCDs to bilateral lower extremity for DVT prophylaxis Patient does wish to be a full code and this order is written At time of discharge medical care will return to Dr. Kearns and cardiology care to Dr. Parris Gomez 04/07/17 Recurrent blood loss this morning with multiple stools described by nursing and patient. Hemoglobin had improved with transfusion yesterday but is now down to 5.7 and additional blood has been ordered. 2 additional units of blood being given today in addition to [address] Escalante consulted for EGD-study completed without demonstration of a bleeding site in the stomach or esophagus. May require colonoscopy as status permits. Patient reports last dose of Xarelto was Monday evening-typically takes with evening meal. Continue to hold. Urinary frequency (new) described by patient, gram-negative rods in urine- ceftriaxone initiated pending culture results. Continues to require close observation in ICU due to ongoing blood loss. 04/08/17 Mrs. Antunez has remained hemodynamically stable without evidence of significant blood loss overnight. She did have some dark stools but they were soft. EGD was without evidence of bleeding source; several white plaques were reported in the esophagus raising question of some fungal esophagitis but the patient denies any symptoms. Hemoglobin significantly improved after blood yesterday-in retrospect question accuracy of low hemoglobin yesterday morning. Have discussed colonoscopy to complete workup with patient and her daughter. Advised them that with colonoscopy within past 2 years we are not likely to find any pathologic source of bleeding and that nature of bleed suggested an upper source. Finding of AVM may offer treatment option however. Switch from IV to oral PPI. Headache described this morning with increased discomfort by early afternoon- patient reports using Fiorinal at home, fioricet started prn. Ceftriaxone initiated yesterday for Klebsiella UTI, sensitivities noted. Potassium supplemented, recheck in a.m. Stable to transfer out of ICU. 04/09/17 HGB is improving overall s/p transfusion. Xarelto to remain DC'd due to high risk for bleeding. Continue to hold ASA for now. Potential colonoscopy in AM for more complete screening. Bone Marrow bx did show significant iron depletion- order IV replacement. Continue HR control with Cardizem. BP is running a bit high, weight trending up. Suspect some fluid overload given IVF and transfusion- Give Lasix, KCL x 1 now. Repeat labs in AM. RA, chronically on prednisone- continue to monitor. Concern for esophageal plaquing- monitor for sx. Continue Rocephin for UTI treatment. 04/10/17 Hemoglobin is stable. Colonoscopy showed diverticulosis. Planning IV iron replacement. No more Xarelto. Will resume ASA. Encourage activity. Now on Keflex for UTI. Minimize sleeping interruptions - should be easier w/o colon prep. Diflucan for esophageal candidiasis. Rate controlled on diltiazem but BP more elevated. DC IVF and give dose lasix. monitor. 04/11/17 Patient has been accepted to retirement unit at [facility] in [place]. She and her daughters agreed to transfer there today for further strengthening. Her hemoglobin has been stable. On discharge today is 12.9. Her potassium has been slightly low on and off throughout her stay. On discharge , it is 3.4 and she was given 20 mEq oral potassium prior to discharge. Her creatinine remained stable throughout her stay. Her BUN was initially increased to 57 on admission down to 46 the following day and then continued to trend downward to normal limits. She'll have f-u appt with Dr Kearns in a week and continue on Keflex through for UTI. Needs repeat BMP and CBC in a week. Time spent with patient: greater than 35 minutes DVT Prophylaxis: SCD's Discharge Plan - Discharge Disposition Discharge Date: 04/11/17 Disposition: 03 To SNU Not [facility] (SNF) *Condition: Stable Reason For Visit (Visit label in EMR): anemia,hypotension - Discharge Medications *Discharge Medications: New Gaviscon Susp [Mag Carb/Al Hydrox/Alginic AC] 15 ml PO PC PRN suspension PRN Reason: gerd Butalb/Acetaminophen/Caffeine [Ebhifr-Pjicbsan-Conx 50-325-40] 1 - 2 each PO Q6H PRN tablet PRN Reason: Headache cephALEXin [Cephalexin] 1 tab PO TID #20 tab Continue predniSONE [Prednisone] 5 mg PO DAILY #0 Tramadol HCl 50 mg PO Q6H PRN #0 PRN Reason: PAIN Sertraline HCl 100 mg PO NOON #0 Pantoprazole Sodium 40 mg PO BID #0 Cyanocobalamin (Vitamin B-12) [Vitamin B-12] 1,000 mcg PO DAILY #0 Losartan Potassium 50 mg PO BID #0 Trazodone HCl 100 mg PO HS #0 Multivitamin [Multi-Day Vitamins] 1 tab PO DAILY #0 Aspirin [[place] Aspirin] 81 mg PO DAILY Ferrous Sulfate 325 mg PO DAILY Colchicine 0.6 mg PO BID #0 Fesoterodine Fumarate [Toviaz] 8 mg PO DAILY #0 dilTIAZem HCl [Diltiazem 24Hr ER] 180 mg PO BID #30 cap Digoxin 125 mg PO DAILY #0 tab Calcium Carbonate [Vejl-Aeg-608] 500 mg PO NOON #0 Cholecalciferol (Vitamin D3) [Vitamin D3] 1,000 unit PO NOON Discontinued Butalbital/Aspirin/Caffeine [Fiorinal] 2 each PO Q6H PRN PRN Reason: Headache Rivaroxaban [Xarelto] 20 mg PO WS Vitamin B Complex + C [Total B + C] 1 tab PO DAILY - Discharge Packet/Instructions *Diet: regular *Activity: as tolerated *Pain Management/Treatment: per med list *Wound Care: n/a *Expected Signs/Symptoms: increased strength *Notify Physician if: chest pain, SOA, increasing pain *During Business Hours Contact: nurse at [facility] *After Business Hours Contact: nurse at [facility] *Pending Lab/Results: No Pending Lab - Referrals/Follow Up *Referrals/Follow Up: Carmine Kearns MD [Family Provider] - 1 Week - Patient Handouts Patient Handouts: Hypotension (GEN), Anemia (GEN) - Dismissal Complete Discharge Instructions are:: Complete <Eugenia Pride IV - Last Filed: 04/12/17 20:43> Discharge Information Date of admission: 04/06/17 14:23 Attending Physician: Eugenia Pride IV, MD Primary care physician: Carmine Kearns MD Consults: 04/07/17 09:44 Physician Consult [CONS] Routine Consulting Provider: Asa Escalante Reason For Exam: melena/GI bleed Ordering Provider has Notified Building Dismantler: Yes 04/11/17 10:12 Doctor [Physician Consult] [CONS] Routine Consulting Provider: Ketan Valentino Reason For Exam: CONTINUED CARE Ordering Provider has Notified Building Dismantler: Yes - Discharge Diagnosis (1) Anemia Status: Resolved (2) Atrial fibrillation Status: Chronic (3) GI bleed Status: Resolved - Laboratory Labs: 04/11/17 04:28 04/11/17 04:28 Objective Vital signs: Temperature 97.7 F 04/11/17 15:23 Pulse Rate 89 04/11/17 15:23 Respiratory Rate 16 04/11/17 15:23 Blood Pressure 123/68 04/11/17 15:23 Pulse Oximetry 97 04/11/17 15:23 Height/Weight/BMI: Height 5 ft Weight 43.5 kg Body Mass Index 19.4 Hospital Course This is a general summary of the patient's hospital course. For more details refer to the complete medical record. Attestation Narriative - Attestation Attestation Narrative: 04/12/17 20:40 See my progress note of 04/11/17 at 22:44.
--- NOTE | 2017-04-11 22:48 | Progress Note ---
- Date 04/11/17 Subjective: Mrs. Antunez complained of weakness. [facility] has been arranged, and she is OK with that. One of her daughters is concerned the patient might have eosinophilic esophagitis instead of candidiasis. Objective Vital signs: Temperature 97.7 F 04/11/17 15:23 Pulse Rate 89 04/11/17 15:23 Respiratory Rate 16 04/11/17 15:23 Blood Pressure 123/68 04/11/17 15:23 Pulse Oximetry 97 04/11/17 15:23 Rhythm: Atrial Fibrillation with Normal Ventricular Rate Height/Weight/BMI: Height 5 ft Weight 43.5 kg Body Mass Index 19.4 - Constitutional Present: well nourished, well developed - Routine HEENT Exam Eye: Present: EOMI ENT: Present: mucous membranes moist, dentition normal - Routine Respiratory Exam Present: CTA bilaterally. Absent: wheezes - Routine Cardiovascular Exam Present: irregularly irregular - Routine Abdominal Exam Present: soft, normoactive bowel sounds, non distended. Absent: tenderness - Routine Extremities Exam Absent: edema Results - Labs CBC & Chem 7: 04/11/17 04:28 04/11/17 04:28 Assessment and Plan (1) Anemia Status: Resolved (2) Atrial fibrillation Status: Chronic (3) GI bleed Problem details: Melena Status: Resolved Assessment and Plan: GI bleed-acute, likely upper Acute Anemia- Hgb on admission 5.6. Transfused 2 units PRBCs 04/06, 2 units Acute Hypotension-POA Chronic Normocytic anemia Chronic anticoagulation- Xarelto Klebsiella UTI-POA Hypokalemia-04/08 Valvular heart disease- Mitral valve repair, chronic Proximal atrial fibrillation Hypertension, chronic Rheumatoid arthritis- chronically on prednisone Migraine headaches History gastritis by EGD 2016 Esophageal candidiasis diverticulosis Hemoglobin is stable. Xarelto discontinued. Back on ASA. Continue to encourage activity. Minimize sleeping interruptions - might be easier at SNU. d/w patient and family that they could hold off on Diflucan for esophageal candidiasis and consider f/u with GI. Daughter talked about making some diet changes. It was not clear whether the patient wanted to do this. Because of her hearing problems , she had trouble following the conversation. Stable for dismissal. See Discharge Summary to follow. Hospital Course Summary Disclaimer: The visit summary below is not to be considered part of the above Progress Note. Hospital Course: 04/06/17-hospital admission to CCU. Admit to CCU as a inpatient under the care of Dr Jaffe for acute anemia. Patient is type and screen for 2 units and will receive transfusion of both units today. Recheck posttransfusion hemoglobin. At this point will hold all anticoagulation, Xarelto. Anticoagulation discussed with Dr. Gomez-he is pretty slowly recommended patient discontinue however patient has been opposed due to potential risk of stroke despite clear risk of blood loss/GI bleed. Monitor patient Cardiac telemetry known hx of paroxysmal atrial fibrillation Last EGD was in 2016 that did revel mild gastritis. Patient reports increase epigastric pain recently and is taking routine Protonix BID as well as antacids frequently at home. Will schedule Protonix 40 mg IV BID for GI protection. Bacteriuria present on admission, will wait to evaluate urine culture. Patient have clear liquid diet Will discuss home medications with attending. Will need to hold antihypertensive medications given hypotension. She will likely need cardiac rate control given A-fibulation SCDs to bilateral lower extremity for DVT prophylaxis Patient does wish to be a full code and this order is written At time of discharge medical care will return to Dr. Kearns and cardiology care to Dr. Parris Gomez 04/07/17 Recurrent blood loss this morning with multiple stools described by nursing and patient. Hemoglobin had improved with transfusion yesterday but is now down to 5.7 and additional blood has been ordered. 2 additional units of blood being given today in addition to [address] Escalante consulted for EGD-study completed without demonstration of a bleeding site in the stomach or esophagus. May require colonoscopy as status permits. Patient reports last dose of Xarelto was Monday evening-typically takes with evening meal. Continue to hold. Urinary frequency (new) described by patient, gram-negative rods in urine- ceftriaxone initiated pending culture results. Continues to require close observation in ICU due to ongoing blood loss. 04/08/17 Mrs. Antunez has remained hemodynamically stable without evidence of significant blood loss overnight. She did have some dark stools but they were soft. EGD was without evidence of bleeding source; several white plaques were reported in the esophagus raising question of some fungal esophagitis but the patient denies any symptoms. Hemoglobin significantly improved after blood yesterday-in retrospect question accuracy of low hemoglobin yesterday morning. Have discussed colonoscopy to complete workup with patient and her daughter. Advised them that with colonoscopy within past 2 years we are not likely to find any pathologic source of bleeding and that nature of bleed suggested an upper source. Finding of AVM may offer treatment option however. Switch from IV to oral PPI. Headache described this morning with increased discomfort by early afternoon- patient reports using Fiorinal at home, fioricet started prn. Ceftriaxone initiated yesterday for Klebsiella UTI, sensitivities noted. Potassium supplemented, recheck in a.m. Stable to transfer out of ICU. 04/09/17 HGB is improving overall s/p transfusion. Xarelto to remain DC'd due to high risk for bleeding. Continue to hold ASA for now. Potential colonoscopy in AM for more complete screening. Bone Marrow bx did show significant iron depletion- order IV replacement. Continue HR control with Cardizem. BP is running a bit high, weight trending up. Suspect some fluid overload given IVF and transfusion- Give Lasix, KCL x 1 now. Repeat labs in AM. RA, chronically on prednisone- continue to monitor. Concern for esophageal plaquing- monitor for sx. Continue Rocephin for UTI treatment. 04/10/17 Hemoglobin is stable. Colonoscopy showed diverticulosis. Planning IV iron replacement. No more Xarelto. Will resume ASA. Encourage activity. Now on Keflex for UTI. Minimize sleeping interruptions - should be easier w/o colon prep. Diflucan for esophageal candidiasis. Rate controlled on diltiazem but BP more elevated. DC IVF and give dose lasix. monitor. 04/11/17 Patient has been accepted to fdc unit at [facility] in [place]. She and her daughters agreed to transfer there today for further strengthening. Her hemoglobin has been stable. On discharge today is 12.9. Her potassium has been slightly low on and off throughout her stay. On discharge , it is 3.4 and she was given 20 mEq oral potassium prior to discharge. Her creatinine remained stable throughout her stay. Her BUN was initially increased to 57 on admission down to 46 the following day and then continued to trend downward to normal limits.
== END 2017-04-11 16:55 | DRG 378 ==
LOC: ED 12:58 → CCU 14:13 → SUATTDRO 14:23 → CCU 14:23 → MED 04-08 12:44
PROVIDERS: ADMIT Internal Medicine; ATTEND Hospitalist
PROC: END.EGD (2017-04-07 12:00)